=== PATIENT | female | born 1960 | race Caucasian/White ===

== ENCOUNTER 2023-07-19 13:05 | Outpatient (OUT) | payer MEDICAID, SELFPAY | END 2023-07-19 13:06 | disposition home or self-care (01) | LOC: SLEEP 13:05 | PROVIDERS: PCP Family Medicine; Visit Provider Family Medicine | DX: G47.33 Obstructive sleep apnea (adult) (pediatric) (principal) | CPT/HCPCS: 95806 ==

== ENCOUNTER 2023-08-30 07:57 | Outpatient (OUT) | payer MEDICAID, SELFPAY ==
--- OUTSIDE RECORDS SUMMARY | 2023-08-30 08:06 | XMS_ITS ---
Patient Summarization (C-CDA 2.1 CCD) Created on: August 30, 2023 KALPESH GARRISON : 1960 Sex: Female Author Organization Sample organization Care Team Providers Care Private Sector Executive Name Role Phone MATTY SWANN Primary Care Unavailable LE, LORETTA Admitting Unavailable LE, LORETTA Attending Unavailable AMANDA BISHOP V Consulting Unavailable BRITNEY, LORETTA Consulting Unavailable MATTY SWANN Admitting Unavailable MATTY SWANN Attending Unavailable MATTY SWANN Primary Care Unavailable MATTY SWANN Unavailable ROGER THAKKAR Consulting Unavailable MD Matty Swann Primary Care Provider [phone] DO Joss Alatorre Emergency Provider MD Matty Swann Primary Care Provider MD Matty Swann Referring Provider Self, Referral Attending Provider Unavailable Matty Swann MD Primary Care Provider Adeel Don Attending Unavailable Matty Swann Primary Care Unavailable Adeel Don Admitting Unavailable Self, Referral Admitting Unavailable Self, Referral Attending Unavailable Matty Swann Primary Care Unavailable Matty Swann Referring Unavailable MATTY SWANN Attending Unavailable ADEEL POSEY Attending Unavailable MATTY SWANN Attending Unavailable MATTY SWANN Attending Unavailable AMTTY SWANN Attending Unavailable MATTY SWANN Attending Unavailable Allergies Allergy Classification Reported Allergen(s) Allergy Type Date of Onset Reaction(s) Facility (1 source) Sulfonamides (Antibiotic) Drug allergy (disorder) 5 [facility] (1 source) Darvocet-N 100 Drug allergy (disorder) 5 [facility] (3 sources) Acetaminophen; Translations: [acetaminophen] Drug Allergy 2 [facility] (3 sources) Propoxyphene; Translations: [propoxyphene] Drug Allergy 2 [facility] (3 sources) Sulfonamides (Antibiotic); Translations: [Sulfa (Sulfonamide Antibiotics)] Allergy to substance 2 [facility] (1 source) metFORMIN Drug Allergy 3 GI intolerance [facility] Work Phone: (1 source) Sulfonamides (Antibiotic) Drug Allergy 3 Rash [facility] (1 source) wasp venom Drug Allergy 3 Swelling [facility] Encounters Encounter Date Encounter Type Care Provider Facility Start: 08-10-2023 End: 08-10-2023 ambulatory MATTY SWANN Not Available Start: 08-02-2023 End: 08-02-2023 ambulatory MATTY SWANN Not Available Start: 06-30-2023 End: 06-30-2023 ambulatory MATTY SWANN Not Available Start: 06-13-2023 End: 06-13-2023 ambulatory MATTY SWANN Not Available Start: 05-29-2023 End: 05-29-2023 Emergency department patient visit Adeel Don Facility:[facility] Start: 05-29-2023 End: 05-29-2023 ambulatory ADEEL POSEY Not Available Start: 05-01-2023 Refill Matty brunson MD Work Phone: [facility] Comment on above: Acquired hypothyroid ism (CMS/HCC); ESS (euthyroid sick syndrome); Mixed dyslipidemia (CMS/HCC); Lichen sclerosus et atrophicus of the vulva; Acute conjunctivitis, unspecified acute conjunctivitis type, unspecified laterality Start: 04-04-2023 End: 04-04-2023 ambulatory MATTY SWANN Not Available Start: 11-09-2022 End: 11-09-2022 ambulatory Referral Self Facility:[facility] Start: 11-09-2022 End: 11-09-2022 ambulatory MD Matty Swann Work Phone: [facility] Work Phone: Start: 11-09-2022 End: 11-09-2022 Patient encounter procedure MD Matty Swann Work Phone: [facility] Work Phone: Start: 01-26-2022 End: 01-26-2022 Emergency department patient visit MD Matty Swann Work Phone: [facility] Start: 06-20-2019 End: 06-21-2019 Patient encounter procedure MATTY SWANN Facility:[facility] Start: 03-02-2019 End: 03-02-2019 Patient encounter procedure MATTY SWANN Facility:[facility] Immunizations Immunization Date Immunization Notes Care Provider Fa cility 12-29-2016 influenza, injectabl e, quadrivalent, preservative free Matty Swann MD Work Phone: [facility] 12-29-2016 influenza virus vacc ine, unspecified formulation Matty Swann MD Work Phone: [facility] Medications Current Medications Medication Drug Class(es) Dates Sig (Normalized) Sig (Original) ascorbic acid 500 mg chewable tablet (1 source) Vitamin C ascorbic acid (Vitamin C) 500 MG chewable tablet Chew 500 mg 1 (one) time each day at the same time. 0 Active atorvastatin 20 mg oral tablet (2 sources) HMG-CoA Reductase Inhibitor Start: 05-02-2023 take 1 tablet by mouth at bedtime atorvastatin (Lipitor) 20 MG tablet Indications: Mixed dyslipidemia (CMS/HCC) Take 1 tablet (20 mg) by mouth at bedtime 90 tablet 0 05/02/2023 Active Start: 01-24-2023 End: 05-01-2023 take 1 tablet by mouth once daily atorvastatin (Lipitor) 20 MG tablet Indications: Mixed dyslipidemia (CMS/HCC) take 1 tablet by mouth once daily 90 tablet 1 01/24/2023 05/01/2023 Discontinued (Reorder) cholecalciferol 0.125 mg chewable tablet (2 sources) Vitamin D take 1 tablet by mouth in the morning cholecalciferol (Vitamin D-3) 250 MCG (93819 UT) tablet Take 10,000 Units by mouth in the morning. Winter dose. 0 Active Cholecalciferol (Vitamin D3) 125 MCG (5000 UT) chewable tablet Chew 1 capsule 1 (one) time each day at the same time. Summer dose 0 Active dexamethasone 1 mg/ml / neomycin 3.5 mg/ml / polymyxin b 01153 unt/ml ophthalmic suspension (2 sources) Aminoglycoside Antibacterial, Polymyxin-class Antibacterial, Corticosteroid Start: 05-02-2023 take 1 drop(s) into the eye(s) three times daily iijbepzj-uauazfome-osdFPTGEzcbxh (Maxitrol) 0.1 % ophthalmic suspension Indications: Conjunctivitis Apply 1 drop to affected EYE three times daily for 7 days. 5 mL 0 05/02/2023 Active Start: 04-05-2023 End: 05-01-2023 take 1 drop(s) into the eye(s) three times daily ftntdvte-hxxpvxdzk-djzUDUDGrnemh (Maxitr ol) 0.1 % ophthalmic suspension Indications: Conjunctivitis Apply 1 drop to affected EYE three times daily for 7 days. 5 mL 0 04/05/2023 05/01/2023 Discontinued (Reorder) 168 hr estradiol 0.0025 mg/hr transdermal system (3 sources) Estrogen Start: 01-05-2023 End: 07-04-2023 estradiol (Climara) 0.06 MG/24HR Indications: Surgical menopause Place 1 patch over 7 days on the skin 1 (one) time per week. 4 patch 5 01/05/2023 07/04/2023 Active Start: 08-20-2017 End: 06-29-2021 apply 1 dose topically every week Estradiol Discontinued 1 PATCH TOPICAL every week August 20, 2017 12:00am June 29, 2021 2:40am fluconazole 200 mg oral tablet (2 sources) Azole Antifungal Start: 04-04-2023 End: 07-25-2023 take 1 tablet by mouth in the morning fluconazole (Diflucan) 200 MG tablet Indications: Candidiasis Take 1 tablet (200 mg) by mouth in the morning. 14 tablet 1 05/02/2023 07/25/2023 Active levothyroxine sodium 0.025 mg oral tablet (4 sources) l-Thyroxine Start: 06-29-2021 take 12.5 ug by mouth twice daily Levothyroxine Active 12.5 MCG PO Twice daily June 29, 2021 12:00am Start: 08-20-2017 End: 06-29-2021 take 75 ug by mouth once daily Levothyroxine Discontin ued 75 MCG PO daily August 20, 2017 12:00am Silvia 4th, 2022 2:40am Magnesium (1 source) take 1 tablet by mouth once daily magnesium 200 MG tablet Take 200 mg by mouth 1 (one) time each day at the same time. 0 Active thyroid ([facility]) 15 mg oral tablet (4 sources) Start: 10-28-2022 End: 06-01-2023 take 3 tablets by mouth in the morning thyroid ([place] Thyroid) 15 MG tablet Indications: Acquired hypothyroidism (CMS/HCC) , ESS (euthyroid sick syndrome) Take 3 tablets (45 mg) by mouth in the morning and 3 tablets (45 mg) in the evening. Take before meals. 180 tablet 0 05/02/2023 06/01/2023 Active Start: 06-29-2021 take 1 tablet by marlon th twice daily Thyroid ([place]) (Dialysis Technician Thyroid) 90 mg tablet Active 90 MG PO Twice daily June 29, 2021 12:00am Zinc (1 source) take 1 tablet by mouth once edith y zinc 25 MG tablet Take 25 mg by mouth 1 (one) time each day at the same time. 0 Active Completed/Discontinued Medications Medication Drug Class(es) Dates Sig (Normalized) Sig (Original) liothyronine sodium 0.005 mg oral tablet (2 sources) l-Triiodothyroni ne Start: 08-20-2017 End: 06-29-2021 take 7.5 ug by mouth twice daily Liothyronine Discontinued 7.5 MCG PO Twice daily August 20, 2017 12:00am June 29, 2021 2:40am Payers Date Payer Category Payer Self-pay [id number] 2022 Medicaid [place] [id number] 2022-Present [address] [place] [address] [id number] 1960 Unknown [id number] 1960 Unknown [id number] 1960 Unknown [id number] 1960 Unknown [id number] 1960 Unknown [id number] 1960 Unknown [id number] 1960 Unknown [id number] 1960 Unknown [id number] 1957 Medicaid [id number] 1957 Self-pay [id number] Medicaid [place] Advantage [id number] Unknown MMO [id number] Unknown [id number] Unknown [id number] Plan of Treatment Date Care Activity Detail Author Start: 02-12-2025 Screening for malign ant neoplasm of colon [facility] Start: 06-30-2023 End: 06-30-2023 Patient encounter procedure 06/30/2023 2:30 PM EDT Office Visit [facility] [address] [place] [address] Matty Swann MD [address] [place] [address] (Fax) [facility] Start: 11-26-2022 Influenza vaccination Influenza Vacc ine (#1) [facility] Start: 05-30-2021 Screening for malign ant neoplasm of breast Mammogram [facility] Start: 1960 Screening for malign ant neoplasm of colon [facility] Patient Education Chest Pain (DC) [facility] Work Phone: Patient referral [facility] Work Phone: Problems Active Problems Problem Classification Problem Date Documented Date Episodic/Chronic Chronic kidney disease (1 source) Chronic kidney disease stage 2; Translations: [Chronic kidney disease, stage 2 (mild)] Onset: 09-15-2022 09-15-2022 Chronic Complications of surgical procedures or medical care (1 source) Postsurgical menopause; Translations: [Asymptomatic postprocedural ovarian failure] Onset: 04-09-2015 09-15-2022 Chronic Disorders of lipid metabolism (2 sources) Dyslipidemia; Translations: [Mixed hyperlipidemia] Onset: 09-15-2022 05-01-2023 Chronic Essential hypertension (1 source) Essential hypertension; Translations: [Essential (primary) hypertension] Onset: 09-15-2022 09-15-2022 Chronic Hepatitis (1 source) Nonalcoholic steatohepatitis; Translations: [Nonalcoholic steatohepatitis (HADDAD)] Onset: 09-15-2022 09-15-2022 Chronic Hypertension with complications and secondary hypertension (1 source) Hypertensive renal disease; Translations: [Hypertensive chronic kidney disease with stage 1 through stage 4 chronic kidney disease, or unspecified chronic kidney disease] Onset: 09-15-2022 09-15-2022 Chronic Inflammation; infection of eye (except that caused by tuberculosis or sexually transmitteddisease) (2 sources) Acute conjunctivitis; Translations: [Unspecified acute conjunctivitis, unspecified eye] Onset: 04-04-2023 05-01-2023 Episodic Joint disorders and dislocations; trauma-related (2 sources) Disorder of right patellofemoral joint; Translations: [Patellofemoral disorders, right knee] Onset: 05-05-2016 09-15-2022 Chronic Joint disorders and dislocations; trauma-related (1 source) Disorder of left patellofemoral joint; Translations: [Patellofemoral disorders, left knee] Onset: 05-05-2016 09-15-2022 Chronic Malaise and fatigue (1 source) Fatigue; Translations: [Chronic fatigue, unspecified] Onset: 04-09-2015 09-15-2022 Chronic Malaise and fatigue (1 source) Other fatigue; Translations: [Other fatigue] Onset: 05-29-2023 Episodic Nonspecific chest pain (2 sources) Chest pain; Translations: [Chest pain, unspecified] 01-26-2022 Episodic Nutritional deficiencies (1 source) Vitamin D deficiency; Translations: [Vitamin D deficiency, unspecified] Onset: 01-22-2015 09-15-2022 Chronic Other congenital anomalies (1 source) Congenital valgus deformity of foot; Translations: [Other congenital valgus deformities of feet] Onset: 09-15-2022 09-15-2022 Chronic Other congenital anomalies (1 source) Talipes planus; Translations: [Other congenital valgus deformities of feet] Onset: 09-20-2021 09-15-2022 Chronic Other female genital disorders (2 sources) Leukoplakia of vulva; Translations: [Circumscribed scleroderma] Onset: 09-15-2022 05-01-2023 Episodic Other liver diseases (1 source) Fatty (change of) liver, not elsewhere classified; Translations: [Other chronic nonalcoholic liver disease] Onset: 03-06-2019 09-15-2022 Chronic Other nutritional; endocrine; and metabolic disorders (1 source) Severe obesity; Translations: [Morbid (severe) obesity due to excess calories] Onset: 12-25-2019 09-15-2022 Chronic Other nutritional; endocrine; and metabolic disorders (1 source) Obese class II; Translations: [Obesity, unspecified] Onset: 04-15-2020 09-15-2022 Chronic Pancreatic disorders (not diabetes) (1 source) Acute pancreatitis without necrosis or infection, unspecified; Translations: [ACUTE PANCREATITIS WO NECRS/INF UNS] Onset: 03-05-2019 Thyroid disorders (3 sources) Hypothyroidism, unspecified; Translations: [Acquired hypothyroidism] Onset: 01-22-2015 05-01-2023 Chronic Thyroid disorders (2 sources) Sick-euthyroid syndrome; Translations: [Sick-euthyroid syndrome] Onset: 05-14-2015 05-01-2023 Episodic Unclassified (1 source) Cough, unspecified; Translations: [Cough, unspecified] Onset: 05-29-2023 Unclassified (1 source) Encounter for screening mammogram for malignant neoplasm of breast; Translations: [Encounter for screening mammogram for malignant neoplasm of breast] Onset: 11-09-2022 Past or Other Problems Problem Classification Problem Date Documented Da te Episodic/Chronic Acquired foot deformities (1 source) Acquired pes planus of left foot; Translations: [Flat foot [pes planus] (acquired), left foot] Onset: 7 09-15-2022 Episodic Allergic reactions (1 source) Gastrointestinal disorder due to food allergy; Translations: [Other allergic and dietetic gastroenteritis and colitis] Onset: 6 09-15-2022 Episodic Cardiac dysrhythmias (1 source) Palpitations; Translations: [Palpitations] Onset: 5 09-15-2022 Episodic Diabetes mellitus without complication (1 source) Prediabetes; Translations: [Prediabetes] Onset: 3 09-15-2022 Episodic Gastritis and duodenitis (1 source) Acute gastritis without bleeding; Translations: [ACUTE GASTRITIS WITHOUT BLEEDING] Onset: 9 Episodic Genitourinary symptoms and ill-defined conditions (1 source) Microalbuminuria; Translations: [Proteinuria, unspecified] Onset: 3 09-15-2022 Episodic Other acquired deformities (1 source) Leg length inequality; Translations: [Unequal limb length (acquired), unspecified site] Onset: 7 09-15-2022 Episodic Other diseases of veins and lymphatics (1 source) Peripheral venous insufficiency; Translations: [Venous insufficiency (chronic) (peripheral)] Onset: 2 09-15-2022 Episodic Other female genital disorders (1 source) Leukoplakia of vulva; Translations: [Leukoplakia of vulva] Onset: 5 09-15-2022 Episodic Other gastrointestinal disorders (4 sources) Diarrhea, unspecified; Translations: [DIARRHEA UNSPECIFIED] Onset: 9 Episodic Other screening for suspected conditions (not mental disorders or infectious disease) (4 sources) Abnormal electrocardiogram [ECG] [EKG]; Translations: [ABNORMAL ELECTROCARDIOGRAM] Onset: 0 Episodic Residual codes; unclassified (1 source) Family history of ischemic heart disease and other diseases of the circulatory system; Translations: [FAM HX ISCHEMIC HRT DZ OTH DZ CIRC] Onset: 0 Episodic Residual codes; unclassified (1 source) Acquired absence of both cervix and uterus; Translations: [ACQUIRED ABSENCE BOTH CERVIX AND UTERUS] Onset: 9 Episodic Residual codes; unclassified (1 source) Acquired absence of ovaries, bilateral; Translations: [ACQUIRED ABSENCE OVARIES BILATERAL] Onset: 9 Episodic Residual codes; unclassified (1 source) Acquired absence of cervix and uterus; Translations: [Acquired absence of both cervix and uterus] Onset: 3 09-15-2022 Episodic Residual codes; unclassified (1 source) Persistent insomnia; Translations: [Insomnia, unspecified] Onset: 3 09-15-2022 Episodic Residual codes; unclassified (1 source) Sleep disorder; Translations: [Sleep disorder, unspecified] Onset: 5 09-15-2022 Episodic Procedures Date Procedure Procedure Detail Performing Clinician Start: 11-09-2022 Screening mammograph y of bilateral breasts MD Matty Swann Work Phone: Start: 01-26-2022 Plain chest X-ray MD Romain Swann Work Phone: Start: 05-30-2020 Mammography Matty razo MD Work Phone: Start: 02-12-2015 Colonoscopy Matty razo MD Work Phone: SARS Antigen (LFIA) MD José Swann Work Phone: Results Test Name Value Interpretation Reference Range Facility COVID-19 / Flu A/B / RSV PCR on 05-29-2023 SARS-CoV-2 (COVID-19) RNA CARLOS+probe Ql (Unsp spec) COVID-19 Cepheid Result Negative for SARS-CoV-2 RNA by RT-PCR Flu A Cepheid Result Negative for Flu A RNA by RT-PCR Flu B Cepheid Result Negative for Flu B RNA by RT-PCR RSV Cepheid Result Negative for RSV RNA by RT-PCR COVID19 Blank Space -- Reference: Negative COVID19 Blank Space -- Cepheid Disclaimer The Cepheid Xpert Xpress CoV-2/Flu/RSV Plus has Cepheid Disclaimer not been FDA cleared or approved; this test has Cepheid Disclaimer been authorized by FDA under an EUA for use by Cepheid Disclaimer authorized laboratories; this test has been Cepheid Disclaimer authorized only for the simultaneous qualitative Cepheid Disclaimer detection and differentiation of nucleic acids from Cepheid Disclaimer SARS-CoV-2, influenza A, influenza B, and Cepheid Disclaimer respiratory syncytial virus (RSV), and not for any Cepheid Disclaimer other viruses or pathogens; and this test is only Cepheid Disclaimer authorized for the duration of the declaration that Cepheid Disclaimer circumstances exist justifying the authorization of Cepheid Disclaimer emergency use of in vitro diagnostic tests for Cepheid Disclaimer detection and/or diagnosis of COVID-19 under Cepheid Disclaimer Section 564(b)(1) of the Act, 21 U.S.C. 360bbb- Cepheid Disclaimer 3(b)(1), unless the authorization is terminated or Cepheid Disclaimer revoked sooner. PERFORMED BY: [facility] [address] [id number] PATHOLOGIST MILLING MACHINE TENDER PUJA MOODY M.D. Normal [facility] Comment on above: Performed By: #### C EPHEID NEG, COVID19 FLU RSV #### [facility] [address] Cepheid COVID PCR Negativeon 05-29-2023 SARS-CoV-2 (COVID-19) RNA CARLOS+probe Ql (Unsp spec) Negative Normal Negative [facility] Comment on above: Result Comment: This is a duplicate Cepheid Xpert Xpress CoV-2/Flu/RSV Plus RNA by RT-PCR result to be used for statistical tracking purpose only. PERFORMED BY: [place] [id number] PATHOLOGIST MILLING MACHINE TENDER PUJA MOODY M.D. Performed By: #### C EPHEID NEG, COVID19 FLU RSV #### [place] [id number] [facility] ECG 12 lead ECGon 05-29-2023 ECG 12 lead ECG [facility] [place] [address] Electrocardiograph Report Signed Patient: Kalpesh Garrison MR#: [id number] 2 : 1960 Acct:[id number] Age/Sex: 63 / F ADM Date: 05/29/23 Loc: ER Room: Type: [facility] ER Attending Dr: Ordering Provider: Adeel Don APRN Date of Service: 05/29/2306/18/1433 ECG/ECG 12 lead ECG: Shortness of Breath/Dyspnea Copies to: Test Reason : Blood Pressure : / mmHG Vent. Rate : 067 BPM Atrial Rate : 067 BPM P-R Int : 156 ms QRS Dur : 070 ms QT Int : 416 ms P-R-T Axes : 030 026 014 degrees QTc Int : 439 ms Normal sinus rhythm Normal ECG When compared with ECG of 26-JAN-2022 16:25, No significant change was found Confirmed by IGNACIO GARCIA MD ([id number]) on 05/29/2023 3:27:56 PM Referred By: Electronically Signed By:IGNACIO GARCIA MD Transcribed By: MUS Signed By Ignacio Garcia MD 05/29/23 1528 Normal [facility] XR chest 2V*on 05-29-2023 XR chest 2V* [facility] [place] [address] XRay Report Signed Patient: Kalpesh Garrison MR#: [id number] 2 : 1960 Acct:[id number] Age/Sex: 63 / F ADM Date: 05/29/23 Loc: ER Room: Type: [facility] ER Attending Dr: Copies to: Adeel Don APRN Ordering Provider: Adeel Don APRN Date of Service: 05/29/23 XR/XR chest 2V*: Shortness of Breath/Dyspnea Chest 2 views CLINICAL HISTORY: Chest pressure cough green mucus trouble breathing for 2 weeks COMPARISON: Chest 01/26/2022 FINDINGS: Heart normal in size. Lungs are clear. No free air. XR/XR chest 2V* IMPRESSION: NO ACUTE CARDIOPULMONARY ABNORMALITY. Impression dictated by: Renato Gillis Jr., DJadenOJaden05/29/2023 4:18 PM Dictation Location: [facility] Transcribed By: [facility] 05/29/23 1618 Dictated By: Renato Gillis Jr, DO 05/29/23 1617 Signed By: 05/29/23 1618 Normal [facility] MM screening mammo BI w/CADo n 11-09-2022 MM screening mammo BI w/CAD [facility] [address] Mammography Report Signed Patient: Kalpesh Garrison MR#: [id number] 2 : 1960 Acct:[id number] Age/Sex: 62 / F ADM Date: 11/09/22 Loc: [place] Room: Type: [facility] Attending Dr: Referral Self Copies to: Matty Swann MD SELF,REFERRAL Ordering Provider: SELF,REFERRAL Date of Service: 11/09/22 MM/MM screening mammo BI w/CAD: SCREENING CLINICAL DATA: Screening for malignancy. BILATERAL SCREENING MAMMOGRAMS - FULL FIELD DIGITAL WITH TOMOSYNTHESIS AND CAD Tomosynthesis craniocaudal and mediolateral oblique views of both breasts were obtained using low- dose digital technique. Comparison is made to prior studies from 06/10/2017, 02/26/2015, and 11/23/2013. This examination was reviewed with the aid of CAD. The breast parenchyma has been largely replaced by fat. Benign-appearing lymph nodes are noted along the chest wall bilaterally. There are similar focal asymmetries bilaterally. Benign-appearing calcifications are present bilaterally similar to the prior exam. There are no dominant masses, typically malignant calcifications or architectural distortion. There has been no significant interval change. MM/MM screening mammo BI w/CAD IMPRESSION: NO MAMMOGRAPHIC EVIDENCE OF MALIGNANCY. ROUTINE FOLLOW-UP IS RECOMMENDED IN ONE YEAR. RESULT CODE: 2 Benign Findings(s) DENSITY CODE: 1 (<25% glandular) FOLLOW UP: 1YR The false-negative rate of mammography is approximately 10-percent. Management of a palpable abnormality must be based on clinical grounds. Patient was entered into a reminder system with a target due date for the next mammogram. Impression dictated by: Michael Lassiter M.D.11/09/2022 4:19 PM Dictation Location: [facility] Transcribed By: CHRISSY 11/09/22 161 Dictated By: Michael Lassiter II, MD 11/09/22 1614 Signed By: 11/09/22 1619 Normal [facility] Activated partial thrombopla stin time (aPTT) in platelet poor plasma by coagulation aOrdered By: Joss Alatorre on 01-26-2022 aPTT Coag (PPP) [Time] 31.2 s 25.1-36.5 [facility] Automated erythrocytes count in urine sediment (number/area)Ordered By: Joss Alatorre on 01-26-2022 RBC Auto (Urine sed) [#/Area] 0-1 [HPF] 0-4 [facility] Automated leukocytes count i n urine sediment (number/area)Ordered By: Joss Alatorre on 01-26-2022 WBC Auto (Urine sed) [#/Area] 1-2 [HPF] 0-4 [facility] Basophils Auto (Bld) [#/Vol] Ordered By: Joss Alatorre on 01-26-2022 Basophils (Bld) [#/Vol] 0.1 10*3/uL 0.0-0.2 [facility] Basophils/100 WBC Auto (Bld) Ordered By: Joss Alatorre on 01-26-2022 Basophils/100 WBC (Bld) 0.8 % . [facility] Bilirubin Test strip Ql (U)O rdered By: Joss Alatorre on 01-26-2022 Bilirubin Ql (U) Negative Negative [facility] COVID-19 SOFIAOrdered By: Shree Siddiqui on 01-26-2022 SARS-CoV+SARS-CoV-2 (COVID-19) Ag IA.rapid Ql (Resp) Negative Negative [facility] Comment on above: This is a duplicate Ria SARS Antigen (NELLIE) result to be used for statistical tracking purpose only. Color Auto (U)Ordered By: Henry Alatorre on 01-26-2022 Color (U) Yellow Yellow [facility] Creatine kinase [Enzymatic a ctivity/volume] in Serum or PlasmaOrdered By: Joss Alatorre on 01-26-2022 CK [Catalytic activity/Vol] 102 U/L 22-269 [facility] Creatinine and Glomerular fi ltration rate.predicted panel (S/P/Bld)Ordered By: Joss Alatorre on 01-26-2022 Creatinine [Mass/Vol] 0.81 mg/dL 0.44-1.03 [facility] Eosinophils Auto (Bld) [#/Vo l]Ordered By: Joss Alatorre on 01-26-2022 Eosinophils (Bld) [#/Vol] 0.3 10*3/uL 0.0-0.45 [facility] Eosinophils/100 WBC Auto (Bl d)Ordered By: Joss Alatorre on 01-26-2022 Eosinophils/100 WBC (Bld) 3.7 % . [facility] Erythrocyte distribution wid th Auto (RBC) [Ratio]Ordered By: Joss Alatorre on 01-26-2022 Erythrocyte distribution width (RBC) [Ratio] 13.6 % 11.9-15.3 [facility] Estimated glomerular filtrat ion rate (GFR) non- AmericanOrdered By: Joss Alatorre on 01-26-2022 GFR/1.73 sq M.predicted among non-blacks MDRD (S/P/Bld) [Vol rate/Area] > 60 mL/Min [facility] Hematocrit Auto (Bld) [Volum e fraction]Ordered By: Joss Alatorre on 01-26-2022 Hematocrit (Bld) [Volume fraction] 40.5 % 34.0-46.4 [facility] Hemoglobin [Mass/volume] in BloodOrdered By: Joss Alatorre on 01-26-2022 Hemoglobin (Bld) [Mass/Vol] 13.6 g/dL 11.8-15.4 [facility] Ketones Auto test strip (U) [Mass/Vol]Ordered By: Joss Alatorre on 01-26-2022 Ketones (U) [Mass/Vol] Negative Negative [facility] Laboratory - Chemistry and C hemistry - challengeOrdered By: Joss Alatorre on 01-26-2022 Natriuretic peptide B (Bld) [Mass/Vol] 14.0 pg/mL 5-100 [facility] Laboratory - CoagulationOrde red By: Joss Alatorre on 01-26-2022 PT Coag (PPP) [Time] 11.8 s 9.0-12.9 [facility] Laboratory - Hematology and Cell countsOrdered By: Joss Alatorre on 01-26-2022 Nucleated RBC/100 WBC (Bld) [Ratio] 0.1 % 0-0.5 [facility] Laboratory - UrinalysisOrder ed By: Joss Alatorre on 01-26-2022 Hyaline casts LM Ql (Urine sed) 0-8 [LPF] 0-8 [facility] Leukocytes [#/volume] in Blo od by Automated countOrdered By: Joss Alatorre on 01-26-2022 WBC (Bld) [#/Vol] 7.1 10*3/uL 4.5-11.0 [facility] Lymphocytes Auto (Bld) [#/Vo l]Ordered By: Joss Alatorre on 01-26-2022 Lymphocytes (Bld) [#/Vol] 2.9 10*3/uL 1.00-4.8 [facility] Lymphocytes/100 WBC Auto (Bl d)Ordered By: Joss Alatorre on 01-26-2022 Lymphocytes/100 WBC (Bld) 40.5 % . [facility] MCH Auto (RBC) [Entitic mass ]Ordered By: Joss Alatorre on 01-26-2022 MCH (RBC) [Entitic mass] 29.8 pg 24.7-34.3 [facility] MCHC Auto (RBC) [Mass/Vol]Or dered By: Joss Alatorre on 01-26-2022 MCHC (RBC) [Mass/Vol] 33.5 g/dL 32.0-35.0 [facility] MCV Auto (RBC) [Entitic vol] Ordered By: Joss Alatorre on 11-01-2022 MCV (RBC) [Entitic vol] 88.8 fL 80-100 [facility] Monocytes Auto (Bld) [#/Vol] Ordered By: Joss Alatorre on 01-26-2022 Monocytes (Bld) [#/Vol] 0.5 10*3/uL 0.0-0.8 [facility] Monocytes/100 WBC Auto (Bld) Ordered By: Joss Alatorre on 01-26-2022 Monocytes/100 WBC (Bld) 6.8 % . [facility] Neutrophils Auto (Bld) [#/Vo l]Ordered By: Joss Alatorre on 01-26-2022 Neutrophils (Bld) [#/Vol] 3.4 10*3/uL 1.8-7.7 [facility] Neutrophils/100 WBC Auto (Bl d)Ordered By: Joss Alatorre on 01-26-2022 Neutrophils/100 WBC (Bld) 48.2 % . [facility] Nitrite Test strip Ql (U)Ord ered By: Joss Alatorre on 01-26-2022 Nitrite Ql (U) Negative Negative [facility] No Panel InformationOrdered By: Joss Alatorre on 01-26-2022 Estimated GFR () > 60 mL/Min [facility] Comment on above: GFR estimated refere nce range: According to KDOQI guidelines, <60 ml/min/1.73m2 is sufficient to diagnose a patient with chronic kidney disease. Pharmacy Creatinine Clearance (Chem 85.64 [facility] No Panel InformationOrdered By: Luis Siddiqui on 01-26-2022 SARS Antigen (LFIA) [facility] Platelet mean volume Auto (B ld) [Entitic vol]Ordered By: Joss Alatorre on 01-26-2022 Platelet mean volume (Bld) [Entitic vol] 6.2 fL 6.3-10.7 [facility] Platelet poor plasma interna tional normalized ratio (INR) by coagulation assay (relatOrdered By: Joss Alatorre on 01-26-2022 INR Coag (PPP) [Relative time] 1.0 {INR} [facility] Comment on above: INR Therapeutic Rang e A) Pre- and Peroperative OAT started two weeks before surgery. NOT HIP SURGERY: 1.5 - 2.5 HIP SURGERY: 2 - 3B) Primary and secondary prevention of venous THROMBOSIS: 2 - 3C) Active venous thrombosis, pulmonary embolismand prevention of recurrent venous thrombosis: 2 - 3D) Prevention of arterial thromboembolismincluding patients with mechanical heart valves: 3 - 4.5 Platelets Auto (Bld) [#/Vol] Ordered By: Joss Alatorre on 01-26-2022 Platelets (Bld) [#/Vol] 368 10*3/uL 150-450 [facility] Protein Auto test strip (U) [Mass/Vol]Ordered By: Joss Alatorre on 01-26-2022 Protein (U) [Mass/Vol] Negative Negative Fi [facility] RBC Auto (Bld) [#/Vol]Ordere d By: Joss Alatorre on 01-26-2022 RBC (Bld) [#/Vol] 4.57 10*6/uL 3.60-5.00 [facility] Serum or plasma anion gap de terminationOrdered By: Joss Alatorre on 01-26-2022 Anion gap [Moles/Vol] 13.2 mmol/L 6.0-15.0 [facility] Serum or plasma calcium royce urement (mass/volume)Ordered By: Joss Alatorre on 01-26-2022 Calcium [Mass/Vol] 8.9 mg/dL 8.2-10.2 [facility] Serum or plasma chloride odell surement (moles/volume)Ordered By: Joss Alatorre on 01-26-2022 Chloride [Moles/Vol] 101 mmol/L 95-114 [facility] Serum or plasma creatine kin ase MB (CKMB)/total creatine kinase (CK) ratio by calculaOrdered By: Joss Alatorre on 01-26-2022 CK.MB Calc [Catalytic fraction] 3.0 % 0.00-2.50 [facility] Serum or plasma creatine kin ase MB measurement (mass/volume)Ordered By: Joss Alatorre on 01-26-2022 CK.MB [Mass/Vol] 3.1 ng/mL 0.6-6.3 [facility] Serum or plasma glucose royce urement (mass/volume)Ordered By: Joss Alatorre on 01-26-2022 Glucose [Mass/Vol] 143 mg/dL 70-100 [facility] Comment on above: ADA recommended refe rence rangeRandom Glucose Reference Range is dependent on time and content of last meal. Glucose of more than 200 mg/dL in a nonstressed, ambulatory subject supports the diagnosis of Diabetes Mellitus. Serum or plasma potassium me asurement (moles/volume)Ordered By: Joss Alatorre on 01-26-2022 Potassium [Moles/Vol] 3.9 mmol/L 3.5-5.1 [facility] Serum or plasma sodium measu rement (moles/volume)Ordered By: Joss Alatorre on 01-26-2022 Sodium [Moles/Vol] 136 mmol/L 136-146 [facility] Serum or plasma total carbon dioxide measurement (moles/volume)Ordered By: Joss Alatorre on 01-26-2022 CO2 [Moles/Vol] 25.7 mmol/L 22.0-30.0 [facility] Serum or plasma urea nitroge n measurement (mass/volume)Ordered By: Joss Alatorre on 01-26-2022 Urea nitrogen [Mass/Vol] 13 mg/dL 9-23 [facility] Specific gravity Auto test s trip (U) [Rel density]Ordered By: Joss Alatorre on 01-26-2022 Specific gravity (U) [Rel density] 1.020 1.001-1.03 0 [facility] Squamous epithelial cells de tection in urine sediment by light microscopyOrdered By: Joss Alatorre on 01-26-2022 Epithelial cells.squamous LM Ql (Urine sed) 3-4 [HPF] 0-2 [facility] Troponin I.cardiac [Mass/vol ume] in Serum or Plasma by High sensitivity methodOrdered By: Joss Alatorre on 01-26-2022 Troponin I.cardiac High sensitivity method [Mass/Vol] 3 pg/mL 0-15 [facility] Urine bacteria detection by automated methodOrdered By: Joss Alatorre on 01-26-2022 Bacteria Auto Ql (U) None seen None Seen [facility] Urine clarity by refractomet ry automatedOrdered By: Joss Alatorre on 01-26-2022 Clarity Refractometry automated (U) Clear Clear [facility] Urine glucose measurement by automated test strip (mass/volume)Ordered By: Joss Alatorre on 01-26-2022 Glucose Auto test strip (U) [Mass/Vol] Normal mg/dL Normal [facility] Urine hemoglobin detection b y automated test stripOrdered By: Joss Alatorre on 01-26-2022 Hemoglobin Auto test strip Ql (U) Negative Negative [facility] Urine leukocyte esterase det ection by automated test stripOrdered By: Joss Alatorre on 01-26-2022 Leukocyte esterase Auto test strip Ql (U) 2+ Negative [facility] Urobilinogen Auto test strip (U) [Mass/Vol]Ordered By: Joss Alatorre on 01-26-2022 Urobilinogen (U) [Mass/Vol] Normal mg/dL Normal [facility] pH Auto test strip (U)Ordere d By: Joss Alatorre on 01-26-2022 pH (U) 6.0 [pH] 5.0-9.0 [facility] Q - T3 TOTALon 04-10-2021 T3, TOTAL 121 ng/dL Normal 76-181 [facility] Comment on above: Order Comment: [facility] performed at: [facility], [address] [facility], [address] [place] [address], [phone], Baton Twirler: Jensen Patiño MD [facility] Collection Date/Time: [facility] Results Received Date/Time: [facility] Reported Date/Time: FASTING: NO Performed By: #### T SH, 859X, [id number], [id number], [id number] #### [facility] [address] [place] [address] Q - T3,FREEon 04-10-2021 Free T3 [Mass/Vol] 3.2 pg/mL Normal 2.3-4.2 [facility] B[facility] Preparer Comment on above: Order Comment: [facility] performed at: [facility], [facility], [address] [facility], [address] [place] [address], [phone], Baton Twirler: Jensen Patiño MD [facility] Date/Time: [facility] Results Received Date/Time: [facility] Reported Date/Time: FASTING: NO Performed By: #### T BERTO, 859X, [id number], [id number], [id number] #### [facility] [address] [place] [address] Q - T3,REVERSE,LC/MS/MSon T3 REVERSE, LC/MS/MS 12 ng/dL Normal 8-25 [place] [facility] Comment on above: Order Comment: [facility] performed at: [facility], [facility], [address], [place], [place], , Baton Twirler: Davie Lee M.D.,PhD [facility] Date/Time: [facility] Results Received Date/Time: [facility] Reported Date/Time: FASTING: NO Result Comment: This test was developed and its analytical performance characteristics have been determined by [facility] [place], [place]. It has not been cleared or approved by the U.S. Food and Drug Administration. This assay has been validated pursuant to the CLIA regulations and is used for clinical purposes. Performed By: #### T BERTO, 859X, 10457, 60291K, [id number] #### [facility] [address] [place] [address] Q - T4,FREEon 04-10-2021 Free T4 [Mass/Vol] 0.9 ng/dL Normal 0.8-1.8 Kandy montero [place] [facility] [employer] Comment on above: Order Comment: [facility] performed at: [facility], [facility], [address] [facility], [address] [place] [address], [place], [phone], Baton Twirler: Jensen Patiño MD [facility] Date/Time: [facility] Results Received Date/Time: [facility] Reported Date/Time: FASTING: NO Performed By: #### T BERTO, 859X, 77725, [id number], [id number] #### [facility] [address] [place] [address] TSHon 04-10-2021 TSH Qn 0.84 m[IU]/L Normal 0.40-4.50 [facility] Bead Preparer Comment on above: Order Comment: [facility] performed at: [facility], [facility], [address] [facility], [address] [facility], [place], [address], Baton Twirler: Jensen Patiño MD [facility] Date/Time: [facility] Results Received Date/Time: [facility] Reported Date/Time: FASTING: NO Performed By: #### T SH, 859X, 48178, [id number], [id number] #### [facility] [address] [place] [address] [place] STRESS/REST MULTIon 06-19 [place] STRESS/REST MULTI Patient: KEVIN GARRISON Exam Date: 06/20/2019 : 1960 Gender:F Ordering : DR MATTY SWANN . Admission #: [id number] Family : Order #: [id number] CLICK HERE TO VIEW EXAM RADIOLOGY REPORT PROCEDURE: RADIONUCLIDE IMAGING STRESS/REST MULTI COMPARISON: None. INDICATIONS: Abnormal find on electrocardiogram R94.31, family history of heart disease Z82.49 TECHNIQUE: Exam Description: Stress/Rest one day protocol gated SPECT Rest Imagin.9 mCi Tc-99m Cardiolite IV on 06/20/2019 Stress Imaging 29.5 mCi Tc-99m Cardiolite IV on 06/20/2019 Exercise Protocol: Myles Heart Rate (bpm): Rest: 84 Max: 167 PMHR: 102 Blood Pressure: Rest: 128/86 Max: 180/100 Exercise Time: Minutes: 5 Seconds: 30 Stage Reached: Stage: 2 Mets 7.0 Symptoms: Rest and peak stress ECG findings were non-diagnostic and the exercise portion of the study was Non-diagnostic per attending physician Dr. Ward due toEKG changes. For more details please see separate cardiac stress test report. FINDINGS: QUALITY OF STUDY: Excellent. PERFUSION DEFECT: None. LOCATION: N/A SIZE: N/A. SEVERITY: N/A. TYPE: N/A. WALL MOTION: Normal. LV SIZE: Normal. 42 mL. TID / TCD: None; 0.7 LVEF: Normal. Calculated EF 78%. SUMMARY: Myocardial perfusion imaging study is NORMAL. CONCLUSION: 1. Normal nuclear medicine myocardial perfusion scan. 2. Abnormal exercise portion of the study due to EKG changes. Dictated by: Roger Thakkar M.D. on 06/20/2019 at 13:01 Approved by: Roger Thakkar M.D. on 06/20/2019 at 13:02 Normal [facility] CBC AUTO DIFFon 03-02-2019 Basophils (Bld) [#/Vol] 0.0 103/ul Normal 0.0-0.1 [facility] Comment on above: Performed By: #### C BC #### [facility] [address] [place] [address] Israel Tisha Basophils/100 WBC (Bld) 0.3 % Normal 0.2-2.0 [facility] Comment on above: Performed By: #### C BC #### [facility] [address] [place] [address] [place] Tisha Eosinophils (Bld) [#/Vol] 0.2 103/ul Normal 0.0-0.7 [facility] Comment on above: Performed By: #### C BC #### [facility] [address] [place] [address] [place] Tisha Eosinophils/100 WBC (Bld) 1.6 % Normal 0.9-7.0 [facility] Comment on above: Performed By: #### C BC #### [facility] [address] [place], [place] [id number] Israel Tisha Erythrocyte distribution width (RBC) [Ratio] 12.5 % Normal 11.0-15.0 [facility] Comment on above: Performed By: #### C BC #### [facility] [address] [place], [place] [id number] Israel Tisha Hematocrit (Bld) [Volume fraction] 43.2 % Normal 36.0-48.0 [facility] Comment on above: Performed By: #### C BC #### [facility] [address] [place], [place] [id number] Israel Tisha Hemoglobin (Bld) [Mass/Vol] 14.7 g/dL Normal 12.0-16.0 [facility] Comment on above: Performed By: #### C BC #### [facility] [address] [place] [address] Israelbeatriz Giles IG # 0.06 10e3/ul Critically high 0.00-0.03 [facility] Comment on above: Performed By: #### C BC #### [facility] [address] [place] [address] Israel Tisha IG % 0.5 % Normal 0.0-0.5 [facility] Comment on above: Performed By: #### C BC #### [facility] [address] [place] [address] Israel Tisha Lymphocytes (Bld) [#/Vol] 1.5 103/ul Normal 1.2-3.8 [facility] Comment on above: Performed By: #### C BC #### [facility] [address] [place] [address] Israel Giles Lymphocytes/100 WBC (Bld) 12.1 % Critically low 20.5-60.0 [facility] Comment on above: Performed By: #### C BC #### [facility] [address] [place] [address] Israel Giles MANUAL DIFF REQ NO Normal [facility] Comment on above: Performed By: #### C BC #### [facility] [address] [place] [address] Israelbeatriz Hdzen MCH (RBC) [Entitic mass] 28.7 pg Normal 26.7-34.0 [facility] Comment on above: Performed By: #### C BC #### [facility] [address] [place] [address] Israelbeatriz Giles MCHC (RBC) [Mass/Vol] 34.0 g/dL Normal 29.9-35.2 [facility] Comment on above: Performed By: #### C BC #### [facility] [address] [place] [address] Israelbeatriz Giles MCV (RBC) [Entitic vol] 84.4 fL Normal 81.0-99.0 [facility] Comment on above: Performed By: #### C BC #### [facility] [address] [place], [place] [address] Israel Tisha Monocytes (Bld) [#/Vol] 0.8 103/ul Normal 0.3-0.8 [facility] Comment on above: Performed By: #### C BC #### [facility] [address] [place], [place] [address] [place] Tisha Monocytes/100 WBC (Bld) 6.3 % Normal 1.7-12.0 [facility] Comment on above: Performed By: #### C BC #### [facility] [address] [place], [place] [address] [place] Tisha Neutrophils (Bld) [#/Vol] 9.8 103/ul Critically high 1.4-6.5 [facility] Comment on above: Performed By: #### C BC #### [facility] [address] [place], [place] [address] Israel Tisha Neutrophils/100 WBC (Bld) 79.2 % Critically high 43.0-75.0 [facility] Comment on above: Performed By: #### C BC #### [facility] [address] [place], [place] [address] Israel Tisha Platelet mean volume (Bld) [Entitic vol] 8.0 fL Critically low 9.5-13.5 [facility] Comment on above: Performed By: #### C BC #### [facility] [address] [place], [place] [address] [place] Tisha Platelets (Bld) [#/Vol] 254 103/ul Normal 150-450 [facility] Comment on above: Performed By: #### C BC #### [facility] [address] [place], [place] [address] [place] Tisha RBC (Bld) [#/Vol] 5.12 106/ul Normal 4.20-5.40 [facility] Comment on above: Performed By: #### C BC #### [facility] [address] [place], [place] [address] Israel Tisha WBC (Bld) [#/Vol] 12.3 103/ul Critically high 4.0-11.0 [facility] Comment on above: Performed By: #### C BC #### [facility] [address] [place], [place] [address] ABD/PELVIS W CONon 2018 CT ABD/PELVIS W CON Patient: NANCY GARRISON Exam Date: 03/02/2019 : 1960 Gender:F Ordering : DR. LORETTA TAN D.O. Admission #: [id number] Family : DR MATTY SWANN . Order #: [id number] CLICK HERE TO VIEW EXAM RADIOLOGY REPORT PROCEDURE: CT ABDOMEN AND PELVIS WITH CONTRAST COMPARISON: None. INDICATIONS: Acute epigastric pain, nausea and diarrhea; pancreatitis TECHNIQUE: CT images were created with IV contrast. Axial, Coronal, and Sagittal images. DOSE: 100cc Omnipaque 300; 1441 mGycm FINDINGS: LUNG BASES: No visible pulmonary or pleural disease. LIVER: Diffuse hypoattenuation consistent with hepatic steatosis BILIARY: No visible dilatation or calcification. PANCREAS: No lesion, fluid collection, ductal dilatation, or atrophy. SPLEEN: No enlargement or focal lesion. ADRENALS: No mass or enlargement. KIDNEYS: No mass, obstruction, or calcification. BOWEL/MESENTERY: No visible mass, obstruction, or bowel wall thickening. Normal appendix AORTA/VASCULAR: No aneurysm or dissection. RETROPERITONEUM: No mass or adenopathy. LYMPH NODES: No adenopathy. URINARY BLADDER: No visible focal wall thickening, lesion, or calculus. PELVIC ORGANS: Hysterectomy ABDOMINAL WALL: No mass or hernia. BONES: No bony lesion or fracture. OTHER: Report provided March 02, 2019 at 2:45 a.m. CONCLUSION: 1. No acute intraperitoneal abnormality Dictated by: Amanda Bishop M.D. on 03/02/2019 at 07:42 Approved by: Amanda Bishop M.D. on 03/02/2019 at 07:45 Normal [facility] LIPASEon 03-02-2019 Lipase [Catalytic activity/Vol] 541.0 U/L Critically high 23.0-300.0 [facility] Comment on above: Performed By: #### L IPA, TROP, CMP #### [facility] [address] [place] [address] Israel Giles PROF 14(COMP METB)on 019 Albumin [Mass/Vol] 3.4 g/dL Critically low 3.5-5.0 [facility] Comment on above: Performed By: #### L IPA, TROP, CMP #### [facility] [address] [place] [id number] [place] Tisha Albumin/Globulin [Mass ratio] 0.9 {ratio} Normal [facility] Comment on above: Performed By: #### L IPA, TROP, CMP #### [facility] [address] [place] [address] [place] Tisha ALP [Catalytic activity/Vol] 97 U/L Normal 38-126 [facility] Comment on above: Performed By: #### L IPA, TROP, CMP #### [facility] [address] [place] [address] Israel Tisha ALT [Catalytic activity/Vol] 50 U/L Normal 9-52 [facility] Comment on above: Performed By: #### L IPA, TROP, CMP #### [facility] [address] [place] [id number] [place] Tisha Anion gap [Moles/Vol] 15.1 mmol/L Normal [facility] Comment on above: Performed By: #### L IPA, TROP, CMP #### [facility] [address] [place] [address] Israel Tisha AST [Catalytic activity/Vol] 32 U/L Normal 14-36 [facility] Comment on above: Performed By: #### L IPA, TROP, CMP #### [facility] [address] [place] [address] [place] Tisha Bilirubin Ql (U) 0.6 mg/dL Normal 0.2-1.3 [facility] Comment on above: Performed By: #### L IPA, TROP, CMP #### [facility] [address] [place] [address] [place] Tisha Calcium [Mass/Vol] 8.5 mg/dL Normal 8.4-10.2 [facility] Comment on above: Performed By: #### L IPA, TROP, CMP #### [facility] [address] [place] [address] [place] Tisha Chloride [Moles/Vol] 103 mmol/L Normal 98-107 [facility] Comment on above: Performed By: #### L IPA, TROP, CMP #### [facility] [address] [place] [address] Israel Tisha CO2 [Moles/Vol] 23.8 mmol/L Normal 22.0-30.0 [facility] Comment on above: Performed By: #### L IPA, TROP, CMP #### [facility] [address] [place] [address] [place] Tisha Creatinine [Mass/Vol] 0.86 mg/dL Normal 0.52-1.04 [facility] Comment on above: Performed By: #### L IPA, TROP, CMP #### [facility] [address] [place] [address] [place] Tisha EGFR-AF PALESTINIAN >60 Normal >=60 [facility] Comment on above: Performed By: #### L IPA, TROP, CMP #### [facility] [address] [place] [address] [place] Tisha EGFR-NON AF PALESTINIAN >60 Normal >=60 [facility] Comment on above: Performed By: #### L IPA, TROP, CMP #### [facility] [address] [place] [address] Israel Tisha Globulin (S) [Mass/Vol] 3.8 g/dL Normal [facility] Comment on above: Performed By: #### L IPA, TROP, CMP #### [facility] [address] [address] Israel Tisha Glucose [Mass/Vol] 143 mg/dL Critically high 74-106 [facility] Comment on above: Performed By: #### L IPA, TROP, CMP #### [facility] [address] [address] [place] Tisha Potassium [Moles/Vol] 4.9 mmol/L Normal 3.4-5.0 [facility] Comment on above: Performed By: #### L IPA, TROP, CMP #### [facility] [address] [address] [place] Tisha Protein [Mass/Vol] 7.2 g/dL Normal 6.1-8.2 [facility] Comment on above: Performed By: #### L IPA, TROP, CMP #### [facility] [address] [address] [place] Tisha Sodium [Moles/Vol] 137 mmol/L Normal 137-145 [facility] Comment on above: Performed By: #### L IPA, TROP, CMP #### [facility] [address] [place] [address] [place] Tisha Urea nitrogen [Mass/Vol] 17.0 mg/dL Normal 7.0-17.0 [facility] Comment on above: Performed By: #### L IPA, TROP, CMP #### [facility] [address] [place] [address] [place] Tisha Urea nitrogen/Creatinine [Mass ratio] 19.8 mg/mg Normal [facility] Comment on above: Performed By: #### L IPA, TROP, CMP #### [facility] [address] [place] [address] Israelbeatriz Giles TROPONIN - Ion 03-02-2019 Troponin I.cardiac [Mass/Vol] ng/mL Normal <=0.034 [facility] Comment on above: Performed By: #### L IPA, TROP, CMP #### [facility] [address] [place] [address] Israelbeatriz Hdzen Troponin I.cardiac [Mass/Vol] SEE BELOW Normal [facility] Comment on above: Result Comment: <0.0 34 ng/ml NEGATIVE 0.034-0.119 INDETERMINATE 0.120 AMI CUT OFF Performed By: #### L IPA, TROP, CMP #### [facility] [address] [place], [place] [id number] Israelbeatriz Hdzen Social History Date Type Detail Facility Start: 04-04-2023 Alcohol intake Current drinke r of alcohol (finding) [facility] Start: 09-27-2022 End: 04-04-2023 Alcohol intake [facility] Start: 07-10-2023 Education [facility] Start: 10-04-2022 Alcohol Comment Caffeine Intak e : 1-2 cups per day [facility] Start: 09-27-2022 End: 01-05-2023 Humiliation, Afraid, Rape, and Kick questionnaire [HARK] [facility] Start: 09-22-2022 Tobacco use and exposure Smoke less tobacco non-user [facility] Start: 01-26-2022 End: 09-22-2022 Tobacco smoking status NHIS Never smoked tobacco (finding) [facility] Start: 1960 Sex Assigned At Female F [facility] Start: 1960 Sex Assigned At Not on file [facility] Within the last year , have you been afraid of your partner or ex-partner? No [facility] Do you belong to any clubs or organizations such as orthodox groups, unions, fraternal or athletic groups, or school groups? Yes [facility] Are you now , , , , never or living with a partner? [facility] How often to you hav e a drink containing alcohol? Monthly or less [facility] How many standard dr inks containing alcohol do you have on a typical day? Patient does not drink [facility] How often do you hav e 6 or more drinks on 1 occasion? Never [facility] How hard is it for y ou to pay for the very basics like food, housing, medical care, and heating Not very hard [facility] Do you feel stress - tense, restless, nervous, or anxious, or unable to sleep at night because your mind is troubled all the time - these days [OSQ] Not at all [facility] (I/We) worried serena er (my/our) food would run out before (I/we) got money to buy more. Never true [facility] Vital Signs Date Time Vital Sign Value Performing Clinician Selvin jewell 01-26-2022 20:03-0400 Body temperature 98.5 [degF] MD Matty Swann Work Phone: [facility] 01-26-2022 20:03-0400 Diastolic blood pressure 88 mm[Hg] MD Matty Swann Work Phone: [facility] 01-26-2022 20:03-0400 Heart rate 77 /min MD Matty Swann Work Phone: [facility] 01-26-2022 20:03-0400 Respiratory rate 16 /min MD Matty Swann Work Phone: [facility] 01-26-2022 20:03-0400 SaO2% (BldA) [Mass fraction] 98 % MD Matty Swann Work Phone: [facility] 01-26-2022 20:03-0400 Systolic blood pressure 134 mm[Hg] MD Matty Swann Work Phone: [facility] 01-26-2022 16:18-0400 Body height 157.48 cm MD Matty Swann Work Phone: [facility] 01-26-2022 16:18-0400 Body weight 106.2 kg MD Matty Swann Work Phone: [facility] Evaluation note Note Date & Type Note Facility Evaluation note No assessment information availa [facility] Work Phone: Evaluation note Note Date & Type Note Facility Evaluation note Diagnosis Acquired hypothyroidism (CMS/HCC) Unspecified hypothyroidism 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 Work Phone: Summary Purpose Family History No Family History Records FoundNo Family History Records FoundNo Family History Records FoundNo Family History Records Found Advance Directives No Advanced Directives Records Found Advance Directive Response Recorded Date/ Time Advance Directives No June 17 018 1:31pm Chief Complaint and Reason for Visit Chief Complaint chest pain Chief Complaint Screening Additional Source Comments INFORMATION SOURCE (unrecogn ized section and content) DATE CREATED AUTHOR 11/05/2019 [facility] DATE CREATED AUTHOR AUTHOR'S ORGANIZ ATION 04/20/2021 [facility] dical Specialist DATE CREATED AUTHOR AUTHOR'S ORGANIZ ATION 06/09/2023 [facility] DATE CREATED AUTHOR AUTHOR'S ORGANIZ ATION 08/12/2023 [facility] dical Specialists EPIC Care Teams (unrecognized sec tion and content) Team Status: Inactive Member Role Status Dates Matty Swann MD Primary Care Provider Active Joss Alatorre DO Emergency Provider Active Team Status: Active Member Role Status Dates Matty Swann MD Primary Care Provider Active Team Status: Inactive Member Role Status Dates Matty Swann MD Primary Care Provider, Referring Provider Active Referral Self Attending Provider Active [employer] Executive Relationship Specialty Start Date End Date Matty Swann MD [address] [place] [address] PCP - General Family Medicine 08/24/22 Goals (unrecognized section and content) Goals may be documented in a n alternate sectionGoals may be documented in an alternate section Reason for Visit (unrecogniz ed section and content) Reason Onset Date Comments Med Refill 05/01/2023 FOR RECORDS PERTAINING TO PATIENTS WHO ARE OR HAVE BEEN ENROLLED IN A CHEMICAL DEPENDENCY/SUBSTANCEABUSE PROGRAM, SOME INFORMATION MAY BE OMITTED. This clinical summary was aggregated from multiple sources. Caution should be exercised in using it in the provision of clinical care. This summary normalizes information from multiple sources, and as a consequence, information in this document may materially change the coding, format and clinical context of patient data. In addition, data may be omitted in some cases. CLINICAL DECISIONS SHOULD BE BASED ON THE PRIMARY CLINICAL RECORDS. [facility] provides no warranty or guarantee of the accuracy or completeness of information in this document.
--- NOTE | 2023-08-30 16:26 | PM.STRESS ---
Stress Test Stress Test Requesting physician: MATTY SWANN Procedure: Exercise stress test General Information: Reason for Stress Test: Palpitations, abnormal EKG Cardiac History and Risk Factors: Denies any personal history. Father had several [place]. Resting 12 - Lead Electrocardiogram: Rate & rhythm: Normal sinus at a rate of 89. [place]: Normal T-waves: Normal ST-segments: Normal orientation Abnormal EKG previously stated is not available for review Stress Test: Protocol: Myles protocol was followed Exercise capacity: Poor exercise capacity. Total exercise time of 1 minute 26 seconds reached Myles stage 1 at 1.7MPH, 10% grade, & 4.6 METs. Blood pressure: Initial: 118/80, Maximum: 160/98 Rate & rhythm: Patient remained in sinus rhythm during the exercise and recovery portions of the study.? The maximum heart rate was 155, which was 97% of the maximum predicted heart rate. ST-segments & T-waves: There were no T-wave changes or ST-segment changes when compared to the baseline EKG. Patient response/symptoms: There were no symptoms similar to the chief complaint. Patient's legs gave out at end of exercise and collapsed on the treadmill. Interpretation: Normal exercise stress test without electrocardiographical evidence of ischemia. Asymptomatic of chief complaint. Gilbert treadmill score is 1.4, which places patient in a moderate risk category. Clinical correlation required.
== END 2023-08-30 07:58 | disposition home or self-care (01) ==
LOC: CARD 07:57
PROVIDERS: PCP Family Medicine; Visit Provider Family Medicine
DX: R53.82 Chronic fatigue, unspecified (principal); R00.2 Palpitations; R94.31 Abnormal electrocardiogram [ECG] [EKG]; Z82.49 Family history of ischemic heart disease and other diseases of the circulatory system
CPT/HCPCS: 93017

== ENCOUNTER 2023-09-03 14:40 | Emergency (ER) | payer MEDICAID, SELFPAY ==
[2023-09-03] VITALS (7 sets, daily range): BP systolic 157; BP diastolic 93; PULSE 81–87; TEMP 36.7; O2SAT 98–100; BMI 43.0
--- OUTSIDE RECORDS SUMMARY | 2023-09-03 14:47 | XMS_ITS | CCD ---
Author Organization [facility] ion [facility] Care Team Providers Care Radiology Transporter Name Role Phone TANG SWANN Primary Care Unavailable LE LORETTA Admitting Unavailable LE LORETTA Attending Unavailable AMANDA BISHOP V Consulting Unavailable BRITNEY LORETTA Consulting Unavailable TANG SWANN Admitting Unavailable TANG SWANN Attending Unavailable TANG SWANN Primary Care Unavailable TANG SWANN Consulting Unavailable ROGER THAKKAR Consulting Unavailable MD Tang Swann Primary Care Provider [phone] DO Joss Alatorre Emergency Provider MD Tang Swann Primary Care Provider MD Tang Swann Referring Provider Self, Referral Attending Provider Unavailable Tang Swann MD Primary Care Provider [phone] Adeel Don Attending Unavailable Tang Swann Primary Care Unavailable Adeel Don Admitting Unavailable Self, Referral Admitting Unavailable Self, Referral Attending Unavailable Tang Swann Primary Care Unavailable Tang Swann Referring Unavailable TANG SWANN Attending Unavailable ADEEL POSEY Attending Unavailable TANG SWANN Attending Unavailable TANG SWANN Attending Unavailable TANG SWANN Attending Unavailable TANG SWANN Attending Unavailable Allergies Allergy Classification Reported Allergen(s) Allergy Type Date of Onset Reaction(s) Facility (1 source) Sulfonamides (Antibiotic) Drug allergy (disorder) 5 [facility] Repository (1 source) Darvocet-N 100 Drug allergy (disorder) 5 [facility] (3 sources) Acetaminophen; Translations: [acetaminophen] Drug Allergy [address] [facility] (3 sources) Propoxyphene; Translations: [propoxyphene] Drug Allergy [address] [facility] (3 sources) Sulfonamides (Antibiotic); Translations: [Sulfa (Sulfonamide Antibiotics)] Allergy to substance [address] [facility] (1 source) metFORMIN Drug Allergy 3 GI intolerance [facility] Healthcare Work Phone: (1 source) Sulfonamides (Antibiotic) Drug Allergy 3 Rash [facility] (1 source) wasp venom Drug Allergy 3 Swelling [facility] Healthcare Medications Current Medications Medication Drug Class(es) [...] the morning cholecalciferol (Vitamin D-3) 250 MCG (51088 UT) tablet Take 10,000 Units by mouth in the morning. Winter dose. 0 Active Cholecalciferol (Vitamin D3) 125 MCG (5000 UT) chewable tablet Chew 1 capsule 1 (one) time each day at the same time. Summer dose 0 Active dexamethasone 1 mg/ml / neomycin 3.5 mg/ml / polymyxin b 01231 unt/ml ophthalmic suspension (2 sources) Aminoglycoside Antibacterial, Polymyxin-class Antibacterial, Corticosteroid Start: 05-02-2023 take 1 drop(s) into the eye(s) three times daily cqbbxfbr-mbdcvdxpn-iqfDOMNZoqmvp (Maxitrol) 0.1 % ophthalmic suspension Indications: Conjunctivitis Apply 1 drop to affected EYE three times daily for 7 days. 5 mL 0 05/02/2023 Active Start: 04-05-2023 End: 05-01-2023 take 1 drop(s) into the eye(s) three times daily acowqiot-wfemywohp-igaAYEQSkoykh (Maxitr ol) 0.1 % ophthalmic suspension Indications: [...] MCG PO daily August 20, 2017 12:00am June 29, 2021 2:40am Magnesium (1 source) take 1 tablet by mouth once daily magnesium 200 MG tablet Take 200 mg by mouth 1 (one) time each day at the same time. 0 Active thyroid (snf) 15 mg oral tablet (4 sources) Start: 10-28-2022 End: 06-01-2023 take 3 tablets by mouth in the morning thyroid (Dana Thyroid) 15 MG tablet Indications: Acquired hypothyroidism (CMS/HCC) , ESS (euthyroid sick syndrome) Take 3 tablets (45 mg) by mouth in the morning and 3 tablets (45 mg) in the evening. Take before meals. 180 tablet 0 05/02/2023 06/01/2023 Active Start: 06-29-2021 take 1 tablet by marlon th twice daily Thyroid (Pork) (Associate Financial Representative Thyroid) 90 mg tablet Active 90 MG [...] 20, 2017 12:00am June 29, 2021 2:40am Problems Active Problems Problem Classification Problem Date [...] [Sleep disorder, unspecified] Onset: 5 09-15-2022 Episodic Results Test Name Value Interpretation Reference Range Facility COVID-19 / Flu A/B / RSV PCR on 05-29-2023 SARS-CoV-2 (COVID-19) RNA CRALOS+probe Ql (Unsp spec) COVID-19 Cepheid Result Negative [...] or Cepheid Disclaimer revoked sooner. PERFORMED BY: [place] [address] PATHOLOGIST STRATEGIC DEBRIEFING SPECIALIST PUJA MOODY M.D. Normal [facility] Comment on above: Performed By: #### C EPHEID NEG, COVID19 FLU RSV #### [address] Cepheid COVID PCR Negativeon 05-29-2023 SARS-CoV-2 (COVID-19) RNA CARLOS+probe Ql (Unsp spec) Negative Normal Negative [facility] Comment on above: Result Comment: This is a duplicate Cepheid Xpert Xpress CoV-2/Flu/RSV Plus RNA by RT-PCR result to be used for statistical tracking purpose only. PERFORMED BY: [place] [address] PATHOLOGIST STRATEGIC DEBRIEFING SPECIALIST PUJA MOODY M.D. Performed By: #### C EPHEID NEG, COVID19 FLU RSV #### [address] ECG 12 lead ECGon 05-29-2023 ECG 12 lead ECG [place] [address] Electrocardiograph Report Signed Patient: Kalpesh Garrison MR#: [id number] 2 : 1960 Acct:[id number] Age/Sex: 63 / F ADM Date: 05/29/23 Loc: ER Room: Type: [facility] ER Attending Dr: Ordering Provider: Adeel [...] By Ignacio Garcia MD 05/29/23 1528 Normal [facility] XR chest 2V*on 05-29-2023 XR chest 2V* [place] [address] XRay Report Signed Patient: Kalpesh Garrison MR#: [id number] 2 : 1960 Acct:[id number] Age/Sex: 63 / F ADM Date: 05/29/23 Loc: ER Room: Type: [facility] ER Attending Dr: Copies to: Adeel [...] ABNORMALITY. Impression dictated by: Renato Gillis Jr., D.OJaden05/29/2023 4:18 PM Dictation Location: [facility]15 Transcribed By: [facility] 05/29/23 1618 Dictated By: Renato Gillis Jr, DO 05/29/23 1617 Signed By: 05/29/23 1618 [facility] MM screening mammo BI w/CADo n 11-09-2022 MM screening mammo BI w/CAD [facility] [place] [address] Mammography Report Signed Patient: Kalpesh Garrison MR#: [id number] 2 : 1960 Acct:[id number] Age/Sex: 62 / F ADM Date: 11/09/22 Loc: [place] Room: Type: [facility] Attending Dr: Referral Self Copies to: Tang Swann MD SELF,REFERRAL Ordering Provider: SELF,REFERRAL Date [...] Michael Lassiter M.D.11/09/2022 4:19 PM Dictation Location: [facility] Transcribed By: CHRISSY 11/09/22 161 Dictated By: Michael Lassiter II, MD 11/09/221613 Signed By: 11/09/221618 Normal [facility] Activated partial thrombopla stin time (aPTT) in platelet poor plasma by coagulation aOrdered By: Joss Alatorre on 01-26-2022 aPTT Coag (PPP) [Time] 31.2 s 25.1-36.5 [facility] Automated erythrocytes count in urine sediment (number/area)Ordered By: Joss Alatorre on 01-26-2022 RBC Auto (Urine sed) [#/Area] 0-1 [HPF] 0-4 [facility] Automated leukocytes count i n urine sediment (number/area)Ordered By: Joss Alatorre on 01-26-2022 WBC Auto (Urine sed) [#/Area] 1-2 [HPF] 0-4 [facility] Basophils Auto (Bld) [#/Vol] Ordered By: Joss Alatorre on 01-26-2022 Basophils (Bld) [#/Vol] 0.1 10*3/uL 0.0-0.2 [facility] Basophils/100 WBC Auto (Bld) Ordered By: Joss Alatorre on 01-26-2022 Basophils/100 WBC (Bld) 0.8 % . [facility] Bilirubin Test strip Ql (U)O rdered By: Joss Alatorre on 01-26-2022 Bilirubin Ql (U) Negative Negative [facility] COVID-19 SOFIAOrdered By: Shree Siddiqui on 01-26-2022 SARS-CoV+SARS-CoV-2 (COVID-19) Ag IA.rapid Ql (Resp) Negative Negative [facility] Comment on above: This is a duplicate Ria SARS Antigen (NELLIE) result to be used for statistical tracking purpose only. Color Auto (U)Ordered By: Henry Alatorre on 01-26-2022 Color (U) Yellow Yellow [facility] Creatine kinase [Enzymatic a ctivity/volume] in Serum or PlasmaOrdered By: Joss Alatorre on 01-26-2022 CK [Catalytic activity/Vol] 102 U/L 22-269 [facility] Creatinine and Glomerular fi ltration rate.predicted panel (S/P/Bld)Ordered By: Joss Alatorre on 01-26-2022 Creatinine [Mass/Vol] 0.81 mg/dL 0.44-1.03 [facility] Eosinophils Auto (Bld) [#/Vo l]Ordered By: Joss Alatorre on 01-26-2022 Eosinophils (Bld) [#/Vol] 0.3 10*3/uL 0.0-0.45 [facility] Eosinophils/100 WBC Auto (Bl d)Ordered By: Joss Alatorre on 01-26-2022 Eosinophils/100 WBC (Bld) 3.7 % . [facility] Erythrocyte distribution wid th Auto (RBC) [Ratio]Ordered By: Joss Alatorre on 01-26-2022 Erythrocyte distribution width (RBC) [Ratio] 13.6 % 11.9-15.3 [facility] Estimated glomerular filtrat ion rate (GFR) non- AmericanOrdered By: Joss Alatorre on 01-26-2022 GFR/1.73 sq M.predicted among non-blacks MDRD (S/P/Bld) [Vol rate/Area] > 60 mL/Min [facility] Hematocrit Auto (Bld) [Volum e fraction]Ordered By: Joss Alatorre on 01-26-2022 Hematocrit (Bld) [Volume fraction] 40.5 % 34.0-46.4 [facility] Hemoglobin [Mass/volume] in BloodOrdered By: Joss Alatorre on 01-26-2022 Hemoglobin (Bld) [Mass/Vol] 13.6 g/dL 11.8-15.4 [facility] Ketones Auto test strip (U) [Mass/Vol]Ordered By: Joss Alatorre on 01-26-2022 Ketones (U) [Mass/Vol] Negative Negative [facility] - Chemistry and C hemistry - challengeOrdered By: Joss Alatorre on 01-26-2022 Natriuretic peptide B (Bld) [Mass/Vol] 14.0 pg/mL 5-100 [facility] Laboratory - CoagulationOrde red By: Joss Alatorre on 01-26-2022 PT Coag (PPP) [Time] 11.8 s 9.0-12.9 [facility] - Hematology and Cell countsOrdered By: Joss Alatorre on 01-26-2022 Nucleated RBC/100 WBC (Bld) [Ratio] 0.1 % 0-0.5 [facility] - UrinalysisOrder ed By: Joss Alatorre on 01-26-2022 Hyaline casts LM Ql (Urine sed) 0-8 [LPF] 0-8 [facility] Leukocytes [#/volume] in Blo od by Automated countOrdered By: Joss Alatorre on 01-26-2022 WBC (Bld) [#/Vol] 7.1 10*3/uL 4.5-11.0 [facility] Lymphocytes Auto (Bld) [#/Vo l]Ordered By: Joss Alatorre on 01-26-2022 Lymphocytes (Bld) [#/Vol] 2.9 10*3/uL 1.00-4.8 [facility] Lymphocytes/100 WBC Auto (Bl d)Ordered By: Joss Alatorre on 01-26-2022 Lymphocytes/100 WBC (Bld) 40.5 % . [facility] MCH Auto (RBC) [Entitic mass ]Ordered By: Joss Alatorre on 01-26-2022 MCH (RBC) [Entitic mass] 29.8 pg 24.7-34.3 [facility] MCHC Auto (RBC) [Mass/Vol]Or dered By: Joss Alatorre on 01-26-2022 MCHC (RBC) [Mass/Vol] 33.5 g/dL 32.0-35.0 [facility] MCV Auto (RBC) [Entitic vol] Ordered By: Joss Alatorre on 01-26-2022 MCV (RBC) [Entitic vol] 88.8 fL 80-100 [facility] Monocytes Auto (Bld) [#/Vol] Ordered By: Joss Alatorre on 01-26-2022 Monocytes (Bld) [#/Vol] 0.5 10*3/uL 0.0-0.8 [facility] Monocytes/100 WBC Auto (Bld) Ordered By: Joss Alatorre on 01-26-2022 Monocytes/100 WBC (Bld) 6.8 % . [facility] Neutrophils Auto (Bld) [#/Vo l]Ordered By: Joss Alatorre on 01-26-2022 Neutrophils (Bld) [#/Vol] 3.4 10*3/uL 1.8-7.7 [facility] Neutrophils/100 WBC Auto (Bl d)Ordered By: Joss Alatorre on 01-26-2022 Neutrophils/100 WBC (Bld) 48.2 % . [facility] Nitrite Test strip Ql (U)Ord ered By: Joss Alatorre on 01-26-2022 Nitrite Ql (U) Negative Negative [facility] No Panel InformationOrdered By: Joss Alatorre on 01-26-2022 Estimated GFR () > 60 mL/Min [facility] Comment on above: GFR estimated refere nce range: According to KDOQI guidelines, <60 ml/min/1.73m2 is sufficient to diagnose a patient with chronic kidney disease. Pharmacy Creatinine Clearance (Chem 85.64 [facility] No Panel InformationOrdered By: Luis Siddiqui on 01-26-2022 SARS Antigen (LFIA) [facility] Platelet mean volume Auto (B ld) [Entitic vol]Ordered By: Joss Alatorre on 01-26-2022 Platelet mean volume (Bld) [Entitic vol] 6.2 fL 6.3-10.7 [facility] Platelet poor plasma interna tional normalized ratio (INR) by coagulation assay (relatOrdered By: Joss Alatorre on 01-26-2022 INR Coag (PPP) [Relative time] 1.0 {INR} [facility] Comment on above: INR Therapeutic Rang e [...] 01-26-2022 Platelets (Bld) [#/Vol] 368 10*3/uL 150-450 [facility] Protein Auto test strip (U) [Mass/Vol]Ordered By: Joss Alatorre on 01-26-2022 Protein (U) [Mass/Vol] Negative Negative [facility] RBC Auto (Bld) [#/Vol]Ordere d By: Joss Alatorre on 01-26-2022 RBC (Bld) [#/Vol] 4.57 10*6/uL 3.60-5.00 [facility] Serum or plasma anion gap de terminationOrdered By: Joss Alatorre on 01-26-2022 Anion gap [Moles/Vol] 13.2 mmol/L 6.0-15.0 [facility] Serum or plasma calcium royce urement (mass/volume)Ordered By: Joss Alatorre on 01-26-2022 Calcium [Mass/Vol] 8.9 mg/dL 8.2-10.2 [facility] Serum or plasma chloride odell surement (moles/volume)Ordered By: Joss Alatorre on 01-26-2022 Chloride [Moles/Vol] 101 mmol/L 95-114 [facility] Serum or plasma creatine kin ase MB (CKMB)/total creatine kinase (CK) ratio by calculaOrdered By: Joss Alatorre on 01-26-2022 CK.MB Calc [Catalytic fraction] 3.0 % 0.00-2.50 [facility] Serum or plasma creatine kin ase MB measurement (mass/volume)Ordered By: Joss Alatorre on 01-26-2022 CK.MB [Mass/Vol] 3.1 ng/mL 0.6-6.3 [facility] Serum or plasma glucose royce urement (mass/volume)Ordered By: Joss Alatorre on 01-26-2022 Glucose [Mass/Vol] 143 mg/dL 70-100 [facility] Comment on above: ADA recommended refe rence rangeRandom Glucose Reference Range is dependent on time and content of last meal. Glucose of more than 200 mg/dL in a nonstressed, ambulatory subject supports the diagnosis of Diabetes Mellitus. Serum or plasma potassium me asurement (moles/volume)Ordered By: Joss Alatorre on 01-26-2022 Potassium [Moles/Vol] 3.9 mmol/L 3.5-5.1 [facility] Serum or plasma sodium measu rement (moles/volume)Ordered By: Joss Alatorre on 01-26-2022 Sodium [Moles/Vol] 136 mmol/L 136-146 [facility] Serum or plasma total carbon dioxide measurement (moles/volume)Ordered By: Joss Alatorre on 01-26-2022 CO2 [Moles/Vol] 25.7 mmol/L 22.0-30.0 [facility] Serum or plasma urea nitroge n measurement (mass/volume)Ordered By: Joss Alatorre on 01-26-2022 Urea nitrogen [Mass/Vol] 13 mg/dL 9-23 [facility] Specific gravity Auto test s trip (U) [Rel density]Ordered By: Joss Alatorre on 01-26-2022 Specific gravity (U) [Rel density] 1.020 1.001-1.03 0 [facility] Squamous epithelial cells de tection in urine sediment by light microscopyOrdered By: Joss Alatorre on 01-26-2022 Epithelial cells.squamous LM Ql (Urine sed) 3-4 [HPF] 0-2 [facility] Troponin I.cardiac [Mass/vol ume] in Serum or Plasma by High sensitivity methodOrdered By: Joss Alatorre on 01-26-2022 Troponin I.cardiac High sensitivity method [Mass/Vol] 3 pg/mL 0-15 [facility] Urine bacteria detection by automated methodOrdered By: Joss Alatorre on 01-26-2022 Bacteria Auto Ql (U) None seen None Seen [facility] Urine clarity by refractomet ry automatedOrdered By: Joss Alatorre on 01-26-2022 Clarity Refractometry automated (U) Clear Clear [facility] Urine glucose measurement by automated test strip (mass/volume)Ordered By: Joss Alatorre on 01-26-2022 Glucose Auto test strip (U) [Mass/Vol] Normal mg/dL Normal [facility] Urine hemoglobin detection b y automated test stripOrdered By: Joss Alatorre on 01-26-2022 Hemoglobin Auto test strip Ql (U) Negative Negative [facility] Urine leukocyte esterase det ection by automated test stripOrdered By: Joss Alatorre on 01-26-2022 Leukocyte esterase Auto test strip Ql (U) 2+ Negative [facility] Urobilinogen Auto test strip (U) [Mass/Vol]Ordered By: Joss Alatorre on 01-26-2022 Urobilinogen (U) [Mass/Vol] Normal mg/dL Normal [facility] pH Auto test strip (U)Ordere d By: Joss Alatorre on 01-26-2022 pH (U) 6.0 [pH] 5.0-9.0 [facility] Q - T3 TOTALon 04-10-2021 T3, TOTAL 121 ng/dL Normal 76-181 [facility] [place] [facility] Operations [facility] Comment on above: Order Comment: [facility] Testing performed at: [facility], [address] [place] [address], [address] [place] [address], [phone], Electronic Tech: Jensen Patiño MD [facility] Collection Date/Time: [facility] Results Received Date/Time: [facility] Reported Date/Time: FASTING: NO Performed By: #### T SH, 859X, [id number], [id number], [id number] #### [facility] Default [address] [place] [address] Q - T3,FREEon 04-10-2021 Free T3 [Mass/Vol] 3.2 pg/mL Normal 2.3-4.2 [facility] Operations Manager Comment on above: Order Comment: [facility] performed at: [employer] [place], [employer] [facility], [address] [facility], [address] [place], [address], Electronic Tech: Jensen Patiño MD [facility] Date/Time: [facility] Results Received Date/Time: [facility] Reported Date/Time: FASTING: NO Performed By: #### T SH, 859X, 96155, [id number], [id number] #### [facility] Default [address] [place] [address] Q - T3,REVERSE,LC/MS/MSon T3 REVERSE, LC/MS/MS 12 ng/dL Normal 8-25 [facility] [place] [facility] Operations [facility] Comment on above: Order Comment: [facility] performed at: [facility] [employer], [address], [place], [place], , Electronic Tech: Davie Lee M.D.,PhD [facility] Date/Time: [facility] Results Received Date/Time: [facility] Reported Date/Time: FASTING: NO Result Comment: This test was developed and its analytical performance characteristics have been determined by [employer] [place], [place]. It has not been cleared or approved by the U.S. Food and Drug Administration. This assay has been validated pursuant to the CLIA regulations and is used for clinical purposes. Performed By: #### T SH, 859X, 55010, [id number], [id number] #### [facility] Default [address] [place] [address] Q - T4,FREEon 04-10-2021 Free T4 [Mass/Vol] 0.9 ng/dL Normal 0.8-1.8 Kandy [facility]tero [place] [facility] Operations [facility] Comment on above: Order Comment: [facility] performed at: [facility], [employer] [facility], [address], [address] [place], [address], Electronic Tech: Jensen Patiño MD [facility] Date/Time: [facility] Results Received Date/Time: [id number] [facility] Reported Date/Time: FASTING: NO Performed By: #### T SH, 859X, 88728, [id number], [id number] #### [facility] Default [address] [place] [address] TSHon 04-10-2021 TSH Qn 0.84 m[IU]/L Normal 0.40-4.50 [facility] Pharm[facility] Operations Manager Comment on above: Order Comment: [facility] performed at: Q, [facility], [address] [facility], [address] [place] [address], [address], Electronic Tech: Jensen Patiño MD [facility] Date/Time: [facility] Results Received Date/Time: [facility] Reported Date/Time: FASTING: NO Performed By: #### T SH, 859X, 03707, [id number], [id number] #### [facility] Default [address] [place] [address] NM STRESS/REST MULTIon 06-19 NM STRESS/REST MULTI Patient: KEVIN GARRISON Exam Date: 06/20/2019 : 1960 Gender:F Ordering : DR TANG SWANN . Admission #: [id number] Family : Order #: [id number] CLICK HERE TO VIEW EXAM RADIOLOGY REPORT [...] M.D. on 06/20/2019 at 13:02 Normal [facility] CBC AUTO DIFFon 03-02-2019 Basophils (Bld) [#/Vol] 0.0 103/ul Normal 0.0-0.1 [facility] Comment on above: Performed By: #### C BC #### [facility] [address] [place] [address] Israel Tisha Basophils/100 WBC (Bld) 0.3 % Normal 0.2-2.0 [facility] Comment on above: Performed By: #### C BC #### [facility] [address] [place], [place] [address] Israel Tisha Eosinophils (Bld) [#/Vol] 0.2 103/ul Normal 0.0-0.7 [facility] Comment on above: Performed By: #### C BC #### [facility] [address] [place], [place] [id number] Israel Tisha Eosinophils/100 WBC (Bld) 1.6 % Normal 0.9-7.0 [facility] Comment on above: Performed By: #### C BC #### [facility] [address] [place] [id number] Israel Tisha Erythrocyte distribution width (RBC) [Ratio] 12.5 % Normal 11.0-15.0 [facility] Comment on above: Performed By: #### C BC #### [facility] [address] [place], [place] [phone] Israel Tisha Hematocrit (Bld) [Volume fraction] 43.2 % Normal 36.0-48.0 [facility] Comment on above: Performed By: #### C BC #### [facility] [address] [place] [id number] Isreal Tisha Hemoglobin (Bld) [Mass/Vol] 14.7 g/dL Normal 12.0-16.0 [facility] Comment on above: Performed By: #### C BC #### [facility] [address] [place] [id number] Israel Tisha IG # 0.06 10e3/ul Critically high 0.00-0.03 [facility] Comment on above: Performed By: #### C BC #### [facility] [address] [place] [id number] Israel Tisha IG % 0.5 % Normal 0.0-0.5 [facility] Comment on above: Performed By: #### C BC #### [facility] [address] [place], [place] [phone] Israel Tisha Lymphocytes (Bld) [#/Vol] 1.5 103/ul Normal 1.2-3.8 [facility] Comment on above: Performed By: #### C BC #### [facility] [address] [place], [place] [phone] Israel Tisha Lymphocytes/100 WBC (Bld) 12.1 % Critically low 20.5-60.0 [facility] Comment on above: Performed By: #### C BC #### [facility] [address] [place], [place] [phone] Israle Tisha MANUAL DIFF REQ NO Normal [facility] Comment on above: Performed By: #### C BC #### [facility] [address] [place], [place] [phone] Israel Tisha MCH (RBC) [Entitic mass] 28.7 pg Normal 26.7-34.0 [facility] Comment on above: Performed By: #### C BC #### [facility] [address] [place], [place] [phone] Israel Tisha MCHC (RBC) [Mass/Vol] 34.0 g/dL Normal 29.9-35.2 [facility] Comment on above: Performed By: #### C BC #### [facility] [address] [place] [address] Israel Tisha MCV (RBC) [Entitic vol] 84.4 fL Normal 81.0-99.0 [facility] Comment on above: Performed By: #### C BC #### [facility] [address] [place] [address] Israel Tisha Monocytes (Bld) [#/Vol] 0.8 103/ul Normal 0.3-0.8 [facility] Comment on above: Performed By: #### C BC #### [facility] [address] [place] [address] Israel Tisha Monocytes/100 WBC (Bld) 6.3 % Normal 1.7-12.0 [facility] Comment on above: Performed By: #### C BC #### [facility] [address] [place], [place] [phone] Israel Tisha Neutrophils (Bld) [#/Vol] 9.8 103/ul Critically high 1.4-6.5 [facility] Comment on above: Performed By: #### C BC #### [facility] [address] [place] [address] Israel Tisha Neutrophils/100 WBC (Bld) 79.2 % Critically high 43.0-75.0 [facility] Comment on above: Performed By: #### C BC #### [facility] [address] [place] [address] Israel Tisha Platelet mean volume (Bld) [Entitic vol] 8.0 fL Critically low 9.5-13.5 [facility] Comment on above: Performed By: #### C BC #### [facility] [address] [place] [address] Israel Tisha Platelets (Bld) [#/Vol] 254 103/ul Normal 150-450 [facility] [facility] Comment on above: Performed By: #### C BC #### [facility] [address] [place] [id number] Israel Tisha RBC (Bld) [#/Vol] 5.12 106/ul Normal 4.20-5.40 [facility] Comment on above: Performed By: #### C BC #### [facility] [address] [place], [place] [address] Israel Giles WBC (Bld) [#/Vol] 12.3 103/ul Critically high 4.0-11.0 T he [facility] Comment on above: Performed By: #### C BC #### [facility] [address] [place], [place] [address] ABD/PELVIS W CONon 2018 CT ABD/PELVIS W CON Patient: NANCY GARRISON Exam Date: 03/02/2019 : 1960 Gender:F Ordering : DR. LORETTA TAN D.O. Admission #: [id number] Family : DR TANG SWANN . Order #: [id number] CLICK HERE TO VIEW EXAM RADIOLOGY REPORT [...] M.D. on 03/02/2019 at 07:45 Normal [facility] LIPASEon 03-02-2019 Lipase [Catalytic activity/Vol] 541.0 U/L Critically high 23.0-300.0 [facility] Comment on above: Performed By: #### L IPA, TROP, CMP #### [facility] [address] [place] [id number] Israel Giles PROF 14(COMP METB)on 019 Albumin [Mass/Vol] 3.4 g/dL Critically low 3.5-5.0 [facility] Comment on above: Performed By: #### L IPA, TROP, CMP #### [facility] [address] [place] [id number] Israel Tisha Albumin/Globulin [Mass ratio] 0.9 {ratio} Normal [facility] Comment on above: Performed By: #### L IPA, TROP, CMP #### [facility] [address] [place] [address] Israel Tisha ALP [Catalytic activity/Vol] 97 U/L Normal 38-126 [facility] Comment on above: Performed By: #### L IPA, TROP, CMP #### [facility] [address] [place] [address] Israel Tisha ALT [Catalytic activity/Vol] 50 U/L Normal 9-52 [facility] Comment on above: Performed By: #### L IPA, TROP, CMP #### [facility] [address] [place] [id number] Israel Tisha Anion gap [Moles/Vol] 15.1 mmol/L Normal Th [facility] Comment on above: Performed By: #### L IPA, TROP, CMP #### [facility] [address] [place] [address] Israel Tisha AST [Catalytic activity/Vol] 32 U/L Normal 14-36 [facility] Comment on above: Performed By: #### L IPA, TROP, CMP #### [facility] [address] [place] [address] Israel Tisha Bilirubin Ql (U) 0.6 mg/dL Normal 0.2-1.3 [facility] Comment on above: Performed By: #### L IPA, TROP, CMP #### [facility] [address] [address] Israel Tisha Calcium [Mass/Vol] 8.5 mg/dL Normal 8.4-10.2 [facility] Comment on above: Performed By: #### L IPA, TROP, CMP #### [facility] [address] [place] [address] Israel Tisha Chloride [Moles/Vol] 103 mmol/L Normal 98-107 [facility] Comment on above: Performed By: #### L IPA, TROP, CMP #### [facility] [address] [place] [address] Isarel Tisha CO2 [Moles/Vol] 23.8 mmol/L Normal 22.0-30.0 [facility] Comment on above: Performed By: #### L IPA, TROP, CMP #### [facility] [address] [place] [address] Israel Tsiha Creatinine [Mass/Vol] 0.86 mg/dL Normal 0.52-1.04 [facility] Comment on above: Performed By: #### L IPA, TROP, CMP #### [facility] [address] [place] [address] Israel Tisha EGFR-AF LIBYAN >60 Normal >=60 [facility] Comment on above: Performed By: #### L IPA, TROP, CMP #### [facility] [address] [place] [address] Israel Tisha EGFR-NON AF LIBYAN >60 Normal >=60 [facility] Comment on above: Performed By: #### L IPA, TROP, CMP #### [facility] [address] [place] [address] Israel Tisha Globulin (S) [Mass/Vol] 3.8 g/dL Normal [facility] Comment on above: Performed By: #### L IPA, TROP, CMP #### [facility] [address] [place] [address] Israel Tisha Glucose [Mass/Vol] 143 mg/dL Critically high 74-106 [facility] Comment on above: Performed By: #### L IPA, TROP, CMP #### [facility] [address] [place] [address] Israel Tisha Potassium [Moles/Vol] 4.9 mmol/L Normal 3.4-5.0 [facility] Comment on above: Performed By: #### L IPA, TROP, CMP #### [facility] [address] [place] [address] Israel Tisha Protein [Mass/Vol] 7.2 g/dL Normal 6.1-8.2 [facility] Comment on above: Performed By: #### L IPA, TROP, CMP #### [facility] [address] [place], [place] [id number] Israel Tisha Sodium [Moles/Vol] 137 mmol/L Normal 137-145 [facility] Comment on above: Performed By: #### L IPA, TROP, CMP #### [facility] [address] [place] [address] Israel Tsiha Urea nitrogen [Mass/Vol] 17.0 mg/dL Normal 7.0-17.0 [facility] Comment on above: Performed By: #### L IPA, TROP, CMP #### [facility] [address] [place] [address] Israel Tisha Urea nitrogen/Creatinine [Mass ratio] 19.8 mg/mg Normal [facility] Comment on above: Performed By: #### L IPA, TROP, CMP #### [facility] [address] [place] [address] Israel Tisha TROPONIN - Ion 03-02-2019 Troponin I.cardiac [Mass/Vol] ng/mL Normal <=0.034 [facility] Comment on above: Performed By: #### L IPA, TROP, CMP #### [facility] [address] [place] [address] Israel Tisha Troponin I.cardiac [Mass/Vol] SEE BELOW Normal [facility] Comment on above: Result Comment: <0.0 34 ng/ml NEGATIVE 0.034-0.119 INDETERMINATE 0.120 AMI CUT OFF Performed By: #### L IPA, TROP, CMP #### [facility] [address] [place], [place] [id number] Israel Tisha Vital Signs Date Time Vital Sign Value Performing Clinician Selvin jewell 01-26-2022 20:03-0400 Body temperature 98.5 [degF] MD Tang Swann Work Phone: [facility] 01-26-2022 20:03-0400 Diastolic blood pressure 88 mm[Hg] MD Tang Swann Work Phone: [facility] 01-26-2022 20:03-0400 Heart rate 77 /min MD Tang Swann Work Phone: [facility] 01-26-2022 20:03-0400 Respiratory rate 16 /min MD Tang Swann Work Phone: [facility] 01-26-2022 20:03-0400 SaO2% (BldA) [Mass fraction] 98 % MD Tang Swann Work Phone: [facility] 01-26-2022 20:03-0400 Systolic blood pressure 134 mm[Hg] MD Tang Swann Work Phone: [facility] 01-26-2022 16:18-0400 Body height 157.48 cm MD Tang Swann Work Phone: [facility] 01-26-2022 16:18-0400 Body weight 106.2 kg MD Tang Swann Work Phone: [facility] Encounters Encounter Date Encounter Type Care Provider Facility Start: 08-10-2023 End: 08-10-2023 ambulatory TANG SWANN Not Available Start: 08-02-2023 End: 08-02-2023 ambulatory TANG SWANN Not Available Start: 06-30-2023 End: 06-30-2023 ambulatory TANG SWANN Not Available Start: 06-13-2023 End: 06-13-2023 ambulatory TANG SWANN Not Available Start: 05-29-2023 End: 05-29-2023 Emergency department patient visit Adeel Don Facility:[facility] Start: 05-29-2023 End: 05-29-2023 ambulatory ADEEL POSEY Not Available Start: 05-01-2023 Refill Tang brunson MD Work Phone: [facility] Comment on above: Acquired hypothyroid ism (CMS/HCC); ESS (euthyroid sick syndrome); Mixed dyslipidemia (CMS/HCC); Lichen sclerosus et atrophicus of the vulva; Acute conjunctivitis, unspecified acute conjunctivitis type, unspecified laterality Start: 04-04-2023 End: 04-04-2023 ambulatory TANG SWANN Not Available Start: 11-09-2022 End: 11-09-2022 ambulatory Referral Self Facility:[facility] Start: 11-09-2022 End: 11-09-2022 ambulatory MD Tang Swann Work Phone: [facility] Work Phone: Start: 11-09-2022 End: 11-09-2022 Patient encounter procedure MD Tang Swann Work Phone: [facility] Work Phone: Start: 01-26-2022 End: 01-26-2022 Emergency department patient visit MD Tang Swann Work Phone: [facility] Start: 06-20-2019 End: 06-21-2019 Patient encounter procedure TANG SWANN Facility:[facility] Start: 03-02-2019 End: 03-02-2019 Patient encounter procedure TANG SWANN Facility:[facility] Procedures Date Procedure Procedure Detail Performing Clinician Start: 11-09-2022 Screening mammograph y of bilateral breasts MD Tang Swann Work Phone: Start: 01-26-2022 Plain chest X-ray MD Romain Swann Work Phone: Start: 05-30-2020 Mammography Tang razo MD Work Phone: Start: 02-12-2015 Colonoscopy Tang razo MD Work Phone: SARS Antigen (LFIA) MD José Swann Work Phone: Plan of Treatment Date Care Activity Detail Author Start: 02-12-2025 Screening for malign ant neoplasm of colon [facility] Start: 06-30-2023 End: 06-30-2023 Patient encounter procedure 06/30/2023 2:30 PM EDT Office Visit [facility] [address] [facility] [place] [address] Tang Swann MD [address] [facility] [place] [address] (Fax) [facility] Start: 11-26-2022 Influenza vaccination Influenza Vacc ine (#1) [facility] Start: 05-30-2021 Screening for malign ant neoplasm of breast Mammogram [facility] Start: 1960 Screening for malign ant neoplasm of colon [facility] Patient Education Chest Pain (DC) [facility] Work Phone: Patient referral [facility] Work Phone: Immunizations Immunization Date Immunization Notes Care Provider Fa [facility] 12-29-2016 influenza, injectabl e, quadrivalent, preservative free Tang Swann MD Work Phone: [facility] 12-29-2016 influenza virus vacc ine, unspecified formulation Tang Swann MD Work Phone: [facility] Payers Date Payer Category Payer Self-pay [id number] 2022 Medicaid [place] [employer] [id number] 2022-Present [address] [place] [address] [id number] 1960 Unknown [id number] 1960 Unknown [id number] 1960 Unknown [id number] 1960 Unknown [id number] 1960 Unknown [id number] 1960 Unknown [id number] 1960 Unknown [id number] 1960 Unknown [id number] 1957 Medicaid [id number] 1957 Self-pay [id number] Medicaid [employer] [id number] 501 [id number] Unknown MMO [id number] Unknown [id number] Unknown [id number] Social History Date Type Detail Facility Start: 01-26-2022 End: 09-22-2022 Tobacco smoking status DCIS Never smoked tobacco (finding) [facility] Start: 1960 Sex Assigned At Female [facility] Start: 09-22-2022 Tobacco use and exposure Smoke less tobacco non-user [facility] Start: 04-04-2023 Alcohol intake Current drinke r of alcohol (finding) [facility] Start: 09-27-2022 End: 04-04-2023 Alcohol intake [facility] Start: 09-27-2022 End: 01-05-2023 Humiliation, Afraid, Rape, and Kick questionnaire [HARK] [facility] Within the last year , have you been afraid of your partner or ex-partner? No [facility] Do you belong to any clubs or organizations such as pentecostal groups, unions, fraternal or athletic groups, or [...] Not at all [facility] (I/We) worried wheth er (my/our) food would run out before (I/we) got money to buy more. Never true [facility] Start: 10-04-2022 Education 17 [facility] Start: 10-04-2022 Alcohol Comment Caffeine Intak e : 1-2 cups per day [facility] Start: 1960 Sex Assigned At Not on file [facility] Evaluation note Note Date & Type Note Facility Evaluation note No assessment information availa [facility] Work Phone: Evaluation note Note Date & Type Note Facility Evaluation note Diagnosis Acquired hypothyroidism (CMS/HCC) Unspecified hypothyroidism ESS (euthyroid sick syndrome) Euthyroid sick syndrome Mixed dyslipidemia (CMS/HCC) Lichen sclerosus et atrophicus of the vulva Circumscribed scleroderma Acute conjunctivitis, unspecified acute conjunctivitis type, unspecified laterality documented in this encounter [facility] Discharge instructions Note Date & Type Note Facility Hospital Discharge instructions Additional Instructions Follow-up with your primary care doctor Return to ED if develop worsening symptoms or concern [facility] Work Phone: Summary Purpose Family History No [...] and content) DATE CREATED AUTHOR 11/05/2019 [facility] DATE CREATED AUTHOR AUTHOR'S ORGANIZ ATION 04/20/2021 [facility] dical Specialist DATE CREATED AUTHOR AUTHOR'S ORGANIZ ATION 06/09/2023 [facility] DATE CREATED AUTHOR AUTHOR'S ORGANIZ ATION 08/12/20[facility] dical Specialists EPIC Care Teams (unrecognized sec tion and content) Team Status: Inactive Member Role Status Dates Tang Swann MD Primary Care Provider Active Joss Alatorre DO Emergency Provider Active Team Status: Active Member Role Status Dates Tang Swann MD Primary Care Provider Active Team Status: Inactive Member Role Status Dates Tang Swann MD Primary Care Provider, Referring Provider Active Referral Self Attending Provider Active Radiology Transporter Relationship Specialty Start Date End Date Tang Swann MD [address] [place] [address] PCP - General Family Medicine 08/24/22 Goals [...] BE BASED ON THE PRIMARY CLINICAL RECORDS. [employer] provides no warranty or guarantee of the accuracy or completeness of information in this document.
--- NOTE | 2023-09-03 15:32 | ECG_ITS ---
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
--- NOTE | 2023-09-03 15:32 | XR_ITS ---
The [address] [address] Patient Name: KALPESH GARRISON MRN: [id number] date: 1960 Sex: F Assigned Patient Location: ER Current Patient Location: ER Accession/Order Number: [id number] Exam Date: 09/03/2023 15:50 Report Date: 09/03/2023 16:50 At the request of: QAMAR LEE Procedure: XR chest 1V EXAM: XR chest 1V HISTORY: sob COMPARISON: None. TECHNIQUE: Chest X-ray AP, 1 view FINDINGS: Support devices: None. Lungs/pleura: No consolidation, effusion, or pneumothorax. Heart and mediastinum: Normal contours. Bones: No acute abnormality identified. XR/XR chest 1V Impression: No radiographic evidence of acute cardiopulmonary process. Electronically authenticated by: SHERIE GRANADOS Date: 09/03/2023 16:50
--- NOTE | 2023-09-03 15:35 | ED.GENADUL1 ---
HPI HPI - General Adult General Chief complaint: Weakness Stated complaint: BURNING IN CHEST STRESS TEST TUESDAY Time Seen by Provider: 09/03/23 14:49 Source: patient Mode of arrival: walk-in Limitations: no limitations History of Present Illness HPI narrative: Patient presents to ED complaining of shortness of breath and not feeling right. She states she had an outpatient stress test, a mechanical stress test which she collapsed at the end of the stress test. She said the nurse told her after that that she might have congestive heart failure. This was 4 days ago. She has been concerned about possibly having congestive heart failure then and it has been causing her a lot of anxiety. She does report that she has been very tired as well but she is had sleep studies and will be getting a CPAP on Tuesday she just does not have it yet. No acute chest pain no nausea no vomiting no diaphoresis. She does report tingling in her Hands and feet. She denies shortness of breath with exertion or having to sleep in an elevated position. She is here because she was concerned about possible CHF Related Data Allergies Allergy/AdvReac Type Severity Reaction Status Date / Time Sulfa (Sulfonamide Allergy Severe Verified 09/03/23 14:49 Antibiotics) Opioid HPI Opioid Management Most Recent Opioid Data: No Data to Display Review of Systems ROS Status of ROS 10 or more systems reviewed and unremarkable except as noted in history and below Exam Narrative Exam Narrative: Time Seen: [] Vital Signs: [Per nurse's notes.] General: [Alert] Skin: [Warm, dry, no rash.] Head: [Normocephalic, atraumatic.] Neck: [Supple, trachea midline.] Eye: [Pupils are equal, round and reactive to light, extraocular movements are intact, normal conjunctiva.] Ears, nose, mouth and throat: oral mucosa moist. Cardiovascular: [Regular rate and rhythm, no murmur.] Respiratory: [Lungs are clear to auscultation, respirations are non-labored, breath sounds are equal.] Chest wall: [No tenderness, no deformity.] Gastrointestinal: [Soft, nontender, non distended, normal bowel sounds.] MSK: 5 out of 5 muscle strength x 4 extremities no calf pain or edema Lymphatics: [No lymphadenopathy.] Psychiatric: [Cooperative, appropriate mood & affect.] Neurological: [Alert and oriented to person, place, time, and situation, no focal neurological deficit observed.] Constitutional Vital Signs, click to edit/add: Last Vital Signs Temp 98.1 F 09/03/23 14:49 Pulse 85 09/03/23 14:49 Resp 20 09/03/23 14:49 BP 157/93 H 09/03/23 14:49 Pulse Ox 100 09/03/23 14:49 O2 Del Method Room Air 09/03/23 14:49 Course Vital Signs Vital signs: Vital Signs Temperature 98.1 F 09/03/23 14:49 Pulse Rate 85 09/03/23 14:49 Respiratory Rate 20 09/03/23 14:49 Blood Pressure 157/93 H 09/03/23 14:49 Pulse Oximetry 100 09/03/23 14:49 Oxygen Delivery Method Room Air 09/03/23 14:49 Temperature 98.1 F 09/03/23 14:49 Pulse Rate 85 09/03/23 14:49 Respiratory Rate 20 09/03/23 14:49 Blood Pressure 157/93 H 09/03/23 14:49 Pulse Oximetry 100 09/03/23 14:49 Oxygen Delivery Method Room Air 09/03/23 14:49 Medical Decision Making MDM Narrative Medical decision making narrative: Patient's labs and EKG and imaging were nonacute. I do not see any evidence of CHF, and no elevated BNP and normal chest x-ray. Continue outpatient workup for the cardiac issues. CPAP on Tuesday should help as well with the fatigue. Patient's vitals are stable labs are nonacute and she is stable for discharge home. Differential Diagnosis Differential Diagnosis: Electrolyte abnormality, CHF, ACS Medical Records Medical records reviewed: Yes I reviewed the patient's medical records Lab Data Lab results reviewed: Yes I reviewed the patient's lab results Imaging Data Chest x-ray: Radiologist's impression: ITS Impressions Chest X-Ray 09/03/23 15:32 Impression: No radiographic evidence of acute cardiopulmonary process. Electronically authenticated by: SHERIE GRANADOS Date: 09/03/2023 16:50 ECG Data Interpretation: EKG INTERPRETATION Time: []1513 Rate: []83 Rhythm: _ []Normal sinus rhythm ST segments: _ [] T waves: _ [] Ectopy: _ [] P wave/MA interval: _ [] QRS interval: _ [] QT interval: _ [] Comparison: _ [] Comparison EKG date: [] Performed by: [self]No acute ST elevation or depression Discharge Plan Discharge Stand Alone Forms: Portal Instructions Chief Complaint: Weakness Clinical Impression: Anxiety Patient Disposition: Home, Self-Care Time of Disposition Decision: 17:20 Condition: Good Mode of Transportation: Private Vehicle Print Language: Namibian Instructions: Anxiety (ED) Referrals: MATTY SWANN [Primary Care Provider] - 1 week
[2023-09-03 16:05] LABS: Basophils Absolute Auto 0.1 10^3/uL (0.0-0.1); Basophils Percent Auto 0.9 % (0.2-2.0); Eosinophils Absolute Auto 0.3 10^3/uL (0.0-0.7); Eosinophils Percent Auto 3.3 % (0.9-7.0); Hematocrit 45.6 % (36.0-48.0); Immature Granulocytes Abs Auto 0.05 10^3/uL (0.00-0.03); Immature Granulocytes Pct Auto 0.5 % (0.0-0.5); Lymphocytes Percent Auto 41.5 % (20.5-60.0); Mean Corpuscular HGB Conc 32.9 g/dL (29.9-35.2); Mean Corpuscular Hemoglobin 32.3 pg (26.7-34.0); Mean Corpuscular Volume 98.3 fL (81.0-99.0); Mean Platelet Volume 9.3 fL (9.5-13.5); Monocytes Absolute Auto 0.8 10^3/uL (0.3-0.8); Monocytes Percent Auto 7.7 % (1.7-12.0); Neutrophils Absolute Auto 4.5 10^3/uL (1.4-6.5); Neutrophils Percent Auto 46.1 % (43.0-75.0); Platelet Count 250 10^3/uL (150-450); Red Blood Count 4.64 10^6/uL (4.20-5.40); White Blood Count 9.7 10^3/uL (4.0-11.0)
[2023-09-03 16:29] LABS: Alanine Aminotransferase 69 U/L (14-59); Albumin Globulin Ratio 0.9; Albumin Level 3.6 g/dL (3.4-5.0); Alkaline Phosphatase 101 U/L (46-116); Aspartate Amino Transferase 51 U/L (15-37); Bilirubin Total 0.7 mg/dL (0.2-1.0); Calcium 9.6 mg/dL (8.5-10.1); Carbon Dioxide 20.3 mmol/L (21.0-32.0); Chloride 103 mmol/L (98-107); Estimated GFR (African America >60 (>=60); Estimated GFR (Non-African Ame >60 (>=60); Globulin 3.8 g/dL; Glucose 105 mg/dL (74-106); Potassium 4.3 mmol/L (3.5-5.1); Sodium 137 mmol/L (136-145); Total Protein 7.4 g/dL (6.4-8.2); Troponin I High Sensitivity <4.0 pg/mL (4.0-51.3)
== END 2023-09-03 17:39 | disposition home or self-care (01) ==
PROVIDERS: Emergency Provider Emergency Medicine; PCP Family Medicine
DX: F41.9 Anxiety disorder, unspecified (principal)
CPT/HCPCS: 36415; 71045; 80053; 83880; 84484; 85025; 93005; 99285

== ENCOUNTER 2023-09-09 12:45 | Outpatient (OUT) | payer MEDICAID, SELFPAY ==
--- OUTSIDE RECORDS SUMMARY | 2023-09-09 12:51 | XMS_ITS | CCD ---
Author Organization [facility] Inform ion Partnership [facility] Care Team Providers Care Cath Lab Tech Name Role Phone TANG SWANN Primary Care Unavailable LE LORETTA Admitting Unavailable LE LORETTA Attending Unavailable AMANDA BISHOP V Consulting Unavailable BRITNEY LORETTA Consulting Unavailable TANG SWANN Admitting Unavailable TANG SWANN Attending Unavailable TANG SWANN Primary Care Unavailable TANG SWANN Consulting Unavailable ROGER THAKKAR Consulting Unavailable MD Tang Swann Primary Care Provider [phone] DO Joss Alatorre Emergency Provider MD Tang Swann Primary Care Provider MD Tang Swann Referring Provider Self, Referral Attending Provider Unavailable Tang Swann MD Primary Care Provider Adeel Don Attending Unavailable Tang Swann Primary [...] Sulfonamides (Antibiotic) Drug allergy (disorder) 5 [facility] (1 source) Darvocet-N 100 Drug allergy (disorder) 5 [facility] (3 sources) Acetaminophen; Translations: [acetaminophen] Drug Allergy 2 [facility] (3 sources) Propoxyphene; Translations: [propoxyphene] Drug Allergy 2 Fever [facility] (3 sources) Sulfonamides (Antibiotic); Translations: [Sulfa (Sulfonamide Antibiotics)] Allergy to substance 2 [facility] (1 source) metFORMIN Drug Allergy 3 GI intolerance [facility] Work Phone: (1 source) Sulfonamides (Antibiotic) Drug Allergy 3 Rash [facility] (1 source) wasp venom Drug Allergy 3 Swelling [facility] Medications Current Medications Medication Drug Class(es) [...] the morning cholecalciferol (Vitamin D-3) 250 MCG (25283 UT) tablet Take 10,000 Units by mouth in the morning. Winter dose. 0 Active Cholecalciferol (Vitamin D3) 125 MCG (5000 UT) chewable tablet Chew 1 capsule 1 (one) time each day at the same time. Summer dose 0 Active dexamethasone 1 mg/ml / neomycin 3.5 mg/ml / polymyxin b 03082 unt/ml ophthalmic suspension (2 sources) Aminoglycoside Antibacterial, Polymyxin-class Antibacterial, Corticosteroid Start: 05-02-2023 take 1 drop(s) into the eye(s) three times daily qygdesml-picijpdfw-ihbAGUMRqlmdj (Maxitrol) 0.1 % ophthalmic suspension Indications: Conjunctivitis Apply 1 drop to affected EYE three times daily for 7 days. 5 mL 0 05/02/2023 Active Start: 04-05-2023 End: 05-01-2023 take 1 drop(s) into the eye(s) three times daily qfmavghg-rgwcerntt-mebVZTOKzkcfl (Maxitr ol) 0.1 % ophthalmic suspension Indications: [...] at the same time. 0 Active thyroid (fpc) 15 mg oral tablet (4 sources) Start: 10-28-2022 End: 06-01-2023 take 3 tablets by mouth in the morning thyroid (Elverta Thyroid) 15 MG tablet Indications: Acquired hypothyroidism (CMS/HCC) , ESS (euthyroid sick syndrome) Take 3 tablets (45 mg) by mouth in the morning and 3 tablets (45 mg) in the evening. Take before meals. 180 tablet 0 05/02/2023 06/01/2023 Active Start: 06-29-2021 take 1 tablet by marlon th twice daily Thyroid (Pork) (Palliative Senior Np Thyroid) 90 mg tablet Active 90 MG [...] or Cepheid Disclaimer revoked sooner. PERFORMED BY: [facility] [address] [place] [address] PATHOLOGIST PETROLEUM GEOLOGY [employer]ACULTY MEMBER PUJA MOODY M.D. Normal [facility] Comment on above: Performed By: #### C EPHEID NEG, COVID19 FLU RSV #### [facility] [address] Cepheid COVID PCR Negativeon 05-29-2023 SARS-CoV-2 (COVID-19) RNA CARLOS+probe Ql (Unsp spec) Negative Normal Negative [facility] Comment on above: Result Comment: This is a duplicate [employer] Xpert Xpress CoV-2/Flu/RSV Plus RNA by RT-PCR result to be used for statistical tracking purpose only. PERFORMED BY: [place] [address] PATHOLOGIST PETROLEUM GEOLOGY FACULTY MEMBER PUJA MOODY M.D. Performed By: #### C EPHEID NEG, COVID19 FLU RSV #### [address] ECG 12 lead ECGon 05-29-2023 ECG 12 lead ECG [place] [address] Electrocardiograph Report Signed Patient: Kalpesh Garrison MR#: [id number] 2 : 1960 Acct:[id number] Age/Sex: 63 / F ADM Date: 05/29/23 Loc: ER Room: Type: [facility] ER Attending Dr: Ordering Provider: Adeel [...] By Ignacio Garcia MD 05/29/23 1528 Normal [facility] XR chest 2V*on 05-29-2023 XR chest 2V* [place] [address] XRay Report Signed Patient: Kalpesh Garrison MR#: [id number] 2 : 1960 Acct:[id number] Age/Sex: 63 / F ADM Date: 05/29/23 Loc: ER Room: Type: [facility] ER Attending Dr: Copies to: Adeel [...] ABNORMALITY. Impression dictated by: Renato Gillis Jr., D.O.05/29/2023 4:18 PM Dictation Location: [facility]- Transcribed By: [facility] 05/29/23 161 Dictated By: Renato Gillis Jr, DO 05/29/23 1617 Signed By: 05/29/23 1618 Normal [facility] MM screening mammo BI w/CADo n 11-09-2022 MM screening mammo BI w/CAD [facility] [place] [address] Mammography Report Signed Patient: Kalpesh Garrison MR#: [id number] 2 : 1960 Acct:[id number] Age/Sex: 62 / F ADM Date: 11/09/22 Loc: DC Room: Type: [facility] CLI Attending Dr: Referral Self Copies to: Tang [...] Michael Lassiter M.D.11/09/2022 4:19 PM Dictation Location: [facility] Transcribed By: CHRISSY 11/09/22 161 Dictated By: Michael Lassiter II, MD 11/09/22 161 Signed By: 11/09/22 161 Normal [facility] Activated partial thrombopla stin time (aPTT) in platelet poor plasma by coagulation aOrdered By: Joss Alatorre on 01-26-2022 aPTT Coag (PPP) [Time] 31.2 s 25.1-36.5 [facility] Automated erythrocytes count in urine sediment (number/area)Ordered By: Joss Alatorre on 01-26-2022 RBC Auto (Urine sed) [#/Area] 0-1 [HPF] 0-4 [facility] Automated leukocytes count i n urine sediment (number/area)Ordered By: Joss Alatorre on 01-26-2022 WBC Auto (Urine sed) [#/Area] 1-2 [HPF] 0-4 [facility] Basophils Auto (Bld) [#/Vol] Ordered By: Joss Alatorre on 01-26-2022 Basophils (Bld) [#/Vol] 0.1 10*3/uL 0.0-0.2 [facility] Basophils/100 WBC Auto (Bld) Ordered By: Joss Alatorre on 01-26-2022 Basophils/100 WBC (Bld) 0.8 % . [facility] Bilirubin Test strip Ql (U)O rdered By: Joss Alatorre on 01-26-2022 Bilirubin Ql (U) Negative Negative [facility] COVID-19 SOFIAOrdered By: Shree Siddiqui on 01-26-2022 SARS-CoV+SARS-CoV-2 (COVID-19) Ag IA.rapid Ql (Resp) Negative Negative [facility] Comment on above: This is a duplicate Ria SARS Antigen (NELLIE) result to be used for statistical tracking purpose only. Color Auto (U)Ordered By: Henry Alatorre on 01-26-2022 Color (U) Yellow Yellow [facility] Creatine kinase [Enzymatic a ctivity/volume] in Serum or PlasmaOrdered By: Joss Alatorre on 01-26-2022 CK [Catalytic activity/Vol] 102 U/L 22-269 [facility] Creatinine and Glomerular fi ltration rate.predicted panel (S/P/Bld)Ordered By: Joss Alatorre on 01-26-2022 Creatinine [Mass/Vol] 0.81 mg/dL 0.44-1.[address] [facility] Eosinophils Auto (Bld) [#/Vo l]Ordered By: Joss Alatorre on 01-26-2022 Eosinophils (Bld) [#/Vol] 0.3 10*3/uL 0.0-0.45 [facility] Eosinophils/100 WBC Auto (Bl d)Ordered By: Joss Alatorre on 01-26-2022 Eosinophils/100 WBC (Bld) 3.7 % . [facility] Erythrocyte distribution wid th Auto (RBC) [Ratio]Ordered By: Joss Alatorre on 01-26-2022 Erythrocyte distribution width (RBC) [Ratio] 13.6 % 11.9-15.3 [facility] Estimated glomerular filtrat ion rate (GFR) non- AmericanOrdered By: Joss Alatorre on 01-26-2022 GFR/1.73 sq M.predicted among non-blacks MDRD (S/P/Bld) [Vol rate/Area] > 60 mL/Min [facility] Hematocrit Auto (Bld) [Volum e fraction]Ordered By: Joss Alatorre on 01-26-2022 Hematocrit (Bld) [Volume fraction] 40.5 % 34.0-46.4 [facility] Hemoglobin [Mass/volume] in BloodOrdered By: Joss Alatorre on 01-26-2022 Hemoglobin (Bld) [Mass/Vol] 13.6 g/dL 11.8-15.4 [facility] Ketones Auto test strip (U) [Mass/Vol]Ordered By: Joss Alatorre on 01-26-2022 Ketones (U) [Mass/Vol] Negative Negative [facility] - Chemistry and C hemistry - challengeOrdered By: Joss Alatorre on 01-26-2022 Natriuretic peptide B (Bld) [Mass/Vol] 14.0 pg/mL 5-100 [facility] Laboratory - CoagulationOrde red By: Joss Alatorre on 01-26-2022 PT Coag (PPP) [Time] 11.8 s 9.0-12.9 [facility] - Hematology and Cell countsOrdered By: Joss Alatorre on 01-26-2022 Nucleated RBC/100 WBC (Bld) [Ratio] 0.1 % 0-0.5 [facility] - UrinalysisOrder ed By: Joss Alatorre on 01-26-2022 Hyaline casts LM Ql (Urine sed) 0-8 [LPF] 0-8 [facility] Leukocytes [#/volume] in Blo od by Automated countOrdered By: Joss Alatorre on 01-26-2022 WBC (Bld) [#/Vol] 7.1 10*3/uL 4.5-11.0 [facility] Lymphocytes Auto (Bld) [#/Vo l]Ordered By: Joss Alatorre on 01-26-2022 Lymphocytes (Bld) [#/Vol] 2.9 10*3/uL 1.00-4.8 [facility] Lymphocytes/100 WBC Auto (Bl d)Ordered By: Joss Alatorre on 01-26-2022 Lymphocytes/100 WBC (Bld) 40.5 % . [facility] MCH Auto (RBC) [Entitic mass ]Ordered By: Joss Alatorre on 01-26-2022 MCH (RBC) [Entitic mass] 29.8 pg 24.7-34.3 [facility] MCHC Auto (RBC) [Mass/Vol]Or dered By: Joss Alatorre on 01-26-2022 MCHC (RBC) [Mass/Vol] 33.5 g/dL 32.0-35.[address] [facility] MCV Auto (RBC) [Entitic vol] Ordered By: Joss Alatorre on 01-26-2022 MCV (RBC) [Entitic vol] 88.8 fL 80-100 [facility] Monocytes Auto (Bld) [#/Vol] Ordered By: Joss Alatorre on 01-26-2022 Monocytes (Bld) [#/Vol] 0.5 10*3/uL 0.0-0.8 [facility] Monocytes/100 WBC Auto (Bld) Ordered By: Joss Alatorre on 01-26-2022 Monocytes/100 WBC (Bld) 6.8 % . [facility] Neutrophils Auto (Bld) [#/Vo l]Ordered By: Joss Alatorre on 01-26-2022 Neutrophils (Bld) [#/Vol] 3.4 10*3/uL 1.8-7.7 [facility] Neutrophils/100 WBC Auto (Bl d)Ordered By: Joss Alatorre on 01-26-2022 Neutrophils/100 WBC (Bld) 48.2 % . [facility] Nitrite Test strip Ql (U)Ord ered By: Joss Alatorre on 01-26-2022 Nitrite Ql (U) Negative Negative [facility] No Panel InformationOrdered By: Joss Alatorre on 01-26-2022 Estimated GFR () > 60 mL/Min [facility] Comment on above: GFR estimated refere nce range: According to KDOQI guidelines, <60 ml/min/1.73m2 is sufficient to diagnose a patient with chronic kidney disease. Pharmacy Creatinine Clearance (Chem 85.64 [facility] No Panel InformationOrdered By: Luis Siddiqui on 01-26-2022 SARS Antigen (LFIA) [facility] Platelet mean volume Auto (B ld) [Entitic vol]Ordered By: Joss Alatorre on 01-26-2022 Platelet mean volume (Bld) [Entitic vol] 6.2 fL 6.3-10.7 [facility] Platelet poor plasma interna tional normalized ratio (INR) by coagulation assay (relatOrdered By: Joss Alatorre on 01-26-2022 INR Coag (PPP) [Relative time] 1.0 {INR} [facility] Comment on above: INR Therapeutic Rang [...] 01-26-2022 Platelets (Bld) [#/Vol] 368 10*3/uL 150-450 [facility] Protein Auto test strip (U) [Mass/Vol]Ordered By: Joss Alatorre on 01-26-2022 Protein (U) [Mass/Vol] Negative Negative [facility] RBC Auto (Bld) [#/Vol]Ordere d By: Joss Alatorre on 01-26-2022 RBC (Bld) [#/Vol] 4.57 10*6/uL 3.60-5.00 [facility] Serum or plasma anion gap de terminationOrdered By: Joss Alatorre on 01-26-2022 Anion gap [Moles/Vol] 13.2 mmol/L 6.0-15.0 [facility] Serum or plasma calcium royce urement (mass/volume)Ordered By: Joss Alatorre on 01-26-2022 Calcium [Mass/Vol] 8.9 mg/dL 8.2-10.2 [facility] Serum or plasma chloride odell surement (moles/volume)Ordered By: Joss Alatorre on 01-26-2022 Chloride [Moles/Vol] 101 mmol/L 95-114 [facility] Serum or plasma creatine kin ase MB (CKMB)/total creatine kinase (CK) ratio by calculaOrdered By: Joss Alatorre on 01-26-2022 CK.MB Calc [Catalytic fraction] 3.0 % 0.00-2.50 [facility] Serum or plasma creatine kin ase MB measurement (mass/volume)Ordered By: Joss Alatorre on 01-26-2022 CK.MB [Mass/Vol] 3.1 ng/mL 0.6-6.3 [facility] Serum or plasma glucose royce urement (mass/volume)Ordered By: Joss Alatorre on 01-26-2022 Glucose [Mass/Vol] 143 mg/dL 70-100 [facility] Comment on above: ADA recommended refe rence rangeRandom Glucose Reference Range is dependent on time and content of last meal. Glucose of more than 200 mg/dL in a nonstressed, ambulatory subject supports the diagnosis of Diabetes Mellitus. Serum or plasma potassium me asurement (moles/volume)Ordered By: Joss Alatorre on 01-26-2022 Potassium [Moles/Vol] 3.9 mmol/L 3.5-5.[address] [facility] Serum or plasma sodium measu rement (moles/volume)Ordered By: Joss Alatorre on 01-26-2022 Sodium [Moles/Vol] 136 mmol/L 136-146 [facility] Serum or plasma total carbon dioxide measurement (moles/volume)Ordered By: Joss Alatorre on 01-26-2022 CO2 [Moles/Vol] 25.7 mmol/L 22.0-30.0 [facility] Serum or plasma urea nitroge n measurement (mass/volume)Ordered By: Joss Alatorre on 01-26-2022 Urea nitrogen [Mass/Vol] 13 mg/dL 9-23 [facility] Specific gravity Auto test s trip (U) [Rel density]Ordered By: Joss Alatorre on 01-26-2022 Specific gravity (U) [Rel density] 1.020 1.001-1.03 0 [facility] Squamous epithelial cells de tection in urine sediment by light microscopyOrdered By: Joss Alatorre on 01-26-2022 Epithelial cells.squamous LM Ql (Urine sed) 3-4 [HPF] 0-2 [facility] Troponin I.cardiac [Mass/vol ume] in Serum or Plasma by High sensitivity methodOrdered By: Joss Alatorre on 01-26-2022 Troponin I.cardiac High sensitivity method [Mass/Vol] 3 pg/mL 0-15 [facility] Urine bacteria detection by automated methodOrdered By: Joss Alatorre on 01-26-2022 Bacteria Auto Ql (U) None seen None Seen [facility] Urine clarity by refractomet ry automatedOrdered By: Joss Alatorre on 01-26-2022 Clarity Refractometry automated (U) Clear Clear [facility] Urine glucose measurement by automated test strip (mass/volume)Ordered By: Joss Alatorre on 01-26-2022 Glucose Auto test strip (U) [Mass/Vol] Normal mg/dL Normal [facility] Urine hemoglobin detection b y automated test stripOrdered By: Joss Alatorre on 01-26-2022 Hemoglobin Auto test strip Ql (U) Negative Negative [facility] Urine leukocyte esterase det ection by automated test stripOrdered By: Joss Alatorre on 01-26-2022 Leukocyte esterase Auto test strip Ql (U) 2+ Negative [facility] Urobilinogen Auto test strip (U) [Mass/Vol]Ordered By: Joss Alatorre on 01-26-2022 Urobilinogen (U) [Mass/Vol] Normal mg/dL Normal [facility] pH Auto test strip (U)Ordere d By: Joss Alatorre on 01-26-2022 pH (U) 6.0 [pH] 5.0-9.0 [facility] Q - T3 TOTALon 04-10-2021 T3, TOTAL 121 ng/dL Normal 76-181 [facility] Event Staff Member Comment on above: Order Comment: [facility] Testing performed at: [employer] [facility], [address] [place] [address], [phone], Auctioneer Tobacco: Jensen Patiño MD [facility] Collection Date/Time: [facility] Results Received Date/Time: [facility] Reported Date/Time: FASTING: NO Performed By: #### T SH, 859X, [id number], [id number], [id number] #### [facility] Default [address] [place] [address] Q - T3,FREEon 04-10-2021 Free T3 [Mass/Vol] 3.2 pg/mL Normal 2.3-4.2 [facility] Event Staff Member Comment on above: Order Comment: [facility] performed at: [employer] [facility], [address], [address] [place], [address], Auctioneer Tobacco: Jensen Patiño MD [facility] Collection Date/Time: [facility] Results Received Date/Time: [facility] Reported Date/Time: FASTING: NO Performed By: #### T SH, 859X, 49314, [id number], [id number] #### [facility] Default [address] [place] [address] Q - T3,REVERSE,LC/MS/MSon T3 REVERSE, LC/MS/MS 12 ng/dL Normal 8-25 [facility] [place] Event Staff Member Comment on above: Order Comment: [facility] performed at: [facility] [employer], [address], [place], [place], , Auctioneer Tobacco: Davie Lee M.D.,PhD [facility] Collection Date/Time: [facility] Results Received Date/Time: [facility] Reported Date/Time: FASTING: NO Result Comment: This test was developed and its analytical performance characteristics have been determined by [employer] [place], [place]. It has not been cleared or approved by the U.S. Food and Drug Administration. This assay has been validated pursuant to the CLIA regulations and is used for clinical purposes. Performed By: #### T SH, 859X, 13693, [id number], 27750S #### [facility] Default [address] [place] [address] Q - T4,FREEon 04-10-2021 Free T4 [Mass/Vol] 0.9 ng/dL Normal 0.8-1.8 Kandy montero [place] Event Staff Member Comment on above: Order Comment: [facility] Testing performed at: [facility], [employer] [facility], [address] , [address] [place] [address], [phone], Auctioneer Tobacco: Jensen Patiño MD [facility] Collection Date/Time: [facility] Results Received Date/Time: [facility] Reported Date/Time: FASTING: NO Performed By: #### T SH, 859X, 16858, [id number], [id number] #### [facility] Default [address] [place] [address] TSHon 04-10-2021 TSH Qn 0.84 m[IU]/L Normal 0.40-4.50 [facility] Event Staff Member Comment on above: Order Comment: [facility] performed at: [facility], [employer] [facility], [address] [facility], [address] [place] [address], [address], Auctioneer Tobacco: Jensen Patiño MD [facility] Collection Date/Time: [facility] Results Received Date/Time: [facility] Reported Date/Time: FASTING: NO Performed By: #### T SH, 859X, 23702, 71392N, [id number] #### [facility] Default [address] [place] [address] NM STRESS/REST MULTIon 06-19 NM STRESS/REST MULTI Patient: KEVIN GARRISON Exam Date: 06/20/2019 : 1960 Gender:F Ordering : DR TANG SWANN . Admission #: [id number] Family : Order #: [id number] CLICK HERE TO VIEW EXAM RADIOLOGY REPORT [...] M.D. on 06/20/2019 at 13:02 Normal [facility] CBC AUTO DIFFon 03-02-2019 Basophils (Bld) [#/Vol] 0.0 103/ul Normal 0.0-0.1 [facility] Comment on above: Performed By: #### C BC #### [facility] [address] [place] [address] Israel Tisha Basophils/100 WBC (Bld) 0.3 % Normal 0.2-2.0 [facility] Comment on above: Performed By: #### C BC #### [facility] [address] [place] [address] Israel Tisha Eosinophils (Bld) [#/Vol] 0.2 103/ul Normal 0.0-0.7 [facility] Comment on above: Performed By: #### C BC #### [facility] [address] [place], [place] [id number] Israel Tisha Eosinophils/100 WBC (Bld) 1.6 % Normal 0.9-7.0 [facility] Comment on above: Performed By: #### C BC #### [facility] [address] [place], [place] [id number] Israel Tisha Erythrocyte distribution width (RBC) [Ratio] 12.5 % Normal 11.0-15.0 [facility] Comment on above: Performed By: #### C BC #### [facility] [address] [place], [place] [id number] Israel Tisha Hematocrit (Bld) [Volume fraction] 43.2 % Normal 36.0-48.0 [facility] Comment on above: Performed By: #### C BC #### [facility] [address] [id number] Israel Tisha Hemoglobin (Bld) [Mass/Vol] 14.7 g/dL Normal 12.0-16.0 [facility] Comment on above: Performed By: #### C BC #### [facility] [address] [place], [place] [id number] Israel Tisha IG # 0.06 10e3/ul Critically high 0.00-0.03 [facility] Comment on above: Performed By: #### C BC #### [facility] [address] [place] [address] Israel Tisha IG % 0.5 % Normal 0.0-0.5 [facility] Comment on above: Performed By: #### C BC #### [facility] [address] [place] [address] Israel Tisha Lymphocytes (Bld) [#/Vol] 1.5 103/ul Normal 1.2-3.8 [facility] Comment on above: Performed By: #### C BC #### [facility] [address] [place], [place] [phone] Israel Tisha Lymphocytes/100 WBC (Bld) 12.1 % Critically low 20.5-60.0 [facility] Comment on above: Performed By: #### C BC #### [facility] [address] [place], [place] [phone] Israel Tisha MANUAL DIFF REQ NO Normal [facility] Comment on above: Performed By: #### C BC #### [facility] [address] [place], [place] [phone] Israel Tisha MCH (RBC) [Entitic mass] 28.7 pg Normal 26.7-34.0 [facility] Comment on above: Performed By: #### C BC #### [facility] [address] [place], [place] [phone] Israel Tisha MCHC (RBC) [Mass/Vol] 34.0 g/dL Normal 29.9-35.2 [facility] Comment on above: Performed By: #### C BC #### [facility] [address] [place], [place] [address] Israel Tisha MCV (RBC) [Entitic vol] 84.4 fL Normal 81.0-99.0 [facility] Comment on above: Performed By: #### C BC #### [facility] [address] [place] [address] Israel Tisha Monocytes (Bld) [#/Vol] 0.8 103/ul Normal 0.3-0.8 [facility] Comment on above: Performed By: #### C BC #### [facility] [address] [place] [address] Israel Tisha Monocytes/100 WBC (Bld) 6.3 % Normal 1.7-12.0 [facility] Comment on above: Performed By: #### C BC #### [facility] [address] [place] [address] Israel Tisha Neutrophils (Bld) [#/Vol] 9.8 103/ul Critically high 1.4-6.5 [facility] Comment on above: Performed By: #### C BC #### [facility] [address] [place] [address] Israel Tisha Neutrophils/100 WBC (Bld) 79.2 % Critically high 43.0-75.0 [facility] Comment on above: Performed By: #### C BC #### [facility] [address] [place] [address] Israel Tisha Platelet mean volume (Bld) [Entitic vol] 8.0 fL Critically low 9.5-13.5 [facility] Comment on above: Performed By: #### C BC #### [facility] [address] [place] [address] Israel Tisha Platelets (Bld) [#/Vol] 254 103/ul Normal 150-450 [facility] Comment on above: Performed By: #### C BC #### [facility] [address] [place] [address] Israel Tisha RBC (Bld) [#/Vol] 5.12 106/ul Normal 4.20-5.40 [facility] Comment on above: Performed By: #### C BC #### [facility] [address] [place], [place] [address] Israel Giles WBC (Bld) [#/Vol] 12.3 103/ul Critically high 4.0-11.0 [facility] Comment on above: Performed By: #### C BC #### [facility] [address] [place], [place] [address] ABD/PELVIS W CONon 2018 CT ABD/PELVIS W CON Patient: NANCY GARRISON Exam Date: 03/02/2019 : 1960 Gender:F Ordering : DR. LORETTA TAN D.O. Admission #: [id number] Family : DR TANG SWANN . Order #: [id number] CLICK HERE TO VIEW EXAM RADIOLOGY REPORT [...] M.D. on 03/02/2019 at 07:45 Normal [facility] LIPASEon 03-02-2019 Lipase [Catalytic activity/Vol] 541.0 U/L Critically high 23.0-300.0 [facility] Comment on above: Performed By: #### L IPA TROP, CMP #### [facility] [address] [address] Israel Giles PROF 14(COMP METB)on 019 Albumin [Mass/Vol] 3.4 g/dL Critically low 3.5-5.0 [facility] Comment on above: Performed By: #### L IPA TROP, CMP #### [facility] [address] [place] [address] Israel Tisha Albumin/Globulin [Mass ratio] 0.9 {ratio} Normal [facility] Comment on above: Performed By: #### L IPA TROP, CMP #### [facility] [address] [place] [address] Israel Tisha ALP [Catalytic activity/Vol] 97 U/L Normal 38-126 [facility] Comment on above: Performed By: #### L IPA TROP, CMP #### [facility] [address] [place] [address] Israel Tisha ALT [Catalytic activity/Vol] 50 U/L Normal 9-52 [facility] Comment on above: Performed By: #### L IPA TROP, CMP #### [facility] [address] [place] [address] Israel Tisha Anion gap [Moles/Vol] 15.1 mmol/L Normal [facility] Comment on above: Performed By: #### L IPA TROP, CMP #### [facility] [address] [place] [address] Israel Tisha AST [Catalytic activity/Vol] 32 U/L Normal 14-36 [facility] Comment on above: Performed By: #### L IPA TROP, CMP #### [facility] [address] [place] [address] Israel Tisha Bilirubin Ql (U) 0.6 mg/dL Normal 0.2-1.3 [facility] Comment on above: Performed By: #### L IPA TROP, CMP #### [facility] [address] [place] [address] Israel Tisha Calcium [Mass/Vol] 8.5 mg/dL Normal 8.4-10.2 [facility] Comment on above: Performed By: #### L IPA, TROP, CMP #### [facility] [address] [place] [address] Israel Tisha Chloride [Moles/Vol] 103 mmol/L Normal 98-107 [facility] Comment on above: Performed By: #### L IPA, TROP, CMP #### [facility] [address] [place] [address] Israel Tisha CO2 [Moles/Vol] 23.8 mmol/L Normal 22.0-30.0 [facility] Comment on above: Performed By: #### L IPA TROP, CMP #### [facility] [address] [place] [address] Israel Tisha Creatinine [Mass/Vol] 0.86 mg/dL Normal 0.52-1.04 [facility] Comment on above: Performed By: #### L IPA, TROP, CMP #### [facility] [address] [place] [address] Israel Tisha EGFR-AF [place]TH [place]OREAN >60 Normal >=60 [facility] Comment on above: Performed By: #### L IPA, TROP, CMP #### [facility] [address] [place] [address] Israel Tisha EGFR-NON AF [place]OREAN >60 Normal >=60 [facility] Comment on above: Performed By: #### L IPA, TROP, CMP #### [facility] [address] [place] [address] Israel Tisha Globulin (S) [Mass/Vol] 3.8 g/dL Normal [facility] Comment on above: Performed By: #### L IPA, TROP, CMP #### [facility] [address] [place] [address] Israel Tisha Glucose [Mass/Vol] 143 mg/dL Critically high 74-[address] [facility] Comment on above: Performed By: #### L IPA, TROP, CMP #### [facility] [address] [place] [address] Israel Tisha Potassium [Moles/Vol] 4.9 mmol/L Normal 3.4-5.0 [facility] Comment on above: Performed By: #### L IPA TROP, CMP #### [facility] [address] [place] [address] Israel Tisha Protein [Mass/Vol] 7.2 g/dL Normal 6.1-8.2 [facility] Comment on above: Performed By: #### L IPA, TROP, CMP #### [facility] [address] [place] [address] Israel Tisha Sodium [Moles/Vol] 137 mmol/L Normal 137-145 [facility] Comment on above: Performed By: #### L IPA TROP, CMP #### [facility] [address] [place] [address] Israel Tisha Urea nitrogen [Mass/Vol] 17.0 mg/dL Normal 7.0-17.0 [facility] Comment on above: Performed By: #### L IPA TROP, CMP #### [facility] [address] [place] [address] Israel Tisha Urea nitrogen/Creatinine [Mass ratio] 19.8 mg/mg Normal [facility] Comment on above: Performed By: #### L IPA TROP, CMP #### [facility] [address] [place] [address] Israelbeatriz Hdzen TROPONIN - Ion 03-02-2019 Troponin I.cardiac [Mass/Vol] ng/mL Normal <=0.034 [facility] Comment on above: Performed By: #### L IPA, TROP, CMP #### [facility] [address] [place] [address] Israel Tisha Troponin I.cardiac [Mass/Vol] SEE BELOW Normal [facility] Comment on above: Result Comment: <0.0 34 ng/ml NEGATIVE 0.034-0.119 INDETERMINATE 0.120 AMI CUT OFF Performed By: #### L IPA, TROP, CMP #### [facility] [address] [place] [address] Israel Tisha Vital Signs Date Time Vital Sign Value Performing Clinician Faci lity 01-26-2022 20:03-0400 Body temperature 98.5 [degF] MD Tang Swann Work Phone: [facility] 01-26-2022 20:03-0400 Diastolic blood pressure 88 mm[Hg] MD Tang Swann Work Phone: [facility] 01-26-2022 20:03-0400 Heart rate 77 /min MD Tang Swann Work Phone: [facility] 01-26-2022 20:03-0400 Respiratory rate 16 /min MD Tang Swann Work Phone: [facility] 01-26-2022 20:03-0400 SaO2% (BldA) [Mass fraction] 98 % MD Tang Swann Work Phone: [facility] 01-26-2022 20:03-0400 Systolic blood pressure 134 mm[Hg] MD Tang Swann Work Phone: [facility] 01-26-2022 16:18-0400 Body height 157.48 cm MD Tang Swann Work Phone: [facility] 01-26-2022 16:18-0400 Body weight 106.2 kg MD Tang Swann Work Phone: [facility] Encounters Encounter Date Encounter Type Care Provider Facility Start: 09-07-2023 End: 09-07-2023 ambulatory TANG SWANN Not Available Start: 08-10-2023 End: 08-10-2023 ambulatory EDJIGNESH Mancera HEMEYER Not Available Start: 08-02-2023 End: 08-02-2023 ambulatory EDJIGNESH Mancera HEMEYER Not Available Start: 06-30-2023 End: 06-30-2023 ambulatory EDJIGNESH Mancera HEMEYER Not Available Start: 06-13-2023 End: 06-13-2023 ambulatory EDJIGNESH J HEMEYER Not Available Start: 05-29-2023 End: 05-29-2023 Emergency department patient visit Adeel Don Facility:[facility] Start: 05-29-2023 End: 05-29-2023 ambulatory ADEEL POSEY Not Available Start: 05-01-2023 Refill Tang brunson MD Work Phone: [facility] Comment on above: Acquired hypothyroid ism (CMS/HCC); ESS (euthyroid sick syndrome); Mixed dyslipidemia (CMS/HCC); Lichen sclerosus et atrophicus of the vulva; Acute conjunctivitis, unspecified acute conjunctivitis type, unspecified laterality Start: 04-04-2023 End: 04-04-2023 ambulatory TANG SWANN Not Available Start: 11-09-2022 End: 11-09-2022 ambulatory Referral Self Facility:[facility] Start: 11-09-2022 End: 11-09-2022 ambulatory MD Tang Swann Work Phone: [facility] Work Phone: Start: 11-09-2022 End: 11-09-2022 Patient encounter procedure MD Tang Swann Work Phone: [facility] Work Phone: Start: 01-26-2022 End: 01-26-2022 Emergency department patient visit MD Tang Swann Work Phone: [facility] Start: 06-20-2019 End: 06-21-2019 Patient encounter [...] Screening for malign ant neoplasm of colon [facility] Start: 06-30-2023 End: 06-30-2023 Patient encounter procedure 06/30/2023 2:30 PM EDT Office Visit [facility] [address] [place] [address] Tang Swann MD [address] [place] [address] [facility] Start: 11-26-2022 Influenza vaccination Influenza Vacc ine (#1) [facility] Start: 05-30-2021 Screening for malign ant neoplasm of breast Mammogram [facility] Start: 1960 Screening for malign ant neoplasm of colon [facility] Patient Education Chest Pain (DC) [facility] Work Phone: Patient referral [facility] Work Phone: Immunizations Immunization Date Immunization Notes Care Provider Fa [facility] 12-29-2016 influenza, injectabl e, quadrivalent, preservative free aTng Swann MD Work Phone: [facility] 12-29-2016 influenza virus vacc ine, unspecified formulation Tang Swann MD Work Phone: [facility] Payers Date Payer Category Payer Self-pay [id number] 2022 Medicaid [place] [employer] [id number] 2022-Present [address] [place] [address] [id number] 1960 Unknown [id number] 1960 Unknown [id number] 1960 Unknown [id number] 1960 Unknown [id number] 1960 Unknown [id number] 1960 Unknown [id number] 1960 Unknown [id number] 1962 Unknown [id number] [id number] 1960 Unknown [id number] 1957 Medicaid [id number] 1957 Self-pay [id number] Medicaid [place] [employer] [id number] 501 [id number] Unknown O [id number] Unknown [id number] Unknown [id number] Social History Date Type Detail Facility Start: 01-26-2022 End: 09-22-2022 Tobacco smoking status [facility] Never smoked tobacco (finding) [facility] Start: 1960 Sex Assigned At Female F [facility] Start: 09-22-2022 Tobacco use and exposure Smoke less tobacco non-user [facility] Start: 04-04-2023 Alcohol intake Current drinke r of alcohol (finding) [facility] Start: 09-27-2022 End: 04-04-2023 Alcohol intake [facility] Start: 09-27-2022 End: 01-05-2023 Humiliation, Afraid, Rape, and Kick questionnaire [HARK] [facility] Within the last year , have you been afraid of your partner or ex-partner? No [facility] Do you belong to any clubs or organizations such as restorationist groups, unions, fraternal or athletic groups, or [...] Facility Evaluation note No assessment information availa [facility] Work Phone: Evaluation note Note Date & Type Note Facility Evaluation note Diagnosis Acquired hypothyroidism (CMS/HCC) Unspecified hypothyroidism ESS (euthyroid sick syndrome) Euthyroid sick syndrome Mixed dyslipidemia (CMS/HCC) Lichen sclerosus et atrophicus of the vulva Circumscribed scleroderma Acute conjunctivitis, unspecified acute conjunctivitis type, unspecified laterality documented in this encounter [facility] Discharge instructions Note Date & Type Note Facility Hospital Discharge instructions Additional Instructions Follow-up with your primary care doctor Return to ED if develop worsening symptoms or concern [facility] Work Phone: Summary Purpose Family History No Family History Records FoundNo Family History Records FoundNo Family History Records FoundNo Family History Records Found Advance Directives No Advanced Directives Records Found Advance Directive Response Recorded Date/ Time Advance Directives No June 17, 018 1:31pm Chief Complaint and Reason for Visit Chief Complaint chest pain Chief Complaint Screening Additional Source Comments INFORMATION SOURCE (unrecogn ized section and content) DATE CREATED AUTHOR 11/05/2019 [facility] DATE CREATED AUTHOR AUTHOR'S ORGANIZ ATION 04/20/2021 [facility] DATE CREATED AUTHOR AUTHOR'S ORGANIZ ATION 06/09/2023 [facility] DATE CREATED AUTHOR AUTHOR'S ORGANIZ ATION 09/08/2023 [facility] EPIC Care Teams (unrecognized sec [...] Provider Active Referral Self Attending Provider Active Cath Lab Tech Relationship Specialty Start Date End Date [facility] Swann [facility] [address] [facility] [place] [address] PCP - General Family Medicine 08/24/22 Goals [...] BE BASED ON THE PRIMARY CLINICAL RECORDS. [facility]. provides no warranty or guarantee of the accuracy or completeness of information in this document.
[2023-09-09 13:10] LABS: ABG PCO2 18.7 mmHg (35.0-45.0); HCO3 ABG 16.4 mmol/L (22.0-26.0)
[2023-09-09 13:11] LABS: Allen Test POSITIVE (POSITIVE); Oxygen Saturation ABG 97.8 %
[2023-09-09 13:14] LABS: O2 Mode RA; Puncture Site RR
== END 2023-09-09 12:46 | disposition home or self-care (01) ==
LOC: CARD 12:47
PROVIDERS: PCP Family Medicine; Visit Provider Family Medicine
DX: R53.82 Chronic fatigue, unspecified (principal); R06.02 Shortness of breath; R06.4 Hyperventilation
CPT/HCPCS: 36600; 82805

== ENCOUNTER 2023-09-09 13:26 | Emergency (ER) | payer MEDICAID, SELFPAY ==
[2023-09-09] VITALS (13 sets, daily range): BP systolic 121–160; BP diastolic 77–99; PULSE 66–84; TEMP 37.1; O2SAT 95–100; BMI 43.9
--- NOTE | 2023-09-09 13:45 | ECG_ITS ---
The [facility] Test Date: 2023-09-09 Pat Name: KALPESH GARRISON Department: Room: - Gender: Female [employer] Supervisor: : 1960 Requested By: MATTY SWANN Order Number: [id number] Reading MD: MARISSA KENNEDY Measurements Intervals [place] Rate: 74 P: 22 [place]: 162 QRS: 16 QRSD: 70 T: 18 QT: 384 QTc: 412 Interpretive Statements 1100 Sinus rhythm 8102 Low QRS voltage in chest leads 9120 atypical ECG Compared to ECG 09/03/2023 15:13:29 No significant changes Electronically Signed On 09-09-2023 18:21:32 EDT by MARISSA KENNEDY
--- NOTE | 2023-09-09 13:46 | XR_ITS ---
The [address] [address] Patient Name: KALPESH GARRISON MRN: [id number] date: 1960 Sex: F Assigned Patient Location: ER Current Patient Location: ER Accession/Order Number: [id number] Exam Date: 09/09/2023 14:36 Report Date: 09/09/2023 14:46 At the request of: KATRINA NESS Procedure: XR chest 1V EXAMINATION: XR chest 1V HISTORY: Shortness of breath COMPARISON: 09/03/2023 TECHNIQUE: AP portable FINDINGS: LUNGS: No significant pulmonary parenchymal abnormalities. Low lung volumes VASCULATURE: No increased pulmonary vasculature. PLEURA: No pneumothorax, effusion, or pleural thickening. CARDIAC: No cardiomegaly or cardiac silhouette abnormality. MEDIASTINUM: No visible mass or adenopathy. BONES: No fracture or visible bone lesion. OTHER: Negative. XR/XR chest 1V IMPRESSION: Low volume exam, clear lungs Electronically authenticated by: AMANDA BISHOP Date: 09/09/2023 14:46
--- NOTE | 2023-09-09 13:46 | CT_ITS ---
The [address] [address] Patient Name: KALPESH GARRISON MRN: [id number] date: 1960 Sex: F Assigned Patient Location: ER Current Patient Location: ER Accession/Order Number: [id number] Exam Date: 09/09/2023 14:28 Report Date: 09/09/2023 14:54 At the request of: KATRINA NESS Procedure: CT head/brain wo con EXAM: CT head/brain wo con HISTORY: Hyperventilation, respiratory alkalosis COMPARISON: None. TECHNIQUE: Axial CT scans through the head were obtained without IV contrast administration. Dose reduction techniques were achieved by using: automated exposure control and/or adjustment of mA and /or kV according to patient size and/or use of iterative reconstruction technique. FINDINGS: There is no acute intracranial hemorrhage or abnormal extra-axial fluid collection. No mass effect or midline shift is seen. There is no evidence of large acute territorial infarction. There is no hydrocephalus. There is a tiny low-attenuation focus in the right caudate nucleus. To the limit of CT, the posterior fossa appears unremarkable. There is partial empty sella The calvaria and extra cranial soft tissues are unremarkable. The visualized orbits show no abnormality. The visualized paranasal sinuses show no air-fluid level. Mastoid air cells are clear. CT/CT head/brain wo con IMPRESSION: No acute intracranial process. If there is sufficient clinical concern for acute brain parenchymal pathology, consider MRI for further evaluation. A small low-attenuation focus in the right caudate nucleus, suggestive of a remote lacunar infarct. Electronically authenticated by: YUNG CANALES Date: 09/09/2023 14:54
--- NOTE | 2023-09-09 13:48 | ED_ITS ---
HPI HPI - General Adult General Chief complaint: Shortness of Breath/Dyspnea Stated complaint: SHORTNESS OF BREATH/CHEST PAIN Time Seen by Provider: 09/09/23 13:29 Source: patient Mode of arrival: Wheelchair Limitations: no limitations History of Present Illness HPI narrative: 63-year-old female presented for abnormal ABG. This was performed as an outpatient, ordered by her PCP. The patient has been having symptoms for more than a month. She feels short of breath but has had her oxygen checked and it was normal. There was some change in her thyroid medication about 2 weeks ago. She has not had a fever or productive cough and does not complain of chest pain. states that she has been at times confused and states that the confusion is that she has trouble organizing her thoughts sometimes. She is not complaining of a headache. The ABG shows respiratory alkalosis with a pH of 7.55 and a CO2 of 18. Related Data Allergies Allergy/AdvReac Type Severity Reaction Status Date / Time Sulfa (Sulfonamide Allergy Severe Verified 09/03/23 14:49 Antibiotics) Opioid HPI Opioid Management Most Recent Opioid Data: No Data to Display Review of Systems ROS Narrative A ten point review of systems is negative except as noted above. Exam Narrative Exam Narrative: Nurses note and vital signs reviewed and patient is not hypoxic. General: The patient appears well and in no apparent distress. Patient is resting comfortably on cart. Skin: Warm, dry, no pallor noted. There is no rash noted. Head: Normocephalic, atraumatic Eye: Normal conjunctiva, no drainage Ears, Nose, Mouth, and Throat: oral mucosa is moist. Nares patent. Cardiovascular: Regular Rate and Rhythm Respiratory: Patient is in no distress, no accessory muscle use, lungs are clear to auscultation, no wheezing, rales or rhonchi Back: non-tender GI: Soft and nontender Musculoskeletal: The patient has no evidence of calf tenderness, no pitting edema, symmetrical pulses noted bilaterally Neurological: A&O, normal speech Psychiatric: Cooperative Constitutional Vital Signs, click to edit/add: Last Vital Signs Temp 98.8 F 09/09/23 13:37 Pulse 71 09/09/23 15:01 Resp 16 09/09/23 15:01 BP 121/77 09/09/23 15:01 Pulse Ox 95 09/09/23 15:01 O2 Del Method Room Air 09/09/23 14:13 Course Vital Signs Vital signs: Vital Signs Temperature 98.8 F 09/09/23 13:37 Pulse Rate 80 09/09/23 13:37 Respiratory Rate 20 09/09/23 13:37 Blood Pressure 160/99 H 09/09/23 13:37 Pulse Oximetry 99 09/09/23 13:37 Oxygen Delivery Method Room Air 09/09/23 13:37 Temperature 98.8 F 09/09/23 13:37 Pulse Rate 71 09/09/23 15:01 Respiratory Rate 16 09/09/23 15:01 Blood Pressure 121/77 09/09/23 15:01 Pulse Oximetry 95 09/09/23 15:01 Oxygen Delivery Method Room Air 09/09/23 14:13 Medical Decision Making MDM Narrative Medical decision making narrative: The patient has respiratory alkalosis of uncertain etiology. There does not seem to be a medical cause for in the workup here. She is being referred to a neurologist by her PCP. There is no indication for admission to the hospital at this point. Treatment diagnosis and disposition were discussed with the patient and her . Differential Diagnosis Differential Diagnosis: Hyperventilation syndrome, anxiety, liver disease, hyperthyroidism Lab Data Lab results reviewed: Yes I reviewed the patient's lab results Labs: Lab Results 09/09/23 09/09/23 Range/Units 14:03 14:12 WBC 7.7 (4.0-11.0) 10^3/uL RBC 4.32 (4.20-5.40) 10^6/uL Hgb 13.9 (12.0-16.0) g/dL Hct 40.6 (36.0-48.0) % MCV 94.0 (81.0-99.0) fL MCH 32.2 (26.7-34.0) pg MCHC 34.2 (29.9-35.2) g/dL RDW 11.9 (11.0-15.0) % Plt Count 333 (150-450) 10^3/uL MPV 8.4 L (9.5-13.5) fL Neut % (Auto) 40.5 L (43.0-75.0) % Lymph % (Auto) 48.1 (20.5-60.0) % [place] % (Auto) 7.7 (1.7-12.0) % Eos % (Auto) 2.7 (0.9-7.0) % Baso % (Auto) 0.9 (0.2-2.0) % Neut # (Auto) 3.1 (1.4-6.5) 10^3/uL Lymph # (Auto) 3.7 (1.2-3.8) 10^3/uL [place] # (Auto) 0.6 (0.3-0.8) 10^3/uL Eos # (Auto) 0.2 (0.0-0.7) 10^3/uL Baso # (Auto) 0.1 (0.0-0.1) 10^3/uL Abs Immat Gran (auto) 0.01 (0.00-0.03) 10^3/uL Imm/Tot Granulo (auto) 0.1 (0.0-0.5) % Sodium 140 (136-145) mmol/L Potassium 3.8 (3.5-5.1) mmol/L Chloride 108 H (98-107) mmol/L Carbon Dioxide 20.3 L (21.0-32.0) mmol/L Anion Gap 15.5 BUN 12.0 (7.0-18.0) mg/dL Creatinine 0.86 (0.55-1.02) mg/dL Est GFR ( Amer) >60 (>=60) Est GFR (Non-Af Amer) >60 (>=60) BUN/Creatinine Ratio 14.0 Glucose 120 H (74-106) mg/dL Calcium 9.3 (8.5-10.1) mg/dL Total Bilirubin 0.5 (0.2-1.0) mg/dL Direct Bilirubin 0.1 (0.0-0.2) mg/dL AST 35 (15-37) U/L ALT 63 H (14-59) U/L Alkaline Phosphatase 96 (46-116) U/L Troponin I High Sens <4.0 L (4.0-51.3) pg/mL Total Protein 7.3 (6.4-8.2) g/dL Albumin 3.6 (3.4-5.0) g/dL Globulin 3.7 g/dL Albumin/Globulin Ratio 1.0 Free T4 1.22 (0.76-1.46) ng/dL TSH & Free T4 Interp 0.266 L (0.358-3.740) uIU/mL Urine Color Lt. yellow (YELLOW) Urine Clarity Clear (CLEAR) Urine pH 6.0 (5.0-9.0) Ur Specific [place] 1.010 (1.005-1.025) Urine Protein Negative (NEG/TRACE) mg/dL Urine Glucose (UA) Negative (NEGATIVE) mg/dL Urine Ketones Trace A (NEGATIVE) mg/dL Urine Occult Blood Negative (NEGATIVE) Urine Nitrite Negative (NEGATIVE) Urine Bilirubin Negative (NEGATIVE) Urine Urobilinogen 0.2 (0.2-1.0) EU/dL Ur Leukocyte Esterase Negative (NEGATIVE) Urine RBC 0-2 (0-2) #/HPF Urine WBC None seen (NONE SEEN) #/HPF Ur Squamous Epith Cells Few A (NONE/RARE) #/LPF Ur Transition Epith Cell Rare A (NONE SEEN) #/LPF Urine Crystals None seen (None Seen) #/HPF Urine Bacteria Trace A (NONE SEEN) #/HPF Urine Casts None seen (NONE SEEN) #/LPF Urine Mucus None seen (NONE SEEN) Ur Culture Indicated? No Salicylates <2.8 (<=19.9) mg/dL Imaging Data Chest x-ray: Radiologist's impression: ITS Impressions Chest X-Ray 09/09/23 13:46 IMPRESSION: Low volume exam, clear lungs Electronically authenticated by: AMANDA BISHOP Date: 09/09/2023 14:[address] 09/09/23 13:46 IMPRESSION: No acute intracranial process. If there is sufficient clinical concern for acute brain parenchymal pathology, consider MRI for further evaluation. A small low-attenuation focus in the right caudate nucleus, suggestive of a remote lacunar infarct. Electronically authenticated by: YUNG [facility] Date: 09/09/2023 14:54 ECG Data Attestation: I personally reviewed and interpreted this ECG as follows: (EKG on my interpretation shows normal sinus rhythm with a rate of 74 and no acute change.) Discharge Plan Discharge Stand Alone Forms: Portal Instructions Chief Complaint: Shortness of Breath/Dyspnea Clinical Impression: Hyperventilation, Respiratory alkalosis Patient Disposition: Home, Self-Care Time of Disposition Decision: 15:30 Condition: Good Mode of Transportation: Private Vehicle Print Language: [place] Instructions: Hyperventilation (ED) Additional Instructions: Follow-up with Dr Swann Referrals: MATTY SWANN [Primary Care Provider] - 1 week
[2023-09-09 14:17] LABS: Basophils Absolute Auto 0.1 10^3/uL (0.0-0.1); Basophils Percent Auto 0.9 % (0.2-2.0); Eosinophils Absolute Auto 0.2 10^3/uL (0.0-0.7); Eosinophils Percent Auto 2.7 % (0.9-7.0); Hematocrit 40.6 % (36.0-48.0); Hemoglobin 13.9 g/dL (12.0-16.0); Immature Granulocytes Abs Auto 0.01 10^3/uL (0.00-0.03); Immature Granulocytes Pct Auto 0.1 % (0.0-0.5); Lymphocytes Absolute Auto 3.7 10^3/uL (1.2-3.8); Lymphocytes Percent Auto 48.1 % (20.5-60.0); Mean Corpuscular HGB Conc 34.2 g/dL (29.9-35.2); Mean Corpuscular Hemoglobin 32.2 pg (26.7-34.0); Mean Platelet Volume 8.4 fL (9.5-13.5); Monocytes Absolute Auto 0.6 10^3/uL (0.3-0.8); Monocytes Percent Auto 7.7 % (1.7-12.0); Neutrophils Absolute Auto 3.1 10^3/uL (1.4-6.5); Neutrophils Percent Auto 40.5 % (43.0-75.0); Platelet Count 333 10^3/uL (150-450); Red Blood Count 4.32 10^6/uL (4.20-5.40); Red Cell Distribution Width 11.9 % (11.0-15.0); White Blood Count 7.7 10^3/uL (4.0-11.0)
[2023-09-09 14:29] LABS: Bilirubin Urine NEGATIVE (NEGATIVE); Blood Urine NEGATIVE (NEGATIVE); Clarity Urine CLEAR (CLEAR); Color Urine LT. YELLOW (YELLOW); Glucose Urine UA NEGATIVE (NEGATIVE); Ketones Urine TRACE mg/dL (NEGATIVE); Leukocyte Esterase Urine NEGATIVE (NEGATIVE); Nitrite Urine NEGATIVE (NEGATIVE); Protein Urine NEGATIVE (NEG/TRACE); Urobilinogen Urine 0.2 EU/dL (0.2-1.0)
--- OUTSIDE RECORDS SUMMARY | 2023-09-09 14:30 | XMS_ITS ---
Patient Summarization (C-CDA 2.1 CCD) Created on: September 09, 2023 KALPESH GARRISON : 1960 Sex: Female Author Organization Sample organization Care Team Providers Care Bird Trapper Name Role Phone MATTY SWANN Primary Care Unavailable LE, LORETTA Admitting Unavailable LE, LORETTA Attending Unavailable AMANDA BISHOP V Consulting Unavailable BRITNEY, LORETTA Consulting Unavailable MATTY SWANN Admitting Unavailable MATTY SWANN Attending Unavailable MATTY SWANN Primary Care Unavailable MATTY SWANN Consulting Unavailable ROGER THAKKAR Consulting Unavailable MD Matty Swann Primary Care Provider [phone] DO Joss Alatorre Emergency Provider MD Matty Swann Primary Care Provider [phone] MD Matty Swann Referring Provider Self, Referral Attending Provider Unavailable Matty Swann MD Primary Care Provider [phone] Adeel Don Attending Unavailable Matty Swann Primary Care Unavailable Adeel Don Admitting Unavailable Self, Referral Admitting Unavailable Self, Referral Attending Unavailable Matty Swann Primary Care Unavailable Matty Swann Referring Unavailable MATTY SWANN Attending Unavailable ADEEL POSEY Attending Unavailable MATTY SWANN Attending Unavailable MATTY SWANN Attending Unavailable MATTY SWANN Attending Unavailable MATTY SWANN Attending Unavailable MATTY SWANN Attending Unavailable Allergies Allergy Classification Reported Allergen(s) Allergy Type Date of Onset Reaction(s) Facility (1 source) Sulfonamides (Antibiotic) Drug allergy (disorder) 5 [facility] (1 source) Darvocet-N 100 Drug allergy (disorder) 5 [facility] (3 sources) Acetaminophen; Translations: [acetaminophen] Drug Allergy [address] [facility] (3 sources) Propoxyphene; Translations: [propoxyphene] Drug Allergy [address] [facility] (3 sources) Sulfonamides (Antibiotic); Translations: [Sulfa (Sulfonamide Antibiotics)] Allergy to substance [address] [facility] (1 source) metFORMIN Drug Allergy 3 GI intolerance [facility] Work Phone: (1 source) Sulfonamides (Antibiotic) Drug Allergy 3 Rash [facility] (1 source) wasp venom Drug Allergy 3 Swelling [facility] Encounters Encounter Date Encounter Type Care Provider Facility Start: 09-07-2023 End: 09-07-2023 ambulatory MATTY SWANN Not Available Start: 08-10-2023 End: 08-10-2023 ambulatory MATTY SWANN Not Available Start: 08-02-2023 End: 08-02-2023 ambulatory MATTY SWANN Not Available Start: 06-30-2023 End: 06-30-2023 ambulatory MATTY SWANN Not Available Start: 06-13-2023 End: 06-13-2023 ambulatory MATTY SWANN Not Available Start: 05-29-2023 End: 05-29-2023 Emergency department patient visit Adeel Don Facility:[facility] Start: 05-29-2023 End: 05-29-2023 ambulatory ADEEL POSEY Not Available Start: 05-01-2023 Refill Matty brunson MD Work Phone: [facility] Comment on above: Acquired hypothyroid ism (CMS/HCC); ESS (euthyroid sick syndrome); Mixed dyslipidemia (CMS/HCC); Lichen sclerosus et atrophicus of the vulva; Acute conjunctivitis, unspecified acute conjunctivitis type, unspecified laterality Start: 04-04-2023 End: 04-04-2023 ambulatory MATTY SWANN Not Available Start: 11-09-2022 End: 11-09-2022 ambulatory Referral Self Facility:[facility] Start: 11-09-2022 End: 11-09-2022 ambulatory MD Matty Swann Work Phone: [facility] Work Phone: Start: 11-09-2022 End: 11-09-2022 Patient encounter procedure MD Matty Swann Work Phone: [facility] Work Phone: Start: 01-26-2022 End: 01-26-2022 Emergency department patient visit MD Matty Swann Work Phone: [facility] Start: 06-20-2019 End: 06-21-2019 Patient encounter procedure MATTY SWANN Facility:[facility] Start: 03-02-2019 End: 03-02-2019 Patient encounter procedure MATTY SWANN Facility:[facility] Immunizations Immunization Date Immunization Notes Care Provider Fa cility 12-29-2016 influenza, injectabl e, quadrivalent, preservative free Matty Swann MD Work Phone: [facility] 12-29-2016 influenza virus vacc ine, unspecified formulation Matty Swann MD Work Phone: [facility] Medications Current Medications Medication Drug Class(es) Dates [...] the morning cholecalciferol (Vitamin D-3) 250 MCG (77532 UT) tablet Take 10,000 Units by mouth in the morning. Winter dose. 0 Active Cholecalciferol (Vitamin D3) 125 MCG (5000 UT) chewable tablet Chew 1 capsule 1 (one) time each day at the same time. Summer dose 0 Active dexamethasone 1 mg/ml / neomycin 3.5 mg/ml / polymyxin b 16562 unt/ml ophthalmic suspension (2 sources) Aminoglycoside Antibacterial, Polymyxin-class Antibacterial, Corticosteroid Start: 05-02-2023 take 1 drop(s) into the eye(s) three times daily ruatqowo-yypnlfcrj-iubENOSVgxvcw (Maxitrol) 0.1 % ophthalmic suspension Indications: Conjunctivitis Apply 1 drop to affected EYE three times daily for 7 days. 5 mL 0 05/02/2023 Active Start: 04-05-2023 End: 05-01-2023 take 1 drop(s) into the eye(s) three times daily rcrwvgcp-tgwwbqklz-ifpUOZEIzxmoj (Maxitr ol) 0.1 % ophthalmic suspension Indications: [...] June 29, 2021 12:00am Start: 08-20-2017 End: 04-04-2022 take 75 ug by mouth once daily Levothyroxine Discontin ued 75 MCG PO daily August 20, 2017 12:00am June 29, 2021 2:40am Magnesium (1 source) take 1 tablet by mouth once daily magnesium 200 MG tablet Take 200 mg by mouth 1 (one) time each day at the same time. 0 Active thyroid (senior living) 15 mg oral tablet (4 sources) Start: 10-28-2022 End: 06-01-2023 take 3 tablets by mouth in the morning thyroid ([place] Thyroid) 15 MG tablet Indications: Acquired hypothyroidism (CMS/HCC) , ESS (euthyroid sick syndrome) Take 3 tablets (45 mg) by mouth in the morning and 3 tablets (45 mg) in the evening. Take before meals. 180 tablet 0 05/02/2023 06/01/2023 Active Start: 06-29-2021 take 1 tablet by marlon th twice daily Thyroid (Pork) ([employer]ume Seam[employer] Thyroid) 90 mg tablet Active 90 MG [...] 2:40am Payers Date Payer Category Payer Self-pay [id number] 2022 Medicaid [place] [id number] 2022-Present [address] [place] [address] [id number] 1960 Unknown [id number] 1960 Unknown [id number] [id number] 1960 Unknown [id number] [id number] 1960 Unknown [id number] [id number] 1960 Unknown [id number] [id number] 1960 Unknown [id number] [id number] 1960 Unknown [id number] [id number] 1960 Unknown [id number] [id number] 1960 Unknown [id number] [id number] 1957 Medicaid [id number] 1957 Self-pay [id number] Medicaid [place] Advantage [id number] 501 [id number] Unknown MMO [id number] Unknown [id number] [id number] Unknown [id number] Plan of Treatment Date Care Activity Detail Author Start: 02-12-2025 Screening for malign ant neoplasm of colon [facility] Start: 06-30-2023 End: 06-30-2023 Patient encounter procedure 06/30/2023 2:30 PM EDT Office Visit [facility] [address] [place] [address] Matty Swann MD [address] [place] [address] [facility] Start: 11-26-2022 Influenza vaccination Influenza Vacc ine (#1) [facility] Start: 05-30-2021 Screening for malign ant neoplasm of breast Mammogram [facility] Start: 1960 Screening for malign ant neoplasm of colon [facility] Patient Education Chest Pain (DC) [facility] Work Phone: Patient referral [facility] Work Phone: Problems Active Problems Problem [...] or Cepheid Disclaimer revoked sooner. PERFORMED BY: [facility] [address] [place] [address] PATHOLOGIST DIRECTOR OF DISTRIBUTION PUJA MOODY M.D. [facility] Comment on above: Performed By: #### C EPHEID NEG, COVID19 FLU RSV #### [facility] [address] [place] [address] [facility] Cepheid COVID PCR Negativeon 05-29-2023 SARS-CoV-2 (COVID-19) RNA CARLOS+probe Ql (Unsp spec) Negative Normal Negative [facility] Comment on above: Result Comment: This is a duplicate [employer] Xpert Xpress CoV-2/Flu/RSV Plus RNA by RT-PCR result to be used for statistical tracking purpose only. PERFORMED BY: [place] [address] PATHOLOGIST DIRECTOR OF DISTRIBUTION PUJA MOODY M.D. Performed By: #### C EPHEID NEG, COVID19 FLU RSV #### [place] [address] [place] ECG 12 lead ECGon 05-29-2023 ECG 12 lead ECG [facility] [address] Electrocardiograph Report Signed Patient: Kalpesh Garrison MR#: [id number] 2 : 1960 Acct:[id number] Age/Sex: 63 / F ADM Date: 05/29/23 Loc: ER Room: Type: [facility] ER Attending Dr: Ordering Provider: Adeel [...] By Ignacio Garcia MD 05/29/23 1528 Normal [facility] XR chest 2V*on 05-29-2023 XR chest 2V* [facility] [place] [address] XRay Report Signed Patient: Kalepsh Garrison MR#: [id number] 2 : 1960 Acct:[id number] Age/Sex: 63 / F ADM Date: 05/29/23 Loc: ER Room: Type: [facility] ER Attending Dr: Copies to: Adeel [...] Gillis Jr., D.OJaden05/29/2023 4:18 PM Dictation Location: [place] [address] Transcribed By: [facility] 05/29/23 161 Dictated By: Renato Gillis Jr, DO 05/29/23 1617 Signed By: 05/29/23 1618 Normal [facility] MM screening mammo BI w/CADo n 11-09-2022 MM screening mammo BI w/CAD [facility] Main [place] [address] [place] [address] Mammography Report Signed Patient: Kalpesh Garrison MR#: [id number] 2 : 1960 Acct:[id number] Age/Sex: 62 / F ADM Date: 11/09/22 Loc: [place] Room: Type: [facility] CLI Attending Dr: Referral Self Copies to: Matty [...] Michael Lassiter M.D.11/09/2022 4:19 PM Dictation Location: [facility] Transcribed By: CHRISSY 11/09/221618 Dictated By: Michael Lassiter II, MD 11/09/221613 Signed By: 11/09/22 161 Normal [facility] Activated partial thrombopla stin time (aPTT) in platelet poor plasma by coagulation aOrdered By: Joss Alatorre on 01-26-2022 aPTT Coag (PPP) [Time] 31.2 s 25.1-36.5 [facility] Automated erythrocytes count in urine sediment (number/area)Ordered By: Joss Alatorre on 01-26-2022 RBC Auto (Urine sed) [#/Area] 0-1 [HPF] 0-4 [facility] Automated leukocytes count i n urine sediment (number/area)Ordered By: Joss Alatorre on 01-26-2022 WBC Auto (Urine sed) [#/Area] 1-2 [HPF] 0-4 [facility] Basophils Auto (Bld) [#/Vol] Ordered By: Joss Alatorre on 01-26-2022 Basophils (Bld) [#/Vol] 0.1 10*3/uL 0.0-0.2 [facility] Basophils/100 WBC Auto (Bld) Ordered By: Joss Alatorre on 01-26-2022 Basophils/100 WBC (Bld) 0.8 % . [facility] Bilirubin Test strip Ql (U)O rdered By: Joss Alatorre on 01-26-2022 Bilirubin Ql (U) Negative Negative [facility] COVID-19 SOFIAOrdered By: Shree ronald Siddiqui on 01-26-2022 SARS-CoV+SARS-CoV-2 (COVID-19) Ag IA.rapid Ql (Resp) Negative Negative [facility] Comment on above: This is a duplicate Ria SARS Antigen (NELLIE) result to be used for statistical tracking purpose only. Color Auto (U)Ordered By: Henry red Celi on 01-26-2022 Color (U) Yellow Yellow [facility] Creatine kinase [Enzymatic a ctivity/volume] in Serum or PlasmaOrdered By: Joss Alatorre on 01-26-2022 CK [Catalytic activity/Vol] 102 U/L 22-269 [facility] Creatinine and Glomerular fi ltration rate.predicted panel (S/P/Bld)Ordered By: Joss Alatorre on 01-26-2022 Creatinine [Mass/Vol] 0.81 mg/dL 0.44-1.03 [facility] Eosinophils Auto (Bld) [#/Vo l]Ordered By: Joss Alatorre on 01-26-2022 Eosinophils (Bld) [#/Vol] 0.3 10*3/uL 0.0-0.45 [facility] Eosinophils/100 WBC Auto (Bl d)Ordered By: Joss Alatorre on 01-26-2022 Eosinophils/100 WBC (Bld) 3.7 % . [facility] Erythrocyte distribution wid th Auto (RBC) [Ratio]Ordered By: Joss Alatorre on 01-26-2022 Erythrocyte distribution width (RBC) [Ratio] 13.6 % 11.9-15.3 [facility] Estimated glomerular filtrat ion rate (GFR) non- AmericanOrdered By: Joss Alatorre on 01-26-2022 GFR/1.73 sq M.predicted among non-blacks MDRD (S/P/Bld) [Vol rate/Area] > 60 mL/Min [facility] Hematocrit Auto (Bld) [Volum e fraction]Ordered By: Joss Alatorre on 01-26-2022 Hematocrit (Bld) [Volume fraction] 40.5 % 34.0-46.4 [facility] Hemoglobin [Mass/volume] in BloodOrdered By: Joss Alatorre on 01-26-2022 Hemoglobin (Bld) [Mass/Vol] 13.6 g/dL 11.8-15.4 [facility] Ketones Auto test strip (U) [Mass/Vol]Ordered By: Joss Alatorre on 01-26-2022 Ketones (U) [Mass/Vol] Negative Negative [facility] - Chemistry and C hemistry - challengeOrdered By: Joss Alatorre on 01-26-2022 Natriuretic peptide B (Bld) [Mass/Vol] 14.0 pg/mL 5-100 [facility] - CoagulationOrde red By: Joss Alatorre on 01-26-2022 PT Coag (PPP) [Time] 11.8 s 9.0-12.9 [facility] - Hematology and Cell countsOrdered By: Joss Alatorre on 01-26-2022 Nucleated RBC/100 WBC (Bld) [Ratio] 0.1 % 0-0.5 [facility] - UrinalysisOrder ed By: Joss Alatorre on 01-26-2022 Hyaline casts LM Ql (Urine sed) 0-8 [LPF] 0-8 [facility] Leukocytes [#/volume] in Blo od by Automated countOrdered By: Joss Alatorre on 01-26-2022 WBC (Bld) [#/Vol] 7.1 10*3/uL 4.5-11.0 [facility] Lymphocytes Auto (Bld) [#/Vo l]Ordered By: Joss Alatorre on 01-26-2022 Lymphocytes (Bld) [#/Vol] 2.9 10*3/uL 1.00-4.8 [facility] Lymphocytes/100 WBC Auto (Bl d)Ordered By: Joss Alatorre on 01-26-2022 Lymphocytes/100 WBC (Bld) 40.5 % . [facility] MCH Auto (RBC) [Entitic mass ]Ordered By: Joss Alatorre on 01-26-2022 MCH (RBC) [Entitic mass] 29.8 pg 24.7-34.3 [facility] MCHC Auto (RBC) [Mass/Vol]Or dered By: Joss Alatorre on 01-26-2022 MCHC (RBC) [Mass/Vol] 33.5 g/dL 32.0-35.0 [facility] MCV Auto (RBC) [Entitic vol] Ordered By: Joss Alatorre on 01-26-2022 MCV (RBC) [Entitic vol] 88.8 fL 80-100 [facility] Monocytes Auto (Bld) [#/Vol] Ordered By: Joss Alatorre on 01-26-2022 Monocytes (Bld) [#/Vol] 0.5 10*3/uL 0.0-0.8 [facility] Monocytes/100 WBC Auto (Bld) Ordered By: Joss Alatorre on 01-26-2022 Monocytes/100 WBC (Bld) 6.8 % . [facility] Neutrophils Auto (Bld) [#/Vo l]Ordered By: Joss Alatorre on 01-26-2022 Neutrophils (Bld) [#/Vol] 3.4 10*3/uL 1.8-7.7 [facility] Neutrophils/100 WBC Auto (Bl d)Ordered By: Joss Alatorre on 01-26-2022 Neutrophils/100 WBC (Bld) 48.2 % . [facility] Nitrite Test strip Ql (U)Ord ered By: Joss Alatorre on 01-26-2022 Nitrite Ql (U) Negative Negative [facility] No Panel InformationOrdered By: Joss Alatorre on 01-26-2022 Estimated GFR () > 60 mL/Min [facility] Comment on above: GFR estimated refere nce range: According to KDOQI guidelines, <60 ml/min/1.73m2 is sufficient to diagnose a patient with chronic kidney disease. Pharmacy Creatinine Clearance (Chem 85.64 [facility] No Panel InformationOrdered By: Luis Siddiqui on 01-26-2022 SARS Antigen (LFIA) [facility] Platelet mean volume Auto (B ld) [Entitic vol]Ordered By: Joss Alatorre on 01-26-2022 Platelet mean volume (Bld) [Entitic vol] 6.2 fL 6.3-10.7 [facility] Platelet poor plasma interna tional normalized ratio (INR) by coagulation assay (relatOrdered By: Joss Alatorre on 01-26-2022 INR Coag (PPP) [Relative time] 1.0 {INR} [facility] Comment on above: INR Therapeutic Rang e [...] 01-26-2022 Platelets (Bld) [#/Vol] 368 10*3/uL 150-450 [facility] Protein Auto test strip (U) [Mass/Vol]Ordered By: Joss Alatorre on 01-26-2022 Protein (U) [Mass/Vol] Negative Negative Fi [facility] RBC Auto (Bld) [#/Vol]Ordere d By: Joss Alatorre on 01-26-2022 RBC (Bld) [#/Vol] 4.57 10*6/uL 3.60-5.00 [facility] Serum or plasma anion gap de terminationOrdered By: Joss Alatorre on 01-26-2022 Anion gap [Moles/Vol] 13.2 mmol/L 6.0-15.0 [facility] Serum or plasma calcium royce urement (mass/volume)Ordered By: Joss Alatorre on 01-26-2022 Calcium [Mass/Vol] 8.9 mg/dL 8.2-10.2 [facility] Serum or plasma chloride odell surement (moles/volume)Ordered By: Joss Alatorre on 01-26-2022 Chloride [Moles/Vol] 101 mmol/L 95-114 [facility] Serum or plasma creatine kin ase MB (CKMB)/total creatine kinase (CK) ratio by calculaOrdered By: Joss Alatorre on 01-26-2022 CK.MB Calc [Catalytic fraction] 3.0 % 0.00-2.50 [facility] Serum or plasma creatine kin ase MB measurement (mass/volume)Ordered By: Joss Alatorre on 01-26-2022 CK.MB [Mass/Vol] 3.1 ng/mL 0.6-6.3 [facility] Serum or plasma glucose royce urement (mass/volume)Ordered By: Joss Alatorre on 01-26-2022 Glucose [Mass/Vol] 143 mg/dL 70-100 [facility] Comment on above: ADA recommended refe rence rangeRandom Glucose Reference Range is dependent on time and content of last meal. Glucose of more than 200 mg/dL in a nonstressed, ambulatory subject supports the diagnosis of Diabetes Mellitus. Serum or plasma potassium me asurement (moles/volume)Ordered By: Joss Alatorre on 01-26-2022 Potassium [Moles/Vol] 3.9 mmol/L 3.5-5.1 [facility] Serum or plasma sodium measu rement (moles/volume)Ordered By: Joss Alatorre on 01-26-2022 Sodium [Moles/Vol] 136 mmol/L 136-146 [facility] Serum or plasma total carbon dioxide measurement (moles/volume)Ordered By: Joss Alatorre on 01-26-2022 CO2 [Moles/Vol] 25.7 mmol/L 22.0-30.0 [facility] Serum or plasma urea nitroge n measurement (mass/volume)Ordered By: Joss Alatorre on 01-26-2022 Urea nitrogen [Mass/Vol] 13 mg/dL 9-23 [facility] Specific gravity Auto test s trip (U) [Rel density]Ordered By: Joss Alatorre on 01-26-2022 Specific gravity (U) [Rel density] 1.020 1.001-1.03 0 [facility] Squamous epithelial cells de tection in urine sediment by light microscopyOrdered By: Joss Alatorre on 01-26-2022 Epithelial cells.squamous LM Ql (Urine sed) 3-4 [HPF] 0-2 [facility] Troponin I.cardiac [Mass/vol ume] in Serum or Plasma by High sensitivity methodOrdered By: Joss Alatorre on 01-26-2022 Troponin I.cardiac High sensitivity method [Mass/Vol] 3 pg/mL 0-15 [facility] Urine bacteria detection by automated methodOrdered By: Joss Alatorre on 01-26-2022 Bacteria Auto Ql (U) None seen None Seen [facility] Urine clarity by refractomet ry automatedOrdered By: Joss Alatorre on 01-26-2022 Clarity Refractometry automated (U) Clear Clear [facility] Urine glucose measurement by automated test strip (mass/volume)Ordered By: Joss Alatorre on 01-26-2022 Glucose Auto test strip (U) [Mass/Vol] Normal mg/dL Normal [facility] Urine hemoglobin detection b y automated test stripOrdered By: Joss Alatorre on 01-26-2022 Hemoglobin Auto test strip Ql (U) Negative Negative [facility] Urine leukocyte esterase det ection by automated test stripOrdered By: Joss Alatorre on 01-26-2022 Leukocyte esterase Auto test strip Ql (U) 2+ Negative [facility] Urobilinogen Auto test strip (U) [Mass/Vol]Ordered By: Joss Alatorre on 01-26-2022 Urobilinogen (U) [Mass/Vol] Normal mg/dL Normal [facility] pH Auto test strip (U)Ordere d By: Joss Alatorre on 01-26-2022 pH (U) 6.0 [pH] 5.0-9.0 [facility] Q - T3 TOTALon 04-10-2021 T3, TOTAL 121 ng/dL Normal 76-181 [facility] [employer] Equipment Mechan[employer] Instructor Comment on above: Order Comment: [facility] Testing performed at: QPT, [facility], [address] [place] [address], [address] [place] [address], [place], [address], Wood Barrel Reconditioner: Jensen Patiño MD [facility] Collection Date/Time: [facility] Results Received Date/Time: [facility] Reported Date/Time: FASTING: NO Performed By: #### T SH, 859X, [id number], [id number], [id number] #### [facility] Default [address] [place] [address] Q - T3,FREEon 04-10-2021 Free T3 [Mass/Vol] 3.2 pg/mL Normal 2.3-4.2 Kandy rn [place] [employer] In[employer] Comment on above: Order Comment: [facility] Testing performed at: [facility], [facility], [address], [address] [place], [address], Wood Barrel Reconditioner: Jensen Patiño MD [facility] Collection Date/Time: [facility] Results Received Date/Time: [facility] Reported Date/Time: FASTING: NO Performed By: #### T SH, 859X, 83179, [id number], [id number] #### [facility] Default [address] [place] [address] Q - T3,REVERSE,LC/MS/MSon T3 REVERSE, LC/MS/MS 12 ng/dL Normal 8-25 Trinh kate [place] [employer] Instructor Comment on above: Order Comment: [facility] Testing performed at: [facility], [address], [place], [place], , Wood Barrel Reconditioner: Davie Lee M.D.,PhD [facility] Collection Date/Time: [facility] Results Received Date/Time: [facility] Reported Date/Time: FASTING: NO Result Comment: This test was developed and its analytical performance characteristics have been determined by [facility] [place], [place]. It has not been cleared or approved by the U.S. Food and Drug Administration. This assay has been validated pursuant to the CLIA regulations and is used for clinical purposes. Performed By: #### T BERTO, 859X, 44293, 99193X, [id number] #### [facility] Default [address] [place] [address] Q - T4,FREEon 04-10-2021 Free T4 [Mass/Vol] 0.9 ng/dL Normal 0.8-1.8 Kandy montero [place] [employer] In[employer] Comment on above: Order Comment: [facility] performed at: [facility], [facility], [address], [address] [facility], [place], [address], Wood Barrel Reconditioner: Jensen Patiño MD [facility] Date/Time: [facility] Results Received Date/Time: [facility] Reported Date/Time: FASTING: NO Performed By: #### T SH, 859X, 08472, 02568D, [id number] #### [facility] Default [address] [place] [address] TSHon 04-10-2021 TSH Qn 0.84 m[IU]/L Normal 0.40-4.50 [facility] [employer] Equipment Mechanics Instructor Comment on above: Order Comment: [facility] performed at: [facility], [facility], [address] [facility], [address] [facility], [place], [address], [employer] Barrel Reconditioner: Jensen Patiño MD [facility] Date/Time: [facility] Results Received Date/Time: [facility] Reported Date/Time: FASTING: NO Performed By: #### T SH, 859X, 95564, 45455Y, [id number] #### [facility] Default [address] [place] [address] NM STRESS/REST MULTIon 06-19 NM STRESS/REST MULTI Patient: KEVIN GARRISON Exam Date: 06/20/2019 : 1960 Gender:F Ordering : DR MATTY SWANN . Admission #: [id number] Family : Order #: [id number] CLICK HERE TO VIEW EXAM RADIOLOGY REPORT [...] M.D. on 06/20/2019 at 13:02 Normal [facility] CBC AUTO DIFFon 03-02-2019 Basophils (Bld) [#/Vol] 0.0 103/ul Normal 0.0-0.1 [facility] Comment on above: Performed By: #### C BC #### [facility] [address] [place], [place] [id number] [place] Tisha Basophils/100 WBC (Bld) 0.3 % Normal 0.2-2.0 [facility] Comment on above: Performed By: #### C BC #### [facility] [address] [place], [place] [address] [place] Tisha Eosinophils (Bld) [#/Vol] 0.2 103/ul Normal 0.0-0.7 [facility] Comment on above: Performed By: #### C BC #### [facility] [address] [place], [place] [address] [place] Tisha Eosinophils/100 WBC (Bld) 1.6 % Normal 0.9-7.0 [facility] Comment on above: Performed By: #### C BC #### [facility] [address] [place], [place] [id number] [place] Tisha Erythrocyte distribution width (RBC) [Ratio] 12.5 % Normal 11.0-15.0 [facility] Comment on above: Performed By: #### C BC #### [facility] [address] [place], [place] [address] [place] Tisha Hematocrit (Bld) [Volume fraction] 43.2 % Normal 36.0-48.0 [facility] Comment on above: Performed By: #### C BC #### [facility] [address] [place] [address] Israel Tisha Hemoglobin (Bld) [Mass/Vol] 14.7 g/dL Normal 12.0-16.0 [facility] Comment on above: Performed By: #### C BC #### [facility] [address] [place], [place] [id number] Israel Tisha IG # 0.06 10e3/ul Critically high 0.00-0.03 [facility] Comment on above: Performed By: #### C BC #### [facility] [address] [place] [address] Israel Tisha IG % 0.5 % Normal 0.0-0.5 [facility] Comment on above: Performed By: #### C BC #### [facility] [address] [place] [address] Israel Tisha Lymphocytes (Bld) [#/Vol] 1.5 103/ul Normal 1.2-3.8 [facility] Comment on above: Performed By: #### C BC #### [facility] [address] [place] [address] Israel Tisha Lymphocytes/100 WBC (Bld) 12.1 % Critically low 20.5-60.0 [facility] Comment on above: Performed By: #### C BC #### [facility] [address] [place] [address] Israelbeatriz Giles MANUAL DIFF REQ NO Normal [facility] Comment on above: Performed By: #### C BC #### [facility] [address] [place], [place] [id number] Israel Tisha MCH (RBC) [Entitic mass] 28.7 pg Normal 26.7-34.0 [facility] Comment on above: Performed By: #### C BC #### [facility] [address] [place] [address] Israelbeatriz Hdzen MCHC (RBC) [Mass/Vol] 34.0 g/dL Normal 29.9-35.2 [facility] Comment on above: Performed By: #### C BC #### [facility] [address] [place], [place] [address] Israel Tisha MCV (RBC) [Entitic vol] 84.4 fL Normal 81.0-99.0 [facility] Comment on above: Performed By: #### C BC #### [facility] [address] [place], [place] [address] Israel Tisha Monocytes (Bld) [#/Vol] 0.8 103/ul Normal 0.3-0.8 [facility] Comment on above: Performed By: #### C BC #### [facility] [address] [place], [place] [id number] Israel Tisha Monocytes/100 WBC (Bld) 6.3 % Normal 1.7-12.0 [facility] Comment on above: Performed By: #### C BC #### [facility] [address] [place], [place] [id number] Israel Tisha Neutrophils (Bld) [#/Vol] 9.8 103/ul Critically high 1.4-6.5 [facility] Comment on above: Performed By: #### C BC #### [facility] [address] [place], [place] [id number] Israel Tisha Neutrophils/100 WBC (Bld) 79.2 % Critically high 43.0-75.0 [facility] Comment on above: Performed By: #### C BC #### [facility] [address] [place], [place] [id number] Israel Tisha Platelet mean volume (Bld) [Entitic vol] 8.0 fL Critically low 9.5-13.5 [facility] Comment on above: Performed By: #### C BC #### [facility] [address] [place] [address] Israel Tisha Platelets (Bld) [#/Vol] 254 103/ul Normal 150-450 [facility] Comment on above: Performed By: #### C BC #### [facility] [address] [place] [address] Israel Tisha RBC (Bld) [#/Vol] 5.12 106/ul Normal 4.20-5.40 [facility] Comment on above: Performed By: #### C BC #### [facility] [address] [place], [place] [address] Israel Giles WBC (Bld) [#/Vol] 12.3 103/ul Critically high 4.0-11.0 [facility] Comment on above: Performed By: #### C BC #### [facility] [address] [place], [place] [address] ABD/PELVIS W CONon 2018 CT ABD/PELVIS W CON Patient: NANCY GARRISON Exam Date: 03/02/2019 : 1960 Gender:F Ordering : DR. LORETTA TAN D.O. Admission #: [id number] Family : DR MATTY SWANN . Order #: [id number] CLICK HERE TO VIEW EXAM RADIOLOGY REPORT [...] Bishop M.D. on 03/02/2019 at 07:45 Normal [facility] LIPASEon 03-02-2019 Lipase [Catalytic activity/Vol] 541.0 U/L Critically high 23.0-300.0 [facility] Comment on above: Performed By: #### L IPA TROP, CMP #### [facility] [address] [place] [address] Israelbeatriz Giles PROF 14(COMP METB)on 019 Albumin [Mass/Vol] 3.4 g/dL Critically low 3.5-5.0 [facility] Comment on above: Performed By: #### L IPA, TROP, CMP #### [facility] [address] [place] [address] Israel Tisha Albumin/Globulin [Mass ratio] 0.9 {ratio} Normal [facility] Comment on above: Performed By: #### L IPA TROP, CMP #### [facility] [address] [place] [address] Israel Tisha ALP [Catalytic activity/Vol] 97 U/L Normal 38-126 [facility] Comment on above: Performed By: #### L IPA, TROP, CMP #### [facility] [address] [place] [address] Israel Tisha ALT [Catalytic activity/Vol] 50 U/L Normal 9-52 [facility] Comment on above: Performed By: #### L IPA, TROP, CMP #### [facility] [address] [place] [address] Israel Tisha Anion gap [Moles/Vol] 15.1 mmol/L Normal [facility] Comment on above: Performed By: #### L IPA, TROP, CMP #### [facility] [address] [place] [address] Israel Tisha AST [Catalytic activity/Vol] 32 U/L Normal 14-36 [facility] Comment on above: Performed By: #### L IPA, TROP, CMP #### [facility] [address] [place] [address] Israel Tisha Bilirubin Ql (U) 0.6 mg/dL Normal 0.2-1.3 [facility] Comment on above: Performed By: #### L IPA, TROP, CMP #### [facility] [address] [place] [address] Israel Tisha Calcium [Mass/Vol] 8.5 mg/dL Normal 8.4-10.2 [facility] Comment on above: Performed By: #### L IPA, TROP, CMP #### [facility] [address] [place] [address] Israel Tisha Chloride [Moles/Vol] 103 mmol/L Normal 98-107 [facility] Comment on above: Performed By: #### L IPA, TROP, CMP #### [facility] [address] [place] [address] Israel Tisha CO2 [Moles/Vol] 23.8 mmol/L Normal 22.0-30.0 [facility] Comment on above: Performed By: #### L IPA, TROP, CMP #### [facility] [address] [place] [address] Israel Tisha Creatinine [Mass/Vol] 0.86 mg/dL Normal 0.52-1.04 [facility] Comment on above: Performed By: #### L IPA, TROP, CMP #### [facility] [address] [place] [id number] Israel Tisha EGFR-AF BAHAMIAN >60 Normal >=60 [facility] Comment on above: Performed By: #### L IPA, TROP, CMP #### [facility] [address] [place] [address] Israel Tisha EGFR-NON AF BAHAMIAN >60 Normal >=60 [facility] Comment on above: Performed By: #### L IPA, TROP, CMP #### [facility] [address] [place] [address] Israel Tisha Globulin (S) [Mass/Vol] 3.8 g/dL Normal [facility] Comment on above: Performed By: #### L IPA, TROP, CMP #### [facility] [address] [place] [address] Israel Tisha Glucose [Mass/Vol] 143 mg/dL Critically high 74-106 T [facility] Comment on above: Performed By: #### L IPA, TROP, CMP #### [facility] [address] [place] [address] Israel Tisha Potassium [Moles/Vol] 4.9 mmol/L Normal 3.4-5.0 [facility] Comment on above: Performed By: #### L IPA, TROP, CMP #### [facility] [address] [place] [address] Israel Tisha Protein [Mass/Vol] 7.2 g/dL Normal 6.1-8.2 [facility] Comment on above: Performed By: #### L IPA, TROP, CMP #### [facility] [address] [place] [address] Israel Tisha Sodium [Moles/Vol] 137 mmol/L Normal 137-145 [facility] Comment on above: Performed By: #### L IPA, TROP, CMP #### [facility] [address] [place] [address] Israel Tisha Urea nitrogen [Mass/Vol] 17.0 mg/dL Normal 7.0-17.0 [facility] Comment on above: Performed By: #### L IPA, TROP, CMP #### [facility] [address] [place] [address] Israel Tisha Urea nitrogen/Creatinine [Mass ratio] 19.8 mg/mg Normal [facility] Comment on above: Performed By: #### L IPA, TROP, CMP #### [facility] [address] [place] [address] Israel Tisha TROPONIN - Ion 03-02-2019 Troponin I.cardiac [Mass/Vol] ng/mL Normal <=0.034 [facility] Comment on above: Performed By: #### L IPA, TROP, CMP #### [facility] [address] [place] [address] Israel Tihsa Troponin I.cardiac [Mass/Vol] SEE BELOW Normal [facility] Comment on above: Result Comment: <0.0 34 ng/ml NEGATIVE 0.034-0.119 INDETERMINATE 0.120 AMI CUT OFF Performed By: #### L IPA, TROP, CMP #### [facility] [address] [place] [address] Israel Tisha Social History Date Type Detail Facility Start: 04-04-2023 Alcohol intake Current drinke r of alcohol (finding) [facility] Start: 09-27-2022 End: 04-04-2023 Alcohol intake [facility] Start: 10-04-2022 Education 17 [facility] Start: 10-04-2022 Alcohol Comment Caffeine Intak e : 1-2 cups per day [facility] Start: 09-27-2022 End: 01-05-2023 Humiliation, Afraid, Rape, and Kick questionnaire [HARK] [facility] Start: 09-22-2022 Tobacco use and exposure Smoke less tobacco non-user [facility] Start: 01-26-2022 End: 09-22-2022 Tobacco smoking status NHIS Never smoked tobacco (finding) [facility] Start: 1960 Sex Assigned At Female F [facility] Start: 1960 Sex Assigned At Not on file [facility] Within the last year , have you been afraid of your partner or ex-partner? No [facility] Do you belong to any clubs or organizations such as zoroastrianism groups, unions, fraternal or athletic groups, or [...] Time Vital Sign Value Performing Clinician Faci best 01-26-2022 20:03-0400 Body temperature 98.5 [degF] MD Matty Swann Work Phone: [facility] 01-26-2022 20:03-0400 Diastolic blood pressure 88 mm[Hg] MD Matty Swann Work Phone: [facility] 01-26-2022 20:03-0400 Heart rate 77 /min MD Matty Swann Work Phone: [facility] 01-26-2022 20:03-0400 Respiratory rate 16 /min MD Matty Swann Work Phone: [facility] 01-26-2022 20:03-0400 SaO2% (BldA) [Mass fraction] 98 % MD Matty Swann Work Phone: [facility] 01-26-2022 20:03-0400 Systolic blood pressure 134 mm[Hg] MD Matty Swann Work Phone: [facility] 01-26-2022 16:18-0400 Body height 157.48 cm MD Matty Swann Work Phone: [facility] 01-26-2022 16:18-0400 Body weight 106.2 kg MD Matty Swann Work Phone: [facility] Evaluation note Note Date & Type Note Facility Evaluation note No assessment information availa [facility] Work Phone: Evaluation note Note Date & Type Note Facility Evaluation note Diagnosis Acquired hypothyroidism (CMS/HCC) Unspecified hypothyroidism ESS (euthyroid sick syndrome) Euthyroid sick syndrome Mixed dyslipidemia (CMS/HCC) Lichen sclerosus et atrophicus of the vulva Circumscribed scleroderma Acute conjunctivitis, unspecified acute conjunctivitis type, unspecified laterality documented in this encounter [facility] Discharge instructions Note Date & Type Note Facility Hospital Discharge instructions Additional Instructions Follow-up with your primary care doctor Return to ED if develop worsening symptoms or concern [facility] Work Phone: Summary Purpose Family [...] DATE CREATED AUTHOR AUTHOR'S ORGANIZ ATION 04/20/2021 [facility] DATE CREATED AUTHOR AUTHOR'S ORGANIZ ATION 06/09/2023 [facility] DATE CREATED AUTHOR AUTHOR'S ORGANIZ ATION 09/08/2023 [facility] EPIC Care Teams (unrecognized sec [...] Provider Active Referral Self Attending Provider Active Bird Trapper Relationship Specialty Start Date End Date aMtty Swann MD [address] [place] [address] PCP - General Family Medicine 08/24/22 Goals [...] BE BASED ON THE PRIMARY CLINICAL RECORDS. [employer] [facility]. provides no warranty or guarantee of the accuracy or completeness of information in this document.
[2023-09-09 14:40] LABS: Troponin I High Sensitivity <4.0 pg/mL (4.0-51.3)
[2023-09-09 14:44] LABS: Alanine Aminotransferase 63 U/L (14-59); Albumin Level 3.6 g/dL (3.4-5.0); Alkaline Phosphatase 96 U/L (46-116); Anion Gap 15.5; Aspartate Amino Transferase 35 U/L (15-37); Bilirubin Direct 0.1 mg/dL (0.0-0.2); Bilirubin Total 0.5 mg/dL (0.2-1.0); Calcium 9.3 mg/dL (8.5-10.1); Carbon Dioxide 20.3 mmol/L (21.0-32.0); Chloride 108 mmol/L (98-107); Estimated GFR (African America >60 (>=60); Estimated GFR (Non-African Ame >60 (>=60); Globulin 3.7 g/dL; Glucose 120 mg/dL (74-106); Potassium 3.8 mmol/L (3.5-5.1); Salicylate <2.8 mg/dL (<=19.9); Sodium 140 mmol/L (136-145); TSH W/ REFLEX FT4 0.266 uIU/mL (0.358-3.740); Total Protein 7.3 g/dL (6.4-8.2)
[2023-09-09 14:46] LABS: Bacteria Urine TRACE #/HPF (NONE SEEN); Cast Seen? NONE SEEN #/LPF (NONE SEEN); Crystals Seen? None Seen #/HPF (None Seen); Mucus Urine NONE SEEN (NONE SEEN); RBC Urine 0-2 #/HPF (0-2); Squamous Epithelial Cell Urine FEW #/LPF (NONE/RARE); Transitional Epi Cells Urine RARE #/LPF (NONE SEEN); Urine Culture Indicated NO; WBC Urine NONE SEEN #/HPF (NONE SEEN)
[2023-09-09 15:11] LABS: Free T4 1.22 ng/dL (0.76-1.46)
== END 2023-09-09 15:55 | disposition home or self-care (01) ==
PROVIDERS: Emergency Provider Emergency Medicine; PCP Family Medicine
DX: R53.82 Chronic fatigue, unspecified (principal); R06.02 Shortness of breath; R06.4 Hyperventilation; E87.3 Alkalosis
CPT/HCPCS: 36415; 36600; 70450; 71045; 80048; 80076; 80179; 81001; 82805; 84439; 84443; 84484; 85025; 93005; 99285

== ENCOUNTER 2023-10-06 22:37 | Emergency (ER) | payer MEDICAID, SELFPAY ==
[2023-10-06 22:54] VITALS: BP 176/97; PULSE 63; TEMP 36.7; O2SAT 100; BMI 41.5
[2023-10-06 23:21] VITALS: O2SAT 100
--- NOTE | 2023-10-06 23:21 | ED_ITS ---
HPI HPI - General Adult General Chief complaint: Shortness of Breath/Dyspnea Stated complaint: DIFF BREATHING Time Seen by Provider: 10/06/23 23:20 Source: patient Mode of arrival: Wheelchair Limitations: no limitations History of Present Illness HPI narrative: patient presents to the ER stating she is hyperventilating. RR 18. States she has been seen here about 2 weeks ago for the same. States she was also prescribed medication for her BP but her insurance would not renew it and now she is without. Does not recall what she is on. No headache or fever. Related Data Home Medications ?Medication ?Instructions ?Recorded ?Confirmed buspirone 10 mg tablet 10 mg PO BID 10/06/23 10/06/23 citalopram 10 mg tablet 10 mg PO DAILY 10/06/23 10/06/23 Allergies Allergy/AdvReac Type Severity Reaction Status Date / Time Sulfa (Sulfonamide Allergy Severe Verified 09/03/23 14:49 Antibiotics) Opioid HPI Opioid Management Most Recent Opioid Data: No Data to Display Review of Systems ROS Status of ROS 10 or more systems reviewed and unremark able except as noted in history and below Exam Constitutional Vital Signs, click to edit/add: Last Vital Signs Temp 98.1 F 10/06/23 22:54 Pulse 72 10/07/23 02:19 Resp 15 10/07/23 02:19 BP 127/82 10/07/23 02:19 Pulse Ox 100 10/07/23 02:19 O2 Del Method Room Air 10/06/23 23:21 Common normals: no apparent distress, average body habitus, oriented x3, no limitations, healthy appearing, alert and well nourished [facility] Common normals: normocephalic and head/scalp atraumatic Eye Common normals: EOMs intact bilaterally and conjunctivae normal Respiratory Common normals: normal respiratory effort, no retractions, no use of accessory muscles and clear to auscultation bilaterally Cardio Common normals: regular rate, regular rhythm, S1 normal heart sound and S2 normal heart sound Extremity Common normals: normal to inspection and full ROM Neuro Common normals: oriented x3, CN's II-XII intact bilaterally, moves all extremities and no focal motor deficits Course Vital Signs Vital signs: Vital Signs Temperature 98.1 F 10/06/23 22:54 Pulse Rate 63 10/06/23 22:54 Respiratory Rate 18 10/06/23 22:54 Blood Pressure 176/97 H 10/06/23 22:54 Pulse Oximetry 100 10/06/23 22:54 Oxygen Delivery Method Room Air 10/06/23 22:54 Temperature 98.1 F 10/06/23 22:54 Pulse Rate 72 10/07/23 02:19 Respiratory Rate 15 10/07/23 02:19 Blood Pressure 127/82 10/07/23 02:19 Pulse Oximetry 100 10/07/23 02:19 Oxygen Delivery Method Room Air 10/06/23 23:21 Medical Decision Making MDM Narrative Medical decision making narrative: patient presents with hyperventilation and respiratory alkalosis. Also has HTN. Not sure why she is hyperventilating. Similar episode 2 weeks ago. given dose of Clonidine and Vistaril and is now feeling better. BP also now normal. Discharged home and advised close follow up Lab Data Labs: Lab Results 10/06/23 10/07/23 Range/Units 23:42 00:58 WBC 9.4 (4.0-11.0) 10^3/uL RBC 4.89 (4.20-5.40) 10^6/uL Hgb 15.6 (12.0-16.0) g/dL Hct 46.1 (36.0-48.0) % MCV 94.3 (81.0-99.0) fL MCH 31.9 (26.7-34.0) pg MCHC 33.8 (29.9-35.2) g/dL RDW 12.4 (11.0-15.0) % Plt Count 318 (150-450) 10^3/uL MPV 8.5 L (9.5-13.5) fL Neut % (Auto) 56.3 (43.0-75.0) % Lymph % (Auto) 34.5 (20.5-60.0) % Dickson % (Auto) 6.7 (1.7-12.0) % Eos % (Auto) 1.7 (0.9-7.0) % Baso % (Auto) 0.6 (0.2-2.0) % Neut # (Auto) 5.3 (1.4-6.5) 10^3/uL Lymph # (Auto) 3.3 (1.2-3.8) 10^3/uL Dickson # (Auto) 0.6 (0.3-0.8) 10^3/uL Eos # (Auto) 0.2 (0.0-0.7) 10^3/uL Baso # (Auto) 0.1 (0.0-0.1) 10^3/uL Abs Immat Gran (auto) 0.02 (0.00-0.03) 10^3/uL Imm/Tot Granulo (auto) 0.2 (0.0-0.5) % Puncture Site Rr ABG pH 7.537 H* (7.350-7.450) ABG pCO2 23.7 L (35.0-45.0) mmHg ABG pO2 97.2 (80.0-100.0) mmHg ABG HCO3 20.1 L (22.0-26.0) mmol/L ABG O2 Saturation 97.6 % ABG Base Excess -2.5 L (-2.0-2.0) mmol/L Dominick Test Positive (POSITIVE) Sodium 137 (136-145) mmol/L Potassium 3.8 (3.5-5.1) mmol/L Chloride 101 (98-107) mmol/L Carbon Dioxide 22.8 (21.0-32.0) mmol/L Anion Gap 17.0 BUN 14.0 (7.0-18.0) mg/dL Creatinine 1.03 H (0.55-1.02) mg/dL Est GFR ( Amer) >60 (>=60) Est GFR (Non-Af Amer) 54 L (>=60) BUN/Creatinine Ratio 13.6 Glucose 112 H (74-106) mg/dL Calcium 9.4 (8.5-10.1) mg/dL Discharge Plan Discharge Stand Alone Forms: Portal Instructions Chief Complaint: Shortness of Breath/Dyspnea Clinical Impression: Hyperventilation, Hypertension Patient Disposition: Home, Self-Care Prescriptions / Home Meds: No Action buspirone 10 mg tablet 10 mg PO BID citalopram 10 mg tablet 10 mg PO DAILY Print Language: Turkish Instructions: Hyperventilation (ED), Hypertension (ED) Additional Instructions: follow up with your doctor tomorrow for recheck Referrals: MATTY SWANN [Primary Care Provider] - 1 week
--- NOTE | 2023-10-06 23:21 | PC.NURSE ---
Patient claims that she has been having episodes of hyperventilating for the past 6 months. She says there is nothing she can do to stop it, and that it does not go away on its own, yet she is not hyperventilating at time of assessment. During assessment, she stated that she could feel it coming on because it had a smell, and sometimes it has a chemical smell . Even though she stated she was hyperventilating, her rate of breathing never changed. Her vital signs all remained stable and WNL.
[2023-10-06 23:49] LABS: ABG PCO2 23.7 mmHg (35.0-45.0); Allen Test POSITIVE (POSITIVE); Base Excess ABG -2.5 mmol/L (-2.0-2.0); HCO3 ABG 20.1 mmol/L (22.0-26.0); O2 Mode ROOM AIR; Oxygen Saturation ABG 97.6 %; PO2 ABG 97.2 mmHg (80.0-100.0); Puncture Site RR
[2023-10-06 23:50] LABS: pH ABG 7.537 (7.350-7.450)
[2023-10-07] MEDS: HYDROXYZINE PAMOATE 25 MG CAPSULE 50 MG PO (00:43)
[2023-10-07] MEDS: CLONIDINE HCL 0.1 MG TABLET PO (00:43)
[2023-10-07 01:12] LABS: Basophils Absolute Auto 0.1 10^3/uL (0.0-0.1); Basophils Percent Auto 0.6 % (0.2-2.0); Eosinophils Absolute Auto 0.2 10^3/uL (0.0-0.7); Eosinophils Percent Auto 1.7 % (0.9-7.0); Hematocrit 46.1 % (36.0-48.0); Hemoglobin 15.6 g/dL (12.0-16.0); Immature Granulocytes Abs Auto 0.02 10^3/uL (0.00-0.03); Immature Granulocytes Pct Auto 0.2 % (0.0-0.5); Lymphocytes Absolute Auto 3.3 10^3/uL (1.2-3.8); Lymphocytes Percent Auto 34.5 % (20.5-60.0); Mean Corpuscular HGB Conc 33.8 g/dL (29.9-35.2); Mean Corpuscular Hemoglobin 31.9 pg (26.7-34.0); Mean Corpuscular Volume 94.3 fL (81.0-99.0); Mean Platelet Volume 8.5 fL (9.5-13.5); Monocytes Absolute Auto 0.6 10^3/uL (0.3-0.8); Monocytes Percent Auto 6.7 % (1.7-12.0); Neutrophils Absolute Auto 5.3 10^3/uL (1.4-6.5); Neutrophils Percent Auto 56.3 % (43.0-75.0); Platelet Count 318 10^3/uL (150-450); Red Blood Count 4.89 10^6/uL (4.20-5.40); Red Cell Distribution Width 12.4 % (11.0-15.0); White Blood Count 9.4 10^3/uL (4.0-11.0)
[2023-10-07 01:23] LABS: BUN Creatinine Ratio 13.6; Calcium 9.4 mg/dL (8.5-10.1); Carbon Dioxide 22.8 mmol/L (21.0-32.0); Chloride 101 mmol/L (98-107); Estimated GFR (African America >60 (>=60); Estimated GFR (Non-African Ame 54 (>=60); Glucose 112 mg/dL (74-106); Potassium 3.8 mmol/L (3.5-5.1); Sodium 137 mmol/L (136-145)
[2023-10-07 02:19] VITALS: BP 127/82; PULSE 72; O2SAT 100
== END 2023-10-07 03:00 | disposition home or self-care (01) ==
PROVIDERS: Emergency Provider Internal Medicine; PCP Family Medicine
DX: R06.4 Hyperventilation (principal); I10 Essential (primary) hypertension
CPT/HCPCS: 36415; 36600; 80048; 82805; 85025; 99283; Q0177

== ENCOUNTER 2023-10-10 21:24 | Emergency (ER) | payer MEDICAID, SELFPAY ==
[2023-10-10 21:31] VITALS: BP 155/92; PULSE 66; TEMP 36.6; O2SAT 99; BMI 41.5
[2023-10-10 21:40] VITALS: PULSE 61
--- NOTE | 2023-10-10 21:59 | ED.ANXIETY1 ---
HPI - Anxiety General Chief Complaint: Anxiety Stated Complaint: ANXIETY Time Seen by Provider: 10/10/23 21:27 Source: patient and family Mode of arrival: walk-in Limitations: no limitations History of Present Illness HPI narrative: 63-year-old female who has been seen in this emergency department 3 times recently for medical related anxiety presents for evaluation. The patient states she is very anxious and says she is afraid to . I asked her what instigated this anxiety and her thinks it is because a friend of theirs recently . The patient recently had a stress test that was equivocal but not abnormal. She was also in the emergency department when she had an abnormal ABG with a pH of 7.55. The patient states she feels like she is hyperventilating and is taking 2 breaths for every breath that she needs to take. She was recently placed on BuSpar and citalopram by her family physician. She was also seen in this emergency department and given hydroxyzine by Dr. Link. She states she recently lost weight after going on some kind of diet. She thinks that this was a bad idea for her because this has made her think she is dying because of the weight loss. She states her chest feels like it is caving in. Her states she is having tingling in her hands and feet. She states she has been diagnosed with prediabetes which also makes her think she is going to . She has never been seen or counseled by a counselor or psychiatrist. Related Data Home Medications ?Medication ?Instructions ?Recorded ?Confirmed buspirone 10 mg tablet 10 mg PO BID 10/06/23 10/10/23 citalopram 10 mg tablet 10 mg PO DAILY 10/06/23 10/10/23 hydroxyzine pamoate 50 mg capsule 50 mg PO .once daily 10/10/23 10/10/23 levothyroxine 75 mcg tablet 75 mcg PO .once daily 10/10/23 10/10/23 losartan 50 mg tablet 50 mg PO .once daily 10/10/23 10/10/23 Allergies Allergy/AdvReac Type Severity Reaction Status Date / Time Sulfa (Sulfonamide Allergy Severe Hives Verified 10/10/23 21:38 Antibiotics) Review of Systems ROS Status of ROS 10 or more systems reviewed and unremarkable except as noted in history and below Exam Narrative Exam Narrative: Vital signs and Nursing Notes reviewed: Patient is afebrile with a normal pulse, blood pressure is mildly elevated at 155/92, she is not hypoxic with pulse ox of 99% on room air General: Anxious, alert, somewhat confrontational middle-age female, no respiratory distress, she is breathing comfortably with no tachypnea or conversational dyspnea HEENT: Normocephalic atraumatic, mucous membranes are moist and pink, eyes are clear, normal conjunctiva, vision is grossly intact, posterior pharynx is normal in appearance. Neck: Supple, no meningeal signs Chest: Lungs are clear to auscultation with good air entry, there is no wheezing rhonchi or rales appreciated no accessory muscle use, patient is speaking in complete sentences-no chest wall tenderness to palpation CVS: Regular rate and rhythm S1-S2, no murmurs rubs or gallops, pulses are brisk and equal bilaterally ABD: Soft, nondistended, nontender, no rebound guarding or rigidity, bowel sounds are normal, no pulsatile masses appreciated Extremities: Moving all extremities, no lower extremity tenderness or swelling noted, negative Homans' sign, pulses are brisk and equal bilaterally Skin: Normal in appearance without rash,pallor, petechiae or purpura Neuro: No focal deficits Psych: Anxious, ongoing fear of dying Constitutional Vital Signs, click to edit/add: Last Vital Signs Temp 97.8 F 10/10/23 21:31 Pulse 66 10/10/23 21:31 Resp 10/10/23 21:31 BP 155/92 H 10/10/23 21:31 Pulse Ox 99 10/10/23 21:31 O2 Del Method Room Air 10/10/23 21:31 Course Vital Signs Vital signs: Vital Signs Temperature 97.8 F 10/10/23 21:31 Pulse Rate 66 10/10/23 21:31 Respiratory Rate 10/10/23 21:31 Blood Pressure 155/92 H 10/10/23 21:31 Pulse Oximetry 99 10/10/23 21:31 Oxygen Delivery Method Room Air 10/10/23 21:31 Temperature 97.8 F 10/10/23 21:31 Pulse Rate 66 10/10/23 21:31 Respiratory Rate 20 10/10/23 21:31 Blood Pressure 155/92 H 10/10/23 21:31 Pulse Oximetry 99 10/10/23 21:31 Oxygen Delivery Method Room Air 10/10/23 21:31 MDM - Anxiety MDM Narrative Medical decision making narrative: This 63-year-old female presents for evaluation of hyperventilation and fear of dying. She has been seen here 3 times recently for similar symptoms. She states she recently had 3 diagnoses; prediabetes, high cholesterol and 1 other one that she cant recall and is also experiencing paresthesias for which she is going to be seeing a neurologist next week. She states she is feels like she is hyperventilating and having to take 2 breaths for every breath she should be taking. While she is explaining that she is breathing in a relaxed manner on the bed with normal vital signs. She was recently started on BuSpar and citalopram. She was also given a prescription for hydroxyzine from the emergency department. She has not seen a counselor or psychiatrist. The patient states this is new for her being anxious like this. She relates it to a friend recently dying and the 3 diagnosis she recently received. She was medicated emergency department with a dose of Xanax. EKG was ordered and is a sinus rhythm at 65 bpm with no acute findings. T waves are diffusely flattened but otherwise it is a normal EKG. Routine labs were ordered. She has a normal white count and hemoglobin. She is not anemic. Electrolytes are normal. Her glucose is mildly elevated at 127. She has a normal troponin and a normal D-dimer. X-ray of the chest was ordered and I reviewed it. There is no abnormality noted. Lungs are clear, there is normal mediastinum and normal cardiac borders. On reevaluation the patient states she thinks she is feeling better after the Xanax. I reviewed all of her labs, EKG and chest x-ray with her. I will give her a referral to [facility]'s counseling as she may benefit from some counseling/psychiatric services. She denies that she is suicidal. I agreed to give her a short course of Xanax until her psychiatric medications start working or she can be seen by a therapist or her family physician for medication changes. In the meantime I encouraged her to continue taking her psychiatric medications that have been prescribed. Lab Data Attestation: I reviewed the patient's lab results. Labs: Lab Results 10/10/23 Range/Units 22:30 WBC 10.0 (4.0-11.0) 10^3/uL RBC 4.55 (4.20-5.40) 10^6/uL Hgb 14.7 (12.0-16.0) g/dL Hct 43.3 (36.0-48.0) % MCV 95.2 (81.0-99.0) fL MCH 32.3 (26.7-34.0) pg MCHC 33.9 (29.9-35.2) g/dL RDW 12.8 (11.0-15.0) % Plt Count 235 (150-450) 10^3/uL MPV 9.5 (9.5-13.5) fL Neut % (Auto) 57.8 (43.0-75.0) % Lymph % (Auto) 31.8 (20.5-60.0) % [place] % (Auto) 7.6 (1.7-12.0) % Eos % (Auto) 1.7 (0.9-7.0) % Baso % (Auto) 0.7 (0.2-2.0) % Neut # (Auto) 5.8 (1.4-6.5) 10^3/uL Lymph # (Auto) 3.2 (1.2-3.8) 10^3/uL [place] # (Auto) 0.8 (0.3-0.8) 10^3/uL Eos # (Auto) 0.2 (0.0-0.7) 10^3/uL Baso # (Auto) 0.1 (0.0-0.1) 10^3/uL Abs Immat Gran (auto) 0.04 H (0.00-0.03) 10^3/uL Imm/Tot Granulo (auto) 0.4 (0.0-0.5) % D-Dimer 0.57 (<=0.59) mg/L FEU Sodium 139 (136-145) mmol/L Potassium 3.6 (3.5-5.1) mmol/L Chloride 107 (98-107) mmol/L Carbon Dioxide 21.4 (21.0-32.0) mmol/L Anion Gap 14.2 BUN 15.0 (7.0-18.0) mg/dL Creatinine 1.01 (0.55-1.02) mg/dL Est GFR ( Amer) >60 (>=60) Est GFR (Non-Af Amer) 56 L (>=60) BUN/Creatinine Ratio 14.9 Glucose 127 H (74-106) mg/dL Calcium 8.9 (8.5-10.1) mg/dL Total Bilirubin 0.5 (0.2-1.0) mg/dL AST 19 (15-37) U/L ALT 33 (14-59) U/L Alkaline Phosphatase 90 (46-116) U/L Troponin I High Sens 4.1 (4.0-51.3) pg/mL Total Protein 7.0 (6.4-8.2) g/dL Albumin 3.6 (3.4-5.0) g/dL Globulin 3.4 g/dL Albumin/Globulin Ratio 1.1 Imaging Data Chest x-ray: Attestation: I personally reviewed and interpreted this imaging study as follows: (NAPD, normal cardiac borders, normal mediastinum, normal bony structures) ECG Data Attestation: I personally reviewed and interpreted this ECG as follows: (Sinus rhythm at 65 bpm, normal axis, normal intervals, no acute ST segment elevation or T wave inversion) Discharge Plan Discharge Stand Alone Forms: Portal Instructions Chief Complaint: Anxiety Clinical Impression: Panic disorder Patient Disposition: Home, Self-Care Time of Disposition Decision: 23:42 Condition: Good Prescriptions / Home Meds: No Action buspirone 10 mg tablet 10 mg PO BID citalopram 10 mg tablet 10 mg PO DAILY hydroxyzine pamoate 50 mg capsule 50 mg PO .once daily losartan 50 mg tablet 50 mg PO .once daily levothyroxine 75 mcg tablet 75 mcg PO .once daily Print Language: Hungarian Instructions: Panic Disorder (ED), Cognitive Behavioral Therapy (ED), Anxiety (ED) Referrals: MATTY SWANN [Primary Care Provider] - 1 week [facility] [Physician] - 1 week (anxiety/panic disorder)
--- OUTSIDE RECORDS SUMMARY | 2023-10-10 22:15 | XMS_ITS | CCD ---
Author Organization [facility] Care Team Providers Care Stone Fabricator Name Role Phone TANG SWANN Primary Care Unavailable LE, LORETTA Admitting Unavailable LE, LORETTA Attending Unavailable AMANDA BISHOP V Consulting Unavailable BRITNEY, LORETTA Consulting Unavailable TANG SWANN Admitting Unavailable TANG SWANN Attending Unavailable TANG SWANN Primary Care Unavailable TANG SWANN Consulting Unavailable ROGER THAKKAR Consulting Unavailable MD Tang Swann Primary Care Provider DO Joss Alatorre Emergency Provider [phone] MD Tang Swann Primary Care Provider MD [...] POSEY Attending Unavailable TANG SWANN Attending Unavailable HEMETANG MCKEON Attending Unavailable HEMETANG MCKEON Attending Unavailable HEMETANG MCKEON Attending Unavailable HEMETANG MCKEON Attending Unavailable TANG SWANN Attending Unavailable Unavailable Primary Care Provider UnavailLUIS Helton Attending Unavailable Allergies Allergy Classification Reported Allergen(s) Allergy Type Date of Onset Reaction(s) Facility (1 source) Sulfonamides (Antibiotic) Drug allergy (disorder) 5 [facility] Repository (1 source) Darvocet-N 100 Drug allergy (disorder) 5 [facility] (3 sources) Acetaminophen; Translations: [acetaminophen] Drug Allergy 2 [facility] (3 sources) Propoxyphene; Translations: [propoxyphene] Drug Allergy 2 [facility] (3 sources) Sulfonamides (Antibiotic); Translations: [Sulfa (Sulfonamide Antibiotics)] Allergy to substance 2 [facility] (1 source) metFORMIN Drug Allergy 3 [...] the morning cholecalciferol (Vitamin D-3) 250 MCG (15230 UT) tablet Take 10,000 Units by mouth in the morning. Winter dose. 0 Active Cholecalciferol (Vitamin D3) 125 MCG (5000 UT) chewable tablet Chew 1 capsule 1 (one) time each day at the same time. Summer dose 0 Active dexamethasone 1 mg/ml / neomycin 3.5 mg/ml / polymyxin b 32606 unt/ml ophthalmic suspension (2 sources) Aminoglycoside Antibacterial, Polymyxin-class Antibacterial, Corticosteroid Start: 05-02-2023 take 1 drop(s) into the eye(s) three times daily eabugikc-fpfxrlbjy-xlzCUREQcqjkp (Maxitrol) 0.1 % ophthalmic suspension Indications: Conjunctivitis Apply 1 drop to affected EYE three times daily for 7 days. 5 mL 0 05/02/2023 Active Start: 04-05-2023 End: 05-01-2023 take 1 drop(s) into the eye(s) three times daily dxhhbizn-bnxabpjuf-eazBWVCJwxteg (Maxitr ol) 0.1 % ophthalmic suspension Indications: [...] at the same time. 0 Active thyroid (chcf) 15 mg oral tablet (4 sources) Start: 10-28-2022 End: 06-01-2023 take 3 tablets by mouth in the morning thyroid (Hoagland Thyroid) 15 MG tablet Indications: Acquired hypothyroidism (CMS/HCC) , ESS (euthyroid sick syndrome) Take 3 tablets (45 mg) by mouth in the morning and 3 tablets (45 mg) in the evening. Take before meals. 180 tablet 0 05/02/2023 06/01/2023 Active Start: 06-29-2021 take 1 tablet by marlon th twice daily Thyroid (Pork) (Artist Model Thyroid) 90 mg tablet Active 90 MG [...] liver disease] Onset: 03-06-2019 09-15-2022 Chronic Other nervous system disorders (1 source) Abnormal gait; Translations: [Unspecified abnormalities of gait and mobility] 09-19-2023 Episodic Other nutritional; endocrine; and metabolic disorders (1 [...] or Cepheid Disclaimer revoked sooner. PERFORMED BY: [facility] [address] [place] [address] PATHOLOGIST BAKERY MACHINE MECHANIC PUJA MOODY M.D. [facility] Comment on above: Performed By: #### C EPHEID NEG, COVID19 FLU RSV #### [facility] [address] Cepheid COVID PCR Negativeon 05-29-2023 SARS-CoV-2 (COVID-19) RNA CARLOS+probe Ql (Unsp spec) Negative Normal Negative [facility] Comment on above: Result Comment: This is a duplicate Cepheid Xpert Xpress CoV-2/Flu/RSV Plus RNA by RT-PCR result to be used for statistical tracking purpose only. PERFORMED BY: [place] [address] PATHOLOGIST BAKERY MACHINE MECHANIC PUJA MOODY M.D. Performed By: #### C EPHEID NEG, COVID19 FLU RSV #### [address] ECG 12 lead ECGon 05-29-2023 ECG 12 lead ECG [facility] [place] [place] [address] Electrocardiograph Report Signed Patient: Deb Garrison MR#: [id number] 2 : 1960 Acct:[id number] Age/Sex: 63 / F ADM Date: 05/29/23 Loc: ER Room: Type: [facility] ER Attending Dr: Ordering Provider: Adeel [...] By Ignacio Garcia MD 05/29/23 1528 Normal [facility] XR chest 2V*on 05-29-2023 XR chest 2V* [facility] [place] [address] XRay Report Signed Patient: Deb Garrison MR#: [id number] 2 : 1960 Acct:[id number] Age/Sex: 63 / F ADM Date: 05/29/23 Loc: ER Room: Type: [facility] ER Attending Dr: Copies to: Adeel [...] Gillis Jr., D.OJaden05/29/2023 4:18 PM Dictation Location: [place] [address] Transcribed By: [facility] 05/29/23 1618 Dictated By: Reanto Gillis Jr, DO 05/29/23 1617 Signed By: 05/29/23 1618 [facility] MM screening mammo BI w/CADo n 11-09-2022 MM screening mammo BI w/CAD [facility] [place] [address] [place] [address] Mammography Report Signed Patient: Deb Garrison MR#: [id number] 2 : 1960 Acct:[id number] Age/Sex: 62 / F ADM Date: 11/09/22 Loc: ME Room: Type: [facility] CLI Attending Dr: Referral Self Copies [...] Michael Lassiter M.D.11/09/2022 4:19 PM Dictation Location: [facility] Transcribed By: CHRISSY 11/09/22 161 Dictated By: Michael Lassiter II, MD 11/09/22 161 Signed By: 11/09/22 1619 Normal [facility] Activated partial thrombopla stin time (aPTT) in platelet poor plasma by coagulation aOrdered By: Joss Alatorre on 01-26-2022 aPTT Coag (PPP) [Time] 31.2 s 25.1-36.5 [facility] Automated erythrocytes count in urine sediment (number/area)Ordered By: Joss Alatorre on 01-26-2022 RBC Auto (Urine sed) [#/Area] 0-1 [HPF] 0-4 [facility] Automated leukocytes count i n urine sediment (number/area)Ordered By: Joss Alatorre on 01-26-2022 WBC Auto (Urine sed) [#/Area] 1-2 [HPF] 0-4 [facility] Basophils Auto (Bld) [#/Vol] Ordered By: Joss Alatorre on 01-26-2022 Basophils (Bld) [#/Vol] 0.1 10*3/uL 0.0-0.2 [facility] Basophils/100 WBC Auto (Bld) Ordered By: Joss Alatorre on 01-26-2022 Basophils/100 WBC (Bld) 0.8 % . [facility] Bilirubin Test strip Ql (U)O rdered By: Joss Alatorre on 01-26-2022 Bilirubin Ql (U) Negative Negative [facility] COVID-19 SOFIAOrdered By: Shree Siddiqui on 01-26-2022 SARS-CoV+SARS-CoV-2 (COVID-19) Ag IA.rapid Ql (Resp) Negative Negative [facility] Comment on above: This is a duplicate Ria SARS Antigen (NELLIE) result to be used for statistical tracking purpose only. Color Auto (U)Ordered By: Henry Alatorre on 01-26-2022 Color (U) Yellow Yellow [facility] Creatine kinase [Enzymatic a ctivity/volume] in Serum or PlasmaOrdered By: Joss Alatorre on 01-26-2022 CK [Catalytic activity/Vol] 102 U/L 22-269 [facility] Creatinine and Glomerular fi ltration rate.predicted panel (S/P/Bld)Ordered By: Joss Alatorre on 01-26-2022 Creatinine [Mass/Vol] 0.81 mg/dL 0.44-1.03 [facility] Eosinophils Auto (Bld) [#/Vo l]Ordered By: Joss Alatorre on 01-26-2022 Eosinophils (Bld) [#/Vol] 0.3 10*3/uL 0.0-0.45 [facility] Eosinophils/100 WBC Auto (Bl d)Ordered By: Joss Alatorre on 01-26-2022 Eosinophils/100 WBC (Bld) 3.7 % . [facility] Erythrocyte distribution wid th Auto (RBC) [Ratio]Ordered By: Joss Alatorre on 01-26-2022 Erythrocyte distribution width (RBC) [Ratio] 13.6 % 11.9-15.3 [facility] Estimated glomerular filtrat ion rate (GFR) non- AmericanOrdered By: Joss Alatorre on 01-26-2022 GFR/1.73 sq M.predicted among non-blacks MDRD (S/P/Bld) [Vol rate/Area] > 60 mL/Min [facility] Hematocrit Auto (Bld) [Volum e fraction]Ordered By: Joss Alatorre on 01-26-2022 Hematocrit (Bld) [Volume fraction] 40.5 % 34.0-46.4 [facility] Hemoglobin [Mass/volume] in BloodOrdered By: Joss Alatorre on 01-26-2022 Hemoglobin (Bld) [Mass/Vol] 13.6 g/dL 11.8-15.4 [facility] Ketones Auto test strip (U) [Mass/Vol]Ordered By: Joss Alatorre on 01-26-2022 Ketones (U) [Mass/Vol] Negative Negative [facility] - Chemistry and C hemistry - challengeOrdered By: Joss Alatorre on 01-26-2022 Natriuretic peptide B (Bld) [Mass/Vol] 14.0 pg/mL 5-100 [facility] - CoagulationOrde red By: Joss Alatorre on 01-26-2022 PT Coag (PPP) [Time] 11.8 s 9.0-12.9 [facility] Laboratory - Hematology and Cell countsOrdered By: Joss Alatorre on 01-26-2022 Nucleated RBC/100 WBC (Bld) [Ratio] 0.1 % 0-0.5 [facility] - UrinalysisOrder ed By: Joss Alatorre on 01-26-2022 Hyaline casts LM Ql (Urine sed) 0-8 [LPF] 0-8 [facility] Leukocytes [#/volume] in Blo od by Automated countOrdered By: Joss Alatorre on 01-26-2022 WBC (Bld) [#/Vol] 7.1 10*3/uL 4.5-11.0 [facility] Lymphocytes Auto (Bld) [#/Vo l]Ordered By: Joss Alatorre on 01-26-2022 Lymphocytes (Bld) [#/Vol] 2.9 10*3/uL 1.00-4.8 [facility] Lymphocytes/100 WBC Auto (Bl d)Ordered By: Joss Alatorre on 01-26-2022 Lymphocytes/100 WBC (Bld) 40.5 % . [facility] MCH Auto (RBC) [Entitic mass ]Ordered By: Joss Alatorre on 01-26-2022 MCH (RBC) [Entitic mass] 29.8 pg 24.7-34.3 [facility] MCHC Auto (RBC) [Mass/Vol]Or dered By: Joss Alatorre on 01-26-2022 MCHC (RBC) [Mass/Vol] 33.5 g/dL 32.0-35.0 [facility] MCV Auto (RBC) [Entitic vol] Ordered By: Joss Alatorre on 01-26-2022 MCV (RBC) [Entitic vol] 88.8 fL 80-100 [facility] Monocytes Auto (Bld) [#/Vol] Ordered By: Joss Alatorre on 01-26-2022 Monocytes (Bld) [#/Vol] 0.5 10*3/uL 0.0-0.8 [facility] Monocytes/100 WBC Auto (Bld) Ordered By: Joss Alatorre on 01-26-2022 Monocytes/100 WBC (Bld) 6.8 % . [facility] Neutrophils Auto (Bld) [#/Vo l]Ordered By: Joss Alatorre on 01-26-2022 Neutrophils (Bld) [#/Vol] 3.4 10*3/uL 1.8-7.7 [facility] Neutrophils/100 WBC Auto (Bl d)Ordered By: Joss Alatorre on 01-26-2022 Neutrophils/100 WBC (Bld) 48.2 % . [facility] Nitrite Test strip Ql (U)Ord ered By: Joss Alatorre on 01-26-2022 Nitrite Ql (U) Negative Negative [facility] No Panel InformationOrdered By: Joss Alatorre on 01-26-2022 Estimated GFR () > 60 mL/Min [facility] Comment on above: GFR estimated refere nce range: According to KDOQI guidelines, <60 ml/min/1.73m2 is sufficient to diagnose a patient with chronic kidney disease. Pharmacy Creatinine Clearance (Chem 85.64 [facility] No Panel InformationOrdered By: Luis Siddiqui on 01-26-2022 SARS Antigen (LFIA) [facility] Platelet mean volume Auto (B ld) [Entitic vol]Ordered By: Joss Alatorre on 01-26-2022 Platelet mean volume (Bld) [Entitic vol] 6.2 fL 6.3-10.7 [facility] Platelet poor plasma interna tional normalized ratio (INR) by coagulation assay (relatOrdered By: Joss Alatorre on 01-26-2022 INR Coag (PPP) [Relative time] 1.0 {INR} [facility] Comment on above: INR Therapeutic Rang [...] 01-26-2022 Platelets (Bld) [#/Vol] 368 10*3/uL 150-450 [facility] Protein Auto test strip (U) [Mass/Vol]Ordered By: Joss Alatorre on 01-26-2022 Protein (U) [Mass/Vol] Negative Negative [facility] RBC Auto (Bld) [#/Vol]Ordere d By: Joss Alatorre on 01-26-2022 RBC (Bld) [#/Vol] 4.57 10*6/uL 3.60-5.00 [facility] Serum or plasma anion gap de terminationOrdered By: Joss Alatorre on 01-26-2022 Anion gap [Moles/Vol] 13.2 mmol/L 6.0-15.0 [facility] Serum or plasma calcium royce urement (mass/volume)Ordered By: Joss Alatorre on 01-26-2022 Calcium [Mass/Vol] 8.9 mg/dL 8.2-10.2 [facility] Serum or plasma chloride odell surement (moles/volume)Ordered By: Joss Alatorre on 01-26-2022 Chloride [Moles/Vol] 101 mmol/L 95-114 [facility] Serum or plasma creatine kin ase MB (CKMB)/total creatine kinase (CK) ratio by calculaOrdered By: Joss Alatorre on 01-26-2022 CK.MB Calc [Catalytic fraction] 3.0 % 0.00-2.50 [facility] Serum or plasma creatine kin ase MB measurement (mass/volume)Ordered By: Joss Alatorre on 01-26-2022 CK.MB [Mass/Vol] 3.1 ng/mL 0.6-6.[address] [facility] Serum or plasma glucose royce urement (mass/volume)Ordered By: Joss Alatorre on 01-26-2022 Glucose [Mass/Vol] 143 mg/dL 70-100 [facility] Comment on above: ADA recommended refe rence rangeRandom Glucose Reference Range is dependent on time and content of last meal. Glucose of more than 200 mg/dL in a nonstressed, ambulatory subject supports the diagnosis of Diabetes Mellitus. Serum or plasma potassium me asurement (moles/volume)Ordered By: Joss Alatorre on 01-26-2022 Potassium [Moles/Vol] 3.9 mmol/L 3.5-5.1 [facility] Serum or plasma sodium measu rement (moles/volume)Ordered By: Joss Alatorre on 01-26-2022 Sodium [Moles/Vol] 136 mmol/L 136-146 [facility] Serum or plasma total carbon dioxide measurement (moles/volume)Ordered By: Joss Alatorre on 01-26-2022 CO2 [Moles/Vol] 25.7 mmol/L 22.0-30.[address] [facility] Serum or plasma urea nitroge n measurement (mass/volume)Ordered By: Joss Alatorre on 01-26-2022 Urea nitrogen [Mass/Vol] 13 mg/dL 9-23 [facility] Specific gravity Auto test s trip (U) [Rel density]Ordered By: Joss Alatorre on 01-26-2022 Specific gravity (U) [Rel density] 1.020 1.001-1.03 0 [facility] Squamous epithelial cells de tection in urine sediment by light microscopyOrdered By: Joss Alatorre on 01-26-2022 Epithelial cells.squamous LM Ql (Urine sed) 3-4 [HPF] 0-2 [facility] Troponin I.cardiac [Mass/vol ume] in Serum or Plasma by High sensitivity methodOrdered By: Joss Alatorre on 01-26-2022 Troponin I.cardiac High sensitivity method [Mass/Vol] 3 pg/mL 0-15 [facility] Urine bacteria detection by automated methodOrdered By: Joss Alatorre on 01-26-2022 Bacteria Auto Ql (U) None seen None Seen [facility] Urine clarity by refractomet ry automatedOrdered By: Joss Alatorre on 01-26-2022 Clarity Refractometry automated (U) Clear Clear [facility] Urine glucose measurement by automated test strip (mass/volume)Ordered By: Joss Alatorre on 01-26-2022 Glucose Auto test strip (U) [Mass/Vol] Normal mg/dL Normal [facility] Urine hemoglobin detection b y automated test stripOrdered By: oJss Alatorre on 01-26-2022 Hemoglobin Auto test strip Ql (U) Negative Negative [facility] Urine leukocyte esterase det ection by automated test stripOrdered By: Joss Alatorre on 01-26-2022 Leukocyte esterase Auto test strip Ql (U) 2+ Negative [facility] Urobilinogen Auto test strip (U) [Mass/Vol]Ordered By: Joss Alatorre on 01-26-2022 Urobilinogen (U) [Mass/Vol] Normal mg/dL Normal [facility] pH Auto test strip (U)Ordere d By: Joss Alatorre on 01-26-2022 pH (U) 6.0 [pH] 5.0-9.0 [facility] Q - T3 TOTALon 04-10-2021 T3, TOTAL 121 ng/dL Normal 76-181 [facility] Digital Marketing Specialist Comment on above: Order Comment: [facility] Testing performed at: [email or web address], [facility], [address] [place] [address], [address] [place] [address], [phone], Head Housekeeper: Jensen Patiño MD [facility] Collection Date/Time: [facility] Results Received Date/Time: [facility] Reported Date/Time: FASTING: NO Performed By: #### T SH, 859X, 15474, [id number], [id number] #### [facility] Default [address] [place] [address] Q - T3,FREEon 04-10-2021 Free T3 [Mass/Vol] 3.2 pg/mL Normal 2.3-4.2 Kandy montero Shackelford Digital Marketing Specialist Comment on above: Order Comment: [facility] Testing performed at: [facility], [facility], [address], [address] [place] [address], [phone], Head Housekeeper: Jensen Patiño MD [facility] Date/Time: [facility] Results Received Date/Time: [facility] Reported Date/Time: FASTING: NO Performed By: #### T SH, 859X, 80647, [id number], [id number] #### [facility] Default [address] [place] [address] Q - T3,REVERSE,LC/MS/MSon T3 REVERSE, LC/MS/MS 12 ng/dL Normal 8-25 Trinh kate [facility] Digital Marketing Specialist Comment on above: Order Comment: [facility] performed at: [facility] [employer], [address] [facility] , [place], [place], , Head Housekeeper: Davie Lee M.D.,PhD [facility] Collection Date/Time: [facility] Results Received Date/Time: [facility] Reported Date/Time: FASTING: NO Result Comment: This test was developed and its analytical performance characteristics have been determined by [employer] [place], [place]. It has not been cleared or approved by the U.S. Food and Drug Administration. This assay has been validated pursuant to the CLIA regulations and is used for clinical purposes. Performed By: #### T SH, 859X, [id number], [id number], [id number] #### [facility] [address] [place] [address] Q - T4,FREEon 04-10-2021 Free T4 [Mass/Vol] 0.9 ng/dL Normal 0.8-1.8 Kandy montero [facility] Digital Marketing Specialist Comment on above: Order Comment: [facility] performed at: [facility], [employer] [facility], [address], [address] [place], [address], Head Housekeeper: Jensen Patiño MD [facility] Date/Time: [facility] Results Received Date/Time: [facility] Reported Date/Time: FASTING: NO Performed By: #### T SH, 859X, 65392, [id number], [id number] #### [facility] [address] [place] [address] TSHon 04-10-2021 TSH Qn 0.84 m[IU]/L Normal 0.40-4.50 [facility] Digital Marketing Specialist Comment on above: Order Comment: [facility] performed at: Q, [facility], [facility], [address] [place] [address], [phone], Head Housekeeper: Jensen Patiño MD [facility] Date/Time: [facility] Results Received Date/Time: [facility] Reported Date/Time: FASTING: NO Performed By: #### T SH, 859X, 18650, 57061A, [id number] #### [facility] [address] [place] [address] NM STRESS/REST MULTIon 06-19 NM STRESS/REST MULTI Patient: KEVIN GARRISON. Exam Date: 06/20/2019 : 1960 Gender:F Ordering : DR TANG SWANN . Admission #: [id number] Family : Order #: [id number] CLICK HERE TO VIEW EXAM RADIOLOGY REPORT [...] M.D. on 06/20/2019 at 13:02 Normal [facility] CBC AUTO DIFFon 03-02-2019 Basophils (Bld) [#/Vol] 0.0 103/ul Normal 0.0-0.1 [facility] Comment on above: Performed By: #### C BC #### [facility] [address] [place], [place] [address] Israel Tisha Basophils/100 WBC (Bld) 0.3 % Normal 0.2-2.0 [facility] Comment on above: Performed By: #### C BC #### [facility] [address] [place], [place] [address] Israel Tisha Eosinophils (Bld) [#/Vol] 0.2 103/ul Normal 0.0-0.7 [facility] Comment on above: Performed By: #### C BC #### [facility] [address] [place], [place] [address] Israel Tisha Eosinophils/100 WBC (Bld) 1.6 % Normal 0.9-7.0 [facility] Comment on above: Performed By: #### C BC #### [facility] [address] [place], [place] [address] Israel Tisha Erythrocyte distribution width (RBC) [Ratio] 12.5 % Normal 11.0-15.0 [facility] Comment on above: Performed By: #### C BC #### [facility] [address] [place] [address] Israelbeatriz Giles Hematocrit (Bld) [Volume fraction] 43.2 % Normal 36.0-48.0 [facility] Comment on above: Performed By: #### C BC #### [facility] [address] [place], [place] [address] Israel Tisha Hemoglobin (Bld) [Mass/Vol] 14.7 g/dL Normal 12.0-16.0 [facility] Comment on above: Performed By: #### C BC #### [facility] [address] [place], [place] [address] Israel Tisha IG # 0.06 10e3/ul Critically high 0.00-0.03 [facility] Comment on above: Performed By: #### C BC #### [facility] [address] [place] [address] Israel Tisha IG % 0.5 % Normal 0.0-0.5 [facility] Comment on above: Performed By: #### C BC #### [facility] [address] [place], [place] [address] Israel Tisha Lymphocytes (Bld) [#/Vol] 1.5 103/ul Normal 1.2-3.8 [facility] Comment on above: Performed By: #### C BC #### [facility] [address] [place], [place] [address] Israel Tisha Lymphocytes/100 WBC (Bld) 12.1 % Critically low 20.5-60.0 [facility] Comment on above: Performed By: #### C BC #### [facility] [address] [place], [place] [address] Israel Giles MANUAL DIFF REQ NO Normal [facility] Comment on above: Performed By: #### C BC #### [facility] [address] [place], [place] [address] Israel Giles MCH (RBC) [Entitic mass] 28.7 pg Normal 26.7-34.0 [facility] Comment on above: Performed By: #### C BC #### [facility] [address] [place], [place] [address] Israel Hdzen MCHC (RBC) [Mass/Vol] 34.0 g/dL Normal 29.9-35.2 [facility] Comment on above: Performed By: #### C BC #### [facility] [address] [place], [place] [address] Israel Giles MCV (RBC) [Entitic vol] 84.4 fL Normal 81.0-99.0 [facility] Comment on above: Performed By: #### C BC #### [facility] [address] [place], [place] [address] Israel Tisha Monocytes (Bld) [#/Vol] 0.8 103/ul Normal 0.3-0.8 [facility] Comment on above: Performed By: #### C BC #### [facility] [address] [place], [place] [address] Israel Tisha Monocytes/100 WBC (Bld) 6.3 % Normal 1.7-12.0 [facility] Comment on above: Performed By: #### C BC #### [facility] [address] [place], [place] [address] Israel Tisha Neutrophils (Bld) [#/Vol] 9.8 103/ul Critically high 1.4-6.5 [facility] Comment on above: Performed By: #### C BC #### [facility] [address] [place], [place] [address] Israel Tisha Neutrophils/100 WBC (Bld) 79.2 % Critically high 43.0-75.0 [facility] Comment on above: Performed By: #### C BC #### [facility] [address] [place], [place] [address] Israel Tisha Platelet mean volume (Bld) [Entitic vol] 8.0 fL Critically low 9.5-13.5 [facility] Comment on above: Performed By: #### C BC #### [facility] [address] [place], [place] [address] Israel Tisha Platelets (Bld) [#/Vol] 254 103/ul Normal 150-450 [facility] Comment on above: Performed By: #### C BC #### [facility] [address] [place], [place] [address] Israel Gilse RBC (Bld) [#/Vol] 5.12 106/ul Normal 4.20-5.40 [facility] Comment on above: Performed By: #### C BC #### [facility] [address] [place] [address] Israel Giles WBC (Bld) [#/Vol] 12.3 103/ul Critically high 4.0-11.0 [facility] Comment on above: Performed By: #### C BC #### [facility] [address] [place] [address] ABD/PELVIS W CONon 2018 CT ABD/PELVIS W CON Patient: NANCY GARRISON Exam Date: 03/02/2019 : 1960 Gender:F Ordering : DR. LORETTA TAN D.O. Admission #: [id number] Family : DR TANG SWANN . Order #: [id number] CLICK HERE TO VIEW EXAM RADIOLOGY REPORT [...] on 03/02/2019 at 07:45 Normal [facility] LIPASEon 03-02-2019 Lipase [Catalytic activity/Vol] 541.0 U/L Critically high 23.0-300.0 [facility] Comment on above: Performed By: #### L IPA, TROP, CMP #### [facility] [address] [place], [place] [id number] Israelbeatriz Giles PROF 14(COMP METB)on 019 Albumin [Mass/Vol] 3.4 g/dL Critically low 3.5-5.0 [facility] Comment on above: Performed By: #### L IPA, TROP, CMP #### [facility] [address] [place], [place] [id number] Israel Tisha Albumin/Globulin [Mass ratio] 0.9 {ratio} Normal [facility] Comment on above: Performed By: #### L IPA, TROP, CMP #### [facility] [address] [place], [place] [id number] Israel Tisha ALP [Catalytic activity/Vol] 97 U/L Normal 38-126 [facility] Comment on above: Performed By: #### L IPA, TROP, CMP #### [facility] [address] [place], [place] [id number] Israel Tisha ALT [Catalytic activity/Vol] 50 U/L Normal 9-52 [facility] Comment on above: Performed By: #### L IPA, TROP, CMP #### [facility] [address] [id number] Israel Tisha Anion gap [Moles/Vol] 15.1 mmol/L Normal [facility] Comment on above: Performed By: #### L IPA, TROP, CMP #### [facility] [address] [place], [place] [id number] Israel Tisha AST [Catalytic activity/Vol] 32 U/L Normal 14-36 [facility] Comment on above: Performed By: #### L IPA, TROP, CMP #### [facility] [address] [place], [place] [id number] Israel Tisha Bilirubin Ql (U) 0.6 mg/dL Normal 0.2-1.3 [facility] Comment on above: Performed By: #### L IPA, TROP, CMP #### [facility] [address] [address] Israel Tisha Calcium [Mass/Vol] 8.5 mg/dL Normal 8.4-10.2 [facility] Comment on above: Performed By: #### L IPA, TROP, CMP #### [facility] [address] [place] [address] Israel Tisha Chloride [Moles/Vol] 103 mmol/L Normal 98-107 [facility] Comment on above: Performed By: #### L IPA, TROP, CMP #### [facility] [address] [place] [address] Israel Tisha CO2 [Moles/Vol] 23.8 mmol/L Normal 22.0-30.0 [facility] Comment on above: Performed By: #### L IPA, TROP, CMP #### [facility] [address] [place] [address] Israel Tisha Creatinine [Mass/Vol] 0.86 mg/dL Normal 0.52-1.04 [facility] Comment on above: Performed By: #### L IPA, TROP, CMP #### [facility] [address] [place] [address] Israel Tisha EGFR-AF ECUADOREAN >60 Normal >=60 [facility] Comment on above: Performed By: #### L IPA, TROP, CMP #### [facility] [address] [place] [address] Israel Tisha EGFR-NON AF ECUADOREAN >60 Normal >=60 [facility] Comment on above: Performed By: #### L IPA, TROP, CMP #### [facility] [address] [place] [address] Israel Tisha Globulin (S) [Mass/Vol] 3.8 g/dL Normal [facility] Comment on above: Performed By: #### L IPA, TROP, CMP #### [facility] [address] [place] [address] Israel Tisha Glucose [Mass/Vol] 143 mg/dL Critically high 74-106 T [facility] Comment on above: Performed By: #### L IPA, TROP, CMP #### [facility] [address] [address] Israel Tisha Potassium [Moles/Vol] 4.9 mmol/L Normal 3.4-5.0 [facility] Comment on above: Performed By: #### L IPA, TROP, CMP #### [facility] [address] [place] [address] Israel Tisha Protein [Mass/Vol] 7.2 g/dL Normal 6.1-8.2 [facility] Comment on above: Performed By: #### L IPA, TROP, CMP #### [facility] [address] [place] [address] Israel Tisha Sodium [Moles/Vol] 137 mmol/L Normal 137-145 [facility] Comment on above: Performed By: #### L IPA, TROP, CMP #### [facility] [address] [place] [address] Israel Tisha Urea nitrogen [Mass/Vol] 17.0 mg/dL Normal 7.0-17.0 [facility] Comment on above: Performed By: #### L IPA, TROP, CMP #### [facility] [address] [place] [address] Israel Tisha Urea nitrogen/Creatinine [Mass ratio] 19.8 mg/mg Normal [facility] Comment on above: Performed By: #### L IPA, TROP, CMP #### [facility] [address] [place] [address] Israel Tisha TROPONIN - Ion 03-02-2019 Troponin I.cardiac [Mass/Vol] ng/mL Normal <=0.034 [facility] Comment on above: Performed By: #### L IPA, TROP, CMP #### [facility] [address] [place] [address] Israel Tisha Troponin I.cardiac [Mass/Vol] SEE BELOW Normal [facility] Comment on above: Result Comment: <0.0 34 ng/ml NEGATIVE 0.034-0.119 INDETERMINATE 0.120 AMI CUT OFF Performed By: #### L IPA, TROP, CMP #### [facility] [address] [id number] Israel Giles Vital Signs Date Time Vital Sign Value Performing Clinician Selvin jewell 01-26-2022 20:03-0400 Body temperature 98.5 [degF] MD Tang Swann Work Phone: [facility] 01-26-2022 20:03-0400 Diastolic blood pressure 88 mm[Hg] MD Tang Swann Work Phone: [facility] 01-26-2022 20:03-0400 Heart rate 77 /min MD Tang Swann Work Phone: [facility] 01-26-2022 20:03-0400 Respiratory rate 16 /min MD Tang Swann Work Phone: [facility] 01-26-2022 20:03-0400 SaO2% (BldA) [Mass fraction] 98 % MD Tang Swann Work Phone: [facility] 01-26-2022 20:03-0400 Systolic blood pressure 134 mm[Hg] MD Tang Swann Work Phone: [facility] 01-26-2022 16:18-0400 Body height 157.48 cm MD Tang Swann Work Phone: [facility] 01-26-2022 16:18-0400 Body weight 106.2 kg MD Tang Swann Work Phone: [facility] Encounters Encounter Date Encounter Type Care Provider Facility Start: 09-19-2023 End: 09-19-2023 ambulatory Luis Finn MD Work Phone: Neurology Comment on above: Gait difficulty [R26 .9] (Primary Dx) Start: 09-19-2023 End: 09-19-2023 Telemedicine consultation with patient Luis Finn MD Work Phone: Neurology Start: 09-15-2023 End: 09-15-2023 ambulatory TANG SWANN Not Available Start: 09-07-2023 End: 09-07-2023 ambulatory TANG SWANN Not Available Start: 08-10-2023 End: 08-10-2023 ambulatory TANG SWANN Not Available Start: 08-02-2023 End: 08-02-2023 ambulatory TANG SWANN Not Available Start: 06-30-2023 End: 06-30-2023 ambulatory TANG SWANN Not Available Start: 06-13-2023 End: 06-13-2023 ambulatory TANG SWANN Not Available Start: 05-29-2023 End: 05-29-2023 Emergency department patient visit Adeelladonna Don Facility:[facility] Start: 05-29-2023 End: 05-29-2023 ambulatory ADEEL Wheeler ROMANBECCA Not Available Start: 05-01-2023 Refill Tang brunson MD Work Phone: [facility] Comment on above: Acquired hypothyroid ism (CMS/HCC); ESS (euthyroid sick syndrome); Mixed dyslipidemia (CMS/HCC); Lichen sclerosus et atrophicus of the vulva; Acute conjunctivitis, unspecified acute conjunctivitis type, unspecified laterality Start: 04-04-2023 End: 04-04-2023 ambulatory TANG SWANN Not Available Start: 11-09-2022 End: 11-09-2022 ambulatory Referral Self Facility:[facility] Start: 11-09-2022 End: 11-09-2022 ambulatory MD Tang Swann Work Phone: [facility] Work Phone: Start: 11-09-2022 End: 11-09-2022 Patient encounter procedure MD Tang Swann Work Phone: [facility] Work Phone: Start: 01-26-2022 End: 01-26-2022 Emergency department patient visit MD Tang Swann Work Phone: [facility] Start: 06-20-2019 End: 06-21-2019 Patient encounter procedure TANG SWANN Facility:[facility] Start: 03-02-2019 End: 12-06-2019 Patient encounter procedure TANG SWANN Facility:[facility] Procedures Date Procedure Procedure Detail Performing Clinician Start: 06-21-2023 Lipid 1996 panel - S ronan or Plasma Luis Finn MD Work Phone: Start: 11-09-2022 Screening mammograph y of bilateral breasts MD Tang Swann Work Phone: Start: 01-26-2022 Plain chest X-ray MD Romain Swann Work Phone: Start: 05-30-2020 Mammography Tang razo MD Work Phone: Start: 02-12-2015 Colonoscopy Tang razo MD Work Phone: SARS Antigen (LFIA) MD José Swann Work Phone: Plan of Treatment Date Care Activity Detail Author Start: 06-20-2028 Lipid panel Lipid Screening [facility] Start: 06-20-2026 Diabetes Screening Diabetes Screenin g [facility] Start: 02-12-2025 Screening for malign ant neoplasm of colon [facility] Start: 11-27-2023 Influenza vaccination Influenz a Vaccine (Season Ended) [facility] Start: 06-30-2023 End: 06-30-2023 Patient encounter procedure 06/30/2023 2:30 PM EDT Office Visit [facility] [address] [place] [address] Tang Swann MD [address] [place] [address] [facility] Start: 03-28-2023 Behavioral Health Screening Behavioral Health Screening [facility] Start: 11-26-2022 Covid-19 Vaccine ( season) Covid-19 Vaccine ( season) [facility] Start: 11-26-2022 Influenza vaccination Influenza Vacc ine (#1) [facility] Start: 2022 RSV Vaccine (1 - 1-d ose 60+ series) RSV Vaccine (1 - 1-dose 60+ series) [facility] Start: 05-30-2021 Screening for malign ant neoplasm of breast [facility] Start: 02-13-2016 Screening for malign ant neoplasm of colon [facility] Start: 2012 Shingrix Vaccine (1 of 2) Shingrix Vaccine (1 of 2) [facility] Start: 2007 Screening for malign ant neoplasm of colon [facility] Start: 1983 Screening for malign ant neoplasm of cervix Cervical Cancer Screening [facility] Start: 1981 Urine microalbumin profile DTaP,Tdap,Td Vaccine (1 - Tdap) [facility] Start: 1980 Hepatitis C screening Hepatitis C Sc rayna [facility] Start: 1980 HIV screening HIV Screening [facility] Start: 1960 Screening for malign ant neoplasm of colon [facility] Patient Education [facility] Work Phone: Patient referral [facility] Work Phone: Immunizations Immunization Date Immunization Notes Care Provider [facility] 12-29-2016 influenza, injectabl e, quadrivalent, preservative free Tang Swann MD Work Phone: [facility] 12-29-2016 influenza virus vacc ine, unspecified formulation Tang Swann MD Work Phone: [facility] Payers Date Payer Category Payer Self-pay [id number] 2022 Medicaid [id number] 1960 Unknown [id number] 2.16.84 [id number] 1962 Unknown [id number] 2.16.84 [id number] 1962 Unknown [id number] 2.16.84 [id number] 1962 Unknown [id number] 2.16.84 [id number] 1962 Unknown [id number] 2.16.84 0.1.403707.3.579.2.9 1962 Unknown [id number] 2.16.84 0.1.556393.3.579.2.9 1962 Unknown [id number] 2.16.84 0.1.754004.3.579.2.1258 1962 Unknown [id number] 2.16.84 0.1.174171.3.579.2.1258 1962 Unknown [id number] 2.16.84 [id number] 1962 Unknown [id number] 2.16.840 .[id number] 1959 Medicaid [id number] 1957 Self-pay [id number] Medicaid [employer] [id number] 501 [id number] Unknown [facility] [id number] Unknown [id number] 2.16.8 [id number] Unknown [id number] 2.16.8 [id number] Social History Date Type Detail Facility Start: 01-26-2022 End: 09-22-2022 Tobacco smoking status RUST Never smoked tobacco (finding) [facility] Start: 1960 Sex Assigned At Female [facility] Start: 09-22-2022 Tobacco use and exposure Smokeless tobacco non-user [facility] Start: 04-04-2023 Alcohol intake Current drinker of alcohol (finding) [facility] Start: 09-27-2022 End: 04-04-2023 Alcohol intake [facility] Start: 09-27-2022 End: 01-05-2023 Humiliation, Afraid, Rape, and Kick questionnaire [HARK] [facility] Within the last year , have you been afraid of your partner or ex-partner? No [facility] Do you belong to any clubs or organizations such as tenriism groups, unions, fraternal or athletic groups, or [...] [facility] Start: 10-04-2022 Education 17 [facility] Start: 10-04-2022 Alcohol Comment Caffeine Intake : 1-2 cups per day [facility] Start: 1960 Sex Assigned At Not on file [facility] Tobacco smoking stat [facility] Tobacco smoking consumption unknown [facility] Start: 09-16-2023 Gender identity Identifies as female gender (finding) [facility] Start: 09-16-2023 Sexual orientation Heterosexual (finding) [facility] Progress note 09-19-2023 Note Date & Type Note Facility 09-19-2023 Note HNO ID: [id number] Author: LUIS FINN MD Service: ? Author Type: Physician Type: Progress Notes Filed: 09/19/2023 12:09 Note Text: Referred for non specific/ subjective sensation of loss of balance. Pt unable to activate audio for this visit. Tried calling her to help with technical issues but pt unable to turn audio on. Has an appt with a local neurologist, which she will keep. Pt will make an inperson appt if still interested in [facility] neurology eval. [facility] History of Present illness Narrative 09-19-2023 Luis Finn MD - 09/19/2023 11:55 AM EDT Note Date & Type Note Facility 09-19-2023 History of Presen t illness Narrative Referred for non specific/ subjective sensation of loss of balance. Pt unable to activate audio for this visit. Tried calling her to help with technical issues but pt unable to turn audio on. Has an appt with a local neurologist, which she will keep. Pt will make an inperson appt if still interested in [facility] neurology eval. documented in this encounter [facility] Evaluation note Note Date & Type Note Facility Evaluation note No assessment information availa ble [facility] Work Phone: Evaluation note Note Date & Type Note Facility Evaluation note Diagnosis Acquired hypothyroidism (CMS/HCC) Unspecified hypothyroidism ESS (euthyroid sick syndrome) Euthyroid sick syndrome Mixed dyslipidemia (CMS/HCC) Lichen sclerosus et atrophicus of the vulva Circumscribed scleroderma Acute conjunctivitis, unspecified acute conjunctivitis type, unspecified laterality documented in this encounter [facility] Evaluation note Note Date & Type Note Facility Evaluation note Diagnosis Gait difficulty [R26.9]- Primary Abnormality of gait documented in this encounter [facility] Discharge instructions Note Date & Type [...] section and content) DATE CREATED AUTHOR 11/05/2019 Nani Philip pitjossue DATE CREATED AUTHOR AUTHOR'S ORGANIZ ATION 04/20/2021 [facility] dical Specialist DATE CREATED AUTHOR AUTHOR'S ORGANIZ ATION 06/09/2023 [facility] DATE CREATED AUTHOR AUTHOR'S ORGANIZ ATION 09/17/2023 [facility] dical Specialists [facility] DATE CREATED AUTHOR AUTHOR'S ORGANIZ ATION 09/20/2023 [facility] Care Teams (unrecognized sec tion and content) Team Status: Inactive Member Role Status Dates Tang Swann MD Primary Care Provider Active Joss Alatorre DO Emergency Provider Active Team Status: Active Member Role Status Dates Tang Swann MD Primary Care Provider Active Team Status: Inactive Member Role Status Dates Tang Swann MD Primary Care Provider, Referring Provider Active Referral Self Attending Provider Active [employer] Relationship Specialty Start Date End Date Tang Swann MD [address] [place] [address] PCP - General Family Medicine 08/24/22 Goals (unrecognized section and content) Goals may be documented in a n alternate sectionGoals may be documented in an alternate section Reason for Visit (unrecogniz ed section and content) Reason Onset Date Comments Med Refill 05/01/2023 Reason Comments Consult Subjective gait diff iculty Source Comments (unrecognize d section and content) In the event this informatio n is protected by the Federal Confidentiality of Alcohol and Drug Abuse Patient Records regulations: The Federal rules restrict any use of the information to criminally investigate or prosecute any alcohol or drug abuse patient.[facility] FOR RECORDS PERTAINING TO PATIENTS WHO ARE [...] BE BASED ON THE PRIMARY CLINICAL RECORDS. [employer] [facility]. provides no warranty or guarantee of the accuracy or completeness of information in this document.
--- NOTE | 2023-10-10 22:25 | ECG_ITS ---
The [facility] Test Date: 2023-10-10 Pat Name: KALPESH GARRISON Department: Room: - Gender: Female [employer]: : 1960 Requested By: MATTY SWANN Order Number: [id number] Reading MD: IGLESIA OCHOA Measurements Intervals [place] Rate: 65 P: 50 ND: 140 QRS: 32 QRSD: 72 T: 46 QT: 388 QTc: 400 Interpretive Statements 1100 Sinus rhythm 4068 Nonspecific Twave abnormality 8102 Low QRS voltage in chest leads 9130 borderline ECG Compared to ECG 09/09/2023 13:55:10 No significant changes Electronically Signed On 10-11-2023 5:26:20 EDT by IGLESIA OCHOA
[2023-10-10] MEDS: ALPRAZOLAM 0.5 MG TABLET PO (22:34)
[2023-10-10 22:47] LABS: Basophils Absolute Auto 0.1 10^3/uL (0.0-0.1); Basophils Percent Auto 0.7 % (0.2-2.0); Eosinophils Absolute Auto 0.2 10^3/uL (0.0-0.7); Eosinophils Percent Auto 1.7 % (0.9-7.0); Hematocrit 43.3 % (36.0-48.0); Hemoglobin 14.7 g/dL (12.0-16.0); Immature Granulocytes Abs Auto 0.04 10^3/uL (0.00-0.03); Immature Granulocytes Pct Auto 0.4 % (0.0-0.5); Lymphocytes Absolute Auto 3.2 10^3/uL (1.2-3.8); Lymphocytes Percent Auto 31.8 % (20.5-60.0); Mean Corpuscular HGB Conc 33.9 g/dL (29.9-35.2); Mean Corpuscular Hemoglobin 32.3 pg (26.7-34.0); Mean Corpuscular Volume 95.2 fL (81.0-99.0); Mean Platelet Volume 9.5 fL (9.5-13.5); Monocytes Absolute Auto 0.8 10^3/uL (0.3-0.8); Monocytes Percent Auto 7.6 % (1.7-12.0); Neutrophils Absolute Auto 5.8 10^3/uL (1.4-6.5); Neutrophils Percent Auto 57.8 % (43.0-75.0); Platelet Count 235 10^3/uL (150-450); Red Blood Count 4.55 10^6/uL (4.20-5.40); Red Cell Distribution Width 12.8 % (11.0-15.0)
[2023-10-10 23:01] LABS: Alanine Aminotransferase 33 U/L (14-59); Albumin Globulin Ratio 1.1; Albumin Level 3.6 g/dL (3.4-5.0); Alkaline Phosphatase 90 U/L (46-116); Anion Gap 14.2; Aspartate Amino Transferase 19 U/L (15-37); BUN Creatinine Ratio 14.9; Bilirubin Total 0.5 mg/dL (0.2-1.0); Calcium 8.9 mg/dL (8.5-10.1); Carbon Dioxide 21.4 mmol/L (21.0-32.0); Chloride 107 mmol/L (98-107); Estimated GFR (African America >60 (>=60); Estimated GFR (Non-African Ame 56 (>=60); Globulin 3.4 g/dL; Glucose 127 mg/dL (74-106); Potassium 3.6 mmol/L (3.5-5.1); Sodium 139 mmol/L (136-145)
[2023-10-10 23:04] LABS: Troponin I High Sensitivity 4.1 pg/mL (4.0-51.3)
[2023-10-10 23:07] LABS: D Dimer 0.57 mg/L FEU (<=0.59)
--- NOTE | 2023-10-10 23:11 | XR_ITS ---
The [address] [address] Patient Name: KALPESH GARRISON MRN: [id number] date: 1960 Sex: F Assigned Patient Location: ER Current Patient Location: Accession/Order Number: [id number] Exam Date: 10/10/2023 23:17 Report Date: 10/11/2023 03:16 At the request of: GALINA MARKER Procedure: XR chest 1V EXAM: XR chest 1V HISTORY: SOB COMPARISON: Chest radiograph dated 09/09/2023. TECHNIQUE: One view of the chest was obtained. FINDINGS: The cardiac silhouette is normal in size. The lungs are clear. There is no significant pneumothorax or pleural effusion. No acute osseous abnormality is seen. XR/XR chest 1V IMPRESSION: 1. No acute cardiopulmonary abnormality. Electronically authenticated by: Caleb ESCALANTE Date: 10/11/2023 03:16
[2023-10-11 00:03] VITALS: BP 136/80; PULSE 70; O2SAT 100
== END 2023-10-11 | disposition home or self-care (01) ==
PROVIDERS: Emergency Provider Emergency Medicine; PCP Family Medicine
DX: F41.0 Panic disorder [episodic paroxysmal anxiety] (principal); Z79.899 Other long term (current) drug therapy; R73.03 Prediabetes
CPT/HCPCS: 36415; 71045; 80053; 83880; 84484; 85025; 85378; 93005; 99285

== ENCOUNTER 2024-05-22 07:55 | Outpatient (OUT) | payer MEDICAID, SELFPAY ==
--- OUTSIDE RECORDS SUMMARY | 2024-05-22 08:09 | XMS_ITS | CCD ---
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 Name Role Phone TANG SWANN Primary Care Unavailable BRITNEY LORETTA Admitting Unavailable BRITNEY LORETTA Attending Unavailable AMANDA BISHOP V Consulting Unavailable LORETTA TAN Consulting Unavailable TANG SWANN Admitting Unavailable TANG SWANN Unavailable TANG SWANN Primary Care Unavailable TANG SWANN Unavailable VIOLA THAKKAR Consulting Unavailable MD Tang Swann Primary Care Provider [phone] DO Joss Alatorre Emergency Provider [phone] MD Tang Swann Primary Care Provider [phone] MD Tang Swann Referring Provider [phone] Self, Referral Attending Provider Unavailable Tang Swann MD Primary Care Provider [phone] Unavailable Primary Care Provider UnavailBRUNA Helton Attending Unavailable MD Tang Swann Primary Care Provider MD Murray Irwin Emergency Provider Tang Swann MD Primary Care Provider Tang Swann MD Unavailable Tang Swann MD Unavailable Tang Swann MD Primary Care Provider Mauricio Gill MD Attending Provider Tang Swann MD Attending Provider Tang Swann Primary Care Unavailable Murray Irwin Admitting Unavailable Murray Irwin Attending Unavailable Tang Swann Attending Unavailable Tang Swann Admitting Unavailable Tang Swann Primary Care Unavailable Tang Swann Primary Care Unavailable Mauricio Gill Admitting Unavailab Mauricio Martins Attending Unavailab le Tang Swann Primary Care Unavailable Florencia Yoel Admitting Unavailable Florencia Yoel Attending Unavailable BLACKSTON, DEBBY T Attending Unavailable MONROY, MARIA ELENA W Referring Unavailable BLACKSTON, DEBBY T Attending Unavailable MONROY, MARIA ELENA W Referring Unavailable CUTLERKAROLYNYOEL L Attending Unavailable HEMETANG MCKEON Attending Unavailable BLACKSTON, DEBBY T Attending Unavailable MONROY, MARIA ELENA W Referring Unavailable BLACKSTON, DEBBY T Attending Unavailable MONROY, MARIA ELENA W Referring Unavailable HEMEYER, TANG Mancera Attending Unavailable JACINDAYER, TANG Mancera Attending Unavailable HEMEYER, ATNG Mancera Attending Unavailable HEMEYERTANG Attending Unavailable HEMEYERTANG Attending Unavailable MOJGAN DONALD Attending Unavailab TANG Mo Referring Unavailable MOJGAN DONALD Referring Unavailab le MONROY, MARIA ELENA W Attending Unavailable MONROY, MARIA ELENA W Referring Unavailable BLACKSTON, DEBBY T Attending Unavailable MONROY, MARIA ELENA W Referring Unavailable BLACKSTON, DEBBY T Attending Unavailable MONROY, MARIA ELENA W Referring Unavailable BLACKSTON, DEBBY T Attending Unavailable MONROY, MARIA ELENA W Referring Unavailable BLACKSTON, DEBBY T Attending Unavailable MONROY, MARIA ELENA W Referring Unavailable HEMEYERTANG Attending Unavailable MOJGAN DONALD Attending Unavailab le BLACKSTON, DEBBY T Attending Unavailable MONROY, MARIA ELENA W Referring Unavailable BLACKSTON, DEBBY T Attending Unavailable MONROY, MARIA ELENA W Referring Unavailable BLACKSTON, DEBBY T Attending Unavailable MONROY, MARIA ELENA W Referring Unavailable BLACKSTON, DEBBY T Attending Unavailable MONROY, MARIA ELENA W Referring Unavailable BLACKSTON, DEBBY T Attending Unavailable MONROY, MARIAE LENA W Referring Unavailable BLACKSTON, DEBBY T Attending Unavailable MONROY, MARIA ELENA W Referring Unavailable BLACKSTON, DEBBY T Attending Unavailable MONRYO, MARIA ELENA W Referring Unavailable Allergies Allergy Classification Reported Allergen(s) Allergy Type Date of Onset Reaction(s) Facility (1 source) Sulfonamides (Antibiotic) Drug allergy (disorder) [address] [facility] (1 source) Mendycet-N 100 Drug allergy (disorder) [address] [facility] (20 sources) Acetaminophen; Translations: [acetaminophen] Drug Allergy 2 [facility] (20 sources) Propoxyphene; Translations: [propoxyphene] Drug Allergy 2 [facility] (5 sources) Sulfonamides (Antibiotic); Translations: [Sulfa (Sulfonamide Antibiotics)] Allergy to substance 2 [facility] (20 sources) metFORMIN Drug Allergy 3 GI intolerance [facility] Work Phone: (20 sources) Sulfonamides (Antibiotic) Drug Allergy 3 Rash [facility] (20 sources) wasp venom Drug Allergy 3 Swelling [facility] (20 sources) Latex; Translations: [latex] Allergy to substance 4 [facility] (20 sources) Metoprolol Drug Allergy 4 Other [facility] Medications Current Medications Medication Drug Class(es) Dates Sig (Normalized) Sig (Original) ALPRAZolam (20 sources) Benzodiazepine Start: 11-05-2023 alprazolam Act muna .ROUTE November 04, 2023 11:00pm Start: 11-05-2023 alprazolam Act muna .ROUTE November 05, 2023 12:00am Start: 10-11-2023 take 0.5-1 tablets b y mouth every six hours as needed for anxiety ALPRAZolam (Xanax) 0.5 MG tablet Take 0.5-1 tablets by mouth every 6 (six) hours if needed for anxiety 10/11/2023 Active ascorbic acid 500 mg chewable tablet (20 sources) Vitamin C ascorbic acid (Vitamin C) 500 MG chewable tablet Chew 500 mg 1 (one) time each day at the same time. Active atorvastatin 20 mg oral tablet (2 sources) HMG-CoA Reductase Inhibitor Start: 4 take 1 tablet by mouth at bedtime [...] 90 tablet 1 01/24/2023 05/01/2023 Discontinued (Reorder) atropine sulfate 0.025 mg / diphenoxylate hydrochloride 2.5 mg oral tablet (20 sources) Anticholinergic, Cholinergic Muscarinic Antagonist, Antidiarrheal Start: 11-05-2023 take 1 tablet by mouth twice daily as needed for diarrhea Diphenoxylate-Atropine (Lomotil) 2.5-0.025 mg tablet Active 1 TAB PO Twice daily as needed for diarrhea 10 5 November 04, 2023 11:00pm busPIRone (16 sources) Start: 11-05-2023 buspirone Active .ROUTE November 04, 2023 11:00pm Start: 11-05-2023 buspirone Acti ve .ROUTE November 05, 2023 12:00am End: 03-05-2024 take 1 tablet by mouth in the morning, then take 1 tablet by mouth in the evening, then take 1 tablet by mouth at bedtime busPIRone (Buspar) 10 MG tablet Take 10 mg by mouth in the morning and 10 mg in the evening and 10 mg before bedtime. 03/05/2024 Discontinued (Therapy completed) cholecalciferol 0.125 mg chewable tablet (20 sources) Vitamin D take 1 tablet by mouth in the morning cholecalciferol (Vitamin D-3) 250 MCG (70180 UT) tablet Take 10,000 Units by mouth in the morning. Winter dose. Active Cholecalciferol (Vitamin D3) 125 MCG (5000 UT) chewable tablet Chew 1 capsule 1 (one) time each day at the same time. Summer dose Active Citalopram (20 sources) Serotonin Reuptake Inhibitor Start: 11-05-2023 citalopram Active .R OUTE November 04, 2023 11:00pm Start: 11-05-2023 citalopram Act muna .ROUTE November 05, 2023 12:00am Start: 10-24-2023 End: 03-05-2024 take 1 tablet by mouth at bedtime citalopram (CeleXA) 20 MG tablet Take 20 mg by mouth at bedtime 10/24/2023 03/05/2024 Discontinued (Therapy completed) End: 03-05-2024 take 1 tablet by mouth once daily citalopram (CeleXA) 10 MG tablet Take 10 mg by mouth Daily 03/05/2024 Discontinued (Therapy completed) dexamethasone 1 mg/ml / neomycin 3.5 mg/ml / polymyxin b 74044 unt/ml ophthalmic suspension (2 sources) Aminoglycoside Antibacterial, Polymyxin-class Antibacterial, Corticosteroid Start: 05-02-2023 take 1 drop(s) into the eye(s) three times daily [id number] (Maxitrol) 0.1 % ophthalmic suspension Indications: Conjunctivitis Apply 1 drop to affected EYE three times daily for 7 days. 5 mL 0 05/02/2023 Active Start: 04-05-2023 End: 05-01-2023 take 1 drop(s) into the eye(s) three times daily [id number] (Maxitr ol) 0.1 % ophthalmic suspension Indications: Conjunctivitis Apply 1 drop to affected EYE three times daily for 7 days. 5 mL 0 04/05/2023 05/01/2023 Discontinued (Reorder) 168 hr estradiol 0.0025 mg/hr transdermal system (5 sources) Estrogen Start: 01-05-2023 End: 07-04-2023 estradiol (Climara) 0.06 MG/24HR Indications: Surgical menopause Place 1 patch over 7 days on the skin 1 (one) time per week. 4 patch 5 01/05/2023 07/04/2023 Active Start: 08-20-2017 End: 06-29-2021 Estradiol 0.05 mg/24 hr patc h weekly Discontinued 1 PATCH TOPICAL every week August 19, 2017 11:00pm June 29, 2021 1:40am fluconazole 200 mg oral tablet (2 sources) Azole Antifungal Start: 04-04-2023 End: 07-25-2023 take 1 tablet by mouth in the morning fluconazole (Diflucan) 200 MG tablet Indications: Candidiasis Take 1 tablet (200 mg) by mouth in the morning. 14 tablet 1 05/02/2023 07/25/2023 Active levothyroxine sodium 0.075 mg oral tablet (20 sources) l-Thyroxine Start: 02-21-2024 End: 05-25-2024 take 1 tablet by mouth before mealtime levothyroxine (Synthroid) 75 MCG tablet Indications: Acquired hypothyroidism (CMS/HCC) Take 1 tablet (75 mcg) by mouth in the morning. Take before meals. 30 tablet 1 03/26/2024 05/25/2024 Active Start: 01-03-2024 End: 02-02-2024 take 1 tablet by mouth before mealtime levothyroxine (Synthroid) 75 MCG tablet Indications: Acquired hypothyroidism (CMS/HCC) Take 1 tablet (75 mcg) by mouth in the morning. Take before meals. 30 tablet 01/03/2024 Active Start: 06-29-2021 Levothyroxine 25 mcg tablet Active 12.5 MCG PO Twice daily June 28, 2021 11:00pm Start: 06-29-2021 take 12.5 ug by mout h twice daily Levothyroxine Active 12.5 MCG PO Twice daily June 29, 2021 12:00am Start: 08-20-2017 End: 06-29-2021 take 1 tablet by mouth once daily Levothyroxine 75 mcg tablet Discontinued 75 MCG PO daily August 19, 2017 11:00pm June 29, 2021 1:40am Losartan (20 sources) Angiotensin 2 Receptor Juan Alberto Start: 11-05-2023 losartan Active .ROU TE November 04, 2023 11:00pm Start: 11-05-2023 losartan Activ e .ROUTE November 05, 2023 12:00am Start: 10-07-2023 take 1 tablet by marlon th once daily losartan (Cozaar) 50 MG tablet Indications: Primary hypertension (CMS/HCC) Take 1 tablet (50 mg) by mouth Daily for 14 days Please see notes from provider encounter. 14 tablet 10/07/2023 Active Magnesium (1 source) take 1 tablet by mouth once daily magnesium 200 MG tablet Take 200 mg by mouth 1 (one) time each day at the same time. 0 Active thiamine 100 mg oral tablet (20 sources) Start: 10-18-2023 End: 10-17-2024 take 1 tablet by mouth once daily thiamine (Vitamin B-1) 100 MG tablet Indications: Nerve pain , Numbness and tingling in both hands Take 1 tablet (100 mg) by mouth Daily 90 tablet 3 10/18/2023 10/17/2024 Active thyroid (longterm) 15 mg oral tablet (4 sources) Start: 10-28-2022 End: 06-01-2023 take 3 tablets by mouth in the morning thyroid ([place] Thyroid) 15 MG tablet Indications: Acquired hypothyroidism (CMS/HCC) , ESS (euthyroid sick syndrome) Take 3 tablets (45 mg) by mouth in the morning and 3 tablets (45 mg) in the evening. Take before meals. 180 tablet 0 05/02/2023 06/01/2023 Active Start: 06-29-2021 take 1 tablet by marlon th twice daily Thyroid (Pork) (Reimbursement Rep Thyroid) 90 mg tablet Active 90 MG PO Twice daily June 29, 2021 12:00am ubidecarenone 100 mg / vitamin e 5 unt oral capsule (20 sources) Start: 08-02-2023 coenzyme Q-10 100 MG capsule 08/02/2023 Active Zinc (20 sources) take 1 tablet by mouth once daily zinc 25 MG tablet Take 25 mg by mouth 1 (one) time each day at the same time. Active take 1 tablet by mouth once edith y zinc 25 MG tablet Take 25 mg by mouth 1 (one) time each day at the same time. 0 Active Completed/Discontinued Medications Medication Drug Class(es) Dates Sig (Normalized) Sig (Original) dexamethasone 2 mg oral tablet (14 sources) Corticosteroid Start: 11-03-2023 End: 03-05-2024 dexAMETHasone (Decadron) 2 MG tablet Indications: Lumbar radiculopathy 2mg 3 pills po X3 days,2 pills po daily X3 days , then 1 pill po daily X3 days then stop 9 days 18 pills 18 tablet 1 01/26/2024 03/05/2024 Discontinued (Med list cleanup) hydrOXYzine pamoate 50 mg oral capsule (14 sources) Antihistamine End: 03-05-2024 hydrOXYzine pamoate (Vistaril) 50 MG capsule Take 50 mg by mouth if needed for anxiety 03/05/2024 Discontinued (Therapy completed) liothyronine sodium 0.005 mg oral tablet (4 sources) l-Triiodothyronine Start: 08-20-2017 End: 06-29-2021 take 1 tablet by mouth twice daily Liothyronine 5 mcg tablet Discontinued 7.5 MCG PO Twice daily August 19, 2017 11:00pm June 29, 2021 1:40am Start: 08-20-2017 End: 06-29-2021 take 7.5 ug by mouth twice daily Liothyronine Discontinued 7.5 MCG PO Twice daily August 20, 2017 12:00am June 29, 2021 2:40am predniSONE 20 mg oral tablet (2 sources) Start: 05-29-2023 End: 11-05-2023 take 2 tablets by mouth once daily at mealtime Prednisone 20 mg tablet Discontinued 40 MG PO Daily May 29, 2023 12:00am November 05, 2023 6:29pm administer with food or milk Start: 05-29-2023 End: 11-05-2023 take 40 mg by mouth once daily at mealtime Prednisone Discontinued 40 MG PO Daily May 29, 2023 1:00am November 05, 2023 7:29pm administer with food or milk Thyroid (Pork) (Reimbursement Rep Thyroid) 90 mg tablet (2 sources) Start: 06-29-2021 End: 11-05-2023 take 1 tablet by mouth twice daily Thyroid (Pork) (Reimbursement Rep Thyroid) 90 mg tablet Discontinued 90 MG PO Twice daily June 28, 2021 11:00pm November 05, 2023 6:30pm Start: 06-29-2021 End: 11-05-2023 take 1 tablet by mouth twice daily Thyroid (Pork) (Reimbursement Rep Thyroid) 90 mg tablet Discontinued 90 MG PO Twice daily June 29, 2021 12:00am November 05, 2023 7:30pm Problems Active Problems Problem Classification Problem Date Documented Da te Episodic/Chronic Acute cerebrovascular disease (20 sources) Lacunar infarction; Translations: [Other cerebral infarction due to occlusion or stenosis of small artery] Onset: 4 10-18-2023 Chronic Chronic kidney disease (20 sources) Chronic kidney disease stage 2; Translations: [Chronic kidney disease, stage 2 (mild)] Onset: 3 09-15-2022 Chronic Chronic obstructive pulmonary disease and bronchiectasis (2 sources) Bronchitis; Translations: [Bronchitis, not specified as acute or chronic] 06-06-2023 Episodic Complications of surgical procedures or medical care (20 sources) Postsurgical menopause; Translations: [Asymptomatic postprocedural ovarian failure] Onset: 6 09-15-2022 Chronic Diabetes mellitus with complications (20 sources) Diabetic peripheral neuropathy; Translations: [Type 2 diabetes mellitus with diabetic polyneuropathy] Onset: 4 03-07-2024 Chronic Disorders of lipid metabolism (20 sources) Dyslipidemia; Translations: [Mixed hyperlipidemia] Onset: 3 05-01-2023 Chronic Disorders usually diagnosed in infancy, childhood, or adolescence (20 sources) Adult attention deficit hyperactivity disorder ; Translations: [Other specified behavioral and emotional disorders with onset usually occurring in childhood and adolescence] Onset: 4 02-02-2024 Chronic Essential hypertension (20 sources) Essential hypertension; Translations: [Essential (primary) hypertension] Onset: 3 09-15-2022 Chronic Hepatitis (20 sources) Nonalcoholic steatohepatitis; Translations: [Nonalcoholic steatohepatitis (HADDAD)] Onset: 3 09-15-2022 Chronic Hypertension with complications and secondary hypertension (20 sources) Hypertensive renal disease; Translations: [Hypertensive chronic kidney disease with stage 1 through stage 4 chronic kidney disease, or unspecified chronic kidney disease] Onset: 3 09-15-2022 Chronic Joint disorders and dislocations; trauma-related (20 sources) Disorder of right patellofemoral joint; Translations: [Patellofemoral disorders, right knee] Onset: 7 09-15-2022 Chronic Joint disorders and dislocations; trauma-related (20 sources) Disorder of left patellofemoral joint; Translations: [Patellofemoral disorders, left knee] Onset: 7 09-15-2022 Chronic Malaise and fatigue (20 sources) Fatigue; Translations: [Chronic fatigue, unspecified] Onset: 6 09-15-2022 Chronic Mood disorders (20 sources) Recurrent major depressive episodes, mild ; Translations: [Major depressive disorder, recurrent, mild] Onset: 4 02-02-2024 Chronic Nonspecific chest pain (4 sources) Chest pain; Translations: [Chest pain, unspecified] 01-26-2022 Episodic Nutritional deficiencies (20 sources) Vitamin D deficiency; Translations: [Vitamin D deficiency, unspecified] Onset: 5 09-15-2022 Chronic Other congenital anomalies (20 sources) Congenital valgus deformity of foot; Translations: [Other congenital valgus deformities of feet] Onset: 3 09-15-2022 Chronic Other congenital anomalies (20 sources) Talipes planus; Translations: [Other congenital valgus deformities of feet] Onset: 2 09-15-2022 Chronic Other connective tissue disease (15 sources) Other symptoms and signs involving the musculoskeletal system; Translations: [Other musculoskeletal symptoms referable to limbs] 02-14-2024 Episodic Other ear and sense organ disorders (20 sources) Mixed conductive and sensorineural hearing loss, bilateral; Translations: [Mixed conductive and sensorineural hearing loss, bilateral] Onset: 4 02-02-2024 Chronic Other gastrointestinal disorders (2 sources) Diarrhea; Translations: [Diarrhea, unspecified] 11-05-2023 Episodic Other hereditary and degenerative nervous system conditions (2 sources) Mild cognitive impairment, so stated; Translations: [Mild cognitive impairment, so stated] 01-26-2024 Chronic Other hereditary and degenerative nervous system conditions (20 sources) Impaired cognition; Translations: [Mild cognitive impairment, so stated] Onset: 4 03-07-2024 Chronic Other liver diseases (20 sources) Fatty (change of) liver, not elsewhere classified; Translations: [Other chronic nonalcoholic liver disease] Onset: 9 09-15-2022 Chronic Other nervous system disorders (15 sources) Difficulty walking; Translations: [Difficulty in walking, not elsewhere classified] 02-14-2024 Chronic Other nervous system disorders (20 sources) Bilateral disorder of median nerves; Translations: [Other lesions of median nerve, bilateral upper limbs] Onset: 4 03-07-2024 Chronic Other nervous system disorders (1 source) Abnormal gait; Translations: [Unspecified abnormalities of gait and mobility] 09-19-2023 Episodic Other nutritional; endocrine; and metabolic disorders (20 sources) Body mass index 40+ - severely obese; Translations: [Morbid (severe) obesity due to excess calories] Onset: 4 07-28-2023 Chronic Other screening for suspected conditions (not mental disorders or infectious disease) (15 sources) Abnormal electrocardiogram [ECG] [EKG]; Translations: [Cardiovascular stress test abnormal] Onset: 0 03-05-2024 Episodic Pancreatic disorders (not diabetes) (1 source) Acute pancreatitis without necrosis or infection, unspecified; Translations: [ACUTE PANCREATITIS WO NECRS/INF UNS] Onset: 9 Residual codes; unclassified (4 sources) Family history of coronary arteriosclerosis; Translations: [Family history of ischemic heart disease and other diseases of the circulatory system] 03-05-2024 Episodic Residual codes; unclassified (2 sources) Noncompliance with medication regimen; Translations: [Noncompliance with medication regimen] 03-05-2024 Episodic Residual codes; unclassified (2 sources) Patient non-compliant - refused intervention / support ; Translations: [Noncompliance by refusing service] 03-08-2024 Episodic Residual codes; unclassified (2 sources) Other specified personal risk factors, not elsewhere classified; Translations: [Other specified personal history presenting hazards to health] 03-05-2024 Episodic Thyroid disorders (20 sources) Hypothyroidism, unspecified; Translations: [Acquired hypothyroidism] Onset: 5 05-01-2023 Chronic Unclassified (2 sources) At high risk for cardiovascular disease 03-05-2024 Unclassified (1 source) Cough, unspecified; Translations: [Cough, unspecified] Onset: Past or Other Problems Problem Classification Problem Date Documented Date Episodic/Chronic Acquired foot deformities (20 sources) Acquired pes planus of left foot; Translations: [Flat foot [pes planus] (acquired), left foot] Onset: 05-05-19 17 09-15-2022 Episodic Allergic reactions (20 sources) Gastrointestinal disorder due to food allergy; Translations: [Other allergic and dietetic gastroenteritis and colitis] Onset: 01-14-20 16 09-15-2022 Episodic Blindness and vision defects (20 sources) Visual disturbance; Translations: [Unspecified visual disturbance] Onset: 02-02-20 24 02-02-2024 Episodic Cardiac dysrhythmias (20 sources) Palpitations; Translations: [Palpitations] Onset: 02-07-20 15 09-15-2022 Episodic Diabetes mellitus without complication (20 sources) Prediabetes; Translations: [Prediabetes] Onset: 09-16-19 23 09-15-2022 Episodic E Codes: Adverse effects of medical drugs (20 sources) HMG COA reductase inhibitor adverse reaction; Translations: [Adverse effect of antihyperlipidemic and antiarteriosclerotic drugs, initial encounter] Onset: 08-10-19 24 08-10-2023 Episodic Gastritis and duodenitis (1 source) Acute gastritis without bleeding; Translations: [ACUTE GASTRITIS WITHOUT BLEEDING] Onset: 03-05-20 Episodic Genitourinary symptoms and ill-defined conditions (20 sources) Microalbuminuria; Translations: [Proteinuria, unspecified] Onset: 09-16-19 23 09-15-2022 Episodic Inflammation; infection of eye (except that caused by tuberculosis or sexually transmitteddisease) (20 sources) Acute conjunctivitis; Translations: [Unspecified acute conjunctivitis, unspecified eye] Onset: 04-04-19 Resolved : 06-30-19 24 05-01-2023 Episodic Malaise and fatigue (1 source) Other fatigue; Translations: [Other fatigue] Onset: 05-29-19 Episodic Other acquired deformities (20 sources) Leg length inequality; Translations: [Unequal limb length (acquired), unspecified site] Onset: 05-06-19 17 09-15-2022 Episodic Other connective tissue disease (20 sources) Neuralgia; Translations: [Neuralgia and neuritis, unspecified] Onset: 10-18-19 24 10-18-2023 Episodic Other diseases of veins and lymphatics (20 sources) Peripheral venous insufficiency; Translations: [Venous insufficiency (chronic) (peripheral)] Onset: 09-21-19 22 09-15-2022 Episodic Other female genital disorders (20 sources) Leukoplakia of vulva; Translations: [Circumscribed scleroderma] Onset: 09-16-19 23 05-01-2023 Episodic Other female genital disorders (20 sources) Leukoplakia of vulva; Translations: [Leukoplakia of vulva] Onset: 01-23-20 15 09-15-2022 Episodic Other gastrointestinal disorders (5 sources) Diarrhea, unspecified; Translations: [DIARRHEA UNSPECIFIED] Onset: 03-02-20 Episodic Other nervous system disorders (20 sources) Paresthesia of hand ; Translations: [Anesthesia of skin] Onset: 10-18-19 24 10-18-2023 Episodic Other nutritional; endocrine; and metabolic disorders (20 sources) Severe obesity; Translations: [Morbid (severe) obesity due to excess calories] Onset: 12-25-19 Resolved : 06-24-19 24 09-15-2022 Chronic Other nutritional; endocrine; and metabolic disorders (20 sources) Obese class II; Translations: [Obesity, unspecified] Onset: 04-15-19 Resolved : 06-24-1909-15-2022 Chronic Residual codes; unclassified (1 source) Family history of ischemic heart disease and other diseases of the circulatory system; Translations: [FAM HX ISCHEMIC HRT DZ OTH DZ CIRC] Onset: 06-21-19 Episodic Residual codes; unclassified (1 source) Acquired absence of both cervix and uterus; Translations: [ACQUIRED ABSENCE BOTH CERVIX AND UTERUS] Onset: 03-05-20 Episodic Residual codes; unclassified (1 source) Acquired absence of ovaries, bilateral; Translations: [ACQUIRED ABSENCE OVARIES BILATERAL] Onset: 03-05-20 Episodic Residual codes; unclassified (20 sources) Acquired absence of cervix and uterus; Translations: [Acquired absence of both cervix and uterus] Onset: 09-16-1909-15-2022 Episodic Residual codes; unclassified (20 sources) Persistent insomnia; Translations: [Insomnia, unspecified] Onset: 09-16-19 23 09-15-2022 Episodic Residual codes; unclassified (20 sources) Sleep disorder; Translations: [Sleep disorder, unspecified] Onset: 02-06-20 15 09-15-2022 Episodic Spondylosis; intervertebral disc disorders; other back problems (20 sources) Cervical radiculopathy; Translations: [Radiculopathy, cervical region] Onset: 11-01-19 24 11-01-2023 Episodic Thyroid disorders (20 sources) Sick-euthyroid syndrome; Translations: [Sick-euthyroid syndrome] Onset: 05-14-19 16 05-01-2023 Episodic Unclassified (2 sources) MCI (mild cognitive impairment) with memory loss 01-27-2024 Results Test Name Value Interpretation Reference Range Facility MM screening mammo BI w/CADo n 04-17-2024 MM screening mammo BI w/CAD [facility] [place] [address] Mammography Report Signed Patient: Deb Garrison MR#: [id number] 2 : 1960 Acct:[id number] Age/Sex: 63 / F ADM Date: 04/17/24 Loc: [place] Room: Type: REG CLI Attending Dr: Tang Swann MD Copies to: Tang Swann MD Ordering Provider: Tang Swann MD Date of Service: 04/17/24 MM/MM screening mammo BI w/CAD: SCREENING BILATERAL Screening Full Field digital mammogram with 3-D imaging. Full field digital CC and MLO imaging performed. CAD utilized. COMPARISON: 11/09/2022 HISTORY: Annual screening BREAST COMPOSITION: The breast is almost entirely fatty. BREAST CALCIFICATIONS: Benign calcifications present. VASCULAR CALCIFICATIONS: None ARCHITECTURAL DISTORTION: None BREAST NODULE: None AXILLARY LYMPH NODES: Normal POSTSURGICAL CHANGES: None MM/MM screening mammo BI w/CAD IMPRESSION: No mammographic evidence of malignancy. Routine follow-up recommended in one year. RESULT CODE: 2 Benign Findings(s) DENSITY CODE: 1 (<25% glandular) FOLLOW UP: 1YR THE FALSE-NEGATIVE RATE OF MAMMOGRAPHY IS APPROXIMATELY 10%. IMAGING OF A PALPABLE ABNORMALITY MUST BE BASED ON CLINICAL GROUNDS. PATIENT WAS ENTERED INTO A REMINDER SYSTEM WITH A TARGET DUE DATE FOR THE NEXT MAMMOGRAM. Impression dictated by: Dong Beltran M.D.04/17/2024 1:51 PM Dictation Location: [facility] Transcribed By: [facility] 04/17/24 1351 Dictated By: Dong Beltran DO 04/17/24 1348 Signed By: 04/17/24 1351 Normal [facility] Mammography reportOrdered By : Dong Beltran on 04-17-2024 Diagnostic imaging study [facility] [place] [address] Mammography Report Signed Patient: Deb Garrison MR#: [id number] : 1960 Acct:[id number] Age/Sex: 63 / F ADM Date: 5 Loc: HI Room: Type: REG CLI Attending Dr: Tang Swann MD Copies to: Tang Swann MD~ Ordering Provider: Tang Swann MD Date of Service: 04/17/24 MM/MM screening mammo BI w/CAD: SCREENING BILATERAL Screening Full Field digital mammogram with 3-D imaging. Full field digital CC and MLO imaging performed. CAD utilized. COMPARISON: 11/09/2022 HISTORY: Annual screening BREAST COMPOSITION: The breast is almost entirely fatty. BREAST CALCIFICATIONS: Benign calcifications present. VASCULAR CALCIFICATIONS: None ARCHITECTURAL DISTORTION: None BREAST NODULE: None AXILLARY LYMPH NODES: Normal POSTSURGICAL CHANGES: None MM/MM screening mammo BI w/CAD IMPRESSION: No mammographic evidence of malignancy. Routine follow-up recommended in one year. RESULT CODE: 2 Benign Findings(s) DENSITY CODE: 1 (<25% glandular) FOLLOW UP: 1YR THE FALSE-NEGATIVE RATE OF MAMMOGRAPHY IS APPROXIMATELY 10%. IMAGING OF A PALPABLE ABNORMALITY MUST BE BASED ON CLINICAL GROUNDS. PATIENT WAS ENTERED INTO A REMINDER SYSTEM WITH A TARGET DUE DATE FOR THE NEXT MAMMOGRAM. Impression dictated by: Dong Beltran M.D.04/17/2024 1:51 PM Dictation Location: [facility] Transcribed By: CHRISSY 04/17/24 1351 Dictated By: Dong Beltran DO 04/17/24 1348 Signed By: 04/17/24 1351 [facility] Alanine aminotransferase [En zymatic activity/volume] in Serum or PlasmaOrdered By: Murray Irwin on 11-05-2023 ALT [Catalytic activity/Vol] 25 U/L Normal 7-52 [facility] Comment on above: Performed By: #### C MG SHIRA, CBC #### [facility] [address] [place] [address] [place] Albumin [Mass/volume] in Ser um or Plasma by Bromocresol green (BCG) dye binding methoOrdered By: Murray Irwin on 11-05-2023 Albumin BCG dye [Mass/Vol] 4.3 g/dL 3.5-5.7 [facility] Alkaline phosphatase [Enzyma tic activity/volume] in Serum or PlasmaOrdered By: Murray Irwin on 11-05-2023 ALP [Catalytic activity/Vol] 95 U/L Normal 34-104 [facility] Comment on above: Performed By: #### C MG SHIRA, CBC #### [facility] [address] [place] [address] [place] Aspartate aminotransferase [ Enzymatic activity/volume] in Serum or PlasmaOrdered By: Murray Irwin on 11-05-2023 AST [Catalytic activity/Vol] 20 U/L Normal 13-39 [facility] Comment on above: Performed By: #### C MP, MG, CBC #### [address] Automated basophil %Ordered By: Murray Irwin on 11-05-2023 Basophils/100 WBC (Bld) 0.6 % Normal . [facility] Comment on above: Performed By: #### C MP, MG, CBC #### [address] Automated basophil countOrde red By: Murray Irwin on 11-05-2023 Basophils (Bld) [#/Vol] 0.1 10*3/uL Normal 0.0-0.2 [facility] Comment on above: Result Comment: PERF ORMED BY: [place] [address] PATHOLOGIST PANTOGRAPH OPERATOR PUJA MOODY M.D. Performed By: #### C MP, MG, CBC #### [address] Automated blood monocyte cou ntOrdered By: Murray Irwin on 11-05-2023 Monocytes (Bld) [#/Vol] 0.5 10*3/uL Normal 0.0-0.8 [facility] Comment on above: Performed By: #### C MP, MG, CBC #### [address] Automated eosinophil %Ordere d By: Murray Irwin on 11-05-2023 Eosinophils/100 WBC (Bld) 1.4 % Normal . [facility] Comment on above: Performed By: #### C MP, MG, CBC #### [address] Automated eosinophil countOr dered By: Murray Irwin on 11-05-2023 Eosinophils (Bld) [#/Vol] 0.1 10*3/uL Normal 0.0-0.45 [facility] Comment on above: Performed By: #### C MP, MG, CBC #### [address] Automated monocyte %Ordered By: Murray Irwin on 11-05-2023 Monocytes/100 WBC (Bld) 5.3 % Normal . [facility] Comment on above: Performed By: #### C SHIRA MG, CBC #### [address] Automated neutrophil %Ordere d By: Murray Irwin on 11-05-2023 Neutrophils/100 WBC (Bld) 50.9 % Normal . [facility] Comment on above: Performed By: #### C SHIRA MG, CBC #### [address] Bacteria [Presence] in Urine by AutomatedOrdered By: PROVIDER TEMP on 11-05-2023 Bacteria Auto Ql (U) Rare [HPF] None Seen [facility] Bilirubin Test strip Ql (U)O rdered By: PROVIDER TEMP on 11-05-2023 Bilirubin Ql (U) Negative Negative [facility] Bilirubin.total [Mass/volume ] in Serum or PlasmaOrdered By: Murray Irwin on 11-05-2023 Bilirubin [Mass/Vol] 0.7 mg/dL Normal 0.3-1.0 [facility] Comment on above: Performed By: #### C SHIRA MG, CBC #### [facility] [address] [place] [address] Calcium [Mass/volume] in Ser um or PlasmaOrdered By: Murray Irwin on 11-05-2023 Calcium [Mass/Vol] 9.2 mg/dL Normal 8.6-10.3 [facility] Comment on above: Performed By: #### C SHIRA MG, CBC #### [facility] [address] [place] [address] Carbon dioxide, total [Moles /volume] in Serum or PlasmaOrdered By: Murray Irwin on 11-05-2023 CO2 [Moles/Vol] 20.0 mmol/L Low 21.0-31.0 [facility] Comment on above: Performed By: #### C MP MG, CBC #### [facility] [address] [place] [address] [place] Chloride [Moles/volume] in S ronan or PlasmaOrdered By: Murray Irwin on 11-05-2023 Chloride [Moles/Vol] 104 mmol/L Normal 98-107 [facility] Comment on above: Performed By: #### C MP, MG, CBC #### [address] Color of Urine by AutoOrdere d By: PROVIDER TEMP on 11-05-2023 Color (U) Colorless Normal Yellow [facility] Comment on above: Order Comment: Name Collection Type:: Clean-Voided Midstream Performed By: #### A DDONUAPLUS, CUU #### [address] Complete Blood Count Auto Di ffon 11-05-2023 Mean Corpuscular HGB Conc 34.7 g/dL Normal 32.0-35.0 [facility] Comment on above: Performed By: #### C MP, MG, CBC #### [address] Monocytes/100 WBC (Bld) 24.98 % High 0.00-20.00 [facility] Comment on above: Result Comment: For adults in ED, MDW > 20.0 may be associated with a higher risk of sepsis during the first 12 hrs of hospital admission Performed By: #### C MP, MG, CBC #### [address] NRBC% 0.1 /100{WBC} Normal 0-0.5 [facility] Comment on above: Performed By: #### C MP, MG, CBC #### [address] Comprehensive Metabolic Pane sherley 11-05-2023 Albumin [Mass/Vol] 4.3 g/dL Normal 3.5-5.7 [facility] Comment on above: Performed By: #### C MP, MG, CBC #### [address] Creatinine Clr Calc Pharmacy 70.69 Normal [facility] Comment on above: Performed By: #### C MP, MG, CBC #### [address] GFR/1.73 sq M.predicted MDRD (S/P/Bld) [Vol rate/Area] mL/min/{1.73_m2} Normal [facility] Comment on above: Performed By: #### C MP, MG, CBC #### [address] Creatinine [Mass/volume] in Serum or PlasmaOrdered By: Murray Irwin on 11-05-2023 Creatinine [Mass/Vol] 0.94 mg/dL Normal 0.60-1.20 [facility] Comment on above: Performed By: #### C MP, MG, CBC #### [place] [address] [place] Dipstick and Microscopicon 0 11-05-2023 Bacteria,Urine Rare Normal None Seen [facility] Comment on above: Order Comment: Name Collection Type:: Clean-Voided Midstream Performed By: #### A DDONUAPLUS, CUU #### [address] Bilirubin,Urine Negative Normal Negative [facility] Comment on above: Order Comment: Name Collection Type:: Clean-Voided Midstream Performed By: #### A DDONUAPLUS, CUU #### [address] Glucose Ql (U) Normal Normal Normal [facility] Comment on above: Order Comment: Name Collection Type:: Clean-Voided Midstream Performed By: #### A DDONUAPLUS, CUU #### [address] Hyaline Casts,Urine None Normal 0-8 [facility] Comment on above: Order Comment: Name Collection Type:: Clean-Voided Midstream Result Comment: PERF ORMED BY: [place] [address] PATHOLOGIST PANTOGRAPH OPERATOR PUJA MOODY M.D. Performed By: #### A DDONUAPLUS, CUU #### [place] [address] [place] Nitrite,Urine Negative Normal Negative [facility] Comment on above: Order Comment: Name Collection Type:: Clean-Voided Midstream Performed By: #### A DDONUAPLUS, CUU #### [address] Occult Blood,Urine Negative Normal Negative [facility] Comment on above: Order Comment: Name Collection Type:: Clean-Voided Midstream Result Comment: PERF ORMED BY: [place] [address] PATHOLOGIST PANTOGRAPH OPERATOR PUJA MOODY M.D. Performed By: #### A DDONUAPLUS, CUU #### [address] Protein,Urine Negative Normal Negative [facility] Comment on above: Order Comment: Name Collection Type:: Clean-Voided Midstream Performed By: #### A DDONUAPLUS, CUU #### [address] RBC,Urine 1-2 Normal 0-4 [facility] Comment on above: Order Comment: Name Collection Type:: Clean-Voided Midstream Performed By: #### A DDONUAPLUS, CUU #### [address] Specificy Stephan,Urine 1.005 Normal 1.001-1.03 0 [facility] Comment on above: Order Comment: Name Collection Type:: Clean-Voided Midstream Performed By: #### A DDONUAPLUS, CUU #### [address] Squamous Epithelial Cell,Urine 1-2 Normal 0-2 [facility] Comment on above: Order Comment: Name Collection Type:: Clean-Voided Midstream Performed By: #### A DDONUAPLUS, CUU #### [address] Urobilinogen,Urine Normal Normal Normal [facility] Comment on above: Order Comment: Name Collection Type:: Clean-Voided Midstream Performed By: #### A DDONUAPLUS, CUU #### [facility] [address] [place] [address] WBC,Urine 5-9 High 0-4 [facility] Comment on above: Order Comment: Name Collection Type:: Clean-Voided Midstream Performed By: #### A DDONUAPLUS, CUU #### [address] ECG 12 lead ECGon 11-05-2023 ECG 12 lead ECG [facility] [place] [address] Electrocardiograph Report Signed Patient: Deb Garrison MR#: [id number] 2 : 1960 Acct:[id number] Age/Sex: 63 / F ADM Date: 11/05/23 Loc: ER Room: Type: [facility] ER Attending Dr: Ordering Provider: Murray Irwin MD Date of Service: 11/05/2301/19/1928 ECG/ECG 12 lead ECG: Nausea/Vomiting/Diarrhea Copies to: Test Reason : Blood Pressure : */* mmHG Vent. Rate : 59 BPM Atrial Rate : 59 BPM P-R Int : 150 ms QRS Dur : 70 ms QT Int : 456 ms P-R-T Axes : 51 17 31 degrees QTcB Int : 451 ms Sinus bradycardia Otherwise normal ECG When compared with ECG of 29-May-2023 14:36, No significant change was found Confirmed by MURRAY IRWIN MD ([id number]) on 11/06/2023 1:46:35 AM Referred By: Electronically Signed By: MURRAY IRWIN MD Transcribed By: MUS Signed By Murray Irwin MD 10/26 04/20 0146 Normal [facility] Epithelial cells.squamous [# /area] in Urine sediment by Automated countOrdered By: ALEXANDER FERRARO on 11-05-2023 Epithelial cells.squamous Auto (Urine sed) [#/Area] 1-2 [HPF] 0-2 [facility] Erythrocyte distribution wid th [Ratio] by Automated countOrdered By: Murray Irwin on 11-05-2023 Erythrocyte distribution width (RBC) [Ratio] 14.8 % Normal 11.9-15.3 [facility] Comment on above: Performed By: #### C MP, MG, CBC #### [facility] [address] [place] [address] [place] Erythrocytes [#/area] in Uri ne sediment by Automated countOrdered By: PROVIDER TEMP on 11-05-2023 RBC Auto (Urine sed) [#/Area] 1-2 [HPF] 0-4 [facility] Erythrocytes [#/volume] in B lood by Automated countOrdered By: Murray Irwin on 11-05-2023 RBC (Bld) [#/Vol] 4.65 10*6/uL Normal 3.60-5.00 [facility] Comment on above: Performed By: #### C MP, MG, CBC #### [facility] [address] [place] [address] [place] Glucose [Mass/volume] in Ser um or PlasmaOrdered By: Murray Irwin on 11-05-2023 Glucose [Mass/Vol] 109 mg/dL High 70-100 [facility] Comment on above: ADA recommended refe rence rangeRandom Glucose Reference Range is dependent on time and content of last meal. Glucose of more than 200 mg/dL in a nonstressed, ambulatory subject supports the diagnosis of Diabetes Mellitus. Result Comment: [place] Glucose Reference Range is dependent on time and content of last meal. Glucose of more than 200 mg/dL in a nonstressed, ambulatory subject supports the diagnosis of Diabetes Mellitus. ADA recommended reference range Performed By: #### C MP, MG, CBC #### [facility] [address] [place] [address] [place] Glucose [Mass/volume] in Uri ne by Test stripOrdered By: PROVIDER TEMP on 11-05-2023 Glucose Test strip (U) [Mass/Vol] Normal mg/dL Normal [facility] Hematocrit [Volume Fraction] of Blood by Automated countOrdered By: Murray Irwin on 11-05-2023 Hematocrit (Bld) [Volume fraction] 43.5 % Normal 34.0-46.4 [facility] Comment on above: Performed By: #### C MP, MG, CBC #### [facility] [address] [place] [address] [facility] Hemoglobin Test strip Ql (U) Ordered By: PROVIDER TEMP on 11-05-2023 Hemoglobin Ql (U) Negative Negative [facility] Hemoglobin [Mass/volume] in BloodOrdered By: Murray Irwin on 11-05-2023 Hemoglobin (Bld) [Mass/Vol] 15.1 g/dL Normal 11.8-15.4 [facility] Comment on above: Performed By: #### C MP, MG, CBC #### [facility] [address] [place] [address] [place] Hyaline casts [#/area] in Ur ine sediment by Automated countOrdered By: PROVIDER TEMP on 11-05-2023 Hyaline casts Auto (Urine sed) [#/Area] None [LPF] 0-8 [facility] Ketones [Presence] in Urine by Test stripOrdered By: PROVIDER TEMP on 11-05-2023 Ketones Ql (U) Negative Normal Negative [facility] Comment on above: Order Comment: Name Collection Type:: Clean-Voided Midstream Performed By: #### A DDONUAPLUS, CUU #### [facility] [address] [place] [address] [place] Leukocyte esterase [Presence ] in Urine by Test stripOrdered By: PROVIDER TEMP on 11-05-2023 Leukocyte esterase Test strip Ql (U) 3+ High Negative [facility] Comment on above: Order Comment: Name Collection Type:: Clean-Voided Midstream Performed By: #### A DDONUAPLUS, CUU #### [facility] [address] [place] [address] [place] Leukocytes [#/area] in Urine sediment by Automated countOrdered By: PROVIDER TEMP on 11-05-2023 WBC Auto (Urine sed) [#/Area] 5-9 [HPF] High 0-4 [facility] Leukocytes [#/volume] correc tam for nucleated erythrocytes in Blood by Automated counOrdered By: Murray Irwin on 11-05-2023 WBC corrected for nucl RBC Auto (Bld) [#/Vol] 9.9 10*3/uL 3.8-11.6 [facility] Leukocytes [#/volume] in Blo od by Automated countOrdered By: Murray Irwin on 11-05-2023 WBC (Bld) [#/Vol] 9.9 10*3/uL Normal 3.8-11.6 [facility] Comment on above: Performed By: #### C MP, MG, CBC #### [facility] [address] [place] [address] Lymphocytes [#/volume] in Bl ood by Automated countOrdered By: Murray Irwin on 11-05-2023 Lymphocytes (Bld) [#/Vol] 4.1 10*3/uL Normal 1.00-4.8 [facility] Comment on above: Performed By: #### C MP, MG, CBC #### [address] Lymphocytes/100 leukocytes i n Blood by Automated countOrdered By: Murray Irwin on 11-05-2023 Lymphocytes/100 WBC (Bld) 41.8 % Normal . [facility] Comment on above: Performed By: #### C MP, MG, CBC #### [address] MCH [Entitic mass] by Automa tam countOrdered By: Murray Irwin on 11-05-2023 MCH (RBC) [Entitic mass] 32.4 pg Normal 24.7-34.3 [facility] Comment on above: Performed By: #### C MP, MG, CBC #### [address] MCHC Auto (RBC) [Mass/Vol]Or dered By: Murray Irwin on 11-05-2023 MCHC (RBC) [Mass/Vol] 34.7 g/dL 32.0-35.0 [facility] MCV [Entitic volume] by Auto mated countOrdered By: Murray Irwin on 11-05-2023 MCV (RBC) [Entitic vol] 93.6 fL Normal 80-100 [facility] Comment on above: Performed By: #### C MP, MG, CBC #### [address] Magnesium [Mass/volume] in S ronan or PlasmaOrdered By: Murray Irwin on 11-05-2023 Magnesium [Mass/Vol] 2.2 mg/dL Normal 1.9-2.7 [facility] Comment on above: Result Comment: PERF ORMED BY: [place] [address] PATHOLOGIST PANTOGRAPH OPERATOR PUJA MOODY M.D. Performed By: #### C MP, MG, CBC #### [facility] [address] [place] [address] Monocyte distribution width [Entitic volume] in Blood by AutomatedOrdered By: Murray Irwin on 11-05-2023 Monocyte distribution width Auto (Bld) [Entitic vol] 24.98 % High 0.00-20.00 [facility] Comment on above: For adults in ED, MD W > 20.0 may be associated with a higher risk of sepsis during the first 12 hrs of hospital admission Neutrophils [#/volume] in Bl ood by Automated countOrdered By: Murray Irwin on 11-05-2023 Neutrophils (Bld) [#/Vol] 5.0 10*3/uL Normal 1.8-7.7 [facility] Comment on above: Performed By: #### C MP, MG, CBC #### [facility] [address] [place] [address] Nitrite Test strip Ql (U)Ord ered By: ALEXANDER FERRARO on 11-05-2023 Nitrite Ql (U) Negative Negative [facility] No Panel InformationOrdered By: Murray Irwin on 11-05-2023 Estimated GFR (CKD-EPI) > 60.0 mL/Min [facility] Creatinine Clearance (Chem 70.69 [facility] Nucleated erythrocytes [Pres ence] in Blood by Automated countOrdered By: Murray Irwin on 11-05-2023 Nucleated RBC Auto Ql (Bld) 0.1 /100{WBC} 0-0.5 [facility] Platelet mean volume [Entiti c volume] in Blood by Automated countOrdered By: Murray Irwin on 11-05-2023 Platelet mean volume (Bld) [Entitic vol] 6.7 fL Normal 6.3-10.7 [facility] Comment on above: Performed By: #### C MP, MG, CBC #### [facility] [address] [place] [address] [place] Platelets [#/volume] in Bloo d by Automated countOrdered By: Murray Irwin on 11-05-2023 Platelets (Bld) [#/Vol] 319 10*3/uL Normal 150-450 [facility] Comment on above: Performed By: #### C MG SHIRA, CBC #### [address] Potassium [Moles/volume] in Serum or PlasmaOrdered By: Murray Irwin on 11-05-2023 Potassium [Moles/Vol] 4.0 mmol/L Normal 3.5-5.1 [facility] Comment on above: Hemolysis is present at a level that could interfere with the result.Contact lab if redraw is required Result Comment: Hemo lysis is present at a level that could interfere with the result. Contact lab if redraw is required Performed By: #### C SHIRA MG, CBC #### [address] Protein Test strip (U) [Mass /Vol]Ordered By: ALEXANDER FERRARO on 11-05-2023 Protein (U) [Mass/Vol] Negative Negative [facility] Protein [Mass/volume] in Ser um or PlasmaOrdered By: Murray Irwin on 11-05-2023 Protein [Mass/Vol] 7.4 g/dL Normal 6.4-8.9 [facility] Comment on above: Performed By: #### C SHIRA MG, CBC #### [address] Serum globulin measurement b y calculation (mass/volume)Ordered By: Murray Irwin on 11-05-2023 Globulin (S) [Mass/Vol] 3.1 g/dL Normal [facility] Comment on above: Performed By: #### C SHIRA MG, CBC #### [address] Serum or plasma albumin/glob ulin mass ratioOrdered By: Murray Irwin on 11-05-2023 Albumin/Globulin [Mass ratio] 1.4 {ratio} [facility] Comment on above: Performed By: #### C SHIRA MG, CBC #### [facility] [address] Serum or plasma anion gap de terminationOrdered By: Murray Irwin on 11-05-2023 Anion gap [Moles/Vol] 16.0 mmol/L High 6.0-15.0 [facility] Comment on above: Performed By: #### C MP, MG, CBC #### [address] Sodium [Moles/volume] in Ser um or PlasmaOrdered By: Murray Irwin on 11-05-2023 Sodium [Moles/Vol] 136 mmol/L Normal 136-145 [facility] Comment on above: Performed By: #### C MP, MG, CBC #### [address] Specific gravity Test strip (U) [Rel density]Ordered By: PROVIDER TEMP on 11-05-2023 Specific gravity (U) [Rel density] 1.005 1.001-1.03 0 [facility] Urea nitrogen [Mass/volume] in Serum or PlasmaOrdered By: Murray Irwin on 11-05-2023 Urea nitrogen [Mass/Vol] 10 mg/dL Normal 7-25 [facility] Comment on above: Performed By: #### C MP, MG, CBC #### [address] Urine Cultureon 11-05-2023 Bacteria identified Cx Nom (U) <9,000 colonies/ml mixed bacterial skin contaminants 2 Days PERFORMED BY: [place] [address] PATHOLOGIST PANTOGRAPH OPERATOR PUJA MOODY M.D. Normal [facility] Comment on above: Performed By: #### C MP, MG, CBC #### [address] Urine appearanceOrdered By: PROVIDER TEMP on 11-05-2023 Appearance (U) Clear Normal Clear [facility] Comment on above: Order Comment: Name Collection Type:: Clean-Voided Midstream Performed By: #### A WARD HAMILTONU #### [place] [id number] [facility] Urobilinogen Test strip (U) [Mass/Vol]Ordered By: PROVIDER TEMP on 11-05-2023 Urobilinogen (U) [Mass/Vol] Normal mg/dL Normal [facility] pH of Urine by Test stripOrd ered By: PROVIDER TEMP on 11-05-2023 pH (U) 6.0 [pH] Normal 5.0-9.0 [facility] Comment on above: Order Comment: Name Collection Type:: Clean-Voided Midstream Performed By: #### A DDONUAPLUS, CUU #### [facility] [address] MR BRAIN WO CONTRASTon 10-27 MR BRAIN WO CONTRAST TITLE OF EXAM: MR - MRI BRAIN WO REASON FOR EXAM: Numbness in fingers and feet, balance issues TECHNIQUE: Multisequence, multiplanar MRI of the brain. COMPARISON: CT head 09/09/2023 FINDINGS: Brain and intracranial structures: The ventricles, cisterns, and sulci are symmetric and normal in volume/caliber for age. No significant parenchymal signal abnormality. No mass lesion, hemorrhage, or acute infarct. Skull/scalp: Normal. Orbits and face (included portions): Normal. Paranasal sinuses and mastoid air cells (included portions): Clear. IMPRESSION: No infarct or other acute intracranial abnormality. DICTATED ON: 10/28/2023 10:28 AM This report has been electronically signed in approved by the interpreting radiologist. Electronically Signed Mello Alas M.D. 2023-10-28 10:53:55 Normal Not Available COVID-19 / Flu A/B / RSV PCR [...] or Cepheid Disclaimer revoked sooner. PERFORMED BY: [facility] [address] [place] [place] [address] PATHOLOGIST PANTOGRAPH OPERATOR PUJA MOODY M.D. Normal [facility] Comment on above: Performed By: #### C EPHEID NEG, COVID19 FLU RSV #### [facility] [address] Cepheid COVID PCR Negativeon 05-29-2023 SARS-CoV-2 (COVID-19) RNA CARLOS+probe Ql (Unsp spec) Negative Normal Negative [facility] Comment on above: Result Comment: This is a duplicate Cepheid Xpert Xpress CoV-2/Flu/RSV Plus RNA by RT-PCR result to be used for statistical tracking purpose only. PERFORMED BY: [place] [address] PATHOLOGIST PANTOGRAPH OPERATOR PUJA MOODY M.D. Performed By: #### C EPHEID NEG, COVID19 FLU RSV #### [address] ECG 12 lead ECGon 05-29-2023 ECG 12 lead ECG [facility] [place] [address] Electrocardiograph Report Signed Patient: Deb Garrison MR#: [id number] 2 : 1960 Acct:[id number] Age/Sex: 63 / F ADM Date: 05/29/23 Loc: ER Room: Type: [facility] ER Attending Dr: Ordering Provider: Yoel Don APRN Date of Service: 05/29/2306/18/1433 ECG/ECG [...] By Ignacio Garcia MD 05/29/23 1528 Normal [facility] XR chest 2V*on 05-29-2023 XR chest 2V* [facility] [place] [address] XRay Report Signed Patient: Deb Garrison MR#: [id number] 2 : 1960 Acct:[id number] Age/Sex: 63 / F ADM Date: 05/29/23 Loc: ER Room: Type: [facility] ER Attending Dr: Copies to: Yoel Don APRN Ordering Provider: Yoel Don APRN Date of Service: 05/29/23 XR/XR chest 2V*: Shortness of Breath/Dyspnea Chest 2 views CLINICAL HISTORY: Chest pressure cough green mucus trouble breathing for 2 weeks COMPARISON: Chest 01/26/2022 FINDINGS: Heart normal in size. Lungs are clear. No free air. XR/XR chest 2V* IMPRESSION: NO ACUTE CARDIOPULMONARY ABNORMALITY. Impression dictated by: Renato Gillis Jr., D.O.05/29/2023 4:18 PM Dictation Location: [facility] Transcribed By: [facility] 05/29/23 1618 Dictated By: Renato Gillis Jr, DO 05/29/23 1617 Signed By: 05/29/23 1618 Normal [facility] Activated partial thrombopla stin time (aPTT) in platelet poor plasma by coagulation aOrdered By: Joss Alatorre on 01-26-2022 aPTT Coag (PPP) [Time] 31.2 s 25.1-36.5 [facility] Automated erythrocytes count in urine sediment (number/area)Ordered By: Joss Alatorre on 01-26-2022 RBC Auto (Urine sed) [#/Area] 0-1 [HPF] 0-4 [facility] Automated leukocytes count i n urine sediment (number/area)Ordered By: Joss Alatorre on 01-26-2022 WBC Auto (Urine sed) [#/Area] 1-2 [HPF] 0-4 [facility] Basophils Auto (Bld) [#/Vol] Ordered By: Joss Alatorre on 01-26-2022 Basophils (Bld) [#/Vol] 0.1 10*3/uL 0.0-0.2 [facility] Basophils/100 WBC Auto (Bld) Ordered By: Joss Alatorre on 01-26-2022 Basophils/100 WBC (Bld) 0.8 % . [facility] Bilirubin Test strip Ql (U)O rdered By: Joss Alatorre on 01-26-2022 Bilirubin Ql (U) Negative Negative [facility] COVID-19 SOFIAOrdered By: Shree Siddiqui on 01-26-2022 SARS-CoV+SARS-CoV-2 (COVID-19) Ag IA.rapid Ql (Resp) Negative Negative [facility] Comment on above: This is a duplicate Ria SARS Antigen (NELLIE) result to be used for statistical tracking purpose only. Color Auto (U)Ordered By: Henry Alatorre on 01-26-2022 Color (U) Yellow Yellow [facility] Creatine kinase [Enzymatic a ctivity/volume] in Serum or PlasmaOrdered By: Joss Alatorre on 01-26-2022 CK [Catalytic activity/Vol] 102 U/L 22-269 [facility] Creatinine and Glomerular fi ltration rate.predicted panel (S/P/Bld)Ordered By: Joss Alatorre on 01-26-2022 Creatinine [Mass/Vol] 0.81 mg/dL 0.44-1.03 [facility] Eosinophils Auto (Bld) [#/Vo l]Ordered By: Joss Alatorre on 01-26-2022 Eosinophils (Bld) [#/Vol] 0.3 10*3/uL 0.0-0.45 [facility] Eosinophils/100 WBC Auto (Bl d)Ordered By: Joss Alatorre on 01-26-2022 Eosinophils/100 WBC (Bld) 3.7 % . [facility] Erythrocyte distribution wid th Auto (RBC) [Ratio]Ordered By: Joss Alatorre on 01-26-2022 Erythrocyte distribution width (RBC) [Ratio] 13.6 % 11.9-15.3 [facility] Estimated glomerular filtrat ion rate (GFR) non- AmericanOrdered By: Joss Alatorre on 01-26-2022 GFR/1.73 sq M.predicted among non-blacks MDRD (S/P/Bld) [Vol rate/Area] > 60 mL/Min [facility] Hematocrit Auto (Bld) [Volum e fraction]Ordered By: Joss Alatorre on 01-26-2022 Hematocrit (Bld) [Volume fraction] 40.5 % 34.0-46.4 [facility] Hemoglobin [Mass/volume] in BloodOrdered By: Joss Alatorre on 01-26-2022 Hemoglobin (Bld) [Mass/Vol] 13.6 g/dL 11.8-15.4 [facility] Ketones Auto test strip (U) [Mass/Vol]Ordered By: Joss Alatorre on 01-26-2022 Ketones (U) [Mass/Vol] Negative Negative [facility] - Chemistry and C hemistry - challengeOrdered By: Joss Alatorre on 01-26-2022 Natriuretic peptide B (Bld) [Mass/Vol] 14.0 pg/mL 5-100 [facility] - CoagulationOrde red By: Joss Alatorre on 01-26-2022 PT Coag (PPP) [Time] 11.8 s 9.0-12.9 [facility] - Hematology and Cell countsOrdered By: Joss Alatorre on 01-26-2022 Nucleated RBC/100 WBC (Bld) [Ratio] 0.1 % 0-0.5 [facility] - UrinalysisOrder ed By: Joss Alatorre on 01-26-2022 Hyaline casts LM Ql (Urine sed) 0-8 [LPF] 0-8 [facility] Leukocytes [#/volume] in Blo od by Automated countOrdered By: Joss Alatorre on 01-26-2022 WBC (Bld) [#/Vol] 7.1 10*3/uL 4.5-11.0 [facility] Lymphocytes Auto (Bld) [#/Vo l]Ordered By: Joss Alatorre on 01-26-2022 Lymphocytes (Bld) [#/Vol] 2.9 10*3/uL 1.00-4.8 [facility] Lymphocytes/100 WBC Auto (Bl d)Ordered By: Joss Alatorre on 01-26-2022 Lymphocytes/100 WBC (Bld) 40.5 % . [facility] MCH Auto (RBC) [Entitic mass ]Ordered By: Joss Alatorre on 01-26-2022 MCH (RBC) [Entitic mass] 29.8 pg 24.7-34.3 [facility] MCHC Auto (RBC) [Mass/Vol]Or dered By: Joss Alatorre on 01-26-2022 MCHC (RBC) [Mass/Vol] 33.5 g/dL 32.0-35.0 [facility] MCV Auto (RBC) [Entitic vol] Ordered By: Joss Alatorre on 01-26-2022 MCV (RBC) [Entitic vol] 88.8 fL 80-100 [facility] Monocytes Auto (Bld) [#/Vol] Ordered By: Joss Alatorre on 01-26-2022 Monocytes (Bld) [#/Vol] 0.5 10*3/uL 0.0-0.8 [facility] Monocytes/100 WBC Auto (Bld) Ordered By: Joss Alatorre on 01-26-2022 Monocytes/100 WBC (Bld) 6.8 % . [facility] Neutrophils Auto (Bld) [#/Vo l]Ordered By: Joss Alatorre on 01-26-2022 Neutrophils (Bld) [#/Vol] 3.4 10*3/uL 1.8-7.7 [facility] Neutrophils/100 WBC Auto (Bl d)Ordered By: Joss Alatorre on 01-26-2022 Neutrophils/100 WBC (Bld) 48.2 % . [facility] Nitrite Test strip Ql (U)Ord ered By: Joss Alatorre on 01-26-2022 Nitrite Ql (U) Negative Negative [facility] No Panel InformationOrdered By: Joss Alatorre on 01-26-2022 Estimated GFR () > 60 mL/Min [facility] Comment on above: GFR estimated refere nce range: According to KDOQI guidelines, <60 ml/min/1.73m2 is sufficient to diagnose a patient with chronic kidney disease. Pharmacy Creatinine Clearance (Chem 85.64 [facility] No Panel InformationOrdered By: Luis Siddiqui on 01-26-2022 SARS Antigen (LFIA) [facility] Platelet mean volume Auto (B ld) [Entitic vol]Ordered By: Joss Alatorre on 01-26-2022 Platelet mean volume (Bld) [Entitic vol] 6.2 fL 6.3-10.7 [facility] Platelet poor plasma interna tional normalized ratio (INR) by coagulation assay (relatOrdered By: Joss Alatorre on 01-26-2022 INR Coag (PPP) [Relative time] 1.0 {INR} [facility] Comment on above: INR Therapeutic Rang [...] 01-26-2022 Platelets (Bld) [#/Vol] 368 10*3/uL 150-450 [facility] Protein Auto test strip (U) [Mass/Vol]Ordered By: Joss Alatorre on 01-26-2022 Protein (U) [Mass/Vol] Negative Negative [facility] RBC Auto (Bld) [#/Vol]Ordere d By: Joss Alatorre on 01-26-2022 RBC (Bld) [#/Vol] 4.57 10*6/uL 3.60-5.00 [facility] Serum or plasma anion gap de terminationOrdered By: Joss Alatorre on 01-26-2022 Anion gap [Moles/Vol] 13.2 mmol/L 6.0-15.0 [facility] Serum or plasma calcium royce urement (mass/volume)Ordered By: Joss Alatorre on 01-26-2022 Calcium [Mass/Vol] 8.9 mg/dL 8.2-10.2 [facility] Serum or plasma chloride odell surement (moles/volume)Ordered By: Joss Alatorre on 01-26-2022 Chloride [Moles/Vol] 101 mmol/L 95-114 [facility] Serum or plasma creatine kin ase MB (CKMB)/total creatine kinase (CK) ratio by calculaOrdered By: Joss Alatorre on 01-26-2022 CK.MB Calc [Catalytic fraction] 3.0 % 0.00-2.50 [facility] Serum or plasma creatine kin ase MB measurement (mass/volume)Ordered By: Joss Alatorre on 01-26-2022 CK.MB [Mass/Vol] 3.1 ng/mL 0.6-6.3 [facility] Serum or plasma glucose royce urement (mass/volume)Ordered By: Joss Alatorre on 01-26-2022 Glucose [Mass/Vol] 143 mg/dL 70-100 [facility] Comment on above: ADA recommended refe rence rangeRandom Glucose Reference Range is dependent on time and content of last meal. Glucose of more than 200 mg/dL in a nonstressed, ambulatory subject supports the diagnosis of Diabetes Mellitus. Serum or plasma potassium me asurement (moles/volume)Ordered By: Joss Alatorre on 01-26-2022 Potassium [Moles/Vol] 3.9 mmol/L 3.5-5.1 [facility] Serum or plasma sodium measu rement (moles/volume)Ordered By: Joss Alatorre on 01-26-2022 Sodium [Moles/Vol] 136 mmol/L 136-146 [facility] Serum or plasma total carbon dioxide measurement (moles/volume)Ordered By: Joss Alatorre on 01-26-2022 CO2 [Moles/Vol] 25.7 mmol/L 22.0-30.0 [facility] Serum or plasma urea nitroge n measurement (mass/volume)Ordered By: Joss Alatorre on 01-26-2022 Urea nitrogen [Mass/Vol] 13 mg/dL 9-23 [facility] Specific gravity Auto test s trip (U) [Rel density]Ordered By: Joss Alatorre on 01-26-2022 Specific gravity (U) [Rel density] 1.020 1.001-1.03 0 [facility] Squamous epithelial cells de tection in urine sediment by light microscopyOrdered By: Joss Alatorre on 01-26-2022 Epithelial cells.squamous LM Ql (Urine sed) 3-4 [HPF] 0-2 [facility] Troponin I.cardiac [Mass/vol ume] in Serum or Plasma by High sensitivity methodOrdered By: Joss Alatorre on 01-26-2022 Troponin I.cardiac High sensitivity method [Mass/Vol] 3 pg/mL 0-15 [facility] Urine bacteria detection by automated methodOrdered By: Joss Alatorre on 01-26-2022 Bacteria Auto Ql (U) None seen None Seen [facility] Urine clarity by refractomet ry automatedOrdered By: Joss Alatorre on 01-26-2022 Clarity Refractometry automated (U) Clear Clear [facility] Urine glucose measurement by automated test strip (mass/volume)Ordered By: Joss Alatorre on 01-26-2022 Glucose Auto test strip (U) [Mass/Vol] Normal mg/dL Normal [facility] Urine hemoglobin detection b y automated test stripOrdered By: Joss Alatorre on 01-26-2022 Hemoglobin Auto test strip Ql (U) Negative Negative [facility] Urine leukocyte esterase det ection by automated test stripOrdered By: Joss Alatorre on 01-26-2022 Leukocyte esterase Auto test strip Ql (U) 2+ Negative [facility] Urobilinogen Auto test strip (U) [Mass/Vol]Ordered By: Joss Alatorre on 01-26-2022 Urobilinogen (U) [Mass/Vol] Normal mg/dL Normal [facility] pH Auto test strip (U)Ordere d By: Joss Alatorre on 01-26-2022 pH (U) 6.0 [pH] 5.0-9.0 [facility] Q - T3 TOTALon 04-10-2021 T3, TOTAL 121 ng/dL Normal 76-181 [facility] Director Of Enterprise Architecture Comment on above: Order Comment: [facility] Testing performed at: [employer] [facility], [address] [place] [address], [address] [place] [address], [phone], Archaeologist: Jensen Patiño MD [facility] Collection Date/Time: [facility] Results Received Date/Time: [facility] Reported Date/Time: FASTING: NO Performed By: #### T SH, 859X, 93425, 78551L, 09324I #### [facility] Default [address] [place] [address] Q - T3,FREEon 04-10-2021 Free T3 [Mass/Vol] 3.2 pg/mL Normal 2.3-4.2 Kandy [facility] Director Of Enterprise Architecture Comment on above: Order Comment: [facility] performed at: [employer], [employer] [facility], [address] [facility], [address] [place] [address], [phone], Archaeologist: Jensen Patiño MD [facility] Date/Time: [facility] Results Received Date/Time: [facility] Reported Date/Time: FASTING: NO Performed By: #### T SH, 859X, 90239, 26853Y, 45134V #### [facility] [address] [place] [address] Q - T3,REVERSE,LC/MS/MSon T3 REVERSE, LC/MS/MS 12 ng/dL Normal 8-25 Trin[place] kate [place] Director Of Enterprise Architecture Comment on above: Order Comment: [facility] performed at: [facility], [employer]/[facility], [address] [address], [place], [place], , Archaeologist: Davie Lee M.D.,PhD [facility] Collection Date/Time: [facility] Results Received Date/Time: [facility] Reported Date/Time: FASTING: NO Result Comment: This test was developed and its analytical performance characteristics have been determined by [employer] [place], [place]. It has not been cleared or approved by the U.S. Food and Drug Administration. This assay has been validated pursuant to the CLIA regulations and is used for clinical purposes. Performed By: #### T BERTO, 859X, 44073, 80806L, 35576Y #### [facility] [address] [place] [address] Q - T4,FREEon 04-10-2021 Free T4 [Mass/Vol] 0.9 ng/dL Normal 0.8-1.8 Kandy montero [place] Director Of Enterprise [employer] Comment on above: Order Comment: [facility] performed at: [facility], [employer] [facility], [address] , [address] [place], [address], Archaeologist: Jensen Patiño MD [facility] Collection Date/Time: [facility] Results Received Date/Time: [facility] Reported Date/Time: FASTING: NO Performed By: #### T SH, 859X, 25328, 16130K, 73851D #### [facility] [address] [place] [address] TSHon 04-10-2021 TSH Qn 0.84 m[IU]/L Normal 0.40-4.50 [facility] Director Of Enterprise Architecture Comment on above: Order Comment: [facility] performed at: [facility], [facility], [address], [address] [facility], [place], [address], Archaeologist: Jensen Patiño MD [facility] Collection Date/Time: [facility] Results Received Date/Time: [facility] Reported Date/Time: FASTING: NO Performed By: #### T SH, 859X, 30707, 55649H, 62218K #### [facility] [address] [place] [address] NM STRESS/REST MULTIon 06-19 NM STRESS/REST MULTI Patient: KEVIN GARRISON. Exam Date: 06/20/2019 : 1960 Gender:F Ordering : DR TANG SWANN . Admission #: [id number] Family : Order #: [id number] CLICK HERE TO VIEW EXAM RADIOLOGY REPORT [...] study due to EKG changes. Dictated by: Viola Thakkar M.D. on 06/20/2019 at 13:01 Approved by: Viola Thakkar M.D. on 06/20/2019 at 13:[address] [facility] CBC AUTO DIFFon 03-02-2019 Basophils (Bld) [#/Vol] 0.0 103/ul Normal 0.0-0.[address] [facility] Comment on above: Performed By: #### C BC #### [facility] [address] [place] [address] Israel Tisha Basophils/100 WBC (Bld) 0.3 % Normal 0.2-2.[address] [facility] Comment on above: Performed By: #### C BC #### [facility] [address] [address] [place] Tisha Eosinophils (Bld) [#/Vol] 0.2 103/ul Normal 0.0-0.[address] [facility] Comment on above: Performed By: #### C BC #### [facility] [address] [place] [address] [place] Tisha Eosinophils/100 WBC (Bld) 1.6 % Normal 0.9-7.[address] [facility] Comment on above: Performed By: #### C BC #### [facility] [address] [place] [address] Israel Tisha Erythrocyte distribution width (RBC) [Ratio] 12.5 % Normal 11.0-15.[address] [facility] Comment on above: Performed By: #### C BC #### [facility] [address] [address] Israel Tisha Hematocrit (Bld) [Volume fraction] 43.2 % Normal 36.0-48.[address] [facility] Comment on above: Performed By: #### C BC #### [facility] [address] [place] [address] [place] Tisha Hemoglobin (Bld) [Mass/Vol] 14.7 g/dL Normal 12.0-16.[address] [facility] Comment on above: Performed By: #### C BC #### [facility] [address] [place], [place] [address] [place] Tisha IG # 0.06 10e3/ul Critically high 0.00-0.[address] [facility] Comment on above: Performed By: #### C BC #### [facility] [address] [place] [address] Israel Tisha IG % 0.5 % Normal 0.0-0.[address] [facility] Comment on above: Performed By: #### C BC #### [facility] [address] [place] [address] Israel Tisha Lymphocytes (Bld) [#/Vol] 1.5 103/ul Normal 1.2-3.[address] [facility] Comment on above: Performed By: #### C BC #### [facility] [address] [place] [address] [place] Tisha Lymphocytes/100 WBC (Bld) 12.1 % Critically low 20.5-60.[address] [facility] Comment on above: Performed By: #### C BC #### [facility] [address] [place], [place] [id number] Israel Giles MANUAL DIFF REQ NO Normal [facility] Comment on above: Performed By: #### C BC #### [facility] [address] [place], [place] [id number] [place] Tisha MCH (RBC) [Entitic mass] 28.7 pg Normal 26.7-34.[address] [facility] Comment on above: Performed By: #### C BC #### [facility] [address] [place], [place] [id number] [place] Tisha MCHC (RBC) [Mass/Vol] 34.0 g/dL Normal 29.9-35.[address] [facility] Comment on above: Performed By: #### C BC #### [facility] [address] [place], [place] [id number] [place] Tisha MCV (RBC) [Entitic vol] 84.4 fL Normal 81.0-99.[address] [facility] Comment on above: Performed By: #### C BC #### [facility] [address] [place], [place] [address] [place] Tisha Monocytes (Bld) [#/Vol] 0.8 103/ul Normal 0.3-0.[address] [facility] Comment on above: Performed By: #### C BC #### [facility] [address] [place], [place] [id number] [place] Tisha Monocytes/100 WBC (Bld) 6.3 % Normal 1.7-12.[address] [facility] Comment on above: Performed By: #### C BC #### [facility] [address] [place] [address] [place] Tisha Neutrophils (Bld) [#/Vol] 9.8 103/ul Critically high 1.4-6.[address] [facility] Comment on above: Performed By: #### C BC #### [facility] [address] [place] [address] [place] Tisha Neutrophils/100 WBC (Bld) 79.2 % Critically high 43.0-75.[address] [facility] Comment on above: Performed By: #### C BC #### [facility] [address] [place], [place] [id number] [place] Tisha Platelet mean volume (Bld) [Entitic vol] 8.0 fL Critically low 9.5-13.[address] [facility] Comment on above: Performed By: #### C BC #### [facility] [address] [place], [place] [address] [place] Tisha Platelets (Bld) [#/Vol] 254 103/ul Normal 150-[address] [facility] Comment on above: Performed By: #### C BC #### [facility] [address] [place], [place] [address] [place] Tisha RBC (Bld) [#/Vol] 5.12 106/ul Normal 4.20-5.[address] [facility] Comment on above: Performed By: #### C BC #### [facility] [address] [place], [place] [address] Israel Giles WBC (Bld) [#/Vol] 12.3 103/ul Critically high 4.0-11.0 T [facility] Comment on above: Performed By: #### C BC #### [facility] [address] [place], [place] [address] ABD/PELVIS W CONon 2018 CT ABD/PELVIS W CON Patient: NANCY GARRISON Exam Date: 03/02/2019 : 1960 Gender:F Ordering : DR. LORETTA TAN D.O. Admission #: [id number] Family : DR TANG SWANN . Order #: [id number] CLICK HERE TO VIEW EXAM RADIOLOGY REPORT [...] M.D. on 03/02/2019 at 07:[address] [facility] LIPASEon 03-02-2019 Lipase [Catalytic activity/Vol] 541.0 U/L Critically high 23.0-300.[address] [facility] Comment on above: Performed By: #### L IPA, TROP, CMP #### [facility] [address] [place], [place] [address] Israelbeatriz Hdzen PROF 14(COMP METB)on 019 Albumin [Mass/Vol] 3.4 g/dL Critically low 3.5-5.0 Th [facility] Comment on above: Performed By: #### L IPA, TROP, CMP #### [facility] [address] [id number] [place] Tisha Albumin/Globulin [Mass ratio] 0.9 {ratio} Normal [facility] Comment on above: Performed By: #### L IPA, TROP, CMP #### [facility] [address] [id number] [place] Tisha ALP [Catalytic activity/Vol] 97 U/L Normal 38-126 [facility] Comment on above: Performed By: #### L IPA, TROP, CMP #### [facility] [address] [id number] [place] Tisha ALT [Catalytic activity/Vol] 50 U/L Normal 9-52 [facility] Comment on above: Performed By: #### L IPA, TROP, CMP #### [facility] [address] [id number] [place] Tisha Anion gap [Moles/Vol] 15.1 mmol/L Normal Th [facility] Comment on above: Performed By: #### L IPA, TROP, CMP #### [facility] [address] [id number] [place] Tisha AST [Catalytic activity/Vol] 32 U/L Normal 14-36 [facility] Comment on above: Performed By: #### L IPA, TROP, CMP #### [facility] [address] [id number] [place] Tisha Bilirubin Ql (U) 0.6 mg/dL Normal 0.2-1.3 [facility] Comment on above: Performed By: #### L IPA, TROP, CMP #### [facility] [address] [id number] [place] Tisha Calcium [Mass/Vol] 8.5 mg/dL Normal 8.4-10.2 [facility] Comment on above: Performed By: #### L IPA, TROP, CMP #### [facility] [address] [place] [address] [place] Tisha Chloride [Moles/Vol] 103 mmol/L Normal 98-107 [facility] Comment on above: Performed By: #### L IPA, TROP, CMP #### [facility] [address] [place] [address] [place] Tisha CO2 [Moles/Vol] 23.8 mmol/L Normal 22.0-30.0 [facility] Comment on above: Performed By: #### L IPA, TROP, CMP #### [facility] [address] [place] [address] [place] Tisha Creatinine [Mass/Vol] 0.86 mg/dL Normal 0.52-1.04 [facility] Comment on above: Performed By: #### L IPA, TROP, CMP #### [facility] [address] [place] [address] [place] Tisha EGFR-AF EGYPTIAN >60 Normal >=60 [facility] Comment on above: Performed By: #### L IPA, TROP, CMP #### [facility] [address] [place] [address] [place] Tisha EGFR-NON AF EGYPTIAN >60 Normal >=[address] [facility] Comment on above: Performed By: #### L IPA, TROP, CMP #### [facility] [address] [place] [address] [place] Tisha Globulin (S) [Mass/Vol] 3.8 g/dL Normal [facility] Comment on above: Performed By: #### L IPA, TROP, CMP #### [facility] [address] [place] [address] [place] Tisha Glucose [Mass/Vol] 143 mg/dL Critically high 74-106 T [facility] Comment on above: Performed By: #### L IPA, TROP, CMP #### [facility] [address] [place] [address] [place] Tisha Potassium [Moles/Vol] 4.9 mmol/L Normal 3.4-5.[address] [facility] Comment on above: Performed By: #### L IPA, TROP, CMP #### [facility] [address] [place] [address] [place] Tisha Protein [Mass/Vol] 7.2 g/dL Normal 6.1-8.2 [facility] Comment on above: Performed By: #### L IPA, TROP, CMP #### [facility] Laboratory [address] [place] [address] Israel Tisha Sodium [Moles/Vol] 137 mmol/L Normal 137-[address] [facility] Comment on above: Performed By: #### L IPA, TROP, CMP #### [facility] [address] [place] [address] Israel Tisha Urea nitrogen [Mass/Vol] 17.0 mg/dL Normal 7.0-17.0 [facility] Comment on above: Performed By: #### L IPA, TROP, CMP #### [facility] [address] [place] [address] Israel Tisha Urea nitrogen/Creatinine [Mass ratio] 19.8 mg/mg Normal [facility] Comment on above: Performed By: #### L IPA, TROP, CMP #### [facility] [address] [place] [address] Israel Tisha TROPONIN - Ion 03-02-2019 Troponin I.cardiac [Mass/Vol] ng/mL Normal <=0.034 [facility] Comment on above: Performed By: #### L IPA, TROP, CMP #### [facility] [address] [place] [address] Israel Tisha Troponin I.cardiac [Mass/Vol] SEE BELOW Normal [facility] Comment on above: Result Comment: <0.0 34 ng/ml NEGATIVE 0.034-0.119 INDETERMINATE 0.120 AMI CUT OFF Performed By: #### L IPA, TROP, CMP #### [facility] [address] [place] [address] Israel Tisha Vital Signs Date Time Vital Sign Value Performing Clinician Facility 03-07-2024 14:14-0500 Body mass index (BMI) [Ratio] 42.01 kg/m2 Mojgan Donald [employer]ED [employer]UC[employer] AIDE Work Phone: [facility] 03-07-2024 14:140500 Body weight 105.87 kg Mojgan Donald INDIVIDUALIZED EDUCATION PLAN AIDE Work Phone: [facility] 03-07-2024 14:14-0500 Diastolic blood pressure 80 mm[Hg] Mojgan Donald INDIVIDUALIZED EDUCATION PLAN AIDE Work Phone: [facility] 03-07-2024 14:14-0500 Systolic blood pressure 132 mm[Hg] Mojgan Donald INDIVIDUALIZED EDUCATION PLAN AIDE Work Phone: [facility] 03-05-2024 14:01-0500 Body height 158.8 cm Tang Swann MD Work Phone: [facility] 03-05-2024 14:01-0500 Body mass index (BMI) [Ratio] 42.3 kg/m2 Tang Swann MD Work Phone: [facility] 03-05-2024 14:01-0500 Body weight 106.59 kg Tang Swann MD Work Phone: [facility] 03-05-2024 14:01-0500 Heart rate 89 /min Tang Swann MD Work Phone: [facility] 03-05-2024 14:01-0500 SaO2% (BldA) [Mass fraction] 98 % Tang Swann MD Work Phone: [facility] 01-26-2024 13:40-0400 Body mass index (BMI) [Ratio] 43.2 kg/m2 Maria Elena Monroy MD Work Phone: [facility] 01-26-2024 13:40-0400 Body weight 108.86 kg Maria Elena Monroy MD Work Phone: [facility] 01-26-2024 13:40-0400 Diastolic blood pressure 70 mm[Hg] Maria Elena Monroy MD Work Phone: [facility] 01-26-2024 13:40-0400 Systolic blood pressure 118 mm[Hg] Maria Elena Monroy MD Work Phone: [facility] 11-05-2023 22:35-0400 Diastolic blood pressure 68 mm[Hg] MD Tang Swann Work Phone: [facility] 11-05-2023 22:35-0400 Heart rate 50 /min MD Tang Swann Work Phone: [facility] 11-05-2023 22:35-0400 Respiratory rate 18 /min MD Tang Swann Work Phone: [facility] 11-05-2023 22:35-0400 SaO2% (BldA) [Mass fraction] 100 % MD Tang Swann Work Phone: [facility] 11-05-2023 22:35-0400 Systolic blood pressure 135 mm[Hg] MD Tang Swann Work Phone: [facility] 11-05-2023 19:22-0400 Body height 157.48 cm MD Tang Swann Work Phone: [facility] 11-05-2023 19:22-0400 Body temperature 98.7 [degF] MD Tang Swann Work Phone: [facility] 11-05-2023 19:22-0400 Body weight 102.96 kg MD Tang Swann Work Phone: [facility] 01-26-2022 20:03-0400 Body temperature 98.5 [degF] MD Tang Swann Work Phone: [facility] 01-26-2022 20:03-0400 Diastolic blood pressure 88 mm[Hg] MD Tang Swann Work Phone: [facility] 01-26-2022 20:03-0400 Heart rate 77 /min MD Tang Swann Work Phone: [facility] 01-26-2022 20:03-0400 Respiratory rate 16 /min MD Tang Swann Work Phone: [facility] 01-26-2022 20:03-0400 SaO2% (BldA) [Mass fraction] 98 % MD Tang Swann Work Phone: [facility] 01-26-2022 20:03-0400 Systolic blood pressure 134 mm[Hg] MD Tang Swann Work Phone: [facility] 01-26-2022 16:18-0400 Body height 157.48 cm MD Tang Swann Work Phone: [facility] 01-26-2022 16:18-0400 Body weight 106.2 kg MD Tang Swann Work Phone: [facility] Encounters Encounter Date Encounter Type Care Provider Facility Start: 05-21-2024 End: 05-21-2024 Bamboo bear Tidwell PT Work Phone: [facility] Start: 05-21-2024 End: 05-21-2024 Bamboo flowscat Tidwell PT Work Phone: [facility] Start: 05-14-2024 End: 05-14-2024 ambulatory DEBBY TIDWELL [facility] Comment on above: Lumbar radiculopathy (Primary Dx); Bilateral leg weakness; Difficulty walking Start: 05-14-2024 End: 05-14-2024 Bamboo bear Tidwell PT Work Phone: [facility] Start: 05-14-2024 End: 05-14-2024 Bamboo flowscat Tidwell PT Work Phone: [facility] Start: 05-07-2024 End: 05-07-2024 Bamboo flowscat Tidwell PT Work Phone: [facility] Start: 05-07-2024 End: 05-07-2024 Bamboo bear Tidwell PT Work Phone: [facility] Start: 05-07-2024 End: 05-07-2024 ambulatory Debby Tidwell PT Work Phone: [facility] Comment on above: Lumbar radiculopathy (Primary Dx); Bilateral leg weakness; Difficulty walking Start: 05-03-2024 ambulatory Tang Swann Facili ty:[facility] Start: 05-02-2024 End: 05-02-2024 ambulatory Debby Tidwell PT Work Phone: [facility] Comment on above: Lumbar radiculopathy (Primary Dx); Bilateral leg weakness; Difficulty walking Start: 05-02-2024 End: 05-02-2024 Bamboo flowsheet Debby Floreston PT Work Phone: [facility] Start: 05-02-2024 End: 05-02-2024 Bamboo flowsheet Debby Tidwell PT Work Phone: [facility] Start: 04-19-2024 End: 04-19-2024 ambulatory Debby Tidwell PT Work Phone: [facility] Comment on above: Lumbar radiculopathy (Primary Dx); Bilateral leg weakness; Difficulty walking Start: 04-19-2024 End: 04-19-2024 Bamboo flowsheet Debby Tidwell PT Work Phone: [facility] Start: 04-19-2024 End: 04-19-2024 Bamboo flowsheet Debby Floreston PT Work Phone: [facility] Start: 04-17-2024 End: 04-17-2024 Patient encounter procedure Tang Swann MD Work Phone: [facility] Work Phone: Start: 04-17-2024 End: 04-17-2024 ambulatory Tang Swann MD Work Phone: [facility] Work Phone: Start: 04-16-2024 End: 04-16-2024 ambulatory Debby Tidwell PT Work Phone: [facility] Comment on above: Lumbar radiculopathy (Primary Dx); Bilateral leg weakness; Difficulty walking Start: 04-16-2024 End: 04-16-2024 Bamboo flowsheet Debby Tidwell PT Work Phone: [facility] Start: 04-16-2024 End: 04-16-2024 Bamboo flowsheet Debby Floreston PT Work Phone: [facility] Start: 04-12-2024 End: 04-12-2024 ambulatory Debby Tidwell PT Work Phone: [facility] Comment on above: Lumbar radiculopathy (Primary Dx); Bilateral leg weakness; Difficulty walking Start: 04-12-2024 End: 04-12-2024 Bamboo flowsheet Debby Tidwell PT Work Phone: [facility] Start: 04-12-2024 End: 04-12-2024 Bamboo flowsheet Debby Tidwell PT Work Phone: [facility] Start: 04-10-2024 End: 04-10-2024 ambulatory Debby Tidwell PT Work Phone: [facility] Comment on above: Lumbar radiculopathy (Primary Dx); Bilateral leg weakness; Difficulty walking Start: 04-10-2024 End: 04-10-2024 Bamboo flowsheet Debby Tidwell PT Work Phone: [facility] Start: 04-10-2024 End: 04-10-2024 Bamboo flowsheet Debby Mike Floreston PT Work Phone: [facility] Start: 04-03-2024 Registered Recurring Tang goldberg MD Work Phone: [facility] Start: 03-26-2024 End: 03-26-2024 Bamboo flowsheet Debby Tidwell PT Work Phone: [facility] Start: 03-26-2024 End: 03-26-2024 Bamboo flowsheet Debby Tidwell PT Work Phone: [facility] Start: 03-26-2024 End: 03-26-2024 ambulatory Debby Tidwell PT Work Phone: [facility] Comment on above: Lumbar radiculopathy (Primary Dx); Bilateral leg weakness; Difficulty walking Start: 03-19-2024 End: 03-19-2024 ambulatory Debby Tidwell PT Work Phone: [facility] Comment on above: Lumbar radiculopathy (Primary Dx); Bilateral leg weakness; Difficulty walking Start: 03-19-2024 End: 03-19-2024 Bamboo flowsheet Debby Tidwell PT Work Phone: [facility] Start: 03-19-2024 End: 03-19-2024 Bamboo flowsheet Debby Tidwell PT Work Phone: [facility] Start: 03-15-2024 End: 03-15-2024 ambulatory Debby Tidwell PT Work Phone: [facility] Comment on above: Lumbar radiculopathy (Primary Dx); Bilateral leg weakness; Difficulty walking Start: 03-15-2024 End: 03-15-2024 Bamboo flowsheet Debby Tidwell PT Work Phone: [facility] Start: 03-15-2024 End: 03-15-2024 Bamboo flowsheet Debby Tidwell PT Work Phone: [facility] Start: 03-08-2024 End: 03-08-2024 ambulatory Debby Tidwell PT Work Phone: [facility] Comment on above: Lumbar radiculopathy (Primary Dx); Bilateral leg weakness; Difficulty walking Start: 03-07-2024 End: 03-07-2024 Bamboo flowsheet Mojgan Donald INDIVIDUALIZED EDUCATION PLAN AIDE Work Phone: [facility] Start: 03-07-2024 End: 03-07-2024 Bamboo flowsheet Mojgan Zaida Manfred INDIVIDUALIZED EDUCATION PLAN AIDE Work Phone: [facility] Start: 03-07-2024 End: 03-07-2024 Office outpatient visit 25 minutes Mojgan Donald INDIVIDUALIZED EDUCATION PLAN AIDE Work Phone: [facility] 210 Comment on above: C6 radiculopathy (Pr imary Dx); Lumbosacral radiculopathy at L5; Diabetic peripheral neuropathy (CMS/HCC); Mild cognitive impairment; Median neuropathy of both upper extremities Start: 03-07-2024 End: 03-07-2024 ambulatory MOJGAN DONALD Not Available Start: 03-05-2024 End: 03-05-2024 Bamboo flowsheet Tang Swann MD Work Phone: [facility] Start: 03-05-2024 End: 03-05-2024 Bamboo flowsheet Tang Swann MD Work Phone: [facility] Start: 03-05-2024 End: 03-05-2024 Office outpatient visit 25 minutes Tang Swann MD Work Phone: [facility] Comment on above: ESS (euthyroid sick syndrome) (Primary Dx); Acquired hypothyroidism (CMS/HCC); Chronic fatigue; Noncompliance with medication regimen; Morbid obesity with BMI of 40.0-44.9, adult (CMS/HCC); BMI 40.0-44.9, adult (CMS/HCC); Noncompliance by refusing service; Abnormal stress test; Palpitations; Primary hypertension (CMS/HCC); Family history of coronary artery disease; EKG, abnormal; At high risk for cardiovascular disease; Screening mammogram, encounter for; Major depressive disorder, recurrent, mild (HCC) (CMS/HCC) Start: 03-05-2024 End: 03-05-2024 ambulatory TANG SWANN Not Available Start: 02-28-2024 End: 02-28-2024 Bamboo flowsheet Debby Tidwell PT Work Phone: [facility] Start: 02-28-2024 End: 02-28-2024 Bamboo flowsheet Debby Tidwell PT Work Phone: [facility] Start: 02-28-2024 End: 02-28-2024 ambulatory Debby Tidwell PT Work Phone: [facility] Comment on above: Lumbar radiculopathy (Primary Dx); Bilateral leg weakness; Difficulty walking Start: 02-21-2024 End: 02-21-2024 Bamboo flowsheet Debby Tidwell PT Work Phone: [facility] Start: 02-21-2024 End: 02-21-2024 Bamboo flowsheet Debby Tidwell PT Work Phone: [facility] Start: 02-21-2024 End: 02-21-2024 ambulatory Debby Tidwell PT Work Phone: [facility] Comment on above: Lumbar radiculopathy (Primary Dx); Bilateral leg weakness; Difficulty walking Start: 02-14-2024 End: 02-14-2024 Bamboo flowsheet Debby Tidwell PT Work Phone: [facility] Start: 02-14-2024 End: 02-14-2024 Bamboo flowsheet Debby Tidwell PT Work Phone: [facility] Start: 02-14-2024 End: 02-14-2024 ambulatory Debby Tidwell PT Work Phone: [facility] Comment on above: Lumbar radiculopathy (Primary Dx); Bilateral leg weakness; Difficulty walking Start: 02-07-2024 End: 02-07-2024 ambulatory Debby Tidwell PT Work Phone: [facility] Comment on above: Lumbar radiculopathy (Primary Dx); Bilateral leg weakness; Difficulty walking Start: 02-02-2024 End: 02-02-2024 Patient encounter procedure [facility] Varnish Thinner [facility] Comment on above: Adult attention defi cit disorder; Palpitations; Major depressive disorder, recurrent, mild (HCC) (CMS/HCC); Mixed conductive and sensorineural hearing loss of both ears; Visual disturbance Start: 02-02-2024 End: 02-02-2024 ambulatory MARIA ELENA MONROY Not Available Start: 01-26-2024 End: 01-26-2024 [employer] flowsheet Maria Elena Monroy MD Work Phone: [facility] Start: 01-26-2024 End: 01-26-2024 Bamboo flowsheet Maria Elena Monroy MD Work Phone: [facility] Start: 01-26-2024 End: 01-26-2024 ambulatory MARIA ELENA MONROY Not Available Start: 01-26-2024 End: 01-26-2024 Office outpatient visit 25 minutes Maria Elena Monroy MD Work Phone: [facility] Comment on above: Lacunar infarction ( CMS/HCC) (Primary Dx); Lumbar radiculopathy; MCI (mild cognitive impairment) with memory loss Start: 11-05-2023 End: 11-05-2023 Emergency department patient visit MD Tang Swann Work Phone: [facility] Work Phone: Start: 11-03-2023 End: 11-03-2023 ambulatory DEBBY TIDWELL Not Available Start: 10-31-2023 End: 10-31-2023 ambulatory DEBBY TIDWELL Not Available Start: 10-28-2023 End: 10-28-2023 ambulatory MOJGAN DONALD Not Available Start: 10-18-2023 End: 10-18-2023 ambulatory MOJGAN DONALD Not Available Start: 09-19-2023 End: 09-19-2023 ambulatory Bruna Finn MD Work Phone: Neurology Comment on above: Gait difficulty [R26 .9] (Primary Dx) Start: 09-19-2023 End: 09-19-2023 Telemedicine consultation with patient Bruna Finn MD Work Phone: Neurology Start: 09-15-2023 [...] 05-29-2023 End: 05-29-2023 Emergency department patient visit Tang Swann Facility:[facility] Start: 05-29-2023 End: 05-29-2023 ambulatory YOEL Wheeler ROMANBECCA Not Available Start: 05-01-2023 Refill Tang brunson MD Work Phone: [facility] Comment on above: Acquired hypothyroid ism (CMS/HCC); ESS (euthyroid sick syndrome); Mixed dyslipidemia (CMS/HCC); Lichen sclerosus et atrophicus of the vulva; Acute conjunctivitis, unspecified acute conjunctivitis type, unspecified laterality Start: 11-09-2022 End: 11-09-2022 ambulatory MD Tang Swann Work Phone: [facility] Work Phone: Start: 11-09-2022 End: 11-09-2022 Patient encounter procedure MD Tang Swann Work Phone: [facility] Work Phone: Start: 01-26-2022 End: 01-26-2022 Emergency department patient visit MD Tang Swann Work Phone: [facility] Start: 06-20-2019 End: 06-21-2019 Patient encounter procedure STARRJIGNESH HUE Facility:[facility] Start: 03-02-2019 End: 03-02-2019 Patient encounter procedure STARRJIGNESH MONACOLINDA Facility:[facility] Procedures Date Procedure Procedure Detail Performing Clinician Start: 04-17-2024 End: 04-17-2024 Screening mammography of bilateral breasts Tang Swann MD Work Phone: Start: 06-21-2023 Lipid 1996 panel - S ronan or Plasma Bruna Finn MD Work Phone: Start: 11-09-2022 Screening mammograph y of bilateral breasts MD Tang Swann Work Phone: Start: 01-26-2022 Plain chest X-ray MD Starr Swann Work Phone: Start: 05-30-2020 Mammography Tang razo MD Work Phone: Start: 02-12-2015 Colonoscopy Tang razo MD Work Phone: SARS Antigen (LFIA) MD José Swann Work Phone: Plan of Treatment Date Care Activity Detail Author Start: 06-20-2028 Lipid panel Lipid Screening [facility] Start: 06-20-2026 Diabetes Screening Diabetes Screenin g [facility] Start: 04-17-2025 Screening for malign ant neoplasm of breast Mammogram [facility] Start: 02-12-2025 Screening for malign ant neoplasm of colon [facility] Start: 09-24-2024 Influenza vaccination Influenza Vacc ine (#1) [facility] Comment on above: Postponed from 11/26 (Patient Refused) Start: 08-23-2024 Hemoglobin A1c measurement Diabetes: Hemoglobin A1C [facility] Start: 06-06-2024 End: 06-06-2024 Patient encounter procedure 06/06/2024 2:00 PM EDT Office Visit [facility] [address] [place] [address] Maria Elena Monroy MD [address] [place] [address] [facility] Start: 05-27-2024 Hemoglobin A1c measurement Diabetes: Hemoglobin A1C [facility] Start: 05-21-2024 End: 05-21-2024 ambulatory [facility] Comment on above: Arrived Start: 05-14-2024 End: 05-14-2024 ambulatory 05/14/2024 2:00 PM EST Treatment [facility] [address] [place] [address] Debby Tidwell, PT [address] [place] [address] [facility] Start: 05-07-2024 End: 05-07-2024 ambulatory [facility] Comment on above: Arrived Start: 05-02-2024 End: 05-02-2024 ambulatory 05/02/2024 3:00 PM EST Treatment [facility] [address] [place] [address] Debby Tidwell, PT [address] [place] [address] [facility] Start: 04-26-2024 End: 04-26-2024 ambulatory 04/26/2024 1:00 PM EST Treatment [facility] [address] [place] [address] Debby Tidwell, PT [address] [place] [address] [facility] Start: 04-19-2024 End: 04-19-2024 ambulatory [facility] Comment on above: Arrived Start: 04-16-2024 End: 04-16-2024 ambulatory [facility] Comment on above: Arrived Start: 04-12-2024 End: 04-12-2024 ambulatory [facility] Comment on above: Arrived Start: 04-10-2024 End: 04-10-2024 ambulatory [facility] Comment on above: Arrived Start: 03-26-2024 End: 03-26-2024 ambulatory [facility] Comment on above: Arrived Start: 03-26-2024 End: 03-05-2025 Thyrotropin [Units/volume] in Serum or Plasma TSH Lab Routine ESS (euthyroid sick syndrome) Acquired hypothyroidism (CMS/HCC) Chronic fatigue Expected: 03/26/2024 (Approximate), Expires: 03/05/2025 [facility] Comment on above: Expected: 03/26/2024 (Approximate), Expires: 03/05/2025 Start: 03-26-2024 End: 03-05-2025 Thyroxine (T4) free [Mass/volume] in Serum or Plasma T4, free Lab Routine ESS (euthyroid sick syndrome) Acquired hypothyroidism (CMS/HCC) Chronic fatigue Expected: 03/26/2024 (Approximate), Expires: 03/05/2025 [facility] Comment on above: Expected: 03/26/2024 (Approximate), Expires: 03/05/2025 Start: 03-19-2024 End: 03-19-2024 ambulatory [facility] Comment on above: Arrived Start: 03-15-2024 End: 03-15-2024 ambulatory [facility] Comment on above: Arrived Start: 03-08-2024 End: 03-08-2024 ambulatory 03/08/2024 1:00 PM EST Treatment [facility] [address] [facility] [address] [place] [address] Debby Tidwell, PT [address] [facility] [address] [place] [address] [facility] Start: 03-07-2024 End: 03-07-2024 Patient encounter procedure [facility] Comment on above: Arrived Start: 03-05-2024 End: 03-05-2025 Cardiac stress study Procedure STRESS TEST LEXISCAN Imaging Routine Abnormal stress test Palpitations Primary hypertension (CMS/HCC) Family history of coronary artery disease EKG, abnormal At high risk for cardiovascular disease Expected: 03/05/2024 (Approximate), Expires: 03/05/2025 [facility] Comment on above: Expected: 03/05/2024 (Approximate), Expires: 03/05/2025 Start: 03-05-2024 End: 05-06-2025 MG Breast - bilateral Screening Bilateral screening mammogram Imaging Routine Screening mammogram, encounter for Expected: 03/05/2024, Expires: 05/06/2025 [facility] Work Phone: Comment on above: Expected: 03/05/2024 , Expires: 05/06/2025 Start: 03-05-2024 End: 03-05-2024 Patient encounter procedure 03/05/2024 2:00 PM EST Office Visit [facility] [address] [place] [address] Tang Swann MD [address] [place] [address] ESS (euthyroid sick syndrome); Acquired hypothyroidism (CMS/HCC); Chronic fatigue; Morbid obesity with BMI of 40.0-44.9, adult (CMS/HCC); BMI 40.0-44.9, adult (CMS/HCC); Noncompliance with medication regimen [facility] Comment on above: ESS (euthyroid sick syndrome); Acquired hypothyroidism (CMS/HCC); Chronic fatigue; Morbid obesity with BMI of 40.0-44.9, adult (CMS/HCC); BMI 40.0-44.9, adult (CMS/HCC); Noncompliance with medication regimen Start: 02-28-2024 End: 02-28-2024 ambulatory 02/28/2024 12:30 PM EST Treatment [facility] [address] [facility] [address] [place] [address] Debby Tidwell, PT [address] [place] [address] [facility] Start: 02-21-2024 End: 02-21-2024 ambulatory 02/21/2024 12:30 PM EST Treatment [facility] [address] [place] [address] Debby Tidwell, PT [address] [facility] [address] [place] [address] [facility] Start: 02-07-2024 End: 02-07-2024 ambulatory 02/07/2024 12:30 PM EST Evaluation [facility] [address] [facility] [address] [place] [address] Debby Tidwell, PT [address] [facility] [address] [place] [address] [facility] Start: 02-02-2024 End: 02-02-2024 Patient encounter procedure 02/02/2024 1:00 PM EST Office Visit [facility] [address] [place] [address] [facility] Start: 01-26-2024 End: 01-25-2025 Brain Mapping [facility]apping Neurology Routine MCI (mild cognitive impairment) with memory loss Expected: 01/26/2024 (Approximate), Expires: 01/25/2025 [facility] Work Phone: Comment on above: Expected: 01/26/2024 (Approximate), Expires: 01/25/2025 Start: 11-27-2023 Influenza vaccination C [facility] Start: 11-05-2023 Bacteria identified in Urine by Culture [facility] Start: 06-30-2023 End: 06-30-2023 Patient encounter procedure 06/30/2023 2:30 PM EDT Office Visit [place] [place] [address] [place] [address] Tang Swann MD [address] [place] [address] (Fax) [facility] Start: 03-28-2023 Behavioral Health Screening Behavioral Health Screening [facility] Start: 02-25-2023 Urine screening for protein Diabetes: Urine Protein Screening [facility] Start: 09-01-2023 Covid-19 Vaccine ( season) Covid-19 Vaccine ( season) [facility] Start: 11-26-2022 Influenza vaccination Influenza Vacc ine (#1) [facility] Start: 2022 RSV Vaccine (1 - 1-d ose 60+ series) RSV Vaccine (1 - 1-dose 60+ series) [facility] Start: 05-30-2021 Screening for malign ant neoplasm of breast [facility] Start: 02-13-2016 Screening for malign ant neoplasm of colon [facility] Start: 2012 Shingrix Vaccine (1 of 2) Shingrix Vaccine (1 of 2) [facility] Start: 2007 Screening for malign ant neoplasm of colon [facility] Start: 1983 Screening for malign ant neoplasm of cervix Cervical Cancer Screening [facility] Start: 1981 Urine microalbumin profile DTaP,Tdap,Td Vaccine (1 - Tdap) [facility] Start: 1980 Hepatitis C screening Hepatitis C Sc reening [facility] Start: 1980 HIV screening HIV Screening [facility] Start: 1972 Glaucoma screening Diabetes: R etinopathy Screening [facility] Start: 1962 Screening for malign ant neoplasm of colon [facility] Brain Mapping Brain Mapping Ne urology Routine Adult attention deficit disorder 02/02/2024 12:58 PM EST [facility] Work Phone: Patient Education [facility] Work Phone: Patient referral [facility] Work Phone: Immunizations Immunization Date Immunization Notes Care Provider Fa [facility] 12-29-2016 influenza, injectabl e, quadrivalent, preservative free Tang Swann MD Work Phone: [facility] 12-29-2016 influenza virus vacc ine, unspecified formulation Tang Swann MD Work Phone: [facility] Payers Date Payer Category Payer Self-pay [id number] 2022 Medicaid [id number] 1962 Unknown [id number] 1962 Unknown [id number] 1962 Unknown [id number] 1962 Unknown [id number] [id number] 0.1.105414.3.579.2.1258 1960 Unknown [id number] 2.16.84 0.1.791842.3.579.2.1258 1960 Unknown [id number] 2.16.84 0.1.495377.3.579.2.1258 1962 Unknown [id number] 2.16.84 0.1.189732.3.579.2.1258 1962 Unknown [id number] 2.16.84 0.1.835035.3.579.2.1258 1962 Unknown [id number] 2.16.84 0.1.609508.3.579.2.1258 1962 Unknown [id number] 2.16.84 0.1.446522.3.579.2.125 1962 Unknown [id number] 2.16.84 0.1.498834.3.579.2.1258 1962 Unknown [id number] 2.16.84 0.1.239427.3.579.2.125 1962 Unknown [id number] 2.16.84 0.1.371150.3.579.2.1258 1962 Unknown [id number] 2.16.84 0.1.591072.3.579.2.1258 1962 Unknown [id number] 2.16.84 0.1.059965.3.579.2.1258 1962 Unknown [id number] 2.16.84 0.1.418136.3.579.2.1258 1962 Unknown [id number] 2.16.84 0.1.975969.3.579.2.1258 1962 Unknown [id number] 2.16.84 0.1.273364.3.579.2.1258 1962 Unknown [id number] 2.16.84 0.1.164088.3.579.2.1258 1962 Unknown [id number] 2.16.84 0.1.582738.3.579.2.1258 1962 Unknown [id number] 2.16.84 0.1.131231.3.579.2.1258 1962 Unknown [id number] 2.16.84 0.1.077604.3.579.2.1258 1962 Unknown [id number] 2.16.84 0.1.215115.3.579.2.1258 1962 Unknown [id number] 2.16.84 0.1.766003.3.579.2.1258 1962 Unknown [id number] 2.16.84 0.1.833015.3.579.2.1258 1962 Unknown [id number] 2.16.84 0.1.811078.3.579.2.1258 1962 Unknown [id number] 2.16.84 0.1.965220.3.579.2.1258 1962 Unknown [id number] 2.16.84 0.1.486143.3.579.2.1258 1962 Unknown [id number] 2.16.84 0.1.716610.3.579.2.1258 1962 Unknown [id number] 2.16.84 0.1.172611.3.579.2.1258 1962 Unknown [id number] 2.16.84 0.1.410741.3.579.2.1258 1962 Unknown [id number] 2.16.84 0.1.068412.3.579.2.1259 1957 Medicaid [id number] 1957 Self-pay [id number] Medicaid [facility] [id number] Unknown [facility] [id number] Unknown [id number] 2.16.8 40.1.875656.3.579.2.531 Unknown [id number] 2.16.8 40.1.962483.3.579.2.531 Unknown [id number] 2.16.8 40.1.310157.3.579.2.531 Unknown [id number] 2.16.8 40.1.358953.3.579.2.531 Social History Date Type Detail Facility Start: 01-26-2022 End: 09-22-2022 Tobacco smoking status TXIS Never smoked tobacco (finding) [facility] Start: 1960 Sex Assigned At Female [facility] Start: 09-22-2022 Tobacco use and exposure Smokeless tobacco non-user [facility] Start: 04-04-2023 Alcohol intake Current drinker of alcohol (finding) [facility] Start: 09-27-2022 End: 04-04-2023 Alcohol intake [facility] Start: 09-27-2022 End: 06-30-2023 Humiliation, Afraid, Rape, and Kick questionnaire [HARK] [facility] Within the last year , have you been afraid of your partner or ex-partner? No [facility] Do you belong to any clubs or organizations such as gnosticism groups, unions, fraternal or athletic groups, or [...] Caffeine Intake : 1-2 cups per day [facility] Start: 1960 Sex Assigned At Not on file [facility] Tobacco smoking stat [facility] Tobacco smoking consumption unknown [facility] Start: 09-16-2023 Gender identity Identifies as female gender (finding) [facility] Start: 09-16-2023 Sexual orientation Heterosexual (finding) [facility] Start: 10-18-2023 End: 03-07-2024 Alcoholic beverage intake Lifetime non-drinker (finding) [facility] Start: 04-18-2024 Sex Female (finding) [facility] Clinical Notes 09-19-2023 to 05-14-2024 Debby Tidwell, PT - 05/14/2024 2:00 PM Julius Tidwell, PT - 05/07/2024 2:00 PM Julius Tidwell, PT - 05/02/2024 3:00 PM Julius Tidwell, PT - 04/19/2024 2:30 PM EST Note Date & Type Note Facility 05-14-2024 History of Present illness Narrative Physical Therapy Treatment Visit Patient Name: Deb Garrison Today's Date: 05/14/24 Encounter Diagnoses Name Primary? Lumbar radiculopathy Yes Bilateral leg weakness Difficulty walking Visit number: 7 (8 visits in 2023) Timed Code Treatment Minutes: 24 minutes Total Treatment Time: 34 minutes Time In: 1400 Time Out: 1434 History: Pt. Presents to PT with c/c of LE radiculopathy and difficulty walking which started over a year ago. Pt. Denies back pain except for when getting out of bed. Due to severe pain, patient has been sleeping in recliner and she sleeps well. Pt. Sleeps with CPAP. Pt. Was diagnosis with neuropathy. Pt. Has been walking with FWW 6 months ago due to unsteady gait. No falls. Pt. Was placed on a lot of medication with messed with her brain leading taking buspar medication which she feels in contributing her decline in function. Pt. Lives a secondary lifestyle and sleeps most of the day. Does not get out chair much throughout the day. Precautions: universal; difficulty time with memory, cognitive and psychological history. Subjective: Pt. Reports she does not feel well today. Pain: 0/10 Objective: PT Evaluation (02/07/24) Lumbar ROM: grossly WFL Functional mobility: moderate use of UE with sit to stand transfers Gait: slow pace ambulation with FWW with poor endurance, able to walk 5 feet without assist device but unsteady/wobbly gait with high risk of falling Balance: poor dynamic standing balance Strength: right LE 3/5, left LE 3/5 Treatment: PT evaluation ( minutes) Education: HEP education with demonstration, Educated on Eval Findings and POC Manual Therapy: Passive ROM, Joint mobilization, Soft Tissue Mobilization, Myofascial Release, Muscle Energy Technique, Neural Mobilization, Myofascial Cupping, Dry Needling, IASTM, and Scar mobilization Therapeutic Exercise: (14 minutes) exercises in grid; Strength, Endurance, Flexibility, ROM, HEP, Neural Mobilization, Power, and Core Stability Therapeutic Activity: ( minutes) Exercises to improve dynamic activities, functional tasks, functional mobility to return to prior activity level Gait Training: (10 minutes) 1x lap around clinic at 2 laps per set. AR. Slow pace, increased time required. Neuromuscular re-education: Balance Training, Muscle Facilitation, Dynamic Stability, Core Stabilization, and Blood Flow Restriction Training (BFRT) Modalities: Heat, Ice, Electrical Stimulation, Ultrasound, Cervical Mechanical Traction, Lumbar Mechanical Traction, Iontophoresis, and Fluidotherapy Assessment: Pt. Has participated in 15 PT session with start of POC on 02/06 for lumbar radiculopathy. Pt. Will benefit from skilled PT services. Pt. Was not feeling well with upset stomach. Only able to do about half exercises. Did 2 laps at very slow pace with increased time required. Outcome Measure: in chart Short Term Goal: To be met in 2 weeks Goal 1: Pt to be instructed in home exercise program. Retirement Goals: To be met in 10 weeks Goal 1: Pt to report independence and compliance with home program. Goal 2: Pt. Will demonstrate 4+/5 or greater right LE strength to help improve her functional mobility. Goal 3: Pt. Will demonstrate 4+/5 or greater left LE strength to help improve her functional mobility. Goal 4: Pt. Will demonstrate fair + dynamic balance to help improve her functional mobility and decrease risk of falls. Goal 5: Pt. Will able to ambulate 300 feet or greater with LRAD to help improve her functional mobility and quality of life. Plan: Recommend discharge next PT session. I hereby deem this POC medically necessary. Please sign below. Date: documented in this encounter [facility] 05-07-2024 History of Present illness Narrative Physical Therapy Treatment Visit Patient Name: Deb Garrison Today's Date: 05/07/24 Encounter Diagnoses Name Primary? Lumbar radiculopathy Yes Bilateral leg weakness Difficulty walking Visit number: 6 (8 visits in 2023) Timed Code Treatment Minutes: 40 minutes Total Treatment Time: 40 minutes Time In: 1400 Time Out: 1440 History: Pt. Presents to PT with c/c of LE radiculopathy and difficulty walking which started over a year ago. Pt. Denies back pain except for when getting out of bed. Due to severe pain, patient has been sleeping in recliner and she sleeps well. Pt. Sleeps with CPAP. Pt. Was diagnosis with neuropathy. Pt. Has been walking with FWW 6 months ago due to unsteady gait. No falls. Pt. Was placed on a lot of medication with messed with her brain leading taking buspar medication which she feels in contributing her decline in function. Pt. Lives a secondary lifestyle and sleeps most of the day. Does not get out chair much throughout the day. Precautions: universal; difficulty time with memory, cognitive and psychological history. Subjective: Pt. Reports feeling better today. Continues to have good and bad days. Pain: 0/10 Objective: PT Evaluation (02/07/24) Lumbar ROM: grossly WFL Functional mobility: moderate use of UE with sit to stand transfers Gait: slow pace ambulation with FWW with poor endurance, able to walk 5 feet without assist device but unsteady/wobbly gait with high risk of falling Balance: poor dynamic standing balance Strength: right LE 3/5, left LE 3/5 Treatment: PT evaluation ( minutes) Education: HEP education with demonstration, Educated on Eval Findings and POC Manual Therapy: Passive ROM, Joint mobilization, Soft Tissue Mobilization, Myofascial Release, Muscle Energy Technique, Neural Mobilization, Myofascial Cupping, Dry Needling, IASTM, and Scar mobilization Therapeutic Exercise: (15 minutes) exercises in grid; Strength, Endurance, Flexibility, ROM, HEP, Neural Mobilization, Power, and Core Stability Therapeutic Activity: (12 minutes) Exercises to improve dynamic activities, functional tasks, functional mobility to return to prior activity level Gait Training: (13 minutes) 3x lap around clinic at 3 laps per set. AR. Neuromuscular re-education: Balance Training, Muscle Facilitation, Dynamic Stability, Core Stabilization, and Blood Flow Restriction Training (BFRT) Modalities: Heat, Ice, Electrical Stimulation, Ultrasound, Cervical Mechanical Traction, Lumbar Mechanical Traction, Iontophoresis, and Fluidotherapy Assessment: Pt. Has participated in 14 PT session with start of POC on 02/06 for lumbar radiculopathy. Pt. Will benefit from skilled PT services. Pt is only able to tolerate 40 minutes of exercises because severe fatigue and had to end PT session. Unable to perform Nustep today due to fatigue. Pt. Demonstrated good effort with ther ex today but fatigue set in. Outcome Measure: in chart Short Term Goal: To be met in 2 weeks Goal 1: Pt to be instructed in home exercise program. 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 Goal 2: Pt. Will demonstrate 4+/5 or greater right LE strength to help improve her functional mobility. Goal 3: Pt. Will demonstrate 4+/5 or greater left LE strength to help improve her functional mobility. Goal 4: Pt. Will demonstrate fair + dynamic balance to help improve her functional mobility and decrease risk of falls. Goal 5: Pt. Will able to ambulate 300 feet or greater with LRAD to help improve her functional mobility and quality of life. Plan: Recommend 1x per week for 2 additional weeks (04/19/24). I hereby deem this POC medically necessary. Please sign below. Date: documented in this encounter [facility] 05-02-2024 History of Present illness Narrative Physical Therapy Treatment Visit Patient Name: Deb Garrison Today's Date: 05/02/24 Encounter Diagnoses Name Primary? Lumbar radiculopathy Yes Bilateral leg weakness Difficulty walking Visit number: 5 (8 visits in 2023) Timed Code Treatment Minutes: 38 minutes Total Treatment Time: 48 minutes Time In: 1500 Time Out: 1548 History: Pt. Presents to PT with c/c of LE radiculopathy and difficulty walking which started over a year ago. Pt. Denies back pain except for when getting out of bed. Due to severe pain, patient has been sleeping in recliner and she sleeps well. Pt. Sleeps with CPAP. Pt. Was diagnosis with neuropathy. Pt. Has been walking with FWW 6 months ago due to unsteady gait. No falls. Pt. Was placed on a lot of medication with messed with her brain leading taking buspar medication which she feels in contributing her decline in function. Pt. Lives a secondary lifestyle and sleeps most of the day. Does not get out chair much throughout the day. Precautions: universal; difficulty time with memory, cognitive and psychological history. Subjective: Pt. Reports feeling better today. Walk little more. Pain: 0/10 Objective: PT Evaluation (02/07/24) Lumbar ROM: grossly WFL Functional mobility: moderate use of UE with sit to stand transfers Gait: slow pace ambulation with FWW with poor endurance, able to walk 5 feet without assist device but unsteady/wobbly gait with high risk of falling Balance: poor dynamic standing balance Strength: right LE 3/5, left LE 3/5 Treatment: PT evaluation ( minutes) Education: HEP education with demonstration, Educated on Eval Findings and POC Manual Therapy: Passive ROM, Joint mobilization, Soft Tissue Mobilization, Myofascial Release, Muscle Energy Technique, Neural Mobilization, Myofascial Cupping, Dry Needling, IASTM, and Scar mobilization Therapeutic Exercise: (15 minutes) exercises in grid; Strength, Endurance, Flexibility, ROM, HEP, Neural Mobilization, Power, and Core Stability Therapeutic Activity: (10 minutes) Exercises to improve dynamic activities, functional tasks, functional mobility to return to prior activity level Gait Training: (13 minutes) 3x lap around clinic at 3 laps per set. AR. Neuromuscular re-education: Balance Training, Muscle Facilitation, Dynamic Stability, Core Stabilization, and Blood Flow Restriction Training (BFRT) Modalities: Heat, Ice, Electrical Stimulation, Ultrasound, Cervical Mechanical Traction, Lumbar Mechanical Traction, Iontophoresis, and Fluidotherapy Assessment: Pt. Has participated in 13 PT session with start of POC on 02/06 for lumbar radiculopathy. Pt. Will benefit from skilled PT services. Pt. Did well in the beginning but after second bout of walking she had increased fatigue. Good tolerance with sitting/supine exercises but standing exercises are more challenging and fatigues quickly. Outcome Measure: in chart Short Term Goal: To be met in 2 weeks Goal 1: Pt to be instructed in home exercise program. 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 Goal 2: Pt. Will demonstrate 4+/5 or greater right LE strength to help improve her functional mobility. Goal 3: Pt. Will demonstrate 4+/5 or greater left LE strength to help improve her functional mobility. Goal 4: Pt. Will demonstrate fair + dynamic balance to help improve her functional mobility and decrease risk of falls. Goal 5: Pt. Will able to ambulate 300 feet or greater with LRAD to help improve her functional mobility and quality of life. Plan: Recommend 1x per week for 2 additional weeks (04/19/24) I hereby deem this POC medically necessary. Please sign below. Date: documented in this encounter [facility] 04-19-2024 History of Present illness Narrative Physical Therapy Treatment Visit Patient Name: Deb Garrison Today's Date: 04/19/24 Encounter Diagnoses Name Primary? Lumbar radiculopathy Yes Bilateral leg weakness Difficulty walking Visit number: 4 (8 visits in 2023) Timed Code Treatment Minutes: 38 minutes Total Treatment Time: 48 minutes Time In: 1420 Time Out: 1510 History: Pt. Presents to PT with c/c of LE radiculopathy and difficulty walking which started over a year ago. Pt. Denies back pain except for when getting out of bed. Due to severe pain, patient has been sleeping in recliner and she sleeps well. Pt. Sleeps with CPAP. Pt. Was diagnosis with neuropathy. Pt. Has been walking with FWW 6 months ago due to unsteady gait. No falls. Pt. Was placed on a lot of medication with messed with her brain leading taking buspar medication which she feels in contributing her decline in function. Pt. Lives a secondary lifestyle and sleeps most of the day. Does not get out chair much throughout the day. Precautions: universal; difficulty time with memory, cognitive and psychological history. Subjective: Pt. Reports feeling better today. Walk little more. Pain: 0/10 Objective: PT Evaluation (02/07/24) Lumbar ROM: grossly WFL Functional mobility: moderate use of UE with sit to stand transfers Gait: slow pace ambulation with FWW with poor endurance, able to walk 5 feet without assist device but unsteady/wobbly gait with high risk of falling Balance: poor dynamic standing balance Strength: right LE 3/5, left LE 3/5 Treatment: PT evaluation ( minutes) Education: HEP education with demonstration, Educated on Eval Findings and POC Manual Therapy: Passive ROM, Joint mobilization, Soft Tissue Mobilization, Myofascial Release, Muscle Energy Technique, Neural Mobilization, Myofascial Cupping, Dry Needling, IASTM, and Scar mobilization Therapeutic Exercise: (15 minutes) exercises in grid; Strength, Endurance, Flexibility, ROM, HEP, Neural Mobilization, Power, and Core Stability Therapeutic Activity: (10 minutes) Exercises to improve dynamic activities, functional tasks, functional mobility to return to prior activity level Gait Training: (13 minutes) 3x lap around clinic at 3 laps per set. AR. Neuromuscular re-education: Balance Training, Muscle Facilitation, Dynamic Stability, Core Stabilization, and Blood Flow Restriction Training (BFRT) Modalities: Heat, Ice, Electrical Stimulation, Ultrasound, Cervical Mechanical Traction, Lumbar Mechanical Traction, Iontophoresis, and Fluidotherapy Assessment: Pt. Has participated in 12 PT session with start of POC on 02/06 for lumbar radiculopathy. Pt. Will benefit from skilled PT services. Pt. Was a better participate in PT session today. Required Multiple rest breaks while performing standing exercises due to right medial knee pain. Unable to perform step ups due to fatigue. Walking with FWW throughout clinic better. Outcome Measure: in chart Short Term Goal: To be met in 2 weeks Goal 1: Pt to be instructed in home exercise program. 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 Goal 2: Pt. Will demonstrate 4+/5 or greater right LE strength to help improve her functional mobility. Goal 3: Pt. Will demonstrate 4+/5 or greater left LE strength to help improve her functional mobility. Goal 4: Pt. Will demonstrate fair + dynamic balance to help improve her functional mobility and decrease risk of falls. Goal 5: Pt. Will able to ambulate 300 feet or greater with LRAD to help improve her functional mobility and quality of life. Plan: Recommend 1x per week for 2 additional weeks (04/19/24) I hereby deem this POC medically necessary. Please sign below. Date: documented in this encounter [facility] 04-16-2024 History of Present illness Narrative Physical Therapy Treatment Visit Patient Name: Deb Garrison Today's Date: 04/16/24 Encounter Diagnoses Name Primary? Lumbar radiculopathy Yes Bilateral leg weakness Difficulty walking Visit number: 3 (8 visits in 2023) Timed Code Treatment Minutes: 53 minutes Total Treatment Time: 63 minutes Time In: 1430 Time Out: 1533 History: Pt. Presents to PT with c/c of LE radiculopathy and difficulty walking which started over a year ago. Pt. Denies back pain except for when getting out of bed. Due to severe pain, patient has been sleeping in recliner and she sleeps well. Pt. Sleeps with CPAP. Pt. Was diagnosis with neuropathy. Pt. Has been walking with FWW 6 months ago due to unsteady gait. No falls. Pt. Was placed on a lot of medication with messed with her brain leading taking buspar medication which she feels in contributing her decline in function. Pt. Lives a secondary lifestyle and sleeps most of the day. Does not get out chair much throughout the day. Precautions: universal; difficulty time with memory, cognitive and psychological history. Subjective: Pt. Reports feeling better today. Pain: 0/10 Objective: PT Evaluation (02/07/24) Lumbar ROM: grossly WFL Functional mobility: moderate use of UE with sit to stand transfers Gait: slow pace ambulation with FWW with poor endurance, able to walk 5 feet without assist device but unsteady/wobbly gait with high risk of falling Balance: poor dynamic standing balance Strength: right LE 3/5, left LE 3/5 Treatment: PT evaluation ( minutes) Education: HEP education with demonstration, Educated on Eval Findings and POC Manual Therapy: Passive ROM, Joint mobilization, Soft Tissue Mobilization, Myofascial Release, Muscle Energy Technique, Neural Mobilization, Myofascial Cupping, Dry Needling, IASTM, and Scar mobilization Therapeutic Exercise: (24 minutes) exercises in grid; Strength, Endurance, Flexibility, ROM, HEP, Neural Mobilization, Power, and Core Stability Therapeutic Activity: (16 minutes) Exercises to improve dynamic activities, functional tasks, functional mobility to return to prior activity level Gait Training: (13 minutes) 3x lap around clinic at 3 laps per set. AR. Neuromuscular re-education: Balance Training, Muscle Facilitation, Dynamic Stability, Core Stabilization, and Blood Flow Restriction Training (BFRT) Modalities: Heat, Ice, Electrical Stimulation, Ultrasound, Cervical Mechanical Traction, Lumbar Mechanical Traction, Iontophoresis, and Fluidotherapy Assessment: Pt. Has participated in 11 PT session with start of POC on 02/06 for lumbar radiculopathy. Pt. Will benefit from skilled PT services. Pt. Was a better participate in PT session today. Required Multiple rest breaks while performing standing exercises due to right medial knee pain. Outcome Measure: in chart Short Term Goal: To be met in 2 weeks Goal 1: Pt to be instructed in home exercise program. Retirement Goals: To be met in 10 weeks Goal 1: Pt to report independence and compliance with home program. Goal 2: Pt. Will demonstrate 4+/5 or greater right LE strength to help improve her functional mobility. Goal 3: Pt. Will demonstrate 4+/5 or greater left LE strength to help improve her functional mobility. Goal 4: Pt. Will demonstrate fair + dynamic balance to help improve her functional mobility and decrease risk of falls. Goal 5: Pt. Will able to ambulate 300 feet or greater with LRAD to help improve her functional mobility and quality of life. Will continues PT for 2 additional weeks then discharge with HEP. I hereby deem this POC medically necessary. Please sign below. Date: documented in this encounter [facility] 04-10-2024 History of Present illness Narrative Physical Therapy Treatment Visit Patient Name: Deb Garrison Today's Date: 04/10/24 Encounter Diagnoses Name Primary? Lumbar radiculopathy Yes Bilateral leg weakness Difficulty walking Visit number: 1 (8 visits in 2023) Timed Code Treatment Minutes: 45 minutes Total Treatment Time: 55 minutes Time In: 1430 Time Out: 1525 History: Pt. Presents to PT with c/c of LE radiculopathy and difficulty walking which started over a year ago. Pt. Denies back pain except for when getting out of bed. Due to severe pain, patient has been sleeping in recliner and she sleeps well. Pt. Sleeps with CPAP. Pt. Was diagnosis with neuropathy. Pt. Has been walking with FWW 6 months ago due to unsteady gait. No falls. Pt. Was placed on a lot of medication with messed with her brain leading taking buspar medication which she feels in contributing her decline in function. Pt. Lives a secondary lifestyle and sleeps most of the day. Does not get out chair much throughout the day. Precautions: universal; difficulty time with memory, cognitive and psychological history. Subjective: Pt. Reports she has not been performing her home exercises due to not wanting to do exercises. Pain: 0/10 Objective: PT Evaluation (02/07/24) Lumbar ROM: grossly WFL Functional mobility: moderate use of UE with sit to stand transfers Gait: slow pace ambulation with FWW with poor endurance, able to walk 5 feet without assist device but unsteady/wobbly gait with high risk of falling Balance: poor dynamic standing balance Strength: right LE 3/5, left LE 3/5 Treatment: PT evaluation ( minutes) Education: HEP education with demonstration, Educated on Eval Findings and POC Manual Therapy: Passive ROM, Joint mobilization, Soft Tissue Mobilization, Myofascial Release, Muscle Energy Technique, Neural Mobilization, Myofascial Cupping, Dry Needling, IASTM, and Scar mobilization Therapeutic Exercise: (20 minutes) exercises in grid; Strength, Endurance, Flexibility, ROM, HEP, Neural Mobilization, Power, and Core Stability Therapeutic Activity: (15 minutes) Exercises to improve dynamic activities, functional tasks, functional mobility to return to prior activity level Gait Training: (10 minutes) 2x lap around clinic at 3 laps per set. AR. Neuromuscular re-education: Balance Training, Muscle Facilitation, Dynamic Stability, Core Stabilization, and Blood Flow Restriction Training (BFRT) Modalities: Heat, Ice, Electrical Stimulation, Ultrasound, Cervical Mechanical Traction, Lumbar Mechanical Traction, Iontophoresis, and Fluidotherapy Assessment: Pt. Has participated in 9 PT session with start of POC on 02/06 for lumbar radiculopathy. Pt. Will benefit from skilled PT services. Pt. Was strongly encourage to perform her HEP to help improve her LE strength and functional mobility. Sit to stand transfers continue to be challenging. Pt. Was able to walk 3x laps around clinic today. Had difficulty with step up exercises. Outcome Measure: in chart Short Term Goal: To be met in 2 weeks Goal 1: Pt to be instructed in home exercise program. 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 Goal 2: Pt. Will demonstrate 4+/5 or greater right LE strength to help improve her functional mobility. Goal 3: Pt. Will demonstrate 4+/5 or greater left LE strength to help improve her functional mobility. Goal 4: Pt. Will demonstrate fair + dynamic balance to help improve her functional mobility and decrease risk of falls. Goal 5: Pt. Will able to ambulate 300 feet or greater with LRAD to help improve her functional mobility and quality of life. Pt will benefit from skilled PT for 1-3x/week from 02/07/24 to 04/17/24 to address the above impairments. I hereby deem this POC medically necessary. Please sign below. Date: documented in this encounter [facility] 03-26-2024 History of Present illness Narrative Physical Therapy Treatment Visit Patient Name: Deb Garrison Today's Date: 03/26/24 Encounter Diagnoses Name Primary? Lumbar radiculopathy Yes Bilateral leg weakness Difficulty walking Visit number: 8 Timed Code Treatment Minutes: 40 minutes Total Treatment Time: 50 minutes Time In: 1400 Time Out: 1450 History: Pt. Presents to PT with c/c of LE radiculopathy and difficulty walking which started over a year ago. Pt. Denies back pain except for when getting out of bed. Due to severe pain, patient has been sleeping in recliner and she sleeps well. Pt. Sleeps with CPAP. Pt. Was diagnosis with neuropathy. Pt. Has been walking with FWW 6 months ago due to unsteady gait. No falls. Pt. Was placed on a lot of medication with messed with her brain leading taking buspar medication which she feels in contributing her decline in function. Pt. Lives a secondary lifestyle and sleeps most of the day. Does not get out chair much throughout the day. Precautions: universal; difficulty time with memory, cognitive and psychological history. Subjective: Pt. Reports of slow progress. Improved endurance. Pain: 0/10 Objective: PT Evaluation (02/07/24) Lumbar ROM: grossly WFL Functional mobility: moderate use of UE with sit to stand transfers Gait: slow pace ambulation with FWW with poor endurance, able to walk 5 feet without assist device but unsteady/wobbly gait with high risk of falling Balance: poor dynamic standing balance Strength: right LE 3/5, left LE 3/5 Treatment: PT evaluation ( minutes) Education: HEP education with demonstration, Educated on Eval Findings and POC Manual Therapy: Passive ROM, Joint mobilization, Soft Tissue Mobilization, Myofascial Release, Muscle Energy Technique, Neural Mobilization, Myofascial Cupping, Dry Needling, IASTM, and Scar mobilization Therapeutic Exercise: (20 minutes) exercises in grid; Strength, Endurance, Flexibility, ROM, HEP, Neural Mobilization, Power, and Core Stability Therapeutic Activity: (10 minutes) Exercises to improve dynamic activities, functional tasks, functional mobility to return to prior activity level Gait Training: (10 minutes) 2x lap around clinic at 2 laps per set. AR. Neuromuscular re-education: Balance Training, Muscle Facilitation, Dynamic Stability, Core Stabilization, and Blood Flow Restriction Training (BFRT) Modalities: Heat, Ice, Electrical Stimulation, Ultrasound, Cervical Mechanical Traction, Lumbar Mechanical Traction, Iontophoresis, and Fluidotherapy Assessment: Pt. Has participated in 8 PT session with start of POC on 02/06 for lumbar radiculopathy. Pt. Will benefit from skilled PT services. Pt. Is able to walk throughout clinic with improved endurance but stairs are continued to be very challenging for her. Pt. Was only at to do 15 reps today. Moderate VC and needed redirection. Outcome Measure: in chart Short Term Goal: To be met in 2 weeks Goal 1: Pt to be instructed in home exercise program. Retirement Goals: To be met in 10 weeks Goal 1: Pt to report independence and compliance with home program. Goal 2: Pt. Will demonstrate 4+/5 or greater right LE strength to help improve her functional mobility. Goal 3: Pt. Will demonstrate 4+/5 or greater left LE strength to help improve her functional mobility. Goal 4: Pt. Will demonstrate fair + dynamic balance to help improve her functional mobility and decrease risk of falls. Goal 5: Pt. Will able to ambulate 300 feet or greater with LRAD to help improve her functional mobility and quality of life. Pt will benefit from skilled PT for 1-3x/week from 02/07/24 to 04/17/24 to address the above impairments. I hereby deem this POC medically necessary. Please sign below. Date: documented in this encounter [facility] 03-19-2024 History of Present illness Narrative Physical Therapy Treatment Visit Patient Name: Deb Garrison Today's Date: 03/19/24 Encounter Diagnoses Name Primary? Lumbar radiculopathy Yes Bilateral leg weakness Difficulty walking Visit number: 7 Timed Code Treatment Minutes: 38 minutes Total Treatment Time: 50 minutes Time In: 1620 Time Out: 1710 History: Pt. Presents to PT with c/c of LE radiculopathy and difficulty walking which started over a year ago. Pt. Denies back pain except for when getting out of bed. Due to severe pain, patient has been sleeping in recliner and she sleeps well. Pt. Sleeps with CPAP. Pt. Was diagnosis with neuropathy. Pt. Has been walking with FWW 6 months ago due to unsteady gait. No falls. Pt. Was placed on a lot of medication with messed with her brain leading taking buspar medication which she feels in contributing her decline in function. Pt. Lives a secondary lifestyle and sleeps most of the day. Does not get out chair much throughout the day. Precautions: universal; difficulty time with memory, cognitive and psychological history. Subjective: Pt. Reports she has been walking a little more at home. Pain: 0/10 Objective: PT Evaluation (02/07/24) Lumbar ROM: grossly WFL Functional mobility: moderate use of UE with sit to stand transfers Gait: slow pace ambulation with FWW with poor endurance, able to walk 5 feet without assist device but unsteady/wobbly gait with high risk of falling Balance: poor dynamic standing balance Strength: right LE 3/5, left LE 3/5 Treatment: PT evaluation ( minutes) Education: HEP education with demonstration, Educated on Eval Findings and POC Manual Therapy: Passive ROM, Joint mobilization, Soft Tissue Mobilization, Myofascial Release, Muscle Energy Technique, Neural Mobilization, Myofascial Cupping, Dry Needling, IASTM, and Scar mobilization Therapeutic Exercise: (20 minutes) exercises in grid; Strength, Endurance, Flexibility, ROM, HEP, Neural Mobilization, Power, and Core Stability Therapeutic Activity: (10 minutes) Exercises to improve dynamic activities, functional tasks, functional mobility to return to prior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
--- NOTE | 2024-05-22 08:30 | NM_ITS ---
Patient Name: KALPESH GARRISON MR#: [id number] : 1960 Exam Date: 05/22/2024 Ordering Doctor: DR MATTY SWANN . RADIOLOGY REPORT PROCEDURE: NM CATRACHO PERF SPECT REST STR COMPARISON: None. INDICATIONS: PALPITATIONS, HYPERTENSION, ABNORMAL EKG TECHNIQUE: Exam Description: Stress/Rest one day protocol gated SPECT Rest Imagin.8 mCi Tc-99m Cardiolite IV on 05/22/2024 Stress Imaging 29.9 mCi Tc-99m Cardiolite IV on 05/22/2024 Exercise Protocol: 0.4 mg Lexiscan given IV Heart Rate (bpm): Rest: 77 Max: 122 PMHR: 77 Blood Pressure: Rest: 145/103 Max: 145/103 Symptoms: Rest and peak stress ECG findings were normal and the exercise portion of the study was normal per attending physician Dr. Ward . For more details please see separate cardiac stress test report. FINDINGS: QUALITY OF STUDY: Good PERFUSION DEFECT: None WALL MOTION: Normal wall motion LV SIZE: 35 mL. TID / TCD: 0.9 LVEF: Calculated EF 87%. SUMMARY: Myocardial perfusion imaging study CONCLUSION: 1. Myocardial perfusion is normal with diaphragmatic attenuation 2. Global left ventricular systolic function is hyperdynamic; likely an overestimate due to small heart size 3. No evidence of transient ischemic dilatation Dictated by: Jeronimo Gonzales M.D. on 05/23/2024 at 14:48 Approved by: Jeronimo Gonzales M.D. on 05/23/2024 at 14:51
[2024-05-22] MEDS: REGADENOSON 0.4 MG/5 ML SYRINGE IV (10:47)
--- NOTE | 2024-05-22 10:47 | PC.NURSE ---
Nursing Note Cardiac Stress Test Reviewed: Medication, allergies and patient history reviewed. Stress Test: [ x] Patient tolerated stress test well. [ ] Patient unable to tolerate walking on treadmill. Switched to Lexiscan stress test. [x ] No chest pain noted per patient [ ] Chest pain that resolved prior to leaving stress lab. [ x] No dyspnea noted. [ ] Dyspnea that resolved prior to leaving stress lab. [ x] Patient left stress lab asymptomatic and hemodynamically stable. [ ] Patient taken to the Emergency Room due to non-resolving symptoms following stress test. [ ] Patient achieved target heart rate. [ ] Patient unable to achieve target heart rate. [ ] Aminophylline administered as reversal agent to Lexiscan (Regadenoson). [ ] Nitro administered. Nursing Comments:Pt had Lexiscan test done. Tolerated well. No issues noted. Pt had no CP or SOB other then her abnormal breathing which she states she has had for a while now. Pt left stress lab with no issues and walked to cafeteria for breakfast prior to second set of images.
--- NOTE | 2024-05-22 11:49 | P.STRESS_ITS ---
Stress Test Stress Test Allergies Allergy/AdvReac Type Severity Reaction Status Date / Time Sulfa (Sulfonamide Allergy Severe Hives Verified 10/10/23 21:38 Antibiotics) Requesting physician: MATTY SWANN General Information: Reason for Stress Test: Palpitations, abnormal EKG Cardiac History and Risk Factors: HTN, pre-diabetic Resting 12 - Lead Electrocardiogram: Normal sinus rhythm at HR 78 Flattened T-waves in III Stress Test: Protocol: Lexiscan protocol was initiated with injection of 0.4mg Lexiscan IV push followed by Cardiolite. Blood pressure: Initial & maximum 145/103 Rate & rhythm: Patient remained in sinus rhythm during the exercise and recovery portions of the study.? The maximum heart rate was 122, which was 77% of the maximum predicted heart rate. ST-segments & T-waves: There were no T-wave changes and no ST-segment changes when compared to the baseline EKG. Patient response/symptoms: There were no symptoms similar to the chief complain t. Interpretation: Normal Lexiscan stress test without electrocardiographical evidence of ischemia. Patient was asymptomatic regarding chief complaint. Cardiolite imaging interpretation will be reported separately. Clinical correlation required.
== END 2024-05-22 07:56 | disposition home or self-care (01) ==
LOC: NM 07:55
PROVIDERS: PCP Family Medicine; Visit Provider Family Medicine
DX: R94.39 Abnormal result of other cardiovascular function study (principal); R11.2 Nausea with vomiting, unspecified; I10 Essential (primary) hypertension; Z82.49 Family history of ischemic heart disease and other diseases of the circulatory system; R94.31 Abnormal electrocardiogram [ECG] [EKG]; Z91.89 Other specified personal risk factors, not elsewhere classified
CPT/HCPCS: 78452; 93017; A9500; J2785